=== PATIENT | male | born 1935 | race Caucasian/White ===

== ENCOUNTER 2019-09-27 13:51 | Inpatient (IN) | payer OTHER ==
--- NOTE | 2019-09-27 14:05 | PDOC ---
History of Present Illness - General Chief Complaint: Pain, Acute Stated Complaint: SOB,CHEST PAIN Time Seen by Provider: 09/27/19 14:05 History Source: Patient, Care Provider - History of Present Illness Initial Comments: 09/27/19 14:41 HPI: This is an 84 y/o male with a PMH of HTN, NIDDM, and Parkinsons BIBA to the ED because of 5 days of a non-productive cough, and 2 days of worsening SOB with body aches. The patient lives at home with his , and is not on home oxygen. Denies abdominal pain, diarrhea, nausea/vomiting, chest pain. Patient also admits to decreased appetite, and increasing urinary frequency but denies dysuria or hematuria. Patient reports no sick contacts, but has been visiting his daughters house for the past two weeks. Tested negative for COVID on September 06. BIBA saturating at 89% on 4L of nasal cannula. ROS: GENERAL/CONSTITUTIONAL: Yes chills. No weakness. Yes decreased appetite. HEAD, EYES, EARS, NOSE AND THROAT: No sore throat. CARDIOVASCULAR: No chest pain or shortness of breath. RESPIRATORY: Yes cough, no wheezing, or hemoptysis. GASTROINTESTINAL: No nausea, diarrhea GENITOURINARY: No dysuria, Yes increased frequency, or change in urination. MUSCULOSKELETAL: Yes myalgias SKIN: No rash NEUROLOGIC: No headache, loss of consciousness, or change in strength/sensation. HEMATOLOGIC/LYMPHATIC: No anemia, easy bleeding, or history of blood clots. ALLERGIC/IMMUNOLOGIC: No hives or skin allergy. PMH: NIDDM, Parkinsons, HTN PSx: Knee sx Social Hx: Denied etoh and tobacco Meds: See nurse note Allergies: KNDA PE: GENERAL: Awake, alert, and fully oriented. Patient is non-toxic appearing but is tachypneic on non-rebreather. HEAD: No signs of trauma EYES: PERRLA, EOMI ENT: Moist mucosa NECK: Normal ROM, supple, no lymphadenopathy, JVD, or masses LUNGS: Tachypneic. Right sided crackles throughout, left sided crackles at base. HEART: Regular rate and rhythm, normal S1 and S2, no murmurs, rubs or gallops ABDOMEN: Soft, nontender, normoactive bowel sounds. No guarding, no rebound. No masses EXTREMITIES: No edema. No clubbing or cyanosis. No cords, erythema, or tenderness. Chronic r. knee fluid NEUROLOGICAL: Cranial nerves II through XII grossly intact. Normal speech. SKIN: Warm, Dry MDM: 09/27/19 14:44 This is an 84 y/o male with a PMH of HTN, NIDDM, and Parkinsons BIBA to the ED because of 5 days of a non-productive cough, and 2 days of worsening SOB with body aches. The patient lives at home with his , and is not on home oxygen. Denies abdominal pain, diarrhea, nausea/vomiting, chest pain. Patient also admits to decreased appetite, and increasing urinary frequency but denies dysuria or hematuria. Patient reports no sick contacts, but has been visiting his daughters house for the past two weeks. Tested negative for COVID on September 06. ACS vs pneumonia vs covid vs HF vs sepsis - Tachypneic and saturating at 89% on 4L NC on arrival - Switched to non-rebreather, still tachypneic but saturating 97% - Right sided crackles on exam, no peripheral edema - Rectal temp 99.4 - CBC, CMP, Lactic, ferritin, LDH, CRP, VBG, BNP, UA and culture - CXR - Patient is full code per patient and daughter - WBC 21.2 - CXR with diffuse right sided infiltrates - Started vanco and zosyn - 1L LR 09/27/19 15:42 - Labs notable for: - BNP 4100.4 - LDH 446 - Lactic 4.2 - Troponin neg 09/27/19 16:51 - Will give 10mg decadron for presumed COVID - Patient with increased work of breathing on non-rebreather. Still saturating in the high 90's. Will start on BiPaP - BP 200/100 - Will give .4 NG - Pt did not take home medications today. Will give home doses of Amlodipine and Losartan. Chest CT non-con: Impression: A diffuse right lung infiltrate is noted with alveolar and interstitial components. Very small right pleural effusion. Several subpleural groundglass infiltrates are seen within the left upper and lower lobes - ? possible COVID-19 pneumonitis. Several nonspecific mildly enlarged mediastinal lymph nodes are noted probably on a reactive basis. Correlate with 3 month follow-up CT. - BP improved with medications. Patient comfortable and saturating in the 90's on BiPaP. - Pt admitted to ICU Past History - Medical History Allergies/Adverse Reactions: Allergies Allergy/AdvReac Type Severity Reaction Status Date / Time No Known Allergies Allergy Verified 09/27/19 14:09 Home Medications: Ambulatory Orders Amlodipine Besylate 5 mg PO DAILY 09/27/19 Carbidopa/Levodopa [Carbidopa-Levodopa 25-250 Tab] 1 each PO BID 09/27/19 Glipizide 10 mg PO BID 09/27/19 Losartan Potassium [Cozaar -] 50 mg PO DAILY 09/27/19 Pramipexole Di-HCl [Pramipexole Dihydrochloride] 0.125 mg PO TID 09/27/19 COPD: No Diabetes: Yes HTN: Yes - Immunization History Immunization Up to Date: No - Psycho-Social/Smoking History Smoking History: Never smoked - Substance Abuse Hx (Audit-C & DAST Scrn) How often the patient has a drink containing alcohol: Never Score: In Men: 4 or > Positive; In Women: 3 or > Positive: 0 Screen Result (Pos requires Nsg. Audit-10AR): Negative In the last yr the pt used illegal drug/Rx for NonMed reason: No Score: Yes response is considered Positive: 0 Screen Result (Positive result requires Nsg. DAST-10): Negative *Physical Exam - Vital Signs Last Vital Signs Temp Pulse Resp BP Pulse Ox 98.8 F 101 H 26 H 182/94 H 89 L 09/27/19 13:55 09/27/19 13:55 09/27/19 13:55 09/27/19 13:55 09/27/19 13:55 ED Treatment Course - LABORATORY CBC & Chemistry Diagram: 09/28/19 06:38 09/27/19 20:15 Discharge - Discharge Information Problems reviewed: Yes Clinical Impression/Diagnosis: Pneumonia Qualifiers: Pneumonia type: due to unspecified organism Laterality: right Lung location: unspecified part of lung Qualified Code(s): J18.9 - Pneumonia, unspecified organism Condition: Fair - Admission Yes - Follow up/Referral - Patient Discharge Instructions - Post Discharge Activity
[2019-09-27 15:00] LABS: BASO % 0.5 % (0-2.0); EOS % 0.4 % (0-4.5); HEMATOCRIT 36.7 % (35.4-49); HEMOGLOBIN 11.6 GM/dL (11.7-16.9); LYMPH % 3.3 % (8-40); MCH 27.1 pg (25.7-33.7); MCHC 31.7 g/dl (32.0-35.9); MEAN CELL VOLUME 85.5 fl (80-96); MEAN PLT VOLUME 7.9 fl (7.5-11.1); MONO % 5.5 % (3.8-10.2); NEUT % 90.3 % (42.8-82.8); PLATELET COUNT 408 K/MM3 (134-434); RBC 4.29 M/mm3 (4.00-5.60); RDW 19.1 % (11.9-15.9); WHITE BLOOD COUNT 21.2 K/mm3 (4.0-10.0)
[2019-09-27] MEDS ORDERED: VANCOMYCIN 1 GM in D5W (PRE-DOCKED) 1,000 MG/250 ML IVPB ONE (15:09)
[2019-09-27] MEDS ORDERED: PIPERACILLIN/TAZOB 4.5 GM 4.5 GM in DEXTROSE 5%-WATER 100 ML IVPB ONE (15:09)
[2019-09-27 15:18] LABS: VENOUS BASE EXCESS 0.7 mmol/L (-2-2); VENOUS PCO2 38.5 mmHg (38-52)
[2019-09-27 15:28] LABS: EPI CELLS 26 /uL (0-25.1); HYALINE CASTS 1 /uL (0-3.1); URINE APPEARANCE CLEAR; URINE BACTERIA 227 /uL (0-1359); URINE BILIRUBIN NEGATIVE (NEGATIVE); URINE COLOR YELLOW; URINE GLUCOSE (UA) 3+ (NEGATIVE); URINE KETONE TRACE (NEGATIVE); URINE LEUK ESTERASE NEGATIVE (NEGATIVE); URINE NITRITE NEGATIVE (NEGATIVE); URINE PROTEIN 1+ (NEGATIVE); URINE RBC 25 /uL (0-23.9); URINE WBC 22 /uL (0-25.8)
[2019-09-27] MEDS ORDERED: PIPERACILLIN/TAZOB 4.5 GM 4.5 GM/100 ML BAG IVPB ONE (15:29)
[2019-09-27] MEDS ORDERED: VANCOMYCIN 1 GRAM (PRE-DOCKED) 1,000 MG/250 ML BAG IVPB ONE (15:30)
[2019-09-27 15:35] LABS: LDH 446 U/L (87-246)
[2019-09-27 15:37] LABS: ALBUMIN 2.5 g/dl (3.4-5.0); ALK PHOS 126 U/L (45-117); ANION GAP 11 MMOL/L (8-16); ANISOCYTOSIS 1+; BILIRUBIN,TOTAL 0.4 mg/dL (0.2-1); BLOOD UREA NITROGEN 19.4 mg/dL (7-18); CALCIUM 8.5 mg/dL (8.5-10.1); CHLORIDE 100 mmol/L (98-107); CO2 25 mmol/L (21-32); GLUCOSE,RANDOM 317 mg/dL (74-106); MACROCYTOSIS 1+; N-TERMINAL BNP 4100.4 pg/ml (5-450); PLATELET ESTIMATE NORMAL; POTASSIUM 4.1 mmol/L (3.5-5.1); SGOT/AST 36 U/L (15-37); SGPT/ALT 38 U/L (13-61); SODIUM 136 mmol/L (136-145); TOT PROT 6.8 g/dl (6.4-8.2)
[2019-09-27] MEDS ORDERED: LACTATED RINGERS SOLUTION 1000 ML INFUS.BAG IV ONE (15:49)
[2019-09-27] MEDS ORDERED: DEXAMETHASONE SOD PHOSPHATE 10 MG/1 ML VIAL IVPUSH ONE (16:18)
[2019-09-27] MEDS ORDERED: DEXAMETHASONE SOD PHOSPHATE 10 MG/1 ML VIAL ONE (16:22)
--- NOTE | 2019-09-27 16:24 | PDOC ---
Documentation entered by Daja Real SCRIBE, acting as scribe for Lili Ramsay MD. Lili Ramsay MD: This documentation has been prepared by the kendellibeFarhan Lincy, SCRIBE, under my direction and personally reviewed by me in its entirety. I confirm that the documentation accurately reflects all work, treatment, procedures, and medical decision making performed by me. Attending Attestation - Resident Resident Name: Olivia Santoro - ED Attending Attestation I have performed the following: I have examined & evaluated the patient, The case was reviewed & discussed with the resident, I agree w/resident's findings & plan, Exceptions are as noted - HPI HPI: 09/27/19 15:29 The patient is a 84 year old female with a past medical history significant for DM, HTN, and Parkinson's who presents to the emergency department with shortness of breath and cough. The patient presents with 5 days of shortness of breath and a cough, associated with decreased appetite and urinary frequency. The patient reports his shortness of breath has increased than usual. Denies dysuria, hematuria, or urgency to urinate. Denies fever or chills. Denies nausea, vomiting. Denies known sick contact. The patient reports he tested negative for COVID on September 06. Allergies: NKA Social history: The patient lives with his daughter. Denies history of tobacco use. - Physicial Exam PE: 09/27/19 16:21 Patient is awake and alert appears to be in no acute distress dry mucous membranes lung exam shows normal effort but crackles on the right lung base and midlung pulse ox is 89% on room air heart rate is regular 30 murmurs rubs or gallops abdomen is soft and nontender extremities are warm well perfused skin is warm and dry no rash patient is awake alert and oriented x3 - Medical Decision Making 09/27/19 16:21 84-year-old male history of hypertension diabetes and Parkinson's here today with cough for 5 days worsening shortness of breath of the last 2 days subjective fevers and chills decreased p.o. intake loss of appetite. Does describe myalgia did have a negative COVID test in September 06 is currently living with his daughter who is been with for 2 weeks Physical exam shows significant hypoxia crackles at the right lung base suspect pneumonia Differential diagnosis includes viral pneumonia such as COVID-19, bacterial pneumonia, aspiration, PE is considered however due to patient's history of fever bacterial infection is more common other infection such as UTI is also considered plan CBC CMP EKG troponin blood cultures UA urine cultures lactate cope with swab chest x-ray Chest x-ray shows right-sided focal infiltrate patient was covered for broad coverage sepsis with vancomycin and Zosyn lactate is 4 he will be resuscitated with IV hydration 2 L normal saline were given white count is elevated at 21 patient will be admitted for pneumonia discussion with his daughter and patient would like to be full code Discharge - Discharge Information Problems reviewed: Yes Clinical Impression/Diagnosis: Pneumonia Condition: Fair - Admission Yes - Follow up/Referral Referrals: ON STAFF,NOT [Primary Care Provider] - - Patient Discharge Instructions - Post Discharge Activity
--- NOTE | 2019-09-27 16:38 | HP ---
CHIEF COMPLAINT: PCP: Dr Driver HISTORY OF PRESENT ILLNESS: 84 y/o male with known history of HTN, NIDDM, and Parkinsons, left knee surgery (remote) who was brought to the ED via ambulance for worsening shortness of breath. Patient has been having non-productive cough x 5 days along with body aches. No fevers. With increased shortness of breath ambulance was called At the ED, patient was found to be hypoxic on presentation with saturation of 89% on 4 liters and with leukocytosis of 21.2 Recent Travel: none PAST MEDICAL HISTORY: as above PAST SURGICAL HISTORY: as above Social History: Smoking: denies Alcohol: denies Drugs: denies Family History: Unable to recall Allergies No Known Allergies Allergy (Verified 09/27/19 14:09) HOME MEDICATIONS: Home Medications Medication Instructions Recorded Amlodipine Besylate 5 mg PO DAILY 09/27/19 Carbidopa/Levodopa 1 each PO BID 09/27/19 [Carbidopa-Levodopa 25-250 Tab] Glipizide 10 mg PO BID 09/27/19 Losartan Potassium [Cozaar -] 50 mg PO DAILY 09/27/19 Pramipexole Di-HCl [Pramipexole 0.125 mg PO TID 09/27/19 Dihydrochloride] REVIEW OF SYSTEMS Unable to obtain PHYSICAL EXAMINATION Vital Signs - 24 hr 09/27/19 09/27/19 13:55 15:43 Temperature 98.8 F Pulse Rate 101 H Pulse Rate [ 83 Left Radial] Respiratory 26 H 28 H Rate Blood Pressure 182/94 H Blood Pressure 186/80 H [Left Arm] O2 Sat by Pulse 89 L 98 Oximetry (%) GENERAL: Appears ill, short of breath, in moderate respiratory distress . HEAD: Normal with no signs of trauma. EYES: Pupils equal, round and reactive to light, extraocular movements intact, sclera anicteric, conjunctiva clear. No lid lag. EARS, NOSE, THROAT: dry mucous membranes, tongue midline. NECK: limited range of motion without lymphadenopathy, JVD, or masses. LUNGS: Crackles at the bases bilaterally and up to mid lung field on the right. There is noted accessory muscles of respiration use HEART: Tachycardic, no murmurs ABDOMEN: Soft, nontender, not distended, normoactive bowel sounds, no guarding, no rebound, no masses. No hepatomegaly or splenomegaly. MUSCULOSKELETAL: Normal range of motion at all joints. No bony deformities or tenderness. No CVA tenderness. UPPER EXTREMITIES: 2+ pulses, warm, well-perfused. No cyanosis. No clubbing. No peripheral edema. LOWER EXTREMITIES: 2+ pulses, warm, well-perfused. No calf tenderness. No peripheral edema. NEUROLOGICAL: With generalized rigidity. Slow movements. Recall is poor. Cranial nerves III-XII intact. Normal strength bilateral upper and lower extremities PSYCHIATRIC: Cooperative. Good eye contact. Appropriate mood and affect. SKIN: Warm, dry, normal turgor, no rashes or lesions noted, normal capillary refill. Laboratory Results - last 24 hr 09/27/19 09/27/19 09/27/19 14:40 14:40 14:40 WBC 21.2 H RBC 4.29 Hgb 11.6 L Hct 36.7 MCV 85.5 MCH 27.1 MCHC 31.7 L RDW 19.1 H Plt Count 408 MPV 7.9 Absolute Neuts (auto) 19.2 H Neutrophils % 90.3 H Neutrophils % (Manual) 88.1 H Band Neutrophils % 0.0 Lymphocytes % 3.3 L Lymphocytes % (Manual) 6.9 L Monocytes % 5.5 Monocytes % (Manual) 4 Eosinophils % 0.4 Eosinophils % (Manual) 0.0 Basophils % 0.5 Basophils % (Manual) 1.0 Myelocytes % (Man) 0 Promyelocytes % (Man) 0 Blast Cells % (Manual) 0 Nucleated RBC % 0 Metamyelocytes 0 Hypochromia 0 Platelet Estimate Normal Polychromasia 2+ Poikilocytosis 0 Anisocytosis 1+ Microcytosis 1+ Macrocytosis 1+ VBG pH POC VBG pCO2 POC VBG pO2 VBG HCO3 VBG O2 Sat (Lissy) VBG Base Excess Sodium 136 Potassium 4.1 Chloride 100 Carbon Dioxide 25 Anion Gap 11 BUN 19.4 H Creatinine 1.0 Est GFR (CKD-EPI)AfAm 78.64 Est GFR (CKD-EPI)NonAf 67.85 Random Glucose 317 H Lactic Acid 4.2 H* Calcium 8.5 Ferritin 43.5 Total Bilirubin 0.4 AST 36 ALT 38 Alkaline Phosphatase 126 H LD Total 446 H Creatine Kinase 34 Troponin I < 0.02 B-Natriuretic Peptide 4100.4 H Total Protein 6.8 Albumin 2.5 L Urine Color Urine Appearance Urine pH Ur Specific [place] Urine Protein Urine Glucose (UA) Urine Ketones Urine Blood Urine Nitrite Urine Bilirubin Urine Urobilinogen Ur Leukocyte Esterase Urine WBC (Auto) Urine RBC (Auto) Urine Casts (Auto) U Epithel Cells (Auto) Urine Bacteria (Auto) 09/27/19 09/27/19 14:40 15:00 WBC RBC Hgb Hct MCV MCH MCHC RDW Plt Count MPV Absolute Neuts (auto) Neutrophils % Neutrophils % (Manual) Band Neutrophils % Lymphocytes % Lymphocytes % (Manual) Monocytes % Monocytes % (Manual) Eosinophils % Eosinophils % (Manual) Basophils % Basophils % (Manual) Myelocytes % (Man) Promyelocytes % (Man) Blast Cells % (Manual) Nucleated RBC % Metamyelocytes Hypochromia Platelet Estimate Polychromasia Poikilocytosis Anisocytosis Microcytosis Macrocytosis VBG pH 7.400 POC VBG pCO2 38.5 POC VBG pO2 43.8 VBG HCO3 24.9 VBG O2 Sat (Lissy) No Result Required. VBG Base Excess 0.7 Sodium Potassium Chloride Carbon Dioxide Anion Gap BUN Creatinine Est GFR (CKD-EPI)AfAm Est GFR (CKD-EPI)NonAf Random Glucose Lactic Acid Calcium Ferritin Total Bilirubin AST ALT Alkaline Phosphatase LD Total Creatine Kinase Troponin I B-Natriuretic Peptide Total Protein Albumin Urine Color Yellow Urine Appearance Clear Urine pH 6.0 Ur Specific [place] 1.036 H Urine Protein 1+ H Urine Glucose (UA) 3+ H Urine Ketones Trace H Urine Blood Negative Urine Nitrite Negative Urine Bilirubin Negative Urine Urobilinogen 1.0 Ur Leukocyte Esterase Negative Urine WBC (Auto) 22 Urine RBC (Auto) 25 Urine Casts (Auto) 1 U Epithel Cells (Auto) 26 Urine Bacteria (Auto) 227 ASSESSMENT/PLAN: 1. Resp failure secondary to Severe sepsis secondary to pneumonia - vanc and zosyn received at the ED - Dr Almendarez (ID) informed of consultation - repeat lactic acid - blood cultures - CT chest without contast - covid-19 testing sent - IVF ongoing. Monitor for fluid overload - oxygen support to keep sats >91% - telemetry monitoring - Dr Caldwell (pulm) consulted 2. serial troponins 3. Parkinson - cont carbidopa, pramipexole 4. DM 2 - accuchecks, SSI 5. HTN - cont amlodipine - prn labetalol for SBP>180 6. DVT prophylaxis - Lovenox SQ 7. Home meds reviewed. Will hold off on ARB, glipizide today. Reassess in am if appropriate to restart
[2019-09-27] MEDS ORDERED: LOSARTAN POTASSIUM 50 MG TABLET (FP) PO ONE (16:49)
[2019-09-27] MEDS ORDERED: amLODIPine BESYLATE 5 MG TABLET (FP) PO ONE (16:49)
[2019-09-27] MEDS ORDERED: amLODIPine BESYLATE 5 MG TABLET (FP) ONE (16:59)
[2019-09-27] MEDS ORDERED: LOSARTAN POTASSIUM 50 MG TABLET (FP) ONE (16:59)
[2019-09-27] MEDS ORDERED: ENOXAPARIN NA (PORCINE) 40 MG/0.4 ML DISP.SYRIN SQ SCH (17:00)
[2019-09-27] MEDS ORDERED: NITROGLYCERIN SUBLINGUAL 1/150 0.4 MG TAB SL ONE (17:29)
[2019-09-27] MEDS ORDERED: NITROGLYCERIN SUBLINGUAL 1/150 0.4 MG TAB ONE (17:35)
[2019-09-27] MEDS ORDERED: ACETAMINOPHEN 325 MG TABLET (FP) PO PRN (17:45)
[2019-09-27] MEDS ORDERED: LABETALOL HCL 5 MG/1 ML (100MG/20 ML VIAL) IVPUSH ONE (18:01)
--- NOTE | 2019-09-27 18:02 | CONSULT ---
Consultation: REQUESTING PROVIDER: Dr Ramsay CONSULT REQUEST: ICU monitoring. HISTORY OF PRESENT ILLNESS: 84 y.o male with PMH of HTN, DM, parkinsons disease presents to the ED with complaints of shortness of breath and non-productive cough over the last 4-5 days. patient lives at home with his , states he does not travel anywhere nor has anyone been sick around him; he denies any associated symptoms; no diarrhea/fevers; he has not tried taking anything for his cough at home. in the ED patient found to be afebrile; tachycardic to 108 BP with systolics in the 180's (states he did not take his BP meds today), initially came in on 4L NC with sats in the 80's with rates in the 20's then was upgraded to 100 %NRB- WBC 21 ; Hgb 11- Cr 1.0 lactic acid 4 LDH in the 400's BNP >4000 CXR showed right basilar infiltrate; patient received decadron 10; vanc/zosyn and his BP meds and 2L NS; patient became more tachypneic with accessory muscle use and was placed on BIPAP. ABG pending- patient is a FULL CODE REVIEW OF SYSTEMS: CONSTITUTIONAL: Absent: fever, chills, diaphoresis, generalized weakness, malaise, loss of appetite, weight change HEENT: Absent: rhinorrhea, nasal congestion, throat pain, throat swelling, difficulty swallowing, mouth swelling, ear pain, eye pain, visual changes CARDIOVASCULAR: Absent: chest pain, syncope, palpitations, irregular heart rate, lightheadedness, peripheral edema RESPIRATORY: Present: cough, shortness of breath Absent: dyspnea with exertion, orthopnea, wheezing, stridor, hemoptysis GASTROINTESTINAL: Absent: abdominal pain, abdominal distension, nausea, vomiting, diarrhea, constipation, melena, hematochezia GENITOURINARY: Absent: dysuria, frequency, urgency, hesitancy, hematuria, flank pain, genital pain MUSCULOSKELETAL: Absent: myalgia, arthralgia, joint swelling, back pain, neck pain SKIN: Absent: rash, itching, pallor HEMATOLOGIC/IMMUNOLOGIC: Absent: easy bleeding, easy bruising, lymphadenopathy, frequent infections ENDOCRINE: Absent: unexplained weight gain, unexplained weight loss, heat intolerance, cold intolerance NEUROLOGIC: Absent: headache, focal weakness or paresthesias, dizziness, unsteady gait, seizure, mental status changes, bladder or bowel incontinence PSYCHIATRIC: Absent: anxiety, depression, suicidal or homicidal ideation, hallucinations. PHYSICAL EXAMINATION Vital Signs - 24 hr 09/27/19 09/27/19 09/27/19 13:55 15:43 16:50 Temperature 98.8 F Pulse Rate 101 H Pulse Rate [ 83 103 H Left Radial] Respiratory 26 H 28 H 26 H Rate Blood Pressure 182/94 H Blood Pressure 186/80 H 204/101 H [Left Arm] O2 Sat by Pulse 89 L 98 Oximetry (%) 09/27/19 17:30 Temperature Pulse Rate Pulse Rate [ 108 H Left Radial] Respiratory 29 H Rate Blood Pressure Blood Pressure 187/106 H [Left Arm] O2 Sat by Pulse Oximetry (%) GENERAL: Awake, alert, on NRB; tachypneic in acute respiratory distress . EYES:PEERLA: EOMI; no scleral icterus . NECK: no JVD; no lymphadenopathy LUNGS: crackles at the bases b/l; accessory muscle use HEART: tachycardic, s1 s2; no M/R/G. ABDOMEN: soft; NT/ND +BS in all 4 quadrants. MUSCULOSKELETAL: Normal range of motion at all joints. No bony deformities or tenderness. No CVA tenderness. EXTREMITIES: warm; well-perfused no clubbing/cyanosis or edema PSYCHIATRIC: Cooperative. Good eye contact. Appropriate mood and affect. SKIN: Warm, dry, normal turgor, no rashes or lesions noted. Laboratory Results - last 24 hr 09/27/19 09/27/19 09/27/19 14:40 14:40 14:40 WBC 21.2 H RBC 4.29 Hgb 11.6 L Hct 36.7 MCV 85.5 MCH 27.1 MCHC 31.7 L RDW 19.1 H Plt Count 408 MPV 7.9 Absolute Neuts (auto) 19.2 H Neutrophils % 90.3 H Neutrophils % (Manual) 88.1 H Band Neutrophils % 0.0 Lymphocytes % 3.3 L Lymphocytes % (Manual) 6.9 L Monocytes % 5.5 Monocytes % (Manual) 4 Eosinophils % 0.4 Eosinophils % (Manual) 0.0 Basophils % 0.5 Basophils % (Manual) 1.0 Myelocytes % (Man) 0 Promyelocytes % (Man) 0 Blast Cells % (Manual) 0 Nucleated RBC % 0 Metamyelocytes 0 Hypochromia 0 Platelet Estimate Normal Polychromasia 2+ Poikilocytosis 0 Anisocytosis 1+ Microcytosis 1+ Macrocytosis 1+ VBG pH POC VBG pCO2 POC VBG pO2 VBG HCO3 VBG O2 Sat (Lissy) VBG Base Excess Sodium 136 Potassium 4.1 Chloride 100 Carbon Dioxide 25 Anion Gap 11 BUN 19.4 H Creatinine 1.0 Est GFR (CKD-EPI)AfAm 78.64 Est GFR (CKD-EPI)NonAf 67.85 POC Glucometer Random Glucose 317 H Lactic Acid 4.2 H* Calcium 8.5 Ferritin 43.5 Total Bilirubin 0.4 AST 36 ALT 38 Alkaline Phosphatase 126 H LD Total 446 H Creatine Kinase 34 Troponin I < 0.02 B-Natriuretic Peptide 4100.4 H Total Protein 6.8 Albumin 2.5 L Urine Color Urine Appearance Urine pH Ur Specific [place] Urine Protein Urine Glucose (UA) Urine Ketones Urine Blood Urine Nitrite Urine Bilirubin Urine Urobilinogen Ur Leukocyte Esterase Urine WBC (Auto) Urine RBC (Auto) Urine Casts (Auto) U Epithel Cells (Auto) Urine Bacteria (Auto) 09/27/19 09/27/19 09/27/19 14:40 15:00 17:37 WBC RBC Hgb Hct MCV MCH MCHC RDW Plt Count MPV Absolute Neuts (auto) Neutrophils % Neutrophils % (Manual) Band Neutrophils % Lymphocytes % Lymphocytes % (Manual) Monocytes % Monocytes % (Manual) Eosinophils % Eosinophils % (Manual) Basophils % Basophils % (Manual) Myelocytes % (Man) Promyelocytes % (Man) Blast Cells % (Manual) Nucleated RBC % Metamyelocytes Hypochromia Platelet Estimate Polychromasia Poikilocytosis Anisocytosis Microcytosis Macrocytosis VBG pH 7.400 POC VBG pCO2 38.5 POC VBG pO2 43.8 VBG HCO3 24.9 VBG O2 Sat (Lissy) No Result Required. VBG Base Excess 0.7 Sodium Potassium Chloride Carbon Dioxide Anion Gap BUN Creatinine Est GFR (CKD-EPI)AfAm Est GFR (CKD-EPI)NonAf POC Glucometer 299 Random Glucose Lactic Acid Calcium Ferritin Total Bilirubin AST ALT Alkaline Phosphatase LD Total Creatine Kinase Troponin I B-Natriuretic Peptide Total Protein Albumin Urine Color Yellow Urine Appearance Clear Urine pH 6.0 Ur Specific [place] 1.036 H Urine Protein 1+ H Urine Glucose (UA) 3+ H Urine Ketones Trace H Urine Blood Negative Urine Nitrite Negative Urine Bilirubin Negative Urine Urobilinogen 1.0 Ur Leukocyte Esterase Negative Urine WBC (Auto) 22 Urine RBC (Auto) 25 Urine Casts (Auto) 1 U Epithel Cells (Auto) 26 Urine Bacteria (Auto) 227 Active Medications Generic Name Dose Route Start Last Admin Trade Name Freq PRN Reason Stop Dose Admin Acetaminophen 650 mg 09/27/19 17:45 Tylenol - PO Q4H PRN PAIN LEVEL 1-5 Amlodipine Besylate 5 mg 09/28/19 10:00 Norvasc - PO DAILY [facility] Carbidopa/Levodopa 1 each 09/27/19 22:00 Sinemet 25/250 - PO BID [facility] Enoxaparin Sodium 40 mg 09/27/19 17:00 Lovenox - SQ DAILY [facility] Insulin Aspart 1 vial 09/27/19 22:00 Novolog Vial Sliding Scale - SQ ACHS [facility] Protocol Labetalol HCl 100 mg 09/27/19 22:00 Normodyne - PO BID [facility] Pramipexole Dihydrochloride 0.125 mg 09/27/19 22:00 Mirapex - PO TID [facility] ASSESSMENT/PLAN: 84 y.o male with PMH of HTN, DM, parkinsons disease presents to the ED with complaints of shortness of breath and non-productive cough over the last 4-5 days #Neruro parkinsons' history -c/w home parkinson's meds -AOx3; stable; no issues #Cardio HTN history BNP >4000; top neg x1 -patient did not take his BP meds this AM -resume Amlodipine and labetolol -echo ordered -monitor hemodynamics -maintain MAP >65 -minimal fluid #Endo history of DM -holding home glipizide -ISS ACHS -BGMS ACHS #ID blood and urine cx pending -sputum cx; legionella pending -received vanc/zosyn -will c.w zosyn -ID consult -repeat lactic acid #Pulm R infiltrate seen on CXR -covid pending; -patient initally on NRB now on BIPAP -f/u ABG -f/u inflammatory markers -chest CT ordered -maintain o2 sat >90 -if no improvement in respiratory status may need intubation -patient is full code #Renal Cr 1.0 -monitor electrolytes -monitor I's and O's -monitor volume status f/e/n not on standing fluids monitor electrolytes sodium/diabetic diet dvt ppx: lovenox code status: full code Dispo: We will continue to follow the patient. Thank you for this consultative opportunity. Problem List - Problems (1) HTN (hypertension) Code(s): I10 - ESSENTIAL (PRIMARY) HYPERTENSION (2) Diabetes Code(s): E11.9 - TYPE 2 DIABETES MELLITUS WITHOUT COMPLICATIONS (3) Parkinson disease Code(s): G20 - PARKINSON'S DISEASE (4) Pneumonia Code(s): J18.9 - PNEUMONIA, UNSPECIFIED ORGANISM Visit type - Medication Review Med list reviewed for High Risk Meds patients 65 and older: Yes - Emergency Visit Emergency Visit: Yes ED Registration Date: 09/27/19 Care time: The patient presented to the Emergency Department on the above date and was hospitalized for further evaluation of their emergent condition. - New Patient This patient is new to me today: Yes Date on this admission: 09/27/19 - Critical Care Critical Care patient: Yes Total Critical Care Time (in minutes): 35 Critical Care Statement: The care of this patient involved high complexity decision making to prevent further life threatening deterioration of the patient's condition and/or to evaluate & treat vital organ system(s) failure or risk of failure. ATTENDING PHYSICIAN STATEMENT I saw and evaluated the patient. I reviewed the resident's note and discussed the case with the resident. I agree with the resident's findings and plan as documented. SUBJECTIVE: OBJECTIVE: ASSESSMENT AND PLAN:
[2019-09-27] MEDS ORDERED: LABETALOL HCL 5 MG/1 ML (200MG/40ML VIAL) IVPB ONE (18:07)
[2019-09-27] MEDS ORDERED: ENOXAPARIN NA (PORCINE) 30 MG/0.3 ML DISP.SYRIN SQ ONE (18:07)
[2019-09-27] MEDS ORDERED: FUROSEMIDE 40 MG/4 ML INJECTABLE VIAL IVPUSH ONE (18:14)
[2019-09-27 18:18] LABS: ARTERIAL BLD GAS O2 SATURATION 97.2 mmHg (95-98); ARTERIAL BLOOD GAS BASE EXCESS 2.3 mmol/L (-2-2); ARTERIAL BLOOD GAS PO2 84.9 mmHg (80-100); ARTERIAL BLOOD GAS pH 7.495 (7.350-7.450)
[2019-09-27 18:21] LABS: ALLENS TEST POSITIVE
[2019-09-27] MEDS ORDERED: FUROSEMIDE 40 MG/4 ML INJECTABLE VIAL ONE (18:34)
[2019-09-27 21:25] LABS: ALBUMIN 2.8 g/dl (3.4-5.0); ALK PHOS 145 U/L (45-117); ANION GAP 10 MMOL/L (8-16); BILIRUBIN,TOTAL 0.6 mg/dL (0.2-1); BLOOD UREA NITROGEN 17.4 mg/dL (7-18); CALCIUM 8.9 mg/dL (8.5-10.1); CHLORIDE 97 mmol/L (98-107); CO2 28 mmol/L (21-32); CREATININE 0.9 mg/dL (0.55-1.3); GLUCOSE,RANDOM 306 mg/dL (74-106); SGOT/AST 59 U/L (15-37); SGPT/ALT 43 U/L (13-61); SODIUM 135 mmol/L (136-145); TOT PROT 7.7 g/dl (6.4-8.2)
[2019-09-27] MEDS ORDERED: LABETALOL HCL 100 MG TABLET (FP) PO SCH (22:00)
[2019-09-27] MEDS ORDERED: INSULIN SLIDING SCALE (NOVOLOG) 1 VIAL SQ SCH (22:00)
[2019-09-27] MEDS: CARBIDOPA/LEVODOPA 25/250 TABLET (FP) PO SCH (22:53)
[2019-09-27] MEDS: PRAMIPEXOLE DIHYDROCHLORIDE 0.125 MG TABLET PO SCH (22:53)
[2019-09-27] MEDS: INSULIN SLIDING SCALE (NOVOLOG) 1 VIAL SQ SCH (22:54)
[2019-09-27] MEDS ORDERED: PIPERACILLIN/TAZOB 3.375 GM 3.375 GM in DEXTROSE 5%-WATER - 50 ML IVPB SCH (23:00)
[2019-09-28] MEDS ORDERED: PIPERACILLIN/TAZOBACTAM 3.375 GM VIAL IVPB ONE ×3 (00:42→17:02)
[2019-09-28] MEDS ORDERED: DEXTROSE 5%-WATER - 50 ML IVPB ONE ×3 (00:43→17:02)
[2019-09-28] MEDS: PIPERACILLIN/TAZOB 3.375 GM 3.375 GM in DEXTROSE 5%-WATER - 50 ML IVPB SCH ×3 (00:52→17:35)
[2019-09-28] MEDS: PRAMIPEXOLE DIHYDROCHLORIDE 0.125 MG TABLET PO SCH ×3 (05:20→21:58)
[2019-09-28 07:02] LABS: ARTERIAL BLD GAS O2 SATURATION 93.2 mmHg (95-98); ARTERIAL BLOOD GAS BASE EXCESS 4.3 mmol/L (-2-2); ARTERIAL BLOOD GAS pH 7.472 (7.350-7.450)
[2019-09-28 07:05] LABS: ALLENS TEST POSITIVE
[2019-09-28 07:06] LABS: VENT MODE S/T
[2019-09-28 07:07] LABS: VENT RATE 16
[2019-09-28] MEDS: INSULIN SLIDING SCALE (NOVOLOG) 1 VIAL SQ SCH ×4 (07:23→23:44)
[2019-09-28 07:33] LABS: BASO % 0.1 % (0-2.0); HEMATOCRIT 37.5 % (35.4-49); HEMOGLOBIN 12.1 GM/dL (11.7-16.9); LYMPH % 3.1 % (8-40); MCH 27.2 pg (25.7-33.7); MCHC 32.2 g/dl (32.0-35.9); MEAN CELL VOLUME 84.6 fl (80-96); MEAN PLT VOLUME 7.8 fl (7.5-11.1); MONO % 3.8 % (3.8-10.2); PLATELET COUNT 432 K/MM3 (134-434); RBC 4.43 M/mm3 (4.00-5.60); RDW 19.1 % (11.9-15.9); WHITE BLOOD COUNT 29.9 K/mm3 (4.0-10.0)
--- NOTE | 2019-09-28 08:44 | PN ---
Physical Exam: SUBJECTIVE: Patient seen and examined at bedside; overnight patients respiratory status remained stable on BIPAP- he had one episode of bradycardia with Hr in the 40;s only lasted a few seconds; otherwise he states his respiratory status is improving as per him- he states he is hungry; OBJECTIVE: Vital Signs Period Temp Pulse Resp BP Sys/[place] Pulse Ox Last 24 Hr 97.1 F-98.8 F 61-108 19-31 124-204/70-106 89-100 GENERAL: The patient is awake, alert, and fully oriented, in no acute distress on BIPAP EYES: PEERLA: EOMI: no scleral icterus. NECK: Trachea midline, full range of motion, supple. LUNGS: Breath sounds equal, clear to auscultation bilaterally, no wheezes, no crackles, no accessory muscle use. HEART: Regular rate and rhythm, S1, S2 without murmur, rub or gallop. ABDOMEN: Soft, nontender, nondistended, normoactive bowel sounds, no guarding, no rebound, no hepatosplenomegaly, no masses. EXTREMITIES: 2+ pulses, warm, well-perfused, no edema. NEUROLOGICAL: Cranial nerves II through XII grossly intact. Normal speech, gait not observed. PSYCH: Normal mood, normal affect. SKIN: Warm, dry, normal turgor, no rashes or lesions noted Laboratory Results - last 24 hr 09/27/19 09/27/19 09/27/19 14:40 14:40 14:40 WBC 21.2 H RBC 4.29 Hgb 11.6 L Hct 36.7 MCV 85.5 MCH 27.1 MCHC 31.7 L RDW 19.1 H Plt Count 408 MPV 7.9 Absolute Neuts (auto) 19.2 H Neutrophils % 90.3 H Neutrophils % (Manual) 88.1 H Band Neutrophils % 0.0 Lymphocytes % 3.3 L Lymphocytes % (Manual) 6.9 L Monocytes % 5.5 Monocytes % (Manual) 4 Eosinophils % 0.4 Eosinophils % (Manual) 0.0 Basophils % 0.5 Basophils % (Manual) 1.0 Myelocytes % (Man) 0 Promyelocytes % (Man) 0 Blast Cells % (Manual) 0 Nucleated RBC % 0 Metamyelocytes 0 Hypochromia 0 Platelet Estimate Normal Polychromasia 2+ Poikilocytosis 0 Anisocytosis 1+ Microcytosis 1+ Macrocytosis 1+ D-Dimer Anticoagulation Therapy Puncture Site Patient Temperature ABG pH ABG pCO2 ABG pO2 ABG HCO3 ABG O2 Sat (Measured) ABG O2 Content ABG Base Excess [place] Test VBG pH POC VBG pCO2 POC VBG pO2 VBG HCO3 VBG O2 Sat (Lissy) VBG Base Excess Patient On Oxygen O2 Delivery Device Oxygen Flow Rate Vent Mode Vent Rate Mechanical Rate PEEP Pressure Support Vent Sodium 136 Potassium 4.1 Chloride 100 Carbon Dioxide 25 Anion Gap 11 BUN 19.4 H Creatinine 1.0 Est GFR (CKD-EPI)AfAm 78.64 Est GFR (CKD-EPI)NonAf 67.85 POC Glucometer Random Glucose 317 H Lactic Acid 4.2 H* Calcium 8.5 Ferritin 43.5 Total Bilirubin 0.4 AST 36 ALT 38 Alkaline Phosphatase 126 H LD Total 446 H Creatine Kinase 34 Troponin I < 0.02 C-Reactive Protein B-Natriuretic Peptide 4100.4 H Total Protein 6.8 Albumin 2.5 L Urine Color Urine Appearance Urine pH Ur Specific [place] Urine Protein Urine Glucose (UA) Urine Ketones Urine Blood Urine Nitrite Urine Bilirubin Urine Urobilinogen Ur Leukocyte Esterase Urine WBC (Auto) Urine RBC (Auto) Urine Casts (Auto) U Epithel Cells (Auto) Urine Bacteria (Auto) 09/27/19 09/27/19 09/27/19 14:40 15:00 17:37 WBC RBC Hgb Hct MCV MCH MCHC RDW Plt Count MPV Absolute Neuts (auto) Neutrophils % Neutrophils % (Manual) Band Neutrophils % Lymphocytes % Lymphocytes % (Manual) Monocytes % Monocytes % (Manual) Eosinophils % Eosinophils % (Manual) Basophils % Basophils % (Manual) Myelocytes % (Man) Promyelocytes % (Man) Blast Cells % (Manual) Nucleated RBC % Metamyelocytes Hypochromia Platelet Estimate Polychromasia Poikilocytosis Anisocytosis Microcytosis Macrocytosis D-Dimer Anticoagulation Therapy Puncture Site Patient Temperature ABG pH ABG pCO2 ABG pO2 ABG HCO3 ABG O2 Sat (Measured) ABG O2 Content ABG Base Excess [place] Test VBG pH 7.400 POC VBG pCO2 38.5 POC VBG pO2 43.8 VBG HCO3 24.9 VBG O2 Sat (Lissy) No Result Required. VBG Base Excess 0.7 Patient On Oxygen O2 Delivery Device Oxygen Flow Rate Vent Mode Vent Rate Mechanical Rate PEEP Pressure Support Vent Sodium Potassium Chloride Carbon Dioxide Anion Gap BUN Creatinine Est GFR (CKD-EPI)AfAm Est GFR (CKD-EPI)NonAf POC Glucometer 299 Random Glucose Lactic Acid Calcium Ferritin Total Bilirubin AST ALT Alkaline Phosphatase LD Total Creatine Kinase Troponin I C-Reactive Protein B-Natriuretic Peptide Total Protein Albumin Urine Color Yellow Urine Appearance Clear Urine pH 6.0 Ur Specific [place] 1.036 H Urine Protein 1+ H Urine Glucose (UA) 3+ H Urine Ketones Trace H Urine Blood Negative Urine Nitrite Negative Urine Bilirubin Negative Urine Urobilinogen 1.0 Ur Leukocyte Esterase Negative Urine WBC (Auto) 22 Urine RBC (Auto) 25 Urine Casts (Auto) 1 U Epithel Cells (Auto) 26 Urine Bacteria (Auto) 227 09/27/19 09/27/19 09/27/19 17:55 20:15 20:15 WBC RBC Hgb Hct MCV MCH MCHC RDW Plt Count MPV Absolute Neuts (auto) Neutrophils % Neutrophils % (Manual) Band Neutrophils % Lymphocytes % Lymphocytes % (Manual) Monocytes % Monocytes % (Manual) Eosinophils % Eosinophils % (Manual) Basophils % Basophils % (Manual) Myelocytes % (Man) Promyelocytes % (Man) Blast Cells % (Manual) Nucleated RBC % Metamyelocytes Hypochromia Platelet Estimate Polychromasia Poikilocytosis Anisocytosis Microcytosis Macrocytosis D-Dimer 37203 H Anticoagulation Therapy No Result Required. Puncture Site Left radial Patient Temperature No Result Required. ABG pH 7.495 H ABG pCO2 33.50 L ABG pO2 84.9 ABG HCO3 25.2 ABG O2 Sat (Measured) 97.2 ABG O2 Content No Result Required. ABG Base Excess 2.3 H [place] Test Positive VBG pH POC VBG pCO2 POC VBG pO2 VBG HCO3 VBG O2 Sat (Lissy) VBG Base Excess Patient On Oxygen Yes O2 Delivery Device No Result Required. Oxygen Flow Rate No Result Required. Vent Mode No Result Required. Vent Rate No Result Required. Mechanical Rate No Result Required. PEEP No Result Required. Pressure Support Vent No Result Required. Sodium 135 L Potassium 5.0 Chloride 97 L Carbon Dioxide 28 Anion Gap 10 BUN 17.4 Creatinine 0.9 Est GFR (CKD-EPI)AfAm 89.32 Est GFR (CKD-EPI)NonAf 77.06 POC Glucometer Random Glucose 306 H Lactic Acid Calcium 8.9 Ferritin 48.6 Total Bilirubin 0.6 AST 59 H ALT 43 Alkaline Phosphatase 145 H LD Total Creatine Kinase Troponin I < 0.02 C-Reactive Protein B-Natriuretic Peptide Total Protein 7.7 Albumin 2.8 L Urine Color Urine Appearance Urine pH Ur Specific [place] Urine Protein Urine Glucose (UA) Urine Ketones Urine Blood Urine Nitrite Urine Bilirubin Urine Urobilinogen Ur Leukocyte Esterase Urine WBC (Auto) Urine RBC (Auto) Urine Casts (Auto) U Epithel Cells (Auto) Urine Bacteria (Auto) 09/27/19 09/27/19 09/28/19 20:15 22:22 06:20 WBC RBC Hgb Hct MCV MCH MCHC RDW Plt Count MPV Absolute Neuts (auto) Neutrophils % Neutrophils % (Manual) Band Neutrophils % Lymphocytes % Lymphocytes % (Manual) Monocytes % Monocytes % (Manual) Eosinophils % Eosinophils % (Manual) Basophils % Basophils % (Manual) Myelocytes % (Man) Promyelocytes % (Man) Blast Cells % (Manual) Nucleated RBC % Metamyelocytes Hypochromia Platelet Estimate Polychromasia Poikilocytosis Anisocytosis Microcytosis Macrocytosis D-Dimer Anticoagulation Therapy No Result Required. Puncture Site Right radial Patient Temperature No Result Required. ABG pH 7.472 H ABG pCO2 39.40 ABG pO2 62.0 L ABG HCO3 28.2 H ABG O2 Sat (Measured) 93.2 L ABG O2 Content No Result Required. ABG Base Excess 4.3 H [place] Test Positive VBG pH POC VBG pCO2 POC VBG pO2 VBG HCO3 VBG O2 Sat (Lissy) VBG Base Excess Patient On Oxygen Yes O2 Delivery Device Bipap Oxygen Flow Rate 100% Vent Mode S/t Vent Rate 16 Mechanical Rate Bipap PEEP No Result Required. Pressure Support Vent 14/7 Sodium Potassium Chloride Carbon Dioxide Anion Gap BUN Creatinine Est GFR (CKD-EPI)AfAm Est GFR (CKD-EPI)NonAf POC Glucometer 327 Random Glucose Lactic Acid 2.7 H* Calcium Ferritin Total Bilirubin AST ALT Alkaline Phosphatase LD Total Creatine Kinase Troponin I C-Reactive Protein B-Natriuretic Peptide Total Protein Albumin Urine Color Urine Appearance Urine pH Ur Specific [place] Urine Protein Urine Glucose (UA) Urine Ketones Urine Blood Urine Nitrite Urine Bilirubin Urine Urobilinogen Ur Leukocyte Esterase Urine WBC (Auto) Urine RBC (Auto) Urine Casts (Auto) U Epithel Cells (Auto) Urine Bacteria (Auto) 09/28/19 09/28/1909/27/20 06:38 06:38 06:57 WBC 29.9 H RBC 4.43 Hgb 12.1 Hct 37.5 MCV 84.6 MCH 27.2 MCHC 32.2 RDW 19.1 H Plt Count 432 MPV 7.8 Absolute Neuts (auto) 27.8 H Neutrophils % 93.0 H Neutrophils % (Manual) Band Neutrophils % Lymphocytes % 3.1 L Lymphocytes % (Manual) Monocytes % 3.8 Monocytes % (Manual) Eosinophils % 0.0 D Eosinophils % (Manual) Basophils % 0.1 Basophils % (Manual) Myelocytes % (Man) Promyelocytes % (Man) Blast Cells % (Manual) Nucleated RBC % 0 Metamyelocytes Hypochromia Platelet Estimate Polychromasia Poikilocytosis Anisocytosis Microcytosis Macrocytosis D-Dimer Anticoagulation Therapy Puncture Site Patient Temperature ABG pH ABG pCO2 ABG pO2 ABG HCO3 ABG O2 Sat (Measured) ABG O2 Content ABG Base Excess [place] Test VBG pH POC VBG pCO2 POC VBG pO2 VBG HCO3 VBG O2 Sat (Lissy) VBG Base Excess Patient On Oxygen O2 Delivery Device Oxygen Flow Rate Vent Mode Vent Rate Mechanical Rate PEEP Pressure Support Vent Sodium Potassium Chloride Carbon Dioxide Anion Gap BUN Creatinine Est GFR (CKD-EPI)AfAm Est GFR (CKD-EPI)NonAf POC Glucometer 185 Random Glucose Lactic Acid Calcium Ferritin 54.2 Total Bilirubin AST ALT Alkaline Phosphatase LD Total 551 H Creatine Kinase Troponin I C-Reactive Protein 19.9 H B-Natriuretic Peptide Total Protein Albumin Urine Color Urine Appearance Urine pH Ur Specific [place] Urine Protein Urine Glucose (UA) Urine Ketones Urine Blood Urine Nitrite Urine Bilirubin Urine Urobilinogen Ur Leukocyte Esterase Urine WBC (Auto) Urine RBC (Auto) Urine Casts (Auto) U Epithel Cells (Auto) Urine Bacteria (Auto) Active Medications Generic Name Dose Route Start Last Admin Trade Name Freq PRN Reason Stop Dose Admin Acetaminophen 650 mg 09/27/19 17:45 Tylenol - PO Q4H PRN PAIN LEVEL 1-5 Amlodipine Besylate 5 mg 09/28/19 10:00 Norvasc - PO DAILY [facility] Carbidopa/Levodopa 1 each 09/27/19 22:00 09/27/19 22:53 Sinemet 25/250 - PO 1 each BID [facility] Administration Enoxaparin Sodium 60 mg 09/28/19 10:00 Lovenox - SQ BID [facility] Piperacillin Sod/Tazobactam 50 mls @ 100 mls/hr 09/27/19 23:00 Sod 3.375 gm/ Dextrose IVPB Q8H-IV [facility] Protocol Piperacillin Sod/Tazobactam 50 mls @ 100 mls/hr 09/27/19 23:00 09/28/19 00:52 Sod 3.375 gm/ Dextrose IVPB 09/28/19 18:29 100 mls/hr Q8H-IV [facility] Administration Protocol Insulin Aspart 1 vial 09/27/19 22:00 09/28/19 07:23 Novolog Vial Sliding Scale - SQ 2 units ACHS [facility] Administration Protocol Losartan Potassium 50 mg 09/28/19 10:00 Cozaar - PO DAILY [facility] Pramipexole Dihydrochloride 0.125 mg 09/27/19 22:00 09/28/19 05:20 Mirapex - PO 0.125 mg TID [facility] Administration ASSESSMENT/PLAN: 84 y.o male with PMH of HTN, DM, parkinsons disease presents to the ED with complaints of shortness of breath and non-productive cough over the last 4-5 days #Neruro parkinsons' history -c/w home parkinson's meds -AOx3; stable; no issues #Cardio HTN history BNP >4000; top neg x1 -patient did not take his BP meds this AM -resume Amlodipine and labetolol -echo ordered -monitor hemodynamics -maintain MAP >65 -minimal fluid #Endo history of DM -holding home glipizide -ISS ACHS -BGMS ACHS #ID blood and urine cx pending -sputum cx; legionella pending -received vanc/zosyn -will c.w zosyn -ID consult -repeat lactic acid #Pulm R infiltrate seen on CXR; chest CT done showing b/l groundglass opacities suspicious for covid pneumonitis -covid pending; -patient initally on NRB now on BIPAP -LDH 550; CRp 19.9 D-Dimer [id number]- will continue to trend -will start full dose lovenox; dexamethasone; vit c/d/zinc -maintain o2 sat >90 -patient is full code -covid isolation precautions -spoke to patients daughter regarding plasma and remdesevir ; she wants to hold off until patients covid test comes back positive before making a decision - will call back once results are back #Renal Cr 1.0 -monitor electrolytes -monitor I's and O's -monitor volume status f/e/n not on standing fluids monitor electrolytes sodium/diabetic diet dvt ppx: lovenox code status: full code Problem List - Problems (1) HTN (hypertension) Code(s): I10 - ESSENTIAL (PRIMARY) HYPERTENSION (2) Diabetes Code(s): E11.9 - TYPE 2 DIABETES MELLITUS WITHOUT COMPLICATIONS (3) Parkinson disease Code(s): G20 - PARKINSON'S DISEASE (4) Pneumonia Code(s): J18.9 - PNEUMONIA, UNSPECIFIED ORGANISM Qualifiers: Pneumonia type: due to unspecified organism Laterality: right Lung location: unspecified part of lung Qualified Code(s): J18.9 - Pneumonia, unspecified organism Visit type - Emergency Visit Emergency Visit: Yes ED Registration Date: 09/27/19 Care time: The patient presented to the Emergency Department on the above date and was hospitalized for further evaluation of their emergent condition. - New Patient This patient is new to me today: No - Critical Care Critical Care patient: Yes Total Critical Care Time (in minutes): 35 Critical Care Statement: The care of this patient involved high complexity decision making to prevent further life threatening deterioration of the patient's condition and/or to evaluate & treat vital organ system(s) failure or risk of failure. - Medication Review Med list reviewed for High Risk Meds patients 65 and older: Yes ATTENDING PHYSICIAN STATEMENT I saw and evaluated the patient. I reviewed the resident's note and discussed the case with the resident. I agree with the resident's findings and plan as documented. SUBJECTIVE: OBJECTIVE: ASSESSMENT AND PLAN:
[2019-09-28] MEDS ORDERED: OXYMETAZOLINE 0.05% NASAL SOLUTION 15 ML BOTTLE NS ONE (08:48)
[2019-09-28] MEDS: ENOXAPARIN NA (PORCINE) 60 MG/0.6 ML DISP.SYRIN SQ SCH ×2 (09:26→22:03)
[2019-09-28] MEDS: CARBIDOPA/LEVODOPA 25/250 TABLET (FP) PO SCH ×2 (09:27→21:58)
[2019-09-28] MEDS: amLODIPine BESYLATE 5 MG TABLET (FP) PO SCH (09:27)
[2019-09-28] MEDS: LOSARTAN POTASSIUM 50 MG TABLET (FP) PO SCH (09:27)
--- NOTE | 2019-09-28 10:49 | EKG ---
Test Reason : Blood Pressure : / mmHG Vent. Rate : 100 BPM Atrial Rate : 100 BPM P-R Int : 312 ms QRS Dur : 128 ms QT Int : 386 ms P-R-T Axes : 000 -65 056 degrees QTc Int : 497 ms POOR DATA QUALITY, INTERPRETATION MAY BE ADVERSELY AFFECTED SINUS RHYTHM WITH 1ST DEGREE A-V BLOCK LEFT AXIS DEVIATION NON-SPECIFIC INTRA-VENTRICULAR CONDUCTION BLOCK INFERIOR INFARCT , AGE UNDETERMINED POSSIBLE ANTEROLATERAL INFARCT , AGE UNDETERMINED ABNORMAL ECG NO PREVIOUS ECGS AVAILABLE Confirmed by SANDRA CHILDERS MD ([id number]) on 09/28/2019 10:49:06 AM Referred By: Confirmed By:SANDRA CHILDERS MD
[2019-09-28] MEDS ORDERED: DEXAMETHASONE SOD PHOSPHATE 4 MG/1 ML VIAL IVPUSH ONE (11:17)
[2019-09-28 12:05] LABS: ANISOCYTOSIS 1+; MACROCYTOSIS 0; PLATELET ESTIMATE NORMAL
[2019-09-28] MEDS: CHOLECALCIFEROL (VIT D3) 1,000 UNIT (25 MCG) TABLET PO SCH (12:55)
--- NOTE | 2019-09-28 13:44 | PN ---
Teaching Attending Note Name of Resident: Nanette Funes ATTENDING PHYSICIAN STATEMENT I saw and evaluated the patient. I reviewed the resident's note and discussed the case with the resident. I agree with the resident's findings and plan as documented. SUBJECTIVE: Patient seen and examined in the ICU. 84 M, HTN, DM, and parkinsons disease. Admitted via the ER due to shortness of breath and non-productive cough over the last 4-5 days. No apparent COVID19 exposure. Required NIPPV support due to acute respiratory distress/failure. CT Chest: Highly suspicious for COVID19 related capillary leak / ARDS Intake & Output 09/25/19 09/26/19 09/27/19 09/28/19 23:59 23:59 23:59 23:59 Intake Total 50 Balance 50 Weight 135 lb 0.001 oz 131 lb 14.4 oz Last Vital Signs Temp Pulse Resp BP Pulse Ox 97.9 F 75 18 95/70 93 L 09/28/19 12:00 09/28/19 12:00 09/28/19 12:00 09/28/19 12:00 09/28/19 12:00 Active Medications Acetaminophen (Tylenol -) 650 mg PO Q4H PRN PRN Reason: PAIN LEVEL 1-5 Amlodipine Besylate (Norvasc -) 5 mg PO DAILY [facility] Last Admin: 09/28/19 09:27 Dose: 5 mg Documented by: Ascorbic Acid (Vitamin C -) 500 mg PO BID [facility] Carbidopa/Levodopa (Sinemet 25/250 -) 1 each PO BID [facility] Last Admin: 09/28/19 09:27 Dose: 1 each Documented by: Cholecalciferol (Vitamin D3 -) 1,000 unit PO DAILY [facility] Last Admin: 09/28/19 12:55 Dose: 1,000 unit Documented by: Enoxaparin Sodium (Lovenox -) 60 mg SQ BID [facility] Last Admin: 09/28/19 09:26 Dose: 60 mg Documented by: Piperacillin Sod/Tazobactam (Sod 3.375 gm/ Dextrose) 50 mls @ 100 mls/hr IVPB Q8H-IV [facility]; Protocol Piperacillin Sod/Tazobactam (Sod 3.375 gm/ Dextrose) 50 mls @ 100 mls/hr IVPB Q8H-IV [facility]; Protocol Stop: 09/28/19 18:29 Last Admin: 09/28/19 09:28 Dose: 100 mls/hr Documented by: Insulin Aspart (Novolog Vial Sliding Scale -) 1 vial SQ ACHS [facility]; Protocol Last Admin: 09/28/19 10:48 Dose: 2 units Documented by: Losartan Potassium (Cozaar -) 50 mg PO DAILY [facility] Last Admin: 09/28/19 09:27 Dose: 50 mg Documented by: Pramipexole Dihydrochloride (Mirapex -) 0.125 mg PO TID [facility] Last Admin: 09/28/19 05:20 Dose: 0.125 mg Documented by: Zinc Sulfate (Orazinc -) 220 mg PO BID [facility] GENERAL: Awake, alert, Tachypneic on NIPPV EYES:PEERLA: EOMI; no scleral icterus . NECK: no JVD; no lymphadenopathy LUNGS: NIPPV, Bilateral coarse crackles HEART: Tachycardic, S1 S2; no M/R/G. ABDOMEN: soft; NT/ND +BS in all 4 quadrants. MUSCULOSKELETAL: Normal range of motion at all joints. No bony deformities or tenderness. No CVA tenderness. EXTREMITIES: warm; well-perfused no clubbing/cyanosis or edema PSYCHIATRIC: Non-focal SKIN: Warm, dry, normal turgor, no rashes or lesions noted. Laboratory Results - last 24 hr 09/27/19 09/27/19 09/27/19 14:40 14:40 14:40 WBC 21.2 H RBC 4.29 Hgb 11.6 L Hct 36.7 MCV 85.5 MCH 27.1 MCHC 31.7 L RDW 19.1 H Plt Count 408 MPV 7.9 Absolute Neuts (auto) 19.2 H Neutrophils % 90.3 H Neutrophils % (Manual) 88.1 H Band Neutrophils % 0.0 Lymphocytes % 3.3 L Lymphocytes % (Manual) 6.9 L Monocytes % 5.5 Monocytes % (Manual) 4 Eosinophils % 0.4 Eosinophils % (Manual) 0.0 Basophils % 0.5 Basophils % (Manual) 1.0 Myelocytes % (Man) 0 Promyelocytes % (Man) 0 Blast Cells % (Manual) 0 Nucleated RBC % 0 Metamyelocytes 0 Hypochromia 0 Platelet Estimate Normal Polychromasia 2+ Poikilocytosis 0 Anisocytosis 1+ Microcytosis 1+ Macrocytosis 1+ VBG pH POC VBG pCO2 POC VBG pO2 VBG HCO3 VBG O2 Sat (Lissy) VBG Base Excess Sodium 136 Potassium 4.1 Chloride 100 Carbon Dioxide 25 Anion Gap 11 BUN 19.4 H Creatinine 1.0 Est GFR (CKD-EPI)AfAm 78.64 Est GFR (CKD-EPI)NonAf 67.85 POC Glucometer Random Glucose 317 H Lactic Acid 4.2 H* Calcium 8.5 Ferritin 43.5 Total Bilirubin 0.4 AST 36 ALT 38 Alkaline Phosphatase 126 H LD Total 446 H Creatine Kinase 34 Troponin I < 0.02 B-Natriuretic Peptide 4100.4 H Total Protein 6.8 Albumin 2.5 L Urine Color Urine Appearance Urine pH Ur Specific [place] Urine Protein Urine Glucose (UA) Urine Ketones Urine Blood Urine Nitrite Urine Bilirubin Urine Urobilinogen Ur Leukocyte Esterase Urine WBC (Auto) Urine RBC (Auto) Urine Casts (Auto) U Epithel Cells (Auto) Urine Bacteria (Auto) 09/27/19 09/27/19 09/27/19 14:40 15:00 17:37 WBC RBC Hgb Hct MCV MCH MCHC RDW Plt Count MPV Absolute Neuts (auto) Neutrophils % Neutrophils % (Manual) Band Neutrophils % Lymphocytes % Lymphocytes % (Manual) Monocytes % Monocytes % (Manual) Eosinophils % Eosinophils % (Manual) Basophils % Basophils % (Manual) Myelocytes % (Man) Promyelocytes % (Man) Blast Cells % (Manual) Nucleated RBC % Metamyelocytes Hypochromia Platelet Estimate Polychromasia Poikilocytosis Anisocytosis Microcytosis Macrocytosis VBG pH 7.400 POC VBG pCO2 38.5 POC VBG pO2 43.8 VBG HCO3 24.9 VBG O2 Sat (Lissy) No Result Required. VBG Base Excess 0.7 Sodium Potassium Chloride Carbon Dioxide Anion Gap BUN Creatinine Est GFR (CKD-EPI)AfAm Est GFR (CKD-EPI)NonAf POC Glucometer 299 Random Glucose Lactic Acid Calcium Ferritin Total Bilirubin AST ALT Alkaline Phosphatase LD Total Creatine Kinase Troponin I B-Natriuretic Peptide Total Protein Albumin Urine Color Yellow Urine Appearance Clear Urine pH 6.0 Ur Specific [place] 1.036 H Urine Protein 1+ H Urine Glucose (UA) 3+ H Urine Ketones Trace H Urine Blood Negative Urine Nitrite Negative Urine Bilirubin Negative Urine Urobilinogen 1.0 Ur Leukocyte Esterase Negative Urine WBC (Auto) 22 Urine RBC (Auto) 25 Urine Casts (Auto) 1 U Epithel Cells (Auto) 26 Urine Bacteria (Auto) 227 Active Medications Generic Name Dose Route Start Last Admin Trade Name Freq PRN Reason Stop Dose Admin Acetaminophen 650 mg 09/27/19 17:45 Tylenol - PO Q4H PRN PAIN LEVEL 1-5 Amlodipine Besylate 5 mg 09/28/19 10:00 Norvasc - PO DAILY [facility] Carbidopa/Levodopa 1 each 09/27/19 22:00 Sinemet 25/250 - PO BID [facility] Enoxaparin Sodium 40 mg 09/27/19 17:00 Lovenox - SQ DAILY [facility] Insulin Aspart 1 vial 09/27/19 22:00 Novolog Vial Sliding Scale - SQ ACHS [facility] Protocol Labetalol HCl 100 mg 09/27/19 22:00 Normodyne - PO BID [facility] Pramipexole Dihydrochloride 0.125 mg 09/27/19 22:00 Mirapex - PO TID [facility] Problem List - Problems (1) HTN (hypertension) Code(s): I10 - ESSENTIAL (PRIMARY) HYPERTENSION (2) Diabetes Code(s): E11.9 - TYPE 2 DIABETES MELLITUS WITHOUT COMPLICATIONS (3) Parkinson disease Code(s): G20 - PARKINSON'S DISEASE (4) Pneumonia Code(s): J18.9 - PNEUMONIA, UNSPECIFIED ORGANISM ASSESSMENT/PLAN: Acute Respiratory Failure due to ARDS likely related to COVID19 infection DDX : Aspiration pneumonitis (low suspicion) HTN DM Parkinsons NIPPV support ID evaluation for ABX Serology testing Viral panel Conservative IVF as hemodynamic are stable Strict I & O Decadron Full AC for now Zinc Vitamin C Glycemic control Requires ICU monitoring I have a high clinical suspicion of COVID19 infection. Patient is at a very high risk for decompensation and . Will offer patient/family Remdesivir and Convalescent Plasma as I feel the benefit outweighs the risk at this point. Dr Caldwell Critical care time spent in reviewing chart, evaluating patient and formulating plan - 36 minutes.
--- NOTE | 2019-09-28 13:58 | CON.ID ---
Consult Consult Specialty:: infectious diseases Referred by:: hospitalist Reason for Consultation:: sepsis/resp failure - History of Present Illness Chief Complaint: sob,hypoxia History of Present Illness: patient in the icu,history obtained from the charts as patient is on bipap and restless 84 y/o male with known history of HTN, NIDDM, and Parkinsons, left knee surgery (remote) who was brought to the ED via ambulance for worsening shortness of breath. Patient has been having non-productive cough x 5 days along with body ac hes. No fevers. With increased shortness of breath ambulance was called patient unable to stay on oxygen and was switched to bipap ,restless.sating well on bipap - History Source History Provided By: Medical Record Limitations to Obtaining History: Clinical Condition - Smoking History Smoking history: Never smoked Have you smoked in the past 12 months: No Home Medications - Allergies Allergies/Adverse Reactions: Allergies Allergy/AdvReac Type Severity Reaction Status Date / Time No Known Allergies Allergy Verified 09/27/19 14:09 - Home Medications Home Medications: Ambulatory Orders Amlodipine Besylate 5 mg PO DAILY 09/27/19 Carbidopa/Levodopa [Carbidopa-Levodopa 25-250 Tab] 1 each PO BID 09/27/19 Glipizide 10 mg PO BID 09/27/19 Losartan Potassium [Cozaar -] 50 mg PO DAILY 09/27/19 Pramipexole Di-HCl [Pramipexole Dihydrochloride] 0.125 mg PO TID 09/27/19 Review of Systems Unable to obtain ROS, reason: unable to obtain Physical Exam Vital Signs: Vital Signs Temperature 97.9 F 09/28/19 12:00 Pulse Rate 75 09/28/19 12:00 Respiratory Rate 18 09/28/19 12:00 Blood Pressure 95/70 09/28/19 12:00 O2 Sat by Pulse Oximetry (%) 93 L 09/28/19 12:00 Constitutional: Yes: Anxious, Mild Distress, Other (restless) Eyes: Yes: Conjunctiva Clear HENT: Yes: Atraumatic, Normocephalic Neck: Yes: Supple, Trachea Midline Cardiovascular: Yes: Regular Rate and Rhythm Respiratory: Yes: On BiPap, Poor Air Entry Gastrointestinal: Yes: Normal Bowel Sounds, Soft Musculoskeletal: Yes: WNL Extremities: Yes: WNL Neurological: Yes: Alert, Oriented Psychiatric: Yes: Alert, Oriented Labs: CBC, BMP 09/28/19 06:38 09/27/19 20:15 Imaging - Results Chest X-ray: Report Reviewed, Image Reviewed Cat Scan: Report Reviewed, Image Reviewed Assessment/Plan Problem List - Problems (1) HTN (hypertension) Code(s): I10 - ESSENTIAL (PRIMARY) HYPERTENSION (2) Diabetes Code(s): E11.9 - TYPE 2 DIABETES MELLITUS WITHOUT COMPLICATIONS (3) Parkinson disease Code(s): G20 - PARKINSON'S DISEASE (4) Pneumonia Code(s): J18.9 - PNEUMONIA, UNSPECIFIED ORGANISM ASSESSMENT/PLAN: Acute Respiratory Failure HTN DM Parkinsons r/o covid plan continue zosyn resp support close watch await for results monitor markers rest as per the icu
[2019-09-28] MEDS ORDERED: PT OWN MED DRAWER 7, Y5N ONE ×2 (14:57→21:42)
[2019-09-28 18:20] LABS: ALBUMIN 2.6 g/dl (3.4-5.0); BILIRUBIN,TOTAL 0.5 mg/dL (0.2-1); BLOOD UREA NITROGEN 21.4 mg/dL (7-18); CALCIUM 8.8 mg/dL (8.5-10.1); CREATININE 0.9 mg/dL (0.55-1.3); MAGNESIUM 2.2 mg/dL (1.8-2.4); PHOSPHOROUS 3.4 mg/dL (2.5-4.9); POTASSIUM 3.8 mmol/L (3.5-5.1); TOT PROT 7.3 g/dl (6.4-8.2)
[2019-09-28] MEDS ORDERED: LORazepam 2 MG/ML SDV VIAL IVPUSH ONE (21:20)
[2019-09-28] MEDS: ZINC SULFATE 220 MG CAPSULE (FP) PO SCH (21:58)
[2019-09-28] MEDS: ASCORBIC ACID 500 MG TABLET (FP) PO SCH (21:58)
[2019-09-29] MEDS: PIPERACILLIN/TAZOB 3.375 GM 3.375 GM in DEXTROSE 5%-WATER - 50 ML IVPB SCH ×3 (02:10→17:13)
[2019-09-29] MEDS ORDERED: PIPERACILLIN/TAZOBACTAM 3.375 GM VIAL IVPB ONE ×3 (02:14→17:05)
[2019-09-29] MEDS ORDERED: DEXTROSE 5%-WATER - 50 ML IVPB ONE ×3 (02:14→17:05)
[2019-09-29 04:15] LABS: ARTERIAL BLD GAS O2 SATURATION 85.1 mmHg (95-98); ARTERIAL BLOOD GAS BASE EXCESS 4.7 mmol/L (-2-2); ARTERIAL BLOOD GAS PO2 44.8 mmHg (80-100); ARTERIAL BLOOD GAS pH 7.503 (7.350-7.450)
[2019-09-29 04:17] LABS: ALLENS TEST POSITIVE
[2019-09-29] MEDS: PRAMIPEXOLE DIHYDROCHLORIDE 0.125 MG TABLET PO SCH ×3 (06:29→22:02)
[2019-09-29] MEDS: INSULIN SLIDING SCALE (NOVOLOG) 1 VIAL SQ SCH ×4 (06:35→21:53)
[2019-09-29 06:56] LABS: BASO % 1.1 % (0-2.0); HEMATOCRIT 37.5 % (35.4-49); HEMOGLOBIN 11.9 GM/dL (11.7-16.9); LYMPH % 2.1 % (8-40); MCHC 31.7 g/dl (32.0-35.9); MONO % 4.9 % (3.8-10.2); NEUT % 91.9 % (42.8-82.8); PLATELET COUNT 466 K/MM3 (134-434); RBC 4.41 M/mm3 (4.00-5.60); RDW 19.4 % (11.9-15.9)
[2019-09-29 07:24] LABS: ALBUMIN 2.4 g/dl (3.4-5.0); BILIRUBIN,TOTAL 0.7 mg/dL (0.2-1); CALCIUM 8.6 mg/dL (8.5-10.1); CREATININE 0.8 mg/dL (0.55-1.3); MAGNESIUM 2.3 mg/dL (1.8-2.4); PHOSPHOROUS 3.7 mg/dL (2.5-4.9); POTASSIUM 3.4 mmol/L (3.5-5.1); TOT PROT 6.8 g/dl (6.4-8.2)
[2019-09-29] MEDS: ENOXAPARIN NA (PORCINE) 60 MG/0.6 ML DISP.SYRIN SQ SCH ×2 (09:23→21:50)
[2019-09-29] MEDS: LOSARTAN POTASSIUM 50 MG TABLET (FP) PO SCH (09:23)
[2019-09-29] MEDS: DEXAMETHASONE SOD PHOSPHATE 4 MG/1 ML VIAL IVPUSH SCH (09:23)
[2019-09-29] MEDS: ASCORBIC ACID 500 MG TABLET (FP) PO SCH ×2 (09:24→22:02)
[2019-09-29] MEDS: amLODIPine BESYLATE 5 MG TABLET (FP) PO SCH (09:24)
[2019-09-29] MEDS: CARBIDOPA/LEVODOPA 25/250 TABLET (FP) PO SCH ×2 (09:24→22:02)
[2019-09-29] MEDS: ZINC SULFATE 220 MG CAPSULE (FP) PO SCH ×2 (09:24→22:02)
[2019-09-29] MEDS: CHOLECALCIFEROL (VIT D3) 1,000 UNIT (25 MCG) TABLET PO SCH (09:25)
[2019-09-29] MEDS ORDERED: SUCCINYLCHOLINE CHLORIDE 200 MG/10 ML VIAL IVPUSH ONE (09:39)
[2019-09-29] MEDS ORDERED: ETOMIDATE 40 MG/20 ML VIAL IVPUSH ONE (09:40)
[2019-09-29] MEDS ORDERED: ROCURONIUM BROMIDE 50 MG/5 ML VIAL IV ONE (09:42)
[2019-09-29] MEDS ORDERED: RAPID SEQUENCE INTUBATION KIT NR ONE ×2 (09:47→10:06)
[2019-09-29] MEDS ORDERED: PHENYLEPHRINE HCL 10 MG/1 ML SINGLE DOSE VIAL ONE (09:54)
[2019-09-29] MEDS: PROPOFOL 1,000,000 MCG/100 ML VIAL IVPB SCH (10:29)
[2019-09-29] MEDS: PHENYLEPHRINE HCL 10,000 MCG in DEXTROSE 5%-WATER - 499 ML IV SCH (10:30)
[2019-09-29] MEDS: FENTANYL IVPB 500 MCG/100 ML BAG IVPB SCH (10:30)
--- NOTE | 2019-09-29 10:47 | PROC ---
Intubation - Intubation Reason for Intubation: Respiratory Failure Time of Intubation: 10:45 Intubation Method: orotracheal Blade used: Glidescope Tube Size (cm): 7.5 Tube position @ lip (cm): 23 Tube position confirmed by: CO2 detector, Chest x-ray, Breath sounds Breath Sounds after Intubation: equal Post Intubation Xray: Yes Remarks: Sedated and paralyzed with Propofol 60, Succ 80. Large epiglottis, anterior, Grade 1 view with Glidescope III. Passed atraumatically, + ETCO2\ 23 cm at lip
--- NOTE | 2019-09-29 10:50 | PROC ---
Central Line Insertion Indication: Poor Venous Access Risks and Benefits Explained: No (emergent) Consent on Chart: No (emergent) Central Line: Triple Lumen Catheter Anesthesia: 1% Lidocaine Sterile Technique: Yes Ultrasound Guided Assistance: No Position: Right Subclavian Post Insertion: Yes: Bilateral Breath Sounds Sterile Dressing Applied: Yes
--- NOTE | 2019-09-29 11:01 | PN ---
Progress Note (short form) - Note Progress Note: SUBJECTIVE: Patient seen and examined in the ICU. 84 M, HTN, DM, and parkinsons disease. Admitted via the ER due to shortness of breath and non-productive cough over the last 4-5 days. No apparent COVID19 exposure. Required NIPPV support due to acute respiratory distress/failure. CT Chest: Highly suspicious for COVID19 related capillary leak / ARDS 24HR: failed HFOT and NIV intubated, pPlat 30 post intubation, vent adjusted, abg pending TLC placed due to poor access Vital Signs Temp 98.2 F 09/29/19 10:00 Pulse 95 H 09/29/19 10:00 Resp 24 H 09/29/19 10:09 BP 102/55 L 09/29/19 10:00 Pulse Ox 95 09/29/19 10:09 Intake & Output 09/28/19 09/28/19 09/29/19 11:59 23:59 11:59 Intake Total 50 100 50 Balance 50 100 50 Weight 59.829 kg 59.421 kg 57.833 kg Intake: IV 50 SL1 09/28/19 50 IVPB 100 50 Oral 0 0 Other: Voiding Method Diaper Diaper Diaper # Unmeasured Voids Void 1 1 2 Bowel Movement No No No Height 5 ft 5 in Body Mass Index (BMI) 21.8 Weight Measurement Method Built in [facility] Built in [facility] GENERAL: intubated sedated EYES:PEERLA: EOMI; no scleral icterus . NECK: no JVD; no lymphadenopathy LUNGS: coarse crackles bilaterally HEART: Tachycardic, S1 S2; no M/R/G. ABDOMEN: soft; NT/ND +BS in all 4 quadrants. MUSCULOSKELETAL: wnl EXTREMITIES: warm; well-perfused no clubbing/cyanosis or edema PSYCHIATRIC: Non-focal SKIN: Warm, dry, normal turgor, no rashes or lesions noted. Laboratory Last Values WBC 44.0 K/mm3 (4.0-10.0) H* 09/29/19 05:46 RBC 4.41 M/mm3 (4.00-5.60) 09/29/19 05:46 Hgb 11.9 GM/dL (11.7-16.9) 09/29/19 05:46 Hct 37.5 % (35.4-49) 09/29/19 05:46 MCV 85.0 fl (80-96) 09/29/19 05:46 MCH 27.0 pg (25.7-33.7) 09/29/19 05:46 MCHC 31.7 g/dl (32.0-35.9) L 09/29/19 05:46 RDW 19.4 % (11.9-15.9) H 09/29/19 05:46 Plt Count 466 K/MM3 (134-434) H 09/29/19 05:46 MPV 8.0 fl (7.5-11.1) 09/29/19 05:46 Absolute Neuts (auto) 40.4 K/mm3 (1.5-8.0) H 09/29/19 05:46 Neutrophils % 91.9 % (42.8-82.8) H 09/29/19 05:46 Neutrophils % (Manual) 93.0 % (42.8-82.8) H 09/28/19 06:38 Band Neutrophils % 2.0 % 09/28/19 06:38 Lymphocytes % 2.1 % (8-40) L D 09/29/19 05:46 Lymphocytes % (Manual) 3.0 % (8-40) L D 09/28/19 06:38 Monocytes % 4.9 % (3.8-10.2) 09/29/19 05:46 Monocytes % (Manual) 1 % (3.8-10.2) L 09/28/19 06:38 Eosinophils % 0.0 % (0-4.5) 09/29/19 05:46 Eosinophils % (Manual) 0.0 % (0-4.5) 09/28/19 06:38 Basophils % 1.1 % (0-2.0) D 09/29/19 05:46 Basophils % (Manual) 0.0 % (0-2.0) 09/28/19 06:38 Myelocytes % (Man) 1 % (0-2) D 09/28/19 06:38 Promyelocytes % (Man) 0 % (0-2) 09/28/19 06:38 Blast Cells % (Manual) 0 % (0-0) 09/28/19 06:38 Nucleated RBC % 0 % (0-0) 09/29/19 05:46 Metamyelocytes 0 % (0-2) 09/28/19 06:38 Hypochromia 0 09/28/19 06:38 Platelet Estimate Normal 09/28/19 06:38 Polychromasia 1+ 09/28/19 06:38 Poikilocytosis 0 09/28/19 06:38 Anisocytosis 1+ 09/28/19 06:38 Microcytosis 1+ 09/28/19 06:38 Macrocytosis 0 09/28/19 06:38 ESR 53 mm/hr (0-20) H 09/29/19 05:46 D-Dimer 5490 ng/ml (0-500) H 09/29/19 05:46 Anticoagulation Therapy No Result Required. 09/29/19 03:55 Puncture Site Left radial 09/29/19 03:55 Patient Temperature No Result Required. 09/29/19 03:55 ABG pH 7.503 (7.350-7.450) H 09/29/19 03:55 ABG pCO2 36.30 mmHg (35-45) 09/29/19 03:55 ABG pO2 44.8 mmHg (80-100) L 09/29/19 03:55 ABG HCO3 27.9 mmol/L (22-27) H 09/29/19 03:55 ABG O2 Sat (Measured) 85.1 mmHg (95-98) L 09/29/19 03:55 ABG O2 Content No Result Required. 09/29/19 03:55 ABG Base Excess 4.7 mmol/L (-2-2) H 09/29/19 03:55 [place]ador Test Positive 09/29/19 03:55 VBG pH 7.400 (7.310-7.410) 09/27/19 14:40 POC VBG pCO2 38.5 mmHg (38-52) 09/27/19 14:40 POC VBG pO2 43.8 mmHg (28-48) 09/27/19 14:40 VBG HCO3 24.9 mmol/L (23-29) 09/27/19 14:40 VBG O2 Sat (Lissy) No Result Required. 09/27/19 14:40 VBG Base Excess 0.7 mmol/L (-2-2) 09/27/19 14:40 Patient On Oxygen Yes 09/29/19 03:55 O2 Delivery Device Hfnc 09/29/19 03:55 Oxygen Flow Rate 100% 09/29/19 03:55 Vent Mode No Result Required. 09/29/19 03:55 Vent Rate No Result Required. 09/29/19 03:55 Mechanical Rate No Result Required. 09/29/19 03:55 PEEP No Result Required. 09/29/19 03:55 Pressure Support Vent No Result Required. 09/29/19 03:55 Sodium 138 mmol/L (136-145) 09/29/19 05:46 Potassium 3.4 mmol/L (3.5-5.1) L 09/29/19 05:46 Chloride 98 mmol/L (98-107) 09/29/19 05:46 Carbon Dioxide 29 mmol/L (21-32) 09/29/19 05:46 Anion Gap 11 MMOL/L (8-16) 09/29/19 05:46 BUN 30.0 mg/dL (7-18) H 09/29/19 05:46 Creatinine 0.8 mg/dL (0.55-1.3) 09/29/19 05:46 Est GFR (CKD-EPI)AfAm 93.75 09/29/19 05:46 Est GFR (CKD-EPI)NonAf 80.89 09/29/19 05:46 POC Glucometer 156 UNITS (80-120) 09/29/19 06:33 Random Glucose 129 mg/dL (74-106) H 09/29/19 05:46 Lactic Acid 2.7 mmol/L (0.4-2.0) H* 09/27/19 20:15 Calcium 8.6 mg/dL (8.5-10.1) 09/29/19 05:46 Phosphorus 3.7 mg/dL (2.5-4.9) 09/29/19 05:46 Magnesium 2.3 mg/dL (1.8-2.4) 09/29/19 05:46 Ferritin 54.2 ng/ml (8-388) 09/28/19 06:38 Total Bilirubin 0.7 mg/dL (0.2-1) 09/29/19 05:46 AST 43 U/L (15-37) H 09/29/19 05:46 ALT 23 U/L (13-61) 09/29/19 05:46 Alkaline Phosphatase 124 U/L (45-117) H 09/29/19 05:46 LD Total 609 U/L (87-246) H 09/29/19 05:46 Creatine Kinase 34 U/L (26-308) 09/27/19 14:40 Troponin I < 0.02 ng/ml (0.00-0.05) 09/28/19 17:20 C-Reactive Protein 20.7 MG/DL (0.00-0.3) H 09/29/19 05:46 B-Natriuretic Peptide 4100.4 pg/ml (5-450) H 09/27/19 14:40 Total Protein 6.8 g/dl (6.4-8.2) 09/29/19 05:46 Albumin 2.4 g/dl (3.4-5.0) L 09/29/19 05:46 Urine Color Yellow 09/27/19 15:00 Urine Appearance Clear 09/27/19 15:00 Urine pH 6.0 (5.0-8.0) 09/27/19 15:00 Ur Specific [place] 1.036 (1.010-1.035) H 09/27/19 15:00 Urine Protein 1+ (NEGATIVE) H 09/27/19 15:00 Urine Glucose (UA) 3+ (NEGATIVE) H 09/27/19 15:00 Urine Ketones Trace (NEGATIVE) H 09/27/19 15:00 Urine Blood Negative (NEGATIVE) 09/27/19 15:00 Urine Nitrite Negative (NEGATIVE) 09/27/19 15:00 Urine Bilirubin Negative (NEGATIVE) 09/27/19 15:00 Urine Urobilinogen 1.0 mg/dL (0.2-1.0) 09/27/19 15:00 Ur Leukocyte Esterase Negative (NEGATIVE) 09/27/19 15:00 Urine WBC (Auto) 22 /uL (0-25.8) 09/27/19 15:00 Urine RBC (Auto) 25 /uL (0-23.9) 09/27/19 15:00 Urine Casts (Auto) 1 /uL (0-3.1) 09/27/19 15:00 U Epithel Cells (Auto) 26 /uL (0-25.1) 09/27/19 15:00 Urine Bacteria (Auto) 227 /uL (0-1359) 09/27/19 15:00 COVID-19 (SHEREEN) Not detected (Not Detected) 09/27/19 15:50 SARS-CoV-2 Ab Interp Reactive (NONREACTIVE) 09/29/19 05:46 Blood Type A NEGATIVE 09/28/19 12:13 Antibody Screen Negative 09/28/19 12:13 Current Medications Generic Name Dose Route Start Last Admin Trade Name Freq PRN Reason Stop Dose Admin Acetaminophen 650 mg 09/27/19 17:45 Tylenol - PO Q4H PRN PAIN LEVEL 1-5 Amlodipine Besylate 5 mg 09/28/19 10:00 09/29/19 09:24 Norvasc - PO Not Given DAILY [facility] Ascorbic Acid 500 mg 09/28/19 22:00 09/29/19 09:24 Vitamin C - PO Not Given BID [facility] Carbidopa/Levodopa 1 each 09/27/19 22:00 09/29/19 09:24 Sinemet 25/250 - PO Not Given BID [facility] Cholecalciferol 1,000 unit 09/28/19 11:30 09/29/19 09:25 Vitamin D3 - PO Not Given DAILY [facility] Dexamethasone Sodium Phosphate 6 mg 09/29/19 10:00 09/29/19 09:23 Decadron Injection - IVPUSH 6 mg DAILY [facility] Administration Enoxaparin Sodium 60 mg 09/28/19 10:00 09/29/19 09:23 Lovenox - SQ 60 mg BID [facility] Administration Piperacillin Sod/Tazobactam 50 mls @ 100 mls/hr 09/28/19 18:00 09/29/19 09:25 Sod 3.375 gm/ Dextrose IVPB 100 mls/hr Q8H-IV [facility] Administration Protocol Propofol 1,000,000 mcg in 100 mls @ 3.47 mls/hr 09/29/19 09:45 09/29/19 10:29 Diprivan - IVPB 10 mcg/kg/min TITR [facility] 3.47 mls/hr Administration Protocol 10 MCG/KG/MIN Phenylephrine HCl 10,000 mcg/ 500 mls @ 120 mls/hr 09/29/19 09:45 Dextrose IV TITR [facility] Protocol 40 MCG/MIN Fentanyl 500 mcg in 100 mls @ 10 mls/hr 09/29/19 09:45 09/29/19 10:30 Sublimaze Ivpb IVPB 50 mcg/hr TITR [facility] 10 mls/hr Administration 50 MCG/HR Insulin Aspart 1 vial 09/27/19 22:00 09/29/19 06:35 Novolog Vial Sliding Scale - SQ 2 units ACHS [facility] Administration Protocol Losartan Potassium 50 mg 09/28/19 10:00 09/29/19 09:23 Cozaar - PO Not Given DAILY [facility] Pramipexole Dihydrochloride 0.125 mg 09/27/19 22:00 09/29/19 06:29 Mirapex - PO Not Given TID [facility] Zinc Sulfate 220 mg 09/28/19 22:00 09/29/19 09:24 Orazinc - PO Not Given BID [facility] Discontinued Medications Generic Name Dose Route Start Last Admin Trade Name Freq PRN Reason Stop Dose Admin Amlodipine Besylate 5 mg 09/27/19 16:49 09/27/19 17:01 Norvasc - PO 09/27/19 16:50 5 mg ONCE ONE Administration Dexamethasone Sodium Phosphate 10 mg 09/27/19 16:18 09/27/19 16:24 Decadron Injection - IVPUSH 09/27/19 16:19 10 mg ONCE ONE Administration Dexamethasone Sodium Phosphate 6 mg 09/28/19 11:17 09/28/19 12:55 Decadron Injection - IVPUSH 09/28/19 11:18 6 mg DAILY ONE Administration Enoxaparin Sodium 40 mg 09/27/19 17:00 09/27/19 18:11 Lovenox - SQ 40 mg DAILY [facility] Administration Etomidate 12 mg 09/29/19 09:40 09/29/19 10:16 Amidate - IVPUSH 09/29/19 09:41 Not Given NOW ONE Furosemide 40 mg 09/27/19 18:14 09/27/19 18:38 Lasix Injection - IVPUSH 09/27/19 18:15 40 mg ONCE ONE Administration Piperacillin Sod/Tazobactam 100 mls @ 200 mls/hr 09/27/19 15:09 09/27/19 15:33 Sod 4.5 gm/ Dextrose IVPB 09/27/19 15:38 200 mls/hr ONCE ONE Administration Protocol Piperacillin Sod/Tazobactam 50 mls @ 100 mls/hr 09/27/19 23:00 09/28/19 14:47 Sod 3.375 gm/ Dextrose IVPB Not Given Q8H-IV [facility] Protocol Piperacillin Sod/Tazobactam 50 mls @ 100 mls/hr 09/27/19 23:00 09/28/19 09:28 Sod 3.375 gm/ Dextrose IVPB 09/28/19 18:29 100 mls/hr Q8H-IV [facility] Administration Protocol Insulin Aspart 1 vial 09/27/19 22:00 Novolog Vial Sliding Scale - SQ ACHS [facility] Protocol Labetalol HCl 100 mg 09/27/19 22:00 Normodyne - PO BID [facility] Labetalol HCl 10 mg 09/27/19 18:01 09/27/19 18:11 Normodyne Injection - IVPUSH 09/27/19 18:02 10 mg ONCE ONE Administration Lactated Ringer's 1,000 ml 09/27/19 15:49 09/27/19 15:54 Lactated Ringers Solution IV 09/27/19 15:50 1,000 ml ONCE ONE Administration Lorazepam 0.25 mg 09/28/19 21:20 09/28/19 21:57 Ativan Injection - IVPUSH 09/28/19 21:21 0.25 mg ONCE ONE Administration Losartan Potassium 50 mg 09/27/19 16:49 09/27/19 17:01 Cozaar - PO 09/27/19 16:50 50 mg ONCE ONE Administration Nitroglycerin 0.4 mg 09/27/19 17:29 09/27/19 17:38 Nitrostat - SL 09/27/19 17:30 0.4 mg ONCE ONE Administration Oxymetazoline HCl 1 spray 09/28/19 08:48 09/28/19 10:28 Afrin - NS 09/28/19 08:49 1 spray ONCE ONE Administration Rocuronium [place] 50 mg 09/29/19 09:42 09/29/19 10:27 Zemuron - IV 09/29/19 09:43 50 mg ONCE ONE Administration Succinylcholine Chloride 80 mg 09/29/19 09:39 09/29/19 10:27 Quelicin - IVPUSH 09/29/19 09:40 80 mg ONCE ONE Administration Vancomycin HCl 1,000 mg 09/27/19 15:09 09/27/19 15:46 Vancomycin (Pre-Docked) IVPB 09/27/19 15:10 1,000 mg ONCE ONE Administration Protocol Problem List - Problems (1) HTN (hypertension) Code(s): I10 - ESSENTIAL (PRIMARY) HYPERTENSION (2) Diabetes Code(s): E11.9 - TYPE 2 DIABETES MELLITUS WITHOUT COMPLICATIONS (3) Parkinson disease Code(s): G20 - PARKINSON'S DISEASE (4) Pneumonia Code(s): J18.9 - PNEUMONIA, UNSPECIFIED ORGANISM ASSESSMENT/PLAN: Acute Respiratory Failure due to ARDS likely related to COVID19 infection DDX : Aspiration pneumonitis (low suspicion) HTN DM Parkinsons LPV, 6cc per kg, pplat goal < 30 ID evaluation for ABX , send sputum cxl now repeat Serology testing pending broad Viral panel pending Conservative IVF as hemodynamic are stable Strict I & O Decadron Full AC for now with lovenox, closely watch UOP, Cr Zinc Vitamin C Glycemic control Requires ICU monitoring Consider Convalesant Plasma and remdesivir if serology + or clinical deterioration without alternate organism, refused by family earlier in course. [place] ACNP [id number]
[2019-09-29 11:53] LABS: ARTERIAL BLD GAS O2 SATURATION 97.3 mmHg (95-98); ARTERIAL BLOOD GAS BASE EXCESS 2.8 mmol/L (-2-2); ARTERIAL BLOOD GAS PO2 101.8 mmHg (80-100); ARTERIAL BLOOD GAS pH 7.348 (7.350-7.450)
[2019-09-29 11:54] LABS: ALLENS TEST POSITIVE
[2019-09-29 11:55] LABS: VENT MODE A/C; VENT RATE 24
[2019-09-29 12:07] LABS: ANISOCYTOSIS 1+; MACROCYTOSIS 0; OVALOCYTE 1+; PLATELET ESTIMATE NORMAL; TARGET CELLS 1+; TEAR DROP CELLS 1+
--- NOTE | 2019-09-29 14:11 | PN ---
Progress Note, Physician History of Present Illness: went into resp distress got intubated now intubated and sedated - Current Medication List Current Medications: Active Medications Acetaminophen (Tylenol -) 650 mg PO Q4H PRN PRN Reason: PAIN LEVEL 1-5 Amlodipine Besylate (Norvasc -) 5 mg PO DAILY [facility] Last Admin: 09/29/19 09:24 Dose: Not Given Documented by: Ascorbic Acid (Vitamin C -) 500 mg PO BID [facility] Last Admin: 09/29/19 09:24 Dose: Not Given Documented by: Carbidopa/Levodopa (Sinemet 25/250 -) 1 each PO BID [facility] Last Admin: 09/29/19 09:24 Dose: Not Given Documented by: Cholecalciferol (Vitamin D3 -) 1,000 unit PO DAILY [facility] Last Admin: 09/29/19 09:25 Dose: Not Given Documented by: Dexamethasone Sodium Phosphate (Decadron Injection -) 6 mg IVPUSH DAILY [facility] Last Admin: 09/29/19 09:23 Dose: 6 mg Documented by: Enoxaparin Sodium (Lovenox -) 60 mg SQ BID [facility] Last Admin: 09/29/19 09:23 Dose: 60 mg Documented by: Piperacillin Sod/Tazobactam (Sod 3.375 gm/ Dextrose) 50 mls @ 100 mls/hr IVPB Q8H-IV [facility]; Protocol Last Admin: 09/29/19 09:25 Dose: 100 mls/hr Documented by: Propofol (Diprivan -) 1,000,000 mcg in 100 mls @ 3.47 mls/hr IVPB TITR [facility]; Protocol Last Admin: 09/29/19 10:29 Dose: 10 mcg/kg/min, 3.47 mls/hr Documented by: Phenylephrine HCl 10,000 mcg/ (Dextrose) 500 mls @ 120 mls/hr IV TITR [facility]; Protocol Fentanyl (Sublimaze Ivpb) 500 mcg in 100 mls @ 10 mls/hr IVPB TITR [facility] Last Admin: 09/29/19 10:30 Dose: 50 mcg/hr, 10 mls/hr Documented by: Insulin Aspart (Novolog Vial Sliding Scale -) 1 vial SQ ACHS [facility]; Protocol Last Admin: 09/29/19 11:16 Dose: 4 units Documented by: Losartan Potassium (Cozaar -) 50 mg PO DAILY [facility] Last Admin: 09/29/19 09:23 Dose: Not Given Documented by: Pramipexole Dihydrochloride (Mirapex -) 0.125 mg PO TID [facility] Last Admin: 09/29/19 06:29 Dose: Not Given Documented by: Zinc Sulfate (Orazinc -) 220 mg PO BID [facility] Last Admin: 09/29/19 09:24 Dose: Not Given Documented by: - Objective Vital Signs: Vital Signs Temperature 98.0 F 09/29/19 12:00 Pulse Rate 97 H 09/29/19 12:00 Respiratory Rate 24 H 09/29/19 12:16 Blood Pressure 152/71 09/29/19 12:00 O2 Sat by Pulse Oximetry (%) 98 09/29/19 12:16 Constitutional: Yes: Other Cardiovascular: Yes: S1, S2 Respiratory: Yes: Intubated, Mechanically Ventilated Gastrointestinal: Yes: Normal Bowel Sounds, Soft Musculoskeletal: Yes: WNL Extremities: Yes: WNL Labs: CBC, BMP 09/29/19 05:46 09/29/19 05:46 - ....Imaging Chest X-ray: Report Reviewed, Image Reviewed Assessment/Plan Problem List - Problems (1) HTN (hypertension) Code(s): I10 - ESSENTIAL (PRIMARY) HYPERTENSION (2) Diabetes Code(s): E11.9 - TYPE 2 DIABETES MELLITUS WITHOUT COMPLICATIONS (3) Parkinson disease Code(s): G20 - PARKINSON'S DISEASE (4) Pneumonia Code(s): J18.9 - PNEUMONIA, UNSPECIFIED ORGANISM leukocytosis ASSESSMENT/PLAN: Acute Respiratory Failure HTN DM Parkinsons r/o covid plan continue zosyn will add flagyl and oral vanco if wbc does not decreasing will need ct of the abd/pelvis await for sputum cx rest as per icu cc 40 min
[2019-09-29] MEDS ORDERED: PT OWN MED DRAWER 7, Y5N ONE ×2 (14:40→21:17)
[2019-09-29] MEDS: VANCOMYCIN 250 MG/5 ML ORAL SOLUTION PO SCH (17:13)
[2019-09-30] MEDS ORDERED: PIPERACILLIN/TAZOBACTAM 3.375 GM VIAL IVPB ONE ×3 (00:52→17:37)
[2019-09-30] MEDS ORDERED: DEXTROSE 5%-WATER - 50 ML IVPB ONE ×3 (00:52→17:37)
[2019-09-30] MEDS: VANCOMYCIN 250 MG/5 ML ORAL SOLUTION PO SCH ×4 (01:08→17:40)
[2019-09-30] MEDS: PIPERACILLIN/TAZOB 3.375 GM 3.375 GM in DEXTROSE 5%-WATER - 50 ML IVPB SCH ×3 (01:09→17:39)
[2019-09-30] MEDS ORDERED: PT OWN MED DRAWER 7, Y5N ONE ×3 (05:46→21:12)
[2019-09-30] MEDS: PRAMIPEXOLE DIHYDROCHLORIDE 0.125 MG TABLET PO SCH ×3 (06:40→23:07)
[2019-09-30] MEDS: INSULIN SLIDING SCALE (NOVOLOG) 1 VIAL SQ SCH ×4 (06:48→23:36)
[2019-09-30 08:31] LABS: HEMATOCRIT 33.6 % (35.4-49); HEMOGLOBIN 10.6 GM/dL (11.7-16.9); MCH 27.2 pg (25.7-33.7); MCHC 31.7 g/dl (32.0-35.9); MEAN CELL VOLUME 85.9 fl (80-96); MEAN PLT VOLUME 8.2 fl (7.5-11.1); PLATELET COUNT 436 K/MM3 (134-434); RBC 3.91 M/mm3 (4.00-5.60); RDW 19.1 % (11.9-15.9)
[2019-09-30 08:36] LABS: WHITE BLOOD COUNT 31.8 K/mm3 (4.0-10.0)
--- NOTE | 2019-09-30 08:38 | PN ---
Progress Note (short form) - Note Progress Note: PULM/CCM Patient seen and examined in the ICU. Remains intubated, titrating off sedation. ABG Results ABG pH 7.348 (7.350-7.450) L 09/29/19 11:30 ABG HCO3 29.5 mmol/L (22-27) H 09/29/19 11:30 ABG O2 Sat (Measured) 97.3 mmHg (95-98) 09/29/19 11:30 ABG O2 Content No Result Required. 09/29/19 11:30 ABG Base Excess 2.8 mmol/L (-2-2) H 09/29/19 11:30 Vital Signs Period Temp Pulse Resp BP Sys/Cedillo Pulse Ox Last 24 Hr 97.8 F-98.2 F 60-84 12-25 102-171/56-78 98-100 Active Medications Acetaminophen (Tylenol -) 650 mg PO Q4H PRN PRN Reason: PAIN LEVEL 1-5 Amlodipine Besylate (Norvasc -) 5 mg PO DAILY [facility] Last Admin: 09/30/19 11:31 Dose: 5 mg Documented by: Ascorbic Acid (Vitamin C -) 500 mg PO BID [facility] 234 [facility]S AT [facility] Last Admin: 09/30/19 11:30 Dose: 500 mg Documented by: Carbidopa/Levodopa (Sinemet 25/250 -) 1 each PO BID [facility] 234 BEDS AT [facility] Last Admin: 09/30/19 11:29 Dose: 1 each Documented by: Chlorhexidine Gluconate (Hibiclens For Decolonization -) 1 applic TP [facility] Cholecalciferol (Vitamin D3 -) 1,000 unit PO DAILY [facility] 234 BEDS AT [facility] Last Admin: 09/30/19 11:31 Dose: 1,000 unit Documented by: Dexamethasone Sodium Phosphate (Decadron Injection -) 6 mg IVPUSH DAILY [facility] 234 BEDS AT [facility] Last Admin: 09/30/19 09:30 Dose: 6 mg Documented by: Enoxaparin Sodium (Lovenox -) 60 mg SQ BID [facility] 234 BEDS AT [facility] Last Admin: 09/30/19 09:27 Dose: 60 mg Documented by: Piperacillin Sod/Tazobactam (Sod 3.375 gm/ Dextrose) 50 mls @ 100 mls/hr IVPB Q8H-IV [facility] 234 BEDS AT [facility]; Protocol Last Admin: 09/30/19 17:39 Dose: 100 mls/hr Documented by: Propofol (Diprivan -) 1,000,000 mcg in 100 mls @ 3.47 mls/hr IVPB TITR [facility] 234 BEDS AT [facility]; Protocol Last Admin: 09/30/19 13:33 Dose: 20 mcg/kg/min, 6.94 mls/hr Documented by: Phenylephrine HCl 10,000 mcg/ (Dextrose) 500 mls @ 120 mls/hr IV TITR [facility] 234 BEDS AT [facility]; Protocol Last Admin: 09/30/19 11:31 Dose: Not Given Documented by: Fentanyl (Sublimaze Ivpb) 500 mcg in 100 mls @ 10 mls/hr IVPB TITR [facility] Last Titration: 09/30/19 18:00 Dose: 50 mcg/hr, 10 mls/hr Documented by: Metronidazole (Flagyl 500mg Premixed Ivpb -) 500 mg in 100 mls @ 100 mls/hr IVPB Q8H-IV [facility] Last Admin: 09/30/19 17:40 Dose: 100 mls/hr Documented by: Insulin Aspart (Novolog Vial Sliding Scale -) 1 vial SQ ACHS [facility] 234 BEDS AT [facility]; Protocol Last Admin: 09/30/19 18:03 Dose: 4 units Documented by: Losartan Potassium (Cozaar -) 50 mg PO DAILY [facility] 234 BEDS AT [facility] Last Admin: 09/30/19 11:30 Dose: 50 mg Documented by: Pramipexole Dihydrochloride (Mirapex -) 0.125 mg PO TID [facility] 234 BEDS AT [facility] Last Admin: 09/30/19 17:39 Dose: 0.125 mg Documented by: Vancomycin HCl (Vancomycin Oral Solution) 125 mg PO Q6HPO [facility]S [facility]CLUDE 234 BEDS AT [facility] Last Admin: 09/30/19 17:40 Dose: 125 mg Documented by: Zinc Sulfate (Orazinc -) 220 mg PO BID [facility] 234 BEDS AT [facility] Last Admin: 09/30/19 11:29 Dose: 220 mg Documented by: Intake & Output 09/27/19 09/28/19 09/29/19 09/30/19 23:59 23:59 23:59 23:59 Intake Total 337 040 1327.4 Output Total 450 Balance 150 377 800.4 Weight 61.235 kg 59.421 kg 57.833 kg 59.3 kg GENERAL: intubated sedated EYES:PEERLA: EOMI; no scleral icterus . NECK: no JVD; no lymphadenopathy LUNGS: coarse crackles bilaterally HEART: Bradycardia, 2nd degree HRB, S1 S2; no M/R/G. ABDOMEN: soft; NT/ND +BS in all 4 quadrants. MUSCULOSKELETAL: wnl EXTREMITIES: warm; well-perfused no clubbing/cyanosis or edema PSYCHIATRIC: Non-focal SKIN: Warm, dry, normal turgor, no rashes or lesions noted. CBC, BMP 09/30/19 06:42 09/30/19 06:42 ASSESSMENT/PLAN: Acute Respiratory Failure due to ARDS likely related to COVID19 infection DDX : Aspiration pneumonitis (low suspicion) HTN DM Parkinsons -LPV, 6cc per kg, pplat goal < 30 -Continue Abx as per ID -COVID-19 antibody positive -ID recs appreciated -Conservative IVF as hemodynamic are stable -Strict I & O -Insert garrison -Decadron -Full AC for now with lovenox, closely watch UOP, Cr -Zinc -Vitamin C -Glycemic control -Transfuse for Hgb<7, Plt<10 Requires ICU monitoring Continue discussion re GOC with a family Cassie Flaquita ACNP [id number]
[2019-09-30 08:58] LABS: ALBUMIN 2.1 g/dl (3.4-5.0); BILIRUBIN,TOTAL 0.6 mg/dL (0.2-1); CREATININE 1.1 mg/dL (0.55-1.3); POTASSIUM 3.4 mmol/L (3.5-5.1)
[2019-09-30 09:01] LABS: BLOOD UREA NITROGEN 55.6 mg/dL (7-18); TOT PROT 6.1 g/dl (6.4-8.2)
[2019-09-30] MEDS: ENOXAPARIN NA (PORCINE) 60 MG/0.6 ML DISP.SYRIN SQ SCH ×2 (09:27→23:07)
[2019-09-30] MEDS: DEXAMETHASONE SOD PHOSPHATE 4 MG/1 ML VIAL IVPUSH SCH (09:30)
[2019-09-30] MEDS ORDERED: KCL 10 MEQ IVPB 10 MEQ/100 ML INFUS.BAG IVPB SCH (09:30)
[2019-09-30] MEDS: ZINC SULFATE 220 MG CAPSULE (FP) PO SCH ×2 (11:29→23:07)
[2019-09-30] MEDS: CARBIDOPA/LEVODOPA 25/250 TABLET (FP) PO SCH ×2 (11:29→23:07)
[2019-09-30] MEDS: LOSARTAN POTASSIUM 50 MG TABLET (FP) PO SCH (11:30)
[2019-09-30] MEDS: ASCORBIC ACID 500 MG TABLET (FP) PO SCH ×2 (11:30→23:07)
[2019-09-30] MEDS: PHENYLEPHRINE HCL 10,000 MCG in DEXTROSE 5%-WATER - 499 ML IV SCH (11:31)
[2019-09-30] MEDS: CHOLECALCIFEROL (VIT D3) 1,000 UNIT (25 MCG) TABLET PO SCH (11:31)
[2019-09-30] MEDS: amLODIPine BESYLATE 5 MG TABLET (FP) PO SCH (11:31)
[2019-09-30] MEDS: PROPOFOL 1,000,000 MCG/100 ML VIAL IVPB SCH ×2 (11:31→13:33)
[2019-09-30] MEDS: FENTANYL IVPB 500 MCG/100 ML BAG IVPB SCH ×2 (11:33→13:33)
--- NOTE | 2019-09-30 13:06 | PN ---
Progress Note, Physician - Current Medication List Current Medications: Active Medications Acetaminophen (Tylenol -) 650 mg PO Q4H PRN PRN Reason: PAIN LEVEL 1-5 Amlodipine Besylate (Norvasc -) 5 mg PO DAILY [facility] Last Admin: 09/30/19 11:31 Dose: 5 mg Documented by: Ascorbic Acid (Vitamin C -) 500 mg PO BID [facility] Last Admin: 09/30/19 11:30 Dose: 500 mg Documented by: Carbidopa/Levodopa (Sinemet 25/250 -) 1 each PO BID [facility] Last Admin: 09/30/19 11:29 Dose: 1 each Documented by: Chlorhexidine Gluconate (Hibiclens For Decolonization -) 1 applic TP [facility] Cholecalciferol (Vitamin D3 -) 1,000 unit PO DAILY [facility] Last Admin: 09/30/19 11:31 Dose: 1,000 unit Documented by: Dexamethasone Sodium Phosphate (Decadron Injection -) 6 mg IVPUSH DAILY [facility] Last Admin: 09/30/19 09:30 Dose: 6 mg Documented by: Enoxaparin Sodium (Lovenox -) 60 mg SQ BID [facility] Last Admin: 09/30/19 09:27 Dose: 60 mg Documented by: Piperacillin Sod/Tazobactam (Sod 3.375 gm/ Dextrose) 50 mls @ 100 mls/hr IVPB Q8H-IV [facility]; Protocol Last Admin: 09/30/19 09:27 Dose: 100 mls/hr Documented by: Propofol (Diprivan -) 1,000,000 mcg in 100 mls @ 3.47 mls/hr IVPB TITR [facility]; Protocol Last Admin: 09/30/19 11:31 Dose: 10 mcg/kg/min, 3.47 mls/hr Documented by: Phenylephrine HCl 10,000 mcg/ (Dextrose) 500 mls @ 120 mls/hr IV TITR [facility]; Protocol Last Admin: 09/30/19 11:31 Dose: Not Given Documented by: Fentanyl (Sublimaze Ivpb) 500 mcg in 100 mls @ 10 mls/hr IVPB TITR [facility] Last Admin: 09/30/19 11:33 Dose: Not Given Documented by: Metronidazole (Flagyl 500mg Premixed Ivpb -) 500 mg in 100 mls @ 100 mls/hr IVP B Q8H-IV [facility] Last Admin: 09/30/19 11:32 Dose: 100 mls/hr Documented by: Insulin Aspart (Novolog Vial Sliding Scale -) 1 vial SQ ACHS [facility]; Protocol Last Admin: 09/30/19 12:16 Dose: 2 units Documented by: Losartan Potassium (Cozaar -) 50 mg PO DAILY [facility] Last Admin: 09/30/19 11:30 Dose: 50 mg Documented by: Pramipexole Dihydrochloride (Mirapex -) 0.125 mg PO TID [facility] Last Admin: 09/30/19 06:40 Dose: 0.125 mg Documented by: Vancomycin HCl (Vancomycin Oral Solution) 125 mg PO Q6HPO [facility] Last Admin: 09/30/19 06:39 Dose: 125 mg Documented by: Zinc Sulfate (Orazinc -) 220 mg PO BID [facility] Last Admin: 09/30/19 11:29 Dose: 220 mg Documented by: - Objective Vital Signs: Vital Signs Temperature 98 F 09/30/19 08:00 Pulse Rate 74 09/30/19 09:00 Respiratory Rate 25 H 09/30/19 11:59 Blood Pressure 107/62 09/30/19 09:00 O2 Sat by Pulse Oximetry (%) 99 09/30/19 12:00 Labs: CBC, BMP 09/30/19 06:42 09/30/19 06:42
[2019-09-30] MEDS ORDERED: DOPAMINE 400 MG/D5W - 400,000 MCG/250 ML INFUS.BAG IVPB SCH (22:30)
[2019-09-30] MEDS: CHLORHEXIDINE GLUCONATE 4% CLEANSER FOR DECOLONIZATION TP SCH (23:05)
[2019-09-30 23:12] LABS: ARTERIAL BLD GAS O2 SATURATION 99.5 mmHg (95-98); ARTERIAL BLOOD GAS BASE EXCESS 3.5 mmol/L (-2-2); ARTERIAL BLOOD GAS PO2 221.2 mmHg (80-100); ARTERIAL BLOOD GAS pH 7.427 (7.350-7.450)
[2019-09-30 23:15] LABS: ALLENS TEST POSITIVE; O2 CONTENT 99.3 % vol
[2019-10-01] MEDS: VANCOMYCIN 250 MG/5 ML ORAL SOLUTION PO SCH ×4 (01:19→17:15)
[2019-10-01] MEDS ORDERED: DEXTROSE 5%-WATER - 50 ML IVPB ONE ×3 (02:14→17:02)
[2019-10-01] MEDS ORDERED: PIPERACILLIN/TAZOBACTAM 3.375 GM VIAL IVPB ONE ×3 (02:14→17:02)
[2019-10-01] MEDS: PIPERACILLIN/TAZOB 3.375 GM 3.375 GM in DEXTROSE 5%-WATER - 50 ML IVPB SCH ×3 (02:19→17:14)
[2019-10-01] MEDS ORDERED: PT OWN MED DRAWER 7, Y5N ONE ×3 (05:32→22:07)
[2019-10-01] MEDS: PRAMIPEXOLE DIHYDROCHLORIDE 0.125 MG TABLET PO SCH ×3 (05:37→22:07)
[2019-10-01 07:25] LABS: HEMATOCRIT 37.4 % (35.4-49); MCH 27.3 pg (25.7-33.7); MEAN CELL VOLUME 85.3 fl (80-96); MEAN PLT VOLUME 8.1 fl (7.5-11.1); PLATELET COUNT 528 K/MM3 (134-434); RBC 4.39 M/mm3 (4.00-5.60); RDW 19.5 % (11.9-15.9)
[2019-10-01 07:41] LABS: ALBUMIN 2.2 g/dl (3.4-5.0); ALK PHOS 116 U/L (45-117); ANION GAP 9 MMOL/L (8-16); BILIRUBIN,TOTAL 0.9 mg/dL (0.2-1); BLOOD UREA NITROGEN 62.5 mg/dL (7-18); CHLORIDE 97 mmol/L (98-107); CO2 30 mmol/L (21-32); CREATININE 1.1 mg/dL (0.55-1.3); GLUCOSE,RANDOM 208 mg/dL (74-106); MAGNESIUM 3.1 mg/dL (1.8-2.4); PHOSPHOROUS 2.9 mg/dL (2.5-4.9); POTASSIUM 3.4 mmol/L (3.5-5.1); SGOT/AST 24 U/L (15-37); SODIUM 136 mmol/L (136-145); TOT PROT 6.6 g/dl (6.4-8.2)
[2019-10-01 07:42] LABS: SGPT/ALT < 6 U/L (13-61)
[2019-10-01 08:10] LABS: WHITE BLOOD COUNT 38.2 K/mm3 (4.0-10.0)
[2019-10-01] MEDS ORDERED: PROPOFOL 1,000,000 MCG/100 ML VIAL ONE ×2 (08:10→09:46)
[2019-10-01] MEDS ORDERED: PROPOFOL 200 MG/20 ML VIAL IVPUSH ONE (08:10)
[2019-10-01] MEDS ORDERED: LIDOCAINE HCL 1%, 10 MG/ML (20ML VIAL) ONE (09:56)
[2019-10-01] MEDS: PROPOFOL 1,000,000 MCG/100 ML VIAL IVPB SCH (09:59)
[2019-10-01] MEDS: ENOXAPARIN NA (PORCINE) 60 MG/0.6 ML DISP.SYRIN SQ SCH ×3 (10:50→21:07)
[2019-10-01] MEDS: ZINC SULFATE 220 MG CAPSULE (FP) PO SCH ×2 (10:51→21:06)
[2019-10-01] MEDS: amLODIPine BESYLATE 5 MG TABLET (FP) PO SCH ×2 (10:51→11:49)
[2019-10-01] MEDS: CARBIDOPA/LEVODOPA 25/250 TABLET (FP) PO SCH ×2 (10:51→21:06)
[2019-10-01] MEDS: ASCORBIC ACID 500 MG TABLET (FP) PO SCH ×2 (10:51→21:06)
[2019-10-01] MEDS: DEXAMETHASONE SOD PHOSPHATE 4 MG/1 ML VIAL IVPUSH SCH (10:52)
[2019-10-01] MEDS: CHOLECALCIFEROL (VIT D3) 1,000 UNIT (25 MCG) TABLET PO SCH (10:55)
[2019-10-01] MEDS: LOSARTAN POTASSIUM 50 MG TABLET (FP) PO SCH ×2 (10:55→11:48)
[2019-10-01] MEDS: FENTANYL IVPB 500 MCG/100 ML BAG IVPB SCH (10:56)
[2019-10-01] MEDS: PHENYLEPHRINE HCL 10,000 MCG in DEXTROSE 5%-WATER - 499 ML IV SCH (10:56)
[2019-10-01] MEDS ORDERED: methylPREDNISolone NA SUCC 40 MG/1 ML VIAL IVPUSH ONE (13:30)
[2019-10-01] MEDS: INSULIN SLIDING SCALE (NOVOLOG) 1 VIAL SQ SCH ×5 (13:42→21:31)
--- NOTE | 2019-10-01 14:05 | PN ---
Progress Note, Physician History of Present Illness: events noted patient detoriated pneumo chest tube placed continues to be intubated on dopamine all cx results noted - Current Medication List Current Medications: Active Medications Acetaminophen (Tylenol -) 650 mg PO Q4H PRN PRN Reason: PAIN LEVEL 1-5 Amlodipine Besylate (Norvasc -) 5 mg PO DAILY [facility] Last Admin: 10/01/19 11:49 Dose: Not Given Documented by: Ascorbic Acid (Vitamin C -) 500 mg PO BID [facility] Last Admin: 10/01/19 10:51 Dose: 500 mg Documented by: Carbidopa/Levodopa (Sinemet 25/250 -) 1 each PO BID [facility] Last Admin: 10/01/19 10:51 Dose: 1 each Documented by: Chlorhexidine Gluconate (Hibiclens For Decolonization -) 1 applic TP HS [facility] Last Admin: 09/30/19 23:05 Dose: 1 applic Documented by: Cholecalciferol (Vitamin D3 -) 1,000 unit PO DAILY [facility] Last Admin: 10/01/19 10:55 Dose: 1,000 unit Documented by: Enoxaparin Sodium (Lovenox -) 60 mg SQ BID [facility] Last Admin: 10/01/19 10:51 Dose: 60 mg Documented by: Piperacillin Sod/Tazobactam (Sod 3.375 gm/ Dextrose) 50 mls @ 100 mls/hr IVPB Q8H-IV [facility]; Protocol Last Admin: 10/01/19 10:54 Dose: 100 mls/hr Documented by: Propofol (Diprivan -) 1,000,000 mcg in 100 mls @ 3.47 mls/hr IVPB TITR [facility]; Protocol Last Admin: 10/01/19 09:59 Dose: 10 mcg/kg/min, 3.47 mls/hr Documented by: Phenylephrine HCl 10,000 mcg/ (Dextrose) 500 mls @ 120 mls/hr IV TITR [facility]; Protocol Last Admin: 10/01/19 10:56 Dose: Not Given Documented by: Fentanyl (Sublimaze Ivpb) 500 mcg in 100 mls @ 10 mls/hr IVPB TITR [facility] Last Admin: 10/01/19 10:56 Dose: Not Given Documented by: Metronidazole (Flagyl 500mg Premixed Ivpb -) 500 mg in 100 mls @ 100 mls/hr IVPB Q8H-IV [facility] Last Admin: 10/01/19 10:01 Dose: 100 mls/hr Documented by: Dopamine HCl/Dextrose (Dopamine 400 Mg/D5w -) 400,000 mcg in 250 mls @ 11.119 mls/hr IVPB TITR [facility]; Protocol Last Titration: 10/01/19 12:59 Dose: 3 mcg/kg/min, 6.671 mls/hr Documented by: Sodium Chloride (Normal Saline -) 1,000 mls @ 50 mls/hr IV ASDIR [facility] Stop: 10/03/19 09:59 Insulin Aspart (Novolog Vial Sliding Scale -) 1 vial SQ ACHS [facility]; Protocol Last Admin: 10/01/19 13:42 Dose: 4 units Documented by: Losartan Potassium (Cozaar -) 50 mg PO DAILY [facility] Last Admin: 10/01/19 11:48 Dose: Not Given Documented by: Methylprednisolone Sodium Succinate (Solu-Medrol -) 30 mg IVPUSH BID [facility] Pantoprazole Sodium (Protonix Iv) 40 mg IVPUSH DAILY [facility] Pramipexole Dihydrochloride (Mirapex -) 0.125 mg PO TID [facility] Last Admin: 10/01/19 05:37 Dose: 0.125 mg Documented by: Vancomycin HCl (Vancomycin Oral Solution) 125 mg PO Q6HPO [facility] Last Admin: 10/01/19 05:37 Dose: 125 mg Documented by: Zinc Sulfate (Orazinc -) 220 mg PO BID [facility] Last Admin: 10/01/19 10:51 Dose: 220 mg Documented by: - Objective Vital Signs: Vital Signs Temperature 98.3 F 10/01/19 05:00 Pulse Rate 84 10/01/19 08:37 Respiratory Rate 38 H 10/01/19 12:20 Blood Pressure 77/46 L 10/01/19 12:59 O2 Sat by Pulse Oximetry (%) 95 10/01/19 12:20 Constitutional: Yes: Other Cardiovascular: Yes: Tachycardia, S1, S2 Respiratory: Yes: Mechanically Ventilated, Other (chest tube in place) Gastrointestinal: Yes: Soft Musculoskeletal: Yes: WNL Extremities: Yes: WNL Labs: CBC, BMP 10/01/19 05:45 10/01/19 05:45 - ....Imaging Chest X-ray: Report Reviewed, Image Reviewed Assessment/Plan Problem List - Problems (1) HTN (hypertension) Code(s): I10 - ESSENTIAL (PRIMARY) HYPERTENSION (2) Diabetes Code(s): E11.9 - TYPE 2 DIABETES MELLITUS WITHOUT COMPLICATIONS (3) Parkinson disease Code(s): G20 - PARKINSON'S DISEASE (4) Pneumonia Code(s): J18.9 - PNEUMONIA, UNSPECIFIED ORGANISM leukocytosis pneumothorax ASSESSMENT/PLAN: Acute Respiratory Failure HTN DM Parkinsons r/o covid plan continue abx monitor wbc chest tube care prognosis is poor continue as per icu cc 38 min
--- NOTE | 2019-10-01 15:32 | PN ---
Teaching Attending Note Name of Resident: Cynthia Barksdale ATTENDING PHYSICIAN STATEMENT I saw and evaluated the patient. I reviewed the resident's note and discussed the case with the resident. I agree with the resident's findings and plan as documented. SUBJECTIVE: Pt seen and examined in the ICU. Remains intubated, sedated on dopamine gtt. Left chest tube placed this AM for pneumothorax seen on CXR. OBJECTIVE: Vital Signs Period Temp Pulse Resp BP Sys/Cedillo Pulse Ox Last 24 Hr 97.8 F-98.3 F 11-111 14-110 68-200/33-152 90-100 Intake & Output 09/28/19 09/29/19 09/30/19 10/01/19 23:59 23:59 23:59 23:59 Intake Total 963 112 5736.4 415.7 Output Total 450 450 Balance 150 377 800.4 -34.3 Weight 59.421 kg 57.833 kg 59.3 kg 61.507 kg Gen: intubated, sedated Heart: RRR Lung: scattered rhonchi Abd: soft, nontender Ext: + edema CBC, BMP 10/01/19 05:45 10/01/19 05:45 Active Medications Acetaminophen (Tylenol -) 650 mg PO Q4H PRN PRN Reason: PAIN LEVEL 1-5 Amlodipine Besylate (Norvasc -) 5 mg PO DAILY [facility] [place] Last Admin: 10/01/19 11:49 Dose: Not Given Documented by: Ascorbic Acid (Vitamin C -) 500 mg PO BID [facility] [place] Last Admin: 10/01/19 10:51 Dose: 500 mg Documented by: Carbidopa/Levodopa (Sinemet 25/250 -) 1 each PO BID [facility] [place] Last Admin: 10/01/19 10:51 Dose: 1 each Documented by: Chlorhexidine Gluconate (Hibiclens For Decolonization -) 1 applic TP HS [facility] [place] Last Admin: 09/30/19 23:05 Dose: 1 applic Documented by: Cholecalciferol (Vitamin D3 -) 1,000 unit PO DAILY [facility] [place] Last Admin: 10/01/19 10:55 Dose: 1,000 unit Documented by: Enoxaparin Sodium (Lovenox -) 60 mg SQ BID [facility] [place] Last Admin: 10/01/19 10:51 Dose: 60 mg Documented by: Piperacillin Sod/Tazobactam (Sod 3.375 gm/ Dextrose) 50 mls @ 100 mls/hr IVPB Q8H-IV [facility]; Protocol Last Admin: 10/01/19 10:54 Dose: 100 mls/hr Documented by: Propofol (Diprivan -) 1,000,000 mcg in 100 mls @ 3.47 mls/hr IVPB TITR [facility]; Protocol Last Admin: 10/01/19 09:59 Dose: 10 mcg/kg/min, 3.47 mls/hr Documented by: Phenylephrine HCl 10,000 mcg/ (Dextrose) 500 mls @ 120 mls/hr IV TITR [facility]; Protocol Last Admin: 10/01/19 10:56 Dose: Not Given Documented by: Fentanyl (Sublimaze Ivpb) 500 mcg in 100 mls @ 10 mls/hr IVPB TITR [facility] Last Admin: 10/01/19 10:56 Dose: Not Given Documented by: Metronidazole (Flagyl 500mg Premixed Ivpb -) 500 mg in 100 mls @ 100 mls/hr IVPB Q8H-IV [facility] Last Admin: 10/01/19 10:01 Dose: 100 mls/hr Documented by: Sodium Chloride (Normal Saline -) 1,000 mls @ 50 mls/hr IV ASDIR [facility] Stop: 10/03/19 09:59 Norepinephrine Bitartrate (Levophed Bag) 8,000 mcg in 500 mls @ 18.75 mls/hr IVPB TITR [facility] [place]; Protocol Insulin Aspart (Novolog Vial Sliding Scale -) 1 vial SQ ACHS [facility] [place]; Protocol Last Admin: 10/01/19 13:42 Dose: 4 units Documented by: Losartan Potassium (Cozaar -) 50 mg PO DAILY [facility] [place] Last Admin: 10/01/19 11:48 Dose: Not Given Documented by: Methylprednisolone Sodium Succinate (Solu-Medrol -) 30 mg IVPUSH BID [facility] [place] Pantoprazole Sodium (Protonix Iv) 40 mg IVPUSH DAILY [facility] [place] Pramipexole Dihydrochloride (Mirapex -) 0.125 mg PO TID [facility] [place] Last Admin: 10/01/19 05:37 Dose: 0.125 mg Documented by: Vancomycin HCl (Vancomycin Oral Solution) 125 mg PO Q6HPO [facility] [place] Last Admin: 10/01/19 05:37 Dose: 125 mg Documented by: Zinc Sulfate (Orazinc -) 220 mg PO BID [facility] [place] Last Admin: 10/01/19 10:51 Dose: 220 mg Documented by: ASSESSMENT AND PLAN: Acute Hypoxic Respiratory Failure COVID19 Pneumonia ARDS Left Pneumothorax s/p pigtail catheter placement Subcutaneous Emphysema HTN DM Parkinsons - antibiotics per ID - continue anticoagulation - empiric steroids - trend inflammatory markers - titrate FiO2, PEEP to keep SpO2 >90% - low tidal volume ventilation - keep Pplat <30 - sedate for vent synchrony - IVF - monitor urine output, creatinine - chest tube to low wall suction - enteral feeds - DVT/GI prophylaxis - continue ICU monitoring critical care time spent in reviewing chart, evaluating patient and formulating plan 35 min
[2019-10-01] MEDS ORDERED: NOREPINEPHRINE BITARTRATE 4 MG/4 ML ML IV ONE (17:04)
--- NOTE | 2019-10-01 17:08 | CON.CARD ---
Consult Consult Specialty:: Cardiology Referred by:: ICU Reason for Consultation:: Cardiac evaluation - History of Present Illness Chief Complaint: Shortness of breath and respiratory failure History of Present Illness: Patient is an 84 year old male with underlying history of HTN, NIDDM, parkinson's who presented with worsening shortness of breath. He complained of productive cough and body aches. Currently, he was seen in ICU intubated and had chest tube placed today to his left thorax. He is on Pressor support and is bein g treated for COVID pneumonitis and ARDS. CT chest is suggestive of pneumonitis with gound glass pattern. - History Source History Provided By: Medical Record Limitations to Obtaining History: Clinical Condition - Smoking History Smoking history: Never smoked Have you smoked in the past 12 months: No Home Medications - Allergies Allergies/Adverse Reactions: Allergies Allergy/AdvReac Type Severity Reaction Status Date / Time No Known Allergies Allergy Verified 09/27/19 14:09 - Home Medications Home Medications: Ambulatory Orders Amlodipine Besylate 5 mg PO DAILY 09/27/19 Carbidopa/Levodopa [Carbidopa-Levodopa 25-250 Tab] 1 each PO BID 09/27/19 Glipizide 10 mg PO BID 09/27/19 Losartan Potassium [Cozaar -] 50 mg PO DAILY 09/27/19 Pramipexole Di-HCl [Pramipexole Dihydrochloride] 0.125 mg PO TID 09/27/19 Family Medical History Family History: Unable to Obtain Review of Systems Unable to obtain ROS, reason: No able to obtain Vital Signs: Vital Signs Temperature 98.3 F 10/01/19 05:00 Pulse Rate 84 10/01/19 08:37 Respiratory Rate 29 H 10/01/19 16:20 Blood Pressure 77/46 L 10/01/19 12:59 O2 Sat by Pulse Oximetry (%) 97 10/01/19 16:20 Respiratory: Yes: Intubated Gastrointestinal: Yes: Normal Bowel Sounds, Soft. No: Tenderness Cardiovascular: Yes: Regular Rate and Rhythm JVD: No PMI: Non-Displaced Heart Sounds: Yes: S1, S2 Edema: No - Other Data Labs, Other Data: CBC, BMP 10/01/19 05:45 10/01/19 05:45 Sinus rhythm, poor R progression Imaging - Results Chest X-ray: Report Reviewed (Left pneumothorax) Cat Scan: Report Reviewed (Chest CT) EKG: Report Reviewed Problem List - Problems (1) Septic shock Code(s): A41.9 - SEPSIS, UNSPECIFIED ORGANISM; R65.21 - SEVERE SEPSIS WITH SEPTIC SHOCK (2) ARDS (adult respiratory distress syndrome) Code(s): J80 - ACUTE RESPIRATORY DISTRESS SYNDROME (3) Pneumonitis Code(s): J18.9 - PNEUMONIA, UNSPECIFIED ORGANISM (4) Pneumothorax Code(s): J93.9 - PNEUMOTHORAX, UNSPECIFIED (5) COVID-19 virus IgG antibody detected Code(s): Z01.84 - ENCOUNTER FOR ANTIBODY RESPONSE EXAMINATION (6) Diabetes Code(s): E11.9 - TYPE 2 DIABETES MELLITUS WITHOUT COMPLICATIONS (7) HTN (hypertension) Code(s): I10 - ESSENTIAL (PRIMARY) HYPERTENSION (8) Parkinson disease Code(s): G20 - PARKINSON'S DISEASE (9) Pneumonia Code(s): J18.9 - PNEUMONIA, UNSPECIFIED ORGANISM Qualifiers: Pneumonia type: due to unspecified organism Laterality: right Lung location: unspecified part of lung Qualified Code(s): J18.9 - Pneumonia, unspecified organism (10) Acute respiratory failure with hypoxia Code(s): J96.01 - ACUTE RESPIRATORY FAILURE WITH HYPOXIA Assessment/Plan 1. Acute respiratory failure on mechanical ventilation 2. COVID pneumonitis and ARDS 3. Septic shock 4. Leukocytosis 5. Hypokalemia 6. DM 7. Parkinson's 8. Pneumothorax s/p chest tube PLAN: 1. Supportive care in ICU 2. Pressor support 3. Chest tube management 4. Antibiotic coverage 5. Steroids, vent management 6. Anticoagulation with Lovenox 7. K supplement Guarded Avel Lopez MD
[2019-10-01] MEDS: SODIUM CHLORIDE 1,000 ML IV SCH (17:11)
[2019-10-01] MEDS: NOREPINEPHRINE BITARTRATE 8,000 MCG/500 ML BAG IVPB SCH (17:11)
--- NOTE | 2019-10-01 17:28 | PN ---
Physical Exam: SUBJECTIVE: Patient seen and examined bedside. Intubated. Last night patient became bradycardic to 30s-40s & hypotensive. Dopamine infusion started. This morning, left chest tube placed this morning for pneumothorax seen per xray. OBJECTIVE: Vital Signs Temp Pulse Resp BP Pulse Ox 98.3 F 84 29 H 77/46 L 97 10/01/19 05:00 10/01/19 08:37 10/01/19 16:20 10/01/19 12:59 10/01/19 16:20 GENERAL: The patient is sedated, intubated. No HEAD: Normal with no signs of trauma. EYES: PERRL, LUNGS: Decreased breath sounds on left. HEART: RRR, s1 s2 ABDOMEN: Soft, nontender, nondistended EXTREMITIES: warm, well-perfused, BL edema PSYCH: unable to assess SKIN: Warm, dry Intake & Output 09/28/19 09/29/19 09/30/19 10/01/19 23:59 23:59 23:59 23:59 Intake Total 148 556 9049.4 415.7 Output Total 450 650 Balance 150 377 800.4 -234.3 Weight 131 lb 127 lb 8 oz 130 lb 11.746 oz 135 lb 9.6 oz Laboratory Results - last 24 hr 09/30/19 09/30/19 09/30/19 17:46 23:00 23:25 WBC RBC Hgb Hct MCV MCH MCHC RDW Plt Count MPV Anticoagulation Therapy No Result Required. Puncture Site Right radial Patient Temperature No Result Required. ABG pH 7.427 ABG pCO2 43.90 ABG pO2 221.2 H ABG HCO3 28.3 H ABG O2 Sat (Measured) 99.5 H ABG O2 Content 99.3 ABG Base Excess 3.5 H Amador Test Positive Patient On Oxygen Yes O2 Delivery Device Vent Oxygen Flow Rate 100% Vent Mode No Result Required. Vent Rate No Result Required. Mechanical Rate No Result Required. PEEP No Result Required. Pressure Support Vent No Result Required. Sodium Potassium Chloride Carbon Dioxide Anion Gap BUN Creatinine Est GFR (CKD-EPI)AfAm Est GFR (CKD-EPI)NonAf POC Glucometer 240 217 Random Glucose Calcium Phosphorus Magnesium Total Bilirubin AST ALT Alkaline Phosphatase Total Protein Albumin 10/01/19 10/01/19 10/01/19 05:44 05:45 05:45 WBC 38.2 H* RBC 4.39 Hgb 12.0 Hct 37.4 MCV 85.3 MCH 27.3 MCHC 32.0 RDW 19.5 H Plt Count 528 H D MPV 8.1 Anticoagulation Therapy Puncture Site Patient Temperature ABG pH ABG pCO2 ABG pO2 ABG HCO3 ABG O2 Sat (Measured) ABG O2 Content ABG Base Excess Amador Test Patient On Oxygen O2 Delivery Device Oxygen Flow Rate Vent Mode Vent Rate Mechanical Rate PEEP Pressure Support Vent Sodium 136 Potassium 3.4 L Chloride 97 L Carbon Dioxide 30 Anion Gap 9 BUN 62.5 H Creatinine 1.1 Est GFR (CKD-EPI)AfAm 70.08 Est GFR (CKD-EPI)NonAf 60.46 POC Glucometer 181 Random Glucose 208 H Calcium 8.0 L Phosphorus 2.9 Magnesium 3.1 H Total Bilirubin 0.9 AST 24 ALT < 6 L Alkaline Phosphatase 116 Total Protein 6.6 Albumin 2.2 L 10/01/19 13:34 WBC RBC Hgb Hct MCV MCH MCHC RDW Plt Count MPV Anticoagulation Therapy Puncture Site Patient Temperature ABG pH ABG pCO2 ABG pO2 ABG HCO3 ABG O2 Sat (Measured) ABG O2 Content ABG Base Excess Amador Test Patient On Oxygen O2 Delivery Device Oxygen Flow Rate Vent Mode Vent Rate Mechanical Rate PEEP Pressure Support Vent Sodium Potassium Chloride Carbon Dioxide Anion Gap BUN Creatinine Est GFR (CKD-EPI)AfAm Est GFR (CKD-EPI)NonAf POC Glucometer 208 Random Glucose Calcium Phosphorus Magnesium Total Bilirubin AST ALT Alkaline Phosphatase Total Protein Albumin Active Medications Generic Name Dose Route Start Last Admin Trade Name Freq PRN Reason Stop Dose Admin Acetaminophen 650 mg 09/27/19 17:45 Tylenol - PO Q4H PRN PAIN LEVEL 1-5 Amlodipine Besylate 5 mg 09/28/19 10:00 10/01/19 11:49 Norvasc - PO Not Given DAILY [facility] Ascorbic Acid 500 mg 09/28/19 22:00 10/01/19 10:51 Vitamin C - PO 500 mg BID [facility] Administration Carbidopa/Levodopa 1 each 09/27/19 22:00 10/01/19 10:51 Sinemet 25/250 - PO 1 each BID [facility] Administration Chlorhexidine Gluconate 1 applic 09/30/19 22:00 09/30/19 23:05 Hibiclens For Decolonization - TP 1 applic HS [facility] Administration Cholecalciferol 1,000 unit 09/28/19 11:30 10/01/19 10:55 Vitamin D3 - PO 1,000 unit DAILY [facility] Administration Enoxaparin Sodium 60 mg 09/28/19 10:00 10/01/19 10:51 Lovenox - SQ 60 mg BID [facility] Administration Piperacillin Sod/Tazobactam 50 mls @ 100 mls/hr 09/28/19 18:00 10/01/19 17:14 Sod 3.375 gm/ Dextrose IVPB 100 mls/hr Q8H-IV [facility] Administration Protocol Propofol 1,000,000 mcg in 100 mls @ 3.47 mls/hr 09/29/19 09:45 10/01/19 09:59 Diprivan - IVPB 10 mcg/kg/min TITR [facility] 3.47 mls/hr Administration Protocol 10 MCG/KG/MIN Phenylephrine HCl 10,000 mcg/ 500 mls @ 120 mls/hr 09/29/19 09:45 10/01/19 10:56 Dextrose IV Not Given TITR [facility] Protocol 40 MCG/MIN Fentanyl 500 mcg in 100 mls @ 10 mls/hr 09/29/19 09:45 10/01/19 10:56 Sublimaze Ivpb IVPB Not Given TITR [facility] 50 MCG/HR Metronidazole 500 mg in 100 mls @ 100 mls/hr 09/29/19 14:15 10/01/19 17:15 Flagyl 500mg Premixed Ivpb - IVPB 100 mls/hr Q8H-IV [facility] Administration Sodium Chloride 1,000 mls @ 50 mls/hr 10/01/19 14:00 10/01/19 17:11 Normal Saline - IV 10/03/19 09:59 50 mls/hr ASDIR [facility] Administration Norepinephrine Bitartrate 8,000 mcg in 500 mls @ 18.75 mls/hr 10/01/19 14:15 10/01/19 17:11 Levophed Bag IVPB 5 mcg/min TITR [facility] 18.75 mls/hr Administration Protocol 5 MCG/MIN Insulin Aspart 1 vial 09/27/19 22:00 10/01/19 13:42 Novolog Vial Sliding Scale - SQ 4 units ACHS [facility] Administration Protocol Losartan Potassium 50 mg 09/28/19 10:00 10/01/19 11:48 Cozaar - PO Not Given DAILY [facility] Methylprednisolone Sodium Succinate 30 mg 10/01/19 22:00 Solu-Medrol - IVPUSH BID [facility] Pantoprazole Sodium 40 mg 10/02/19 10:00 Protonix Iv IVPUSH DAILY [facility] Pramipexole Dihydrochloride 0.125 mg 09/27/19 22:00 10/01/19 17:12 Mirapex - PO 0.125 mg TID [facility] Administration Vancomycin HCl 125 mg 09/29/19 18:00 10/01/19 17:14 Vancomycin Oral Solution PO 125 mg Q6HPO [facility] Administration Zinc Sulfate 220 mg 09/28/19 22:00 10/01/19 10:51 Orazinc - PO 220 mg BID [facility] Administration ASSESSMENT/PLAN: 84 y.o male with PMH of HTN, DM, parkinsons disease presents to the ED with complaints of shortness of breath and non-productive cough over the last 4-5 days. Admitted to ICU for acute hypoxic respiratory failure. Neuro - sedated on propofol and fentanyl - parkinsons' history - c/w carbidopa/levodopa Pulm - intubated: vent settings: maintain o2 sat >90 RR 26 TV 380 Fio2 80 PEEP 10 - L pneumothorax on cxr, L chest tube placed this AM - d/c dexamethasone, start solumedrol - Covid negative but antibody positive Chest CT consistent with possible covid pneumonitis continue to monitor inflammatory markers Cardio - currently on pressors, started on dopamine last night, switch to Levophed this afternoon - HTN history: holding home medications due to hypotension - maintain MAP > 65 ID - ID consulted (Dr. Almendarez) continue with antbx zosyn day 4 vanc day 3 flagyl day 3 Endo - history of DM - holding home glipizide - ISS ACHS - BGMS ACHS Renal - Cr 1.1 - monitor electrolytes - monitor I's & O's - monitor volume status FEN - NS 50 cc/hr - monitor electrolytes - tube feeds, glucerna DVT ppx: lovenox 60 BID GI ppx: protonix 40 IV daily Lines - R subclavian triple lumen placed 09/28 code status: full code Visit type - Emergency Visit Emergency Visit: Yes ED Registration Date: 09/27/19 Care time: The patient presented to the Emergency Department on the above date and was hospitalized for further evaluation of their emergent condition. - New Patient This patient is new to me today: Yes Date on this admission: 10/01/19 - Critical Care Critical Care patient: Yes Total Critical Care Time (in minutes): 35 Critical Care Statement: The care of this patient involved high complexity dec ision making to prevent further life threatening deterioration of the patient's condition and/or to evaluate & treat vital organ system(s) failure or risk of failure. - Discharge Referral Referred to [facility] No - Medication Review Med list reviewed for High Risk Meds patients 65 and older: Yes ATTENDING PHYSICIAN STATEMENT I saw and evaluated the patient. I reviewed the resident's note and discussed the case with the resident. I agree with the resident's findings and plan as documented. SUBJECTIVE: OBJECTIVE: ASSESSMENT AND PLAN:
[2019-10-01] MEDS ORDERED: FENTANYL IVPB 500 MCG/100 ML BAG IVPB ONE (17:51)
[2019-10-01] MEDS: methylPREDNISolone NA SUCC 40 MG/1 ML VIAL IVPUSH SCH (21:07)
[2019-10-01] MEDS: CHLORHEXIDINE GLUCONATE 4% CLEANSER FOR DECOLONIZATION TP SCH (21:07)
--- NOTE | 2019-10-01 22:07 | EKG ---
Test Reason : Blood Pressure : / mmHG Vent. Rate : 045 BPM Atrial Rate : 045 BPM P-R Int : 320 ms QRS Dur : 130 ms QT Int : 498 ms P-R-T Axes : 069 -56 -52 degrees QTc Int : 430 ms SINUS BRADYCARDIA WITH MARKED SINUS ARRHYTHMIA WITH 1ST DEGREE A-V BLOCK LEFT AXIS DEVIATION LEFT VENTRICULAR HYPERTROPHY WITH QRS WIDENING POSSIBLE LATERAL INFARCT (CITED ON OR BEFORE 27-SEP-2019) POOR R WAVE PROGRESSION T WAVE ABNORMALITY, CONSIDER INFERIOR ISCHEMIA T WAVE ABNORMALITY, CONSIDER ANTEROLATERAL ISCHEMIA ABNORMAL ECG WHEN COMPARED WITH ECG OF 27-SEP-2019 14:01, VENT. RATE HAS DECREASED BY 55 BPM Confirmed by BARBARA SPENCE MD ([id number]) on 10/01/2019 10:06:41 PM Referred By: Confirmed By:BARBARA SPENCE MD
[2019-10-02] MEDS: VANCOMYCIN 250 MG/5 ML ORAL SOLUTION PO SCH ×3 (00:45→11:34)
[2019-10-02] MEDS ORDERED: PIPERACILLIN/TAZOBACTAM 3.375 GM VIAL IVPB ONE ×3 (01:01→17:09)
[2019-10-02] MEDS ORDERED: PT OWN MED DRAWER 7, Y5N ONE ×3 (01:01→14:26)
[2019-10-02] MEDS ORDERED: DEXTROSE 5%-WATER - 50 ML IVPB ONE ×3 (01:01→17:09)
[2019-10-02] MEDS: PIPERACILLIN/TAZOB 3.375 GM 3.375 GM in DEXTROSE 5%-WATER - 50 ML IVPB SCH ×3 (01:27→17:17)
[2019-10-02] MEDS: PROPOFOL 1,000,000 MCG/100 ML VIAL IVPB SCH ×2 (03:03→17:56)
[2019-10-02] MEDS: FENTANYL IVPB 500 MCG/100 ML BAG IVPB SCH ×2 (04:13→12:32)
[2019-10-02] MEDS: PRAMIPEXOLE DIHYDROCHLORIDE 0.125 MG TABLET PO SCH ×3 (05:41→21:02)
[2019-10-02] MEDS: INSULIN SLIDING SCALE (NOVOLOG) 1 VIAL SQ SCH ×4 (06:15→21:12)
[2019-10-02 06:38] LABS: ARTERIAL BLD GAS O2 SATURATION 97.3 mmHg (95-98); ARTERIAL BLOOD GAS BASE EXCESS 1.3 mmol/L (-2-2); ARTERIAL BLOOD GAS PO2 97.4 mmHg (80-100)
[2019-10-02 06:50] LABS: ALLENS TEST POSITIVE; VENT MODE A/C; VENT RATE 26
[2019-10-02 07:03] LABS: HEMATOCRIT 35.3 % (35.4-49); HEMOGLOBIN 11.1 GM/dL (11.7-16.9); MCH 26.8 pg (25.7-33.7); MCHC 31.5 g/dl (32.0-35.9); MEAN CELL VOLUME 85.1 fl (80-96); PLATELET COUNT 521 K/MM3 (134-434); RBC 4.15 M/mm3 (4.00-5.60); RDW 18.8 % (11.9-15.9); WHITE BLOOD COUNT 28.3 K/mm3 (4.0-10.0)
[2019-10-02 07:31] LABS: ALBUMIN 1.9 g/dl (3.4-5.0); BILIRUBIN,TOTAL 0.6 mg/dL (0.2-1); BLOOD UREA NITROGEN 66.9 mg/dL (7-18); CALCIUM 7.4 mg/dL (8.5-10.1); CREATININE 1.1 mg/dL (0.55-1.3); PHOSPHOROUS 3.4 mg/dL (2.5-4.9); POTASSIUM 3.9 mmol/L (3.5-5.1)
[2019-10-02] MEDS: ENOXAPARIN NA (PORCINE) 60 MG/0.6 ML DISP.SYRIN SQ SCH ×2 (09:15→21:00)
[2019-10-02] MEDS: methylPREDNISolone NA SUCC 40 MG/1 ML VIAL IVPUSH SCH ×2 (09:15→21:00)
[2019-10-02] MEDS: CHOLECALCIFEROL (VIT D3) 1,000 UNIT (25 MCG) TABLET PO SCH (09:15)
[2019-10-02] MEDS: PANTOPRAZOLE SODIUM 40 MG VIAL IVPUSH SCH (09:15)
[2019-10-02] MEDS: ZINC SULFATE 220 MG CAPSULE (FP) PO SCH ×2 (09:15→21:00)
[2019-10-02] MEDS: ASCORBIC ACID 500 MG TABLET (FP) PO SCH ×2 (09:15→21:00)
[2019-10-02] MEDS: CARBIDOPA/LEVODOPA 25/250 TABLET (FP) PO SCH ×2 (09:15→21:00)
--- NOTE | 2019-10-02 09:49 | PN ---
Progress Note, Physician Chief Complaint: Events noted Remains on mechanical ventilation History of Present Illness: Patient was seen and examined. Remains in ICU and vent support. Chart was reviewed Chest tube in place - Current Medication List Current Medications: Active Medications Acetaminophen (Tylenol -) 650 mg PO Q4H PRN PRN Reason: PAIN LEVEL 1-5 Amlodipine Besylate (Norvasc -) 5 mg PO DAILY [facility] Last Admin: 10/01/19 11:49 Dose: Not Given Documented by: Ascorbic Acid (Vitamin C -) 500 mg PO BID [facility] Last Admin: 10/02/19 09:15 Dose: 500 mg Documented by: Carbidopa/Levodopa (Sinemet 25/250 -) 1 each PO BID [facility] Last Admin: 10/02/19 09:15 Dose: 1 each Documented by: Chlorhexidine Gluconate (Hibiclens For Decolonization -) 1 applic TP HS [facility] Last Admin: 10/01/19 21:07 Dose: 1 applic Documented by: Cholecalciferol (Vitamin D3 -) 1,000 unit PO DAILY [facility] Last Admin: 10/02/19 09:15 Dose: 1,000 unit Documented by: Enoxaparin Sodium (Lovenox -) 60 mg SQ BID [facility] Last Admin: 10/02/19 09:15 Dose: 60 mg Documented by: Piperacillin Sod/Tazobactam (Sod 3.375 gm/ Dextrose) 50 mls @ 100 mls/hr IVPB Q8H-IV [facility]; Protocol Last Admin: 10/02/19 09:15 Dose: 100 mls/hr Documented by: Propofol (Diprivan -) 1,000,000 mcg in 100 mls @ 3.47 mls/hr IVPB TITR [facility]; Protocol Last Admin: 10/02/19 03:03 Dose: 15 mcg/kg/min, 5.205 mls/hr Documented by: Fentanyl (Sublimaze Ivpb) 500 mcg in 100 mls @ 10 mls/hr IVPB TITR [facility] Last Admin: 10/02/19 04:13 Dose: 50 mcg/hr, 10 mls/hr Documented by: Metronidazole (Flagyl 500mg Premixed Ivpb -) 500 mg in 100 mls @ 100 mls/hr IVPB Q8H-IV [facility] Last Admin: 10/02/19 09:14 Dose: 100 mls/hr Documented by: Sodium Chloride (Normal Saline -) 1,000 mls @ 50 mls/hr IV ASDIR [facility] Stop: 10/03/19 09:59 Last Admin: 10/01/19 17:11 Dose: 50 mls/hr Documented by: Norepinephrine Bitartrate (Levophed Bag) 8,000 mcg in 500 mls @ 18.75 mls/hr IVPB TITR [facility]; Protocol Last Titration: 10/01/19 18:48 Dose: 1 mcg/min, 3.75 mls/hr Documented by: Insulin Aspart (Novolog Vial Sliding Scale -) 1 vial SQ ACHS [facility]; Protocol Last Admin: 10/02/19 06:15 Dose: 6 units Documented by: Losartan Potassium (Cozaar -) 50 mg PO DAILY [facility] Last Admin: 10/01/19 11:48 Dose: Not Given Documented by: Methylprednisolone Sodium Succinate (Solu-Medrol -) 30 mg IVPUSH BID [facility] Last Admin: 10/02/19 09:15 Dose: 30 mg Documented by: Pantoprazole Sodium (Protonix Iv) 40 mg IVPUSH DAILY [facility] Last Admin: 10/02/19 09:15 Dose: 40 mg Documented by: Pramipexole Dihydrochloride (Mirapex -) 0.125 mg PO TID [facility] Last Admin: 10/02/19 05:41 Dose: 0.125 mg Documented by: Vancomycin HCl (Vancomycin Oral Solution) 125 mg PO Q6HPO [facility] Last Admin: 10/02/19 05:41 Dose: 125 mg Documented by: Zinc Sulfate (Orazinc -) 220 mg PO BID [facility] Last Admin: 10/02/19 09:15 Dose: 220 mg Documented by: - Objective Vital Signs: Vital Signs Temperature 97.6 F 10/02/19 02:00 Pulse Rate 83 10/02/19 08:00 Respiratory Rate 29 H 10/02/19 08:11 Blood Pressure 137/78 10/02/19 08:00 O2 Sat by Pulse Oximetry (%) 97 10/02/19 08:11 Cardiovascular: Yes: Regular Rate and Rhythm, S1, S2 Respiratory: Yes: Mechanically Ventilated Gastrointestinal: Yes: Normal Bowel Sounds, Soft. No: Tenderness Edema: No Labs: CBC, BMP 10/02/19 05:36 10/02/19 05:36 Problem List - Problems (1) Septic shock Code(s): A41.9 - SEPSIS, UNSPECIFIED ORGANISM; R65.21 - SEVERE SEPSIS WITH SEPTIC SHOCK (2) ARDS (adult respiratory distress syndrome) Code(s): J80 - ACUTE RESPIRATORY DISTRESS SYNDROME (3) Pneumonitis Code(s): J18.9 - PNEUMONIA, UNSPECIFIED ORGANISM (4) Pneumothorax Code(s): J93.9 - PNEUMOTHORAX, UNSPECIFIED (5) COVID-19 virus IgG antibody detected Code(s): Z01.84 - ENCOUNTER FOR ANTIBODY RESPONSE EXAMINATION (6) Diabetes Code(s): E11.9 - TYPE 2 DIABETES MELLITUS WITHOUT COMPLICATIONS (7) HTN (hypertension) Code(s): I10 - ESSENTIAL (PRIMARY) HYPERTENSION (8) Parkinson disease Code(s): G20 - PARKINSON'S DISEASE (9) Pneumonia Code(s): J18.9 - PNEUMONIA, UNSPECIFIED ORGANISM Qualifiers: Pneumonia type: due to unspecified organism Laterality: right Lung location: unspecified part of lung Qualified Code(s): J18.9 - Pneumonia, unspecified organism (10) Acute respiratory failure with hypoxia Code(s): J96.01 - ACUTE RESPIRATORY FAILURE WITH HYPOXIA Assessment/Plan 1. Acute respiratory failure on mechanical ventilation 2. COVID pneumonitis and ARDS 3. Septic shock 4. Leukocytosis 5. Hypokalemia 6. DM 7. Parkinson's 8. Pneumothorax s/p chest tube PLAN: 1. Supportive care in ICU 2. Pressor support 3. Chest tube management 4. Antibiotic coverage 5. Steroids, vent management 6. Anticoagulation with Lovenox. GI prophylaxis 7. Monitor electrolytes Guarded Avel Lopez MD
--- NOTE | 2019-10-02 12:57 | PN ---
Teaching Attending Note Name of Resident: Cynthia Barksdale ATTENDING PHYSICIAN STATEMENT I saw and evaluated the patient. I reviewed the resident's note and discussed the case with the resident. I agree with the resident's findings and plan as documented. SUBJECTIVE: Pt seen and examined in the ICU. Remains intubated, sedated on low dose levophed gtt. No air leak on chest tube. OBJECTIVE: Vital Signs Period Temp Pulse Resp BP Sys/Cedillo Pulse Ox Last 24 Hr 97.6 F-98.0 F 50-124 21-31 77-190/46-107 96-100 Intake & Output 09/29/19 09/30/19 10/01/19 10/02/19 23:59 23:59 23:59 23:59 Intake Total 377 1250.4 880.7 891.0 Output Total 450 650 800 Balance 377 800.4 230.7 91.0 Weight 57.833 kg 59.3 kg 61.507 kg 59.4 kg Gen: intubated, sedated Heart: RRR Lung: scattered rhonchi Abd: soft, nontender Ext: + edema CBC, BMP 10/02/19 05:36 10/02/19 05:36 Active Medications Acetaminophen (Tylenol -) 650 mg PO Q4H PRN PRN Reason: PAIN LEVEL 1-5 Amlodipine Besylate (Norvasc -) 5 mg PO DAILY [facility] Last Admin: 10/01/19 11:49 Dose: Not Given Documented by: Ascorbic Acid (Vitamin C -) 500 mg PO BID [facility] Last Admin: 10/02/19 09:15 Dose: 500 mg Documented by: Carbidopa/Levodopa (Sinemet 25/250 -) 1 each PO BID [facility] Last Admin: 10/02/19 09:15 Dose: 1 each Documented by: Chlorhexidine Gluconate (Hibiclens For Decolonization -) 1 applic TP HS [facility] Last Admin: 10/01/19 21:07 Dose: 1 applic Documented by: Cholecalciferol (Vitamin D3 -) 1,000 unit PO DAILY [facility] Last Admin: 10/02/19 09:15 Dose: 1,000 unit Documented by: Enoxaparin Sodium (Lovenox -) 60 mg SQ BID [facility] Last Admin: 10/02/19 09:15 Dose: 60 mg Documented by: Piperacillin Sod/Tazobactam (Sod 3.375 gm/ Dextrose) 50 mls @ 100 mls/hr IVPB Q8H-IV [facility]; Protocol Last Admin: 10/02/19 09:15 Dose: 100 mls/hr Documented by: Propofol (Diprivan -) 1,000,000 mcg in 100 mls @ 3.47 mls/hr IVPB TITR [facility]; Protocol Last Admin: 10/02/19 03:03 Dose: 15 mcg/kg/min, 5.205 mls/hr Documented by: Fentanyl (Sublimaze Ivpb) 500 mcg in 100 mls @ 10 mls/hr IVPB TITR [facility] Last Admin: 10/02/19 12:32 Dose: 50 mcg/hr, 10 mls/hr Documented by: Metronidazole (Flagyl 500mg Premixed Ivpb -) 500 mg in 100 mls @ 100 mls/hr IVPB Q8H-IV [facility] Last Admin: 10/02/19 09:14 Dose: 100 mls/hr Documented by: Sodium Chloride (Normal Saline -) 1,000 mls @ 50 mls/hr IV ASDIR [facility] Stop: 10/03/19 09:59 Last Admin: 10/01/19 17:11 Dose: 50 mls/hr Documented by: Norepinephrine Bitartrate (Levophed Bag) 8,000 mcg in 500 mls @ 18.75 mls/hr IVPB TITR [facility]; Protocol Last Titration: 10/02/19 12:30 Dose: 0.5 mcg/min, 1.875 mls/hr Documented by: Insulin Aspart (Novolog Vial Sliding Scale -) 1 vial SQ ACHS [facility]; Protocol Last Admin: 10/02/19 11:59 Dose: 4 units Documented by: Losartan Potassium (Cozaar -) 50 mg PO DAILY [facility] Last Admin: 10/01/19 11:48 Dose: Not Given Documented by: Methylprednisolone Sodium Succinate (Solu-Medrol -) 30 mg IVPUSH BID [facility] Last Admin: 10/02/19 09:15 Dose: 30 mg Documented by: Pantoprazole Sodium (Protonix Iv) 40 mg IVPUSH DAILY [facility] Last Admin: 10/02/19 09:15 Dose: 40 mg Documented by: Pramipexole Dihydrochloride (Mirapex -) 0.125 mg PO TID [facility] Last Admin: 10/02/19 05:41 Dose: 0.125 mg Documented by: Vancomycin HCl (Vancomycin Oral Solution) 125 mg PO Q6HPO [facility] Last Admin: 10/02/19 11:34 Dose: 125 mg Documented by: Zinc Sulfate (Orazinc -) 220 mg PO BID [facility] Last Admin: 10/02/19 09:15 Dose: 220 mg Documented by: ASSESSMENT AND PLAN: Acute Hypoxic Respiratory Failure COVID19 Pneumonia ARDS Left Pneumothorax s/p pigtail catheter placement Subcutaneous Emphysema HTN DM Parkinsons - antibiotics per ID - continue anticoagulation - empiric steroids - trend inflammatory markers - titrate FiO2, PEEP to keep SpO2 >90% - low tidal volume ventilation - keep Pplat <30 - sedate for vent synchrony - IVF - monitor urine output, creatinine - chest tube to low wall suction - enteral feeds - DVT/GI prophylaxis - continue ICU monitoring critical care time spent in reviewing chart, evaluating patient and formulating plan 35 min
--- NOTE | 2019-10-02 13:17 | PN ---
Progress Note, Physician History of Present Illness: remains intubated - Current Medication List Current Medications: Active Medications Acetaminophen (Tylenol -) 650 mg PO Q4H PRN PRN Reason: PAIN LEVEL 1-5 Amlodipine Besylate (Norvasc -) 5 mg PO DAILY [facility] Last Admin: 10/01/19 11:49 Dose: Not Given Documented by: Ascorbic Acid (Vitamin C -) 500 mg PO BID [facility] Last Admin: 10/02/19 09:15 Dose: 500 mg Documented by: Carbidopa/Levodopa (Sinemet 25/250 -) 1 each PO BID [facility] Last Admin: 10/02/19 09:15 Dose: 1 each Documented by: Chlorhexidine Gluconate (Hibiclens For Decolonization -) 1 applic TP HS [facility] Last Admin: 10/01/19 21:07 Dose: 1 applic Documented by: Cholecalciferol (Vitamin D3 -) 1,000 unit PO DAILY [facility] Last Admin: 10/02/19 09:15 Dose: 1,000 unit Documented by: Enoxaparin Sodium (Lovenox -) 60 mg SQ BID [facility] Last Admin: 10/02/19 09:15 Dose: 60 mg Documented by: Piperacillin Sod/Tazobactam (Sod 3.375 gm/ Dextrose) 50 mls @ 100 mls/hr IVPB Q8H-IV [facility]; Protocol Last Admin: 10/02/19 09:15 Dose: 100 mls/hr Documented by: Propofol (Diprivan -) 1,000,000 mcg in 100 mls @ 3.47 mls/hr IVPB TITR [facility]; Protocol Last Admin: 10/02/19 03:03 Dose: 15 mcg/kg/min, 5.205 mls/hr Documented by: Fentanyl (Sublimaze Ivpb) 500 mcg in 100 mls @ 10 mls/hr IVPB TITR [facility] Last Admin: 10/02/19 12:32 Dose: 50 mcg/hr, 10 mls/hr Documented by: Metronidazole (Flagyl 500mg Premixed Ivpb -) 500 mg in 100 mls @ 100 mls/hr IVPB Q8H-IV [facility] Last Admin: 10/02/19 09:14 Dose: 100 mls/hr Documented by: Sodium Chloride (Normal Saline -) 1,000 mls @ 50 mls/hr IV ASDIR [facility] Stop: 10/03/19 09:59 Last Admin: 10/01/19 17:11 Dose: 50 mls/hr Documented by: Norepinephrine Bitartrate (Levophed Bag) 8,000 mcg in 500 mls @ 18.75 mls/hr IVPB TITR [facility]; Protocol Last Titration: 10/02/19 12:30 Dose: 0.5 mcg/min, 1.875 mls/hr Documented by: Insulin Aspart (Novolog Vial Sliding Scale -) 1 vial SQ ACHS [facility]; Protocol Last Admin: 10/02/19 11:59 Dose: 4 units Documented by: Losartan Potassium (Cozaar -) 50 mg PO DAILY [facility] Last Admin: 10/01/19 11:48 Dose: Not Given Documented by: Methylprednisolone Sodium Succinate (Solu-Medrol -) 30 mg IVPUSH BID [facility] Last Admin: 10/02/19 09:15 Dose: 30 mg Documented by: Pantoprazole Sodium (Protonix Iv) 40 mg IVPUSH DAILY [facility] Last Admin: 10/02/19 09:15 Dose: 40 mg Documented by: Pramipexole Dihydrochloride (Mirapex -) 0.125 mg PO TID [facility] Last Admin: 10/02/19 05:41 Dose: 0.125 mg Documented by: Vancomycin HCl (Vancomycin Oral Solution) 125 mg PO Q6HPO [facility] Last Admin: 10/02/19 11:34 Dose: 125 mg Documented by: Zinc Sulfate (Orazinc -) 220 mg PO BID [facility] Last Admin: 10/02/19 09:15 Dose: 220 mg Documented by: - Objective Vital Signs: Vital Signs Temperature 98 F 10/02/19 10:00 Pulse Rate 50 L 10/02/19 12:00 Respiratory Rate 25 H 10/02/19 12:00 Blood Pressure 138/59 L 10/02/19 12:00 O2 Sat by Pulse Oximetry (%) 97 10/02/19 12:00 Constitutional: Yes: Other Cardiovascular: Yes: S1, S2 Respiratory: Yes: Intubated, Mechanically Ventilated, Other (chest tube in place) Gastrointestinal: Yes: Soft, Hypoactive Bowel Sounds Musculoskeletal: Yes: WNL Extremities: Yes: Other Labs: CBC, BMP 10/02/19 05:36 10/02/19 05:36 - ....Imaging Chest X-ray: Report Reviewed, Image Reviewed Assessment/Plan Problem List - Problems (1) HTN (hypertension) Code(s): I10 - ESSENTIAL (PRIMARY) HYPERTENSION (2) Diabetes Code(s): E11.9 - TYPE 2 DIABETES MELLITUS WITHOUT COMPLICATIONS (3) Parkinson disease Code(s): G20 - PARKINSON'S DISEASE (4) Pneumonia Code(s): J18.9 - PNEUMONIA, UNSPECIFIED ORGANISM leukocytosis pneumothorax ASSESSMENT/PLAN: Acute Respiratory Failure HTN DM Parkinsons r/o covid plan continue abx monitor wbc chest tube care prognosis is poor continue as per icu will hold vanco and see what the wbc does cc 38 min
[2019-10-02] MEDS: NOREPINEPHRINE BITARTRATE 8,000 MCG/500 ML BAG IVPB SCH (14:23)
[2019-10-02] MEDS: SODIUM CHLORIDE 1,000 ML IV SCH (14:30)
--- NOTE | 2019-10-02 15:02 | PN ---
Physical Exam: SUBJECTIVE: Patient seen and examined bedside. Intubated, sedated, no events overnight. OBJECTIVE: Vital Signs 10/02/19 10/02/19 08:00 08:11 Temperature Pulse Rate 83 Respiratory 21 H 29 H Rate Blood Pressure 137/78 O2 Sat by Pulse 96 97 Oximetry (%) GENERAL: The patient is sedated, intubated. No HEAD: Normal with no signs of trauma. EYES: PERRL, LUNGS: Front upper lungs sounds CTA BL. Crepitus on palpation of left chest. Left chest tube in place HEART: RRR, s1 s2 ABDOMEN: Soft, nontender, nondistended EXTREMITIES: warm, well-perfused, BL edema SKIN: Warm, dry Intake & Output 09/29/19 09/30/19 10/01/19 10/02/19 23:59 23:59 23:59 23:59 Intake Total 377 1250.4 880.7 891.0 Output Total 450 650 800 Balance 377 800.4 230.7 91.0 Weight 127 lb 8 oz 130 lb 11.746 oz 135 lb 9.6 oz 130 lb 15.273 oz Laboratory Results - last 24 hr 10/01/19 10/01/19 10/02/19 17:22 21:23 05:36 WBC RBC Hgb Hct MCV MCH MCHC RDW Plt Count MPV D-Dimer Anticoagulation Therapy Puncture Site Patient Temperature ABG pH ABG pCO2 ABG pO2 ABG HCO3 ABG O2 Sat (Measured) ABG O2 Content ABG Base Excess Amador Test Patient On Oxygen O2 Delivery Device Oxygen Flow Rate Vent Mode Vent Rate Mechanical Rate PEEP Pressure Support Vent Sodium 140 Potassium 3.9 Chloride 101 Carbon Dioxide 27 Anion Gap 12 BUN 66.9 H Creatinine 1.1 Est GFR (CKD-EPI)AfAm 70.08 Est GFR (CKD-EPI)NonAf 60.46 POC Glucometer 224 181 Random Glucose 266 H Calcium 7.4 L Phosphorus 3.4 Magnesium 3.0 H Ferritin 216.3 Total Bilirubin 0.6 AST 24 ALT 6 L Alkaline Phosphatase 102 LD Total 472 H C-Reactive Protein 16.5 H Total Protein 6.0 L Albumin 1.9 L 10/02/19 10/02/19 10/02/19 05:36 05:36 06:00 WBC 28.3 H RBC 4.15 Hgb 11.1 L Hct 35.3 L MCV 85.1 MCH 26.8 MCHC 31.5 L RDW 18.8 H Plt Count 521 H MPV 8.0 D-Dimer 1280 H Anticoagulation Therapy No Result Required. Puncture Site Left radial Patient Temperature No Result Required. ABG pH 7.380 ABG pCO2 46.40 H ABG pO2 97.4 ABG HCO3 26.8 ABG O2 Sat (Measured) 97.3 ABG O2 Content No Result Required. ABG Base Excess 1.3 Amador Test Positive Patient On Oxygen Yes O2 Delivery Device Vent Oxygen Flow Rate 80% Vent Mode A/c Vent Rate 26 Mechanical Rate Yes PEEP 10.0 Pressure Support Vent 360 Sodium Potassium Chloride Carbon Dioxide Anion Gap BUN Creatinine Est GFR (CKD-EPI)AfAm Est GFR (CKD-EPI)NonAf POC Glucometer Random Glucose Calcium Phosphorus Magnesium Ferritin Total Bilirubin AST ALT Alkaline Phosphatase LD Total C-Reactive Protein Total Protein Albumin Active Medications Generic Name Dose Route Start Last Admin Trade Name Freq PRN Reason Stop Dose Admin Acetaminophen 650 mg 09/27/19 17:45 Tylenol - PO Q4H PRN PAIN LEVEL 1-5 Amlodipine Besylate 5 mg 09/28/19 10:00 10/01/19 11:49 Norvasc - PO Not Given DAILY [facility] Ascorbic Acid 500 mg 09/28/19 22:00 10/02/19 09:15 Vitamin C - PO 500 mg BID [facility] Administration Carbidopa/Levodopa 1 each 09/27/19 22:00 10/02/19 09:15 Sinemet 25/250 - PO 1 each BID [facility] Administration Chlorhexidine Gluconate 1 applic 09/30/19 22:00 10/01/19 21:07 Hibiclens For Decolonization - TP 1 applic HS [facility] Administration Cholecalciferol 1,000 unit 09/28/19 11:30 10/02/19 09:15 Vitamin D3 - PO 1,000 unit DAILY [facility] Administration Enoxaparin Sodium 60 mg 09/28/19 10:00 10/02/19 09:15 Lovenox - SQ 60 mg BID [facility] Administration Piperacillin Sod/Tazobactam 50 mls @ 100 mls/hr 09/28/19 18:00 10/02/19 09:15 Sod 3.375 gm/ Dextrose IVPB 100 mls/hr Q8H-IV [facility] Administration Protocol Propofol 1,000,000 mcg in 100 mls @ 3.47 mls/hr 09/29/19 09:45 10/02/19 03:03 Diprivan - IVPB 15 mcg/kg/min TITR [facility] 5.205 mls/hr Administration Protocol 10 MCG/KG/MIN Fentanyl 500 mcg in 100 mls @ 10 mls/hr 09/29/19 09:45 10/02/19 12:32 Sublimaze Ivpb IVPB 50 mcg/hr TITR [facility] 10 mls/hr Administration 50 MCG/HR Metronidazole 500 mg in 100 mls @ 100 mls/hr 09/29/19 14:15 10/02/19 09:14 Flagyl 500mg Premixed Ivpb - IVPB 100 mls/hr Q8H-IV [facility] Administration Sodium Chloride 1,000 mls @ 50 mls/hr 10/01/19 14:00 10/02/19 14:30 Normal Saline - IV 10/03/19 09:59 50 mls/hr ASDIR [facility] Administration Norepinephrine Bitartrate 8,000 mcg in 500 mls @ 18.75 mls/hr 10/01/19 14:15 10/02/19 14:23 Levophed Bag IVPB Not Given TITR [facility] Protocol 5 MCG/MIN Insulin Aspart 1 vial 09/27/19 22:00 10/02/19 11:59 Novolog Vial Sliding Scale - SQ 4 units ACHS [facility] Administration Protocol Losartan Potassium 50 mg 09/28/19 10:00 10/01/19 11:48 Cozaar - PO Not Given DAILY [facility] Methylprednisolone Sodium Succinate 30 mg 10/01/19 22:00 10/02/19 09:15 Solu-Medrol - IVPUSH 30 mg BID [facility] Administration Pantoprazole Sodium 40 mg 10/02/19 10:00 10/02/19 09:15 Protonix Iv IVPUSH 40 mg DAILY [facility] Administration Pramipexole Dihydrochloride 0.125 mg 09/27/19 22:00 10/02/19 14:30 Mirapex - PO 0.125 mg TID [facility] Administration Zinc Sulfate 220 mg 09/28/19 22:00 10/02/19 09:15 Orazinc - PO 220 mg BID [facility] Administration ASSESSMENT/PLAN: 84 y.o male with PMH of HTN, DM, parkinsons disease presents to the ED with complaints of shortness of breath and non-productive cough over the last 4-5 days. Admitted to ICU for acute hypoxic respiratory failure. Neuro - sedated on propofol 15 mcg/kg/hr & fentanyl 50 mcg/h - parkinsons' history - c/w carbidopa/levodopa Pulm - intubated: vent settings: maintain o2 sat >90 RR 29 TV 360 Fio2 80 PEEP decreased to 8 today - L pneumothorax on cxr, L chest tube placed this AM - d/c dexamethasone, start solumedrol - Covid negative but antibody positive Chest CT consistent with possible covid pneumonitis Continue to monitor inflammatory markers D-dimer: 1280 CRP: 16.6 Ferritin: 216 LDH: 472 Cardio - levophed stopped today - HTN history: holding home medications due to hypotension - maintain MAP > 65 ID - ID consulted (Dr. Almendarez) continue with antbx zosyn day 5 High white count in 40s a few days ago. Suspected Cdiff, PO vanc and flagyl given, WBC downtrending oral vanc d/c today (completed 3 days) flagyl day 4 Endo - hx DM - holding home glipizide - ISS ACHS - BGMS ACHS Renal - Cr 1.1 - monitor electrolytes - monitor I's & O's - monitor volume status FEN - monitor electrolytes - restart tube feeds and then stop fluids DVT ppx: lovenox 60 BID GI ppx: protonix 40 IV daily Lines - R subclavian triple lumen placed 09/28 code status: full code Visit type - Emergency Visit Emergency Visit: Yes ED Registration Date: 09/27/19 Care time: The patient presented to the Emergency Department on the above date and was hospitalized for further evaluation of their emergent condition. - New Patient This patient is new to me today: No - Critical Care Critical Care patient: Yes Total Critical Care Time (in minutes): 36 Critical Care Statement: The care of this patient involved high complexity decision making to prevent further life threatening deterioration of the patient's condition and/or to evaluate & treat vital organ system(s) failure or risk of failure. - Discharge Referral Referred to [facility] No - Medication Review Med list reviewed for High Risk Meds patients 65 and older: Yes ATTENDING PHYSICIAN STATEMENT I saw and evaluated the patient. I reviewed the resident's note and discussed the case with the resident. I agree with the resident's findings and plan as documented. SUBJECTIVE: OBJECTIVE: ASSESSMENT AND PLAN:
[2019-10-02] MEDS: CHLORHEXIDINE GLUCONATE 4% CLEANSER FOR DECOLONIZATION TP SCH (21:00)
[2019-10-03] MEDS ORDERED: PIPERACILLIN/TAZOBACTAM 3.375 GM VIAL IVPB ONE ×3 (01:49→18:11)
[2019-10-03] MEDS ORDERED: DEXTROSE 5%-WATER - 50 ML IVPB ONE ×3 (01:49→18:11)
[2019-10-03] MEDS: PIPERACILLIN/TAZOB 3.375 GM 3.375 GM in DEXTROSE 5%-WATER - 50 ML IVPB SCH ×3 (01:51→18:19)
[2019-10-03] MEDS: PRAMIPEXOLE DIHYDROCHLORIDE 0.125 MG TABLET PO SCH ×3 (05:57→21:09)
[2019-10-03] MEDS: INSULIN SLIDING SCALE (NOVOLOG) 1 VIAL SQ SCH ×4 (06:11→21:28)
[2019-10-03 06:21] LABS: ARTERIAL BLOOD GAS BASE EXCESS 5.1 mmol/L (-2-2); ARTERIAL BLOOD GAS pH 7.419 (7.350-7.450)
[2019-10-03 06:30] LABS: ALLENS TEST POSITIVE; VENT MODE A/C
[2019-10-03 06:31] LABS: VENT RATE 26
[2019-10-03 07:19] LABS: HEMATOCRIT 34.4 % (35.4-49); MEAN CELL VOLUME 84.6 fl (80-96); MEAN PLT VOLUME 8.3 fl (7.5-11.1); PLATELET COUNT 499 K/MM3 (134-434); RBC 4.07 M/mm3 (4.00-5.60); RDW 18.9 % (11.9-15.9)
[2019-10-03 07:35] LABS: WHITE BLOOD COUNT 32.3 K/mm3 (4.0-10.0)
[2019-10-03 07:40] LABS: ALBUMIN 1.8 g/dl (3.4-5.0); BLOOD UREA NITROGEN 55.8 mg/dL (7-18); CALCIUM 7.1 mg/dL (8.5-10.1); MAGNESIUM 3.3 mg/dL (1.8-2.4); POTASSIUM 4.1 mmol/L (3.5-5.1)
[2019-10-03 07:47] LABS: BILIRUBIN,TOTAL 0.7 mg/dL (0.2-1); PHOSPHOROUS 1.8 mg/dL (2.5-4.9); TOT PROT 5.6 g/dl (6.4-8.2)
--- NOTE | 2019-10-03 09:27 | PN ---
Progress Note, Physician Chief Complaint: Events noted Remains on mechanical ventilation History of Present Illness: Patient was seen and examined. Remains in ICU and vent support. Chart was reviewed - Current Medication List Current Medications: Active Medications Acetaminophen (Tylenol -) 650 mg PO Q4H PRN PRN Reason: PAIN LEVEL 1-5 Amlodipine Besylate (Norvasc -) 5 mg PO DAILY [facility] Last Admin: 10/01/19 11:49 Dose: Not Given Documented by: Ascorbic Acid (Vitamin C -) 500 mg PO BID [facility] Last Admin: 10/02/19 21:00 Dose: 500 mg Documented by: Carbidopa/Levodopa (Sinemet 25/250 -) 1 each PO BID [facility] Last Admin: 10/02/19 21:00 Dose: 1 each Documented by: Chlorhexidine Gluconate (Hibiclens For Decolonization -) 1 applic TP HS [facility] Last Admin: 10/02/19 21:00 Dose: 1 applic Documented by: Cholecalciferol (Vitamin D3 -) 1,000 unit PO DAILY [facility] Last Admin: 10/02/19 09:15 Dose: 1,000 unit Documented by: Enoxaparin Sodium (Lovenox -) 60 mg SQ BID [facility] Last Admin: 10/02/19 21:00 Dose: 60 mg Documented by: Piperacillin Sod/Tazobactam (Sod 3.375 gm/ Dextrose) 50 mls @ 100 mls/hr IVPB Q8H-IV [facility]; Protocol Last Admin: 10/03/19 01:51 Dose: 100 mls/hr Documented by: Propofol (Diprivan -) 1,000,000 mcg in 100 mls @ 3.47 mls/hr IVPB TITR [facility]; Protocol Last Admin: 10/02/19 17:56 Dose: 15 mcg/kg/min, 5.205 mls/hr Documented by: Fentanyl (Sublimaze Ivpb) 500 mcg in 100 mls @ 10 mls/hr IVPB TITR [facility] Last Admin: 10/02/19 12:32 Dose: 50 mcg/hr, 10 mls/hr Documented by: Metronidazole (Flagyl 500mg Premixed Ivpb -) 500 mg in 100 mls @ 100 mls/hr IVPB Q8H-IV [facility] Last Admin: 10/03/19 03:00 Dose: 100 mls/hr Documented by: Norepinephrine Bitartrate (Levophed Bag) 8,000 mcg in 500 mls @ 18.75 mls/hr IVPB TITR [facility]; Protocol Last Admin: 10/02/19 14:23 Dose: Not Given Documented by: Insulin Aspart (Novolog Vial Sliding Scale -) 1 vial SQ ACHS [facility]; Protocol Last Admin: 10/03/19 06:11 Dose: 6 units Documented by: Losartan Potassium (Cozaar -) 50 mg PO DAILY [facility] Last Admin: 10/01/19 11:48 Dose: Not Given Documented by: Methylprednisolone Sodium Succinate (Solu-Medrol -) 30 mg IVPUSH BID [facility] Last Admin: 10/02/19 21:00 Dose: 30 mg Documented by: Pantoprazole Sodium (Protonix Iv) 40 mg IVPUSH DAILY [facility] Last Admin: 10/02/19 09:15 Dose: 40 mg Documented by: Pramipexole Dihydrochloride (Mirapex -) 0.125 mg PO TID [facility] Last Admin: 10/03/19 05:57 Dose: 0.125 mg Documented by: Zinc Sulfate (Orazinc -) 220 mg PO BID [facility] Last Admin: 10/02/19 21:00 Dose: 220 mg Documented by: - Objective Vital Signs: Vital Signs Temperature 98.0 F 10/03/19 00:00 Pulse Rate 95 H 10/03/19 06:00 Respiratory Rate 29 H 10/03/19 06:00 Blood Pressure 125/74 10/03/19 06:00 O2 Sat by Pulse Oximetry (%) 98 10/03/19 06:00 Cardiovascular: Yes: Regular Rate and Rhythm, S1, S2 Respiratory: Yes: Mechanically Ventilated Gastrointestinal: Yes: Normal Bowel Sounds, Soft. No: Tenderness Edema: No Labs: CBC, BMP 10/03/19 05:30 10/03/19 05:30 Problem List - Problems (1) Septic shock Code(s): A41.9 - SEPSIS, UNSPECIFIED ORGANISM; R65.21 - SEVERE SEPSIS WITH SEPTIC SHOCK (2) ARDS (adult respiratory distress syndrome) Code(s): J80 - ACUTE RESPIRATORY DISTRESS SYNDROME (3) Pneumonitis Code(s): J18.9 - PNEUMONIA, UNSPECIFIED ORGANISM (4) Pneumothorax Code(s): J93.9 - PNEUMOTHORAX, UNSPECIFIED (5) COVID-19 virus IgG antibody detected Code(s): Z01.84 - ENCOUNTER FOR ANTIBODY RESPONSE EXAMINATION (6) Diabetes Code(s): E11.9 - TYPE 2 DIABETES MELLITUS WITHOUT COMPLICATIONS (7) HTN (hypertension) Code(s): I10 - ESSENTIAL (PRIMARY) HYPERTENSION (8) Parkinson disease Code(s): G20 - PARKINSON'S DISEASE (9) Pneumonia Code(s): J18.9 - PNEUMONIA, UNSPECIFIED ORGANISM Qualifiers: Pneumonia type: due to unspecified organism Laterality: right Lung location: unspecified part of lung Qualified Code(s): J18.9 - Pneumonia, unspecified organism (10) Acute respiratory failure with hypoxia Code(s): J96.01 - ACUTE RESPIRATORY FAILURE WITH HYPOXIA Assessment/Plan 1. Acute respiratory failure on mechanical ventilation 2. COVID pneumonitis and ARDS 3. Septic shock 4. Leukocytosis 5. Hypokalemia 6. DM 7. Parkinson's 8. Pneumothorax s/p chest tube PLAN: 1. Supportive care in ICU and pressor support 2. Chest tube management 3. Antibiotic coverage 4. Steroids, vent management 5. Anticoagulation with Lovenox. GI prophylaxis 6. Monitor electrolytes Guarded Avel Lopez MD
[2019-10-03] MEDS: FENTANYL IVPB 500 MCG/100 ML BAG IVPB SCH ×2 (09:42→18:26)
[2019-10-03] MEDS: PROPOFOL 1,000,000 MCG/100 ML VIAL IVPB SCH ×2 (09:42→18:26)
[2019-10-03] MEDS: ENOXAPARIN NA (PORCINE) 60 MG/0.6 ML DISP.SYRIN SQ SCH ×2 (09:43→21:09)
[2019-10-03] MEDS: ZINC SULFATE 220 MG CAPSULE (FP) PO SCH ×2 (09:44→21:09)
[2019-10-03] MEDS: ASCORBIC ACID 500 MG TABLET (FP) PO SCH ×2 (09:44→21:09)
[2019-10-03] MEDS: CARBIDOPA/LEVODOPA 25/250 TABLET (FP) PO SCH ×2 (09:44→21:09)
[2019-10-03] MEDS: PANTOPRAZOLE SODIUM 40 MG VIAL IVPUSH SCH (09:44)
[2019-10-03] MEDS: methylPREDNISolone NA SUCC 40 MG/1 ML VIAL IVPUSH SCH ×2 (09:44→21:09)
[2019-10-03] MEDS: CHOLECALCIFEROL (VIT D3) 1,000 UNIT (25 MCG) TABLET PO SCH (09:45)
--- NOTE | 2019-10-03 11:29 | PN ---
Progress Note, Physician History of Present Illness: continues to be intubated wbc has increased - Current Medication List Current Medications: Active Medications Acetaminophen (Tylenol -) 650 mg PO Q4H PRN PRN Reason: PAIN LEVEL 1-5 Amlodipine Besylate (Norvasc -) 5 mg PO DAILY [facility] Last Admin: 10/01/19 11:49 Dose: Not Given Documented by: Ascorbic Acid (Vitamin C -) 500 mg PO BID [facility] Last Admin: 10/03/19 09:44 Dose: 500 mg Documented by: Carbidopa/Levodopa (Sinemet 25/250 -) 1 each PO BID [facility] Last Admin: 10/03/19 09:44 Dose: 1 each Documented by: Chlorhexidine Gluconate (Hibiclens For Decolonization -) 1 applic TP HS [facility] Last Admin: 10/02/19 21:00 Dose: 1 applic Documented by: Cholecalciferol (Vitamin D3 -) 1,000 unit PO DAILY [facility] Last Admin: 10/03/19 09:45 Dose: 1,000 unit Documented by: Enoxaparin Sodium (Lovenox -) 60 mg SQ BID [facility] Last Admin: 10/03/19 09:43 Dose: 60 mg Documented by: Piperacillin Sod/Tazobactam (Sod 3.375 gm/ Dextrose) 50 mls @ 100 mls/hr IVPB Q8H-IV [facility]; Protocol Last Admin: 10/03/19 09:45 Dose: 100 mls/hr Documented by: Propofol (Diprivan -) 1,000,000 mcg in 100 mls @ 3.47 mls/hr IVPB TITR [facility]; Protocol Last Admin: 10/03/19 09:42 Dose: 15 mcg/kg/min, 5.205 mls/hr Documented by: Fentanyl (Sublimaze Ivpb) 500 mcg in 100 mls @ 10 mls/hr IVPB TITR [facility] Last Admin: 10/03/19 09:42 Dose: 50 mcg/hr, 10 mls/hr Documented by: Metronidazole (Flagyl 500mg Premixed Ivpb -) 500 mg in 100 mls @ 100 mls/hr IVPB Q8H-IV [facility] Last Admin: 10/03/19 09:43 Dose: 100 mls/hr Documented by: Norepinephrine Bitartrate (Levophed Bag) 8,000 mcg in 500 mls @ 18.75 mls/hr IVPB TITR [facility]; Protocol Last Admin: 10/02/19 14:23 Dose: Not Given Documented by: Insulin Aspart (Novolog Vial Sliding Scale -) 1 vial SQ ACHS [facility]; Protocol Last Admin: 10/03/19 06:11 Dose: 6 units Documented by: Losartan Potassium (Cozaar -) 50 mg PO DAILY [facility] Last Admin: 10/01/19 11:48 Dose: Not Given Documented by: Methylprednisolone Sodium Succinate (Solu-Medrol -) 30 mg IVPUSH BID [facility] Last Admin: 10/03/19 09:44 Dose: 30 mg Documented by: Pantoprazole Sodium (Protonix Iv) 40 mg IVPUSH DAILY [facility] Last Admin: 10/03/19 09:44 Dose: 40 mg Documented by: Pramipexole Dihydrochloride (Mirapex -) 0.125 mg PO TID [facility] Last Admin: 10/03/19 05:57 Dose: 0.125 mg Documented by: Zinc Sulfate (Orazinc -) 220 mg PO BID [facility] Last Admin: 10/03/19 09:44 Dose: 220 mg Documented by: - Objective Vital Signs: Vital Signs Temperature 98.0 F 10/03/19 00:00 Pulse Rate 95 H 10/03/19 06:00 Respiratory Rate 26 H 10/03/19 08:30 Blood Pressure 125/74 10/03/19 06:00 O2 Sat by Pulse Oximetry (%) 98 10/03/19 08:30 Constitutional: Yes: Other Cardiovascular: Yes: S1, S2 Respiratory: Yes: Intubated, Mechanically Ventilated, Rhonchi, Other (chest tube in place) Gastrointestinal: Yes: Normal Bowel Sounds, Soft Musculoskeletal: Yes: WNL Extremities: Yes: Other Edema: LLE: 1+, RLE: 1+ Neurological: Yes: Other Labs: CBC, BMP 10/03/19 05:30 10/03/19 05:30 - ....Imaging Chest X-ray: Report Reviewed, Image Reviewed Assessment/Plan Problem List - Problems (1) HTN (hypertension) Code(s): I10 - ESSENTIAL (PRIMARY) HYPERTENSION (2) Diabetes Code(s): E11.9 - TYPE 2 DIABETES MELLITUS WITHOUT COMPLICATIONS (3) Parkinson disease Code(s): G20 - PARKINSON'S DISEASE (4) Pneumonia Code(s): J18.9 - PNEUMONIA, UNSPECIFIED ORGANISM leukocytosis pneumothorax ASSESSMENT/PLAN: Acute Respiratory Failure HTN DM Parkinsons r/o covid plan continue abx monitor wbc chest tube care repeat a wbc in the afternoon if the wbc increases restart oral vanco continue as per icu cc 38 min
[2019-10-03 12:55] LABS: BASO % 0.1 % (0-2.0); HEMATOCRIT 36.5 % (35.4-49); HEMOGLOBIN 11.6 GM/dL (11.7-16.9); LYMPH % 1.5 % (8-40); MCH 27.2 pg (25.7-33.7); MCHC 31.8 g/dl (32.0-35.9); MEAN CELL VOLUME 85.6 fl (80-96); MEAN PLT VOLUME 8.3 fl (7.5-11.1); MONO % 3.5 % (3.8-10.2); NEUT % 94.9 % (42.8-82.8); PLATELET COUNT 479 K/MM3 (134-434); RBC 4.27 M/mm3 (4.00-5.60); RDW 19.2 % (11.9-15.9)
[2019-10-03 13:15] LABS: WHITE BLOOD COUNT 33.4 K/mm3 (4.0-10.0)
[2019-10-03 13:25] LABS: ANISOCYTOSIS 0; MACROCYTOSIS 0; PLATELET ESTIMATE NORMAL
--- NOTE | 2019-10-03 13:34 | PN ---
Teaching Attending Note Name of Resident: Cynthia Barksdale ATTENDING PHYSICIAN STATEMENT I saw and evaluated the patient. I reviewed the resident's note and discussed the case with the resident. I agree with the resident's findings and plan as documented. SUBJECTIVE: Pt seen and examined in the ICU. Remains intubated, sedated on low dose levophed gtt. OBJECTIVE: Vital Signs Period Temp Pulse Resp BP Sys/Cedillo Pulse Ox Last 24 Hr 98.0 F-98.2 F 58-95 23-30 121-168/55-82 93-100 Intake & Output 09/30/19 10/01/19 10/02/19 10/03/19 23:59 23:59 23:59 23:59 Intake Total 1250.4 880.7 2189.0 659 Output Total 288 515 3144 710 Balance 800.4 230.7 864.0 -51 Weight 59.3 kg 61.507 kg 59.4 kg 60.9 kg Gen: intubated, sedated Heart: RRR Lung: scattered rhonchi Abd: soft, nontender Ext: + edema CBC, BMP 10/03/19 12:30 10/03/19 05:30 Active Medications Acetaminophen (Tylenol -) 650 mg PO Q4H PRN PRN Reason: PAIN LEVEL 1-5 Amlodipine Besylate (Norvasc -) 5 mg PO DAILY [facility] Last Admin: 10/01/19 11:49 Dose: Not Given Documented by: Ascorbic Acid (Vitamin C -) 500 mg PO BID [facility] Last Admin: 10/03/19 09:44 Dose: 500 mg Documented by: Carbidopa/Levodopa (Sinemet 25/250 -) 1 each PO BID [facility] Last Admin: 10/03/19 09:44 Dose: 1 each Documented by: Chlorhexidine Gluconate (Hibiclens For Decolonization -) 1 applic TP HS [facility] Last Admin: 10/02/19 21:00 Dose: 1 applic Documented by: Cholecalciferol (Vitamin D3 -) 1,000 unit PO DAILY [facility] Last Admin: 10/03/19 09:45 Dose: 1,000 unit Documented by: Enoxaparin Sodium (Lovenox -) 60 mg SQ BID [facility] Last Admin: 10/03/19 09:43 Dose: 60 mg Documented by: Piperacillin Sod/Tazobactam (Sod 3.375 gm/ Dextrose) 50 mls @ 100 mls/hr IVPB Q8H-IV [facility]; Protocol Last Admin: 10/03/19 09:45 Dose: 100 mls/hr Documented by: Propofol (Diprivan -) 1,000,000 mcg in 100 mls @ 3.47 mls/hr IVPB TITR [facility]; Protocol Last Titration: 10/03/19 12:27 Dose: 29.97 mcg/kg/min, 10.4 mls/hr Documented by: Fentanyl (Sublimaze Ivpb) 500 mcg in 100 mls @ 10 mls/hr IVPB TITR [facility] Last Admin: 10/03/19 09:42 Dose: 50 mcg/hr, 10 mls/hr Documented by: Metronidazole (Flagyl 500mg Premixed Ivpb -) 500 mg in 100 mls @ 100 mls/hr IVPB Q8H-IV [facility] Last Admin: 10/03/19 09:43 Dose: 100 mls/hr Documented by: Norepinephrine Bitartrate (Levophed Bag) 8,000 mcg in 500 mls @ 18.75 mls/hr IVPB TITR [facility]; Protocol Last Admin: 10/02/19 14:23 Dose: Not Given Documented by: Insulin Aspart (Novolog Vial Sliding Scale -) 1 vial SQ ACHS [facility]; Protocol Last Admin: 10/03/19 12:26 Dose: 8 units Documented by: Losartan Potassium (Cozaar -) 50 mg PO DAILY [facility] Last Admin: 10/01/19 11:48 Dose: Not Given Documented by: Methylprednisolone Sodium Succinate (Solu-Medrol -) 30 mg IVPUSH BID [facility] Last Admin: 10/03/19 09:44 Dose: 30 mg Documented by: Pantoprazole Sodium (Protonix Iv) 40 mg IVPUSH DAILY [facility] Last Admin: 10/03/19 09:44 Dose: 40 mg Documented by: Pramipexole Dihydrochloride (Mirapex -) 0.125 mg PO TID [facility] Last Admin: 10/03/19 05:57 Dose: 0.125 mg Documented by: Vancomycin HCl (Vancomycin Oral Solution) 125 mg PO Q6HPO [facility] Zinc Sulfate (Orazinc -) 220 mg PO BID [facility] Last Admin: 10/03/19 09:44 Dose: 220 mg Documented by: ASSESSMENT AND PLAN: Acute Hypoxic Respiratory Failure COVID19 Pneumonia ARDS Left Pneumothorax s/p pigtail catheter placement Subcutaneous Emphysema HTN DM Parkinsons - antibiotics per ID - continue anticoagulation - empiric steroids - trend inflammatory markers - titrate FiO2, PEEP to keep SpO2 >90% - low tidal volume ventilation - keep Pplat <30 - sedate for vent synchrony - IVF - monitor urine output, creatinine - chest tube to low wall suction - enteral feeds - DVT/GI prophylaxis - continue ICU monitoring critical care time spent in reviewing chart, evaluating patient and formulating plan 35 min
[2019-10-03] MEDS ORDERED: PT OWN MED DRAWER 7, Y5N ONE ×2 (14:15→21:04)
--- NOTE | 2019-10-03 15:20 | PN ---
Physical Exam: SUBJECTIVE: Patient seen and examined beside. No acute events overnight. Patient sedated and ventilated. This morning his chest tube was disconnected and CXR showed increased pneumo. Patient tube reconnected. CXR repeated. OBJECTIVE: Vital Signs Temperature 98.0 F 10/03/19 00:00 Pulse Rate 93 H 10/03/19 12:00 Respiratory Rate 29 H 10/03/19 13:25 Blood Pressure 134/74 10/03/19 12:00 O2 Sat by Pulse Oximetry (%) 97 10/03/19 13:25 GENERAL: The patient is sedated, intubated. No HEAD: Normal with no signs of trauma. EYES: PERRL, LUNGS: Front upper lungs sounds CTA BL. Crepitus on palpation of left chest extending to the neck. Left chest tube in place HEART: RRR, s1 s2 ABDOMEN: Soft, nontender, nondistended EXTREMITIES: warm, well-perfused, BL edema SKIN: Warm, dry Intake & Output 09/30/19 10/01/19 10/02/19 10/03/19 23:59 23:59 23:59 23:59 Intake Total 1250.4 880.7 2189.0 659 Output Total 680 130 4999 710 Balance 800.4 230.7 864.0 -51 Weight 130 lb 11.746 oz 135 lb 9.6 oz 130 lb 15.273 oz 134 lb 4.184 oz Laboratory Results - last 24 hr 10/02/19 10/02/19 10/03/19 16:25 21:09 05:25 WBC RBC Hgb Hct MCV MCH MCHC RDW Plt Count MPV Absolute Neuts (auto) Neutrophils % Neutrophils % (Manual) Band Neutrophils % Lymphocytes % Lymphocytes % (Manual) Monocytes % Monocytes % (Manual) Eosinophils % Eosinophils % (Manual) Basophils % Basophils % (Manual) Myelocytes % (Man) Promyelocytes % (Man) Blast Cells % (Manual) Nucleated RBC % Metamyelocytes Hypochromia Platelet Estimate Polychromasia Poikilocytosis Anisocytosis Microcytosis Macrocytosis D-Dimer Anticoagulation Therapy No Result Required. Puncture Site Right radial Patient Temperature No Result Required. ABG pH 7.419 ABG pCO2 48.20 H ABG pO2 81.0 ABG HCO3 30.5 H ABG O2 Sat (Measured) 96.0 ABG O2 Content No Result Required. ABG Base Excess 5.1 H Amador Test Positive Patient On Oxygen Yes O2 Delivery Device Vent Oxygen Flow Rate 70% Vent Mode A/c Vent Rate 26 Mechanical Rate Yes PEEP 8.0 Pressure Support Vent 360 Sodium Potassium Chloride Carbon Dioxide Anion Gap BUN Creatinine Est GFR (CKD-EPI)AfAm Est GFR (CKD-EPI)NonAf POC Glucometer 173 201 Random Glucose Calcium Phosphorus Magnesium Ferritin Total Bilirubin AST ALT Alkaline Phosphatase LD Total C-Reactive Protein Total Protein Albumin 10/03/19 10/03/19 10/03/19 05:30 05:30 05:30 WBC 32.3 H* RBC 4.07 Hgb 11.0 L Hct 34.4 L MCV 84.6 MCH 27.0 MCHC 32.0 RDW 18.9 H Plt Count 499 H MPV 8.3 Absolute Neuts (auto) Neutrophils % Neutrophils % (Manual) Band Neutrophils % Lymphocytes % Lymphocytes % (Manual) Monocytes % Monocytes % (Manual) Eosinophils % Eosinophils % (Manual) Basophils % Basophils % (Manual) Myelocytes % (Man) Promyelocytes % (Man) Blast Cells % (Manual) Nucleated RBC % Metamyelocytes Hypochromia Platelet Estimate Polychromasia Poikilocytosis Anisocytosis Microcytosis Macrocytosis D-Dimer 1246 H Anticoagulation Therapy Puncture Site Patient Temperature ABG pH ABG pCO2 ABG pO2 ABG HCO3 ABG O2 Sat (Measured) ABG O2 Content ABG Base Excess Amador Test Patient On Oxygen O2 Delivery Device Oxygen Flow Rate Vent Mode Vent Rate Mechanical Rate PEEP Pressure Support Vent Sodium 141 Potassium 4.1 Chloride 103 Carbon Dioxide 31 Anion Gap 6 L BUN 55.8 H Creatinine 1.0 Est GFR (CKD-EPI)AfAm 78.64 Est GFR (CKD-EPI)NonAf 67.85 POC Glucometer Random Glucose 362 H Calcium 7.1 L Phosphorus 1.8 L Magnesium 3.3 H Ferritin 158.9 Total Bilirubin 0.7 AST 24 ALT 12 L Alkaline Phosphatase 130 H LD Total 497 H C-Reactive Protein 9.6 H Total Protein 5.6 L Albumin 1.8 L 10/03/19 10/03/19 10/03/19 06:08 11:21 12:30 WBC 33.4 H* RBC 4.27 Hgb 11.6 L Hct 36.5 MCV 85.6 MCH 27.2 MCHC 31.8 L RDW 19.2 H Plt Count 479 H MPV 8.3 Absolute Neuts (auto) 31.7 H Neutrophils % 94.9 H Neutrophils % (Manual) 96.0 H Band Neutrophils % 1.0 Lymphocytes % 1.5 L D Lymphocytes % (Manual) 0.0 L Monocytes % 3.5 L Monocytes % (Manual) 2 L Eosinophils % 0.0 Eosinophils % (Manual) 0.0 Basophils % 0.1 Basophils % (Manual) 0.0 Myelocytes % (Man) 0 Promyelocytes % (Man) 0 Blast Cells % (Manual) 0 Nucleated RBC % 0 Metamyelocytes 1 D Hypochromia 0 Platelet Estimate Normal Polychromasia 0 Poikilocytosis 0 Anisocytosis 0 Microcytosis 0 Macrocytosis 0 D-Dimer Anticoagulation Therapy Puncture Site Patient Temperature ABG pH ABG pCO2 ABG pO2 ABG HCO3 ABG O2 Sat (Measured) ABG O2 Content ABG Base Excess Amador Test Patient On Oxygen O2 Delivery Device Oxygen Flow Rate Vent Mode Vent Rate Mechanical Rate PEEP Pressure Support Vent Sodium Potassium Chloride Carbon Dioxide Anion Gap BUN Creatinine Est GFR (CKD-EPI)AfAm Est GFR (CKD-EPI)NonAf POC Glucometer 288 316 Random Glucose Calcium Phosphorus Magnesium Ferritin Total Bilirubin AST ALT Alkaline Phosphatase LD Total C-Reactive Protein Total Protein Albumin Active Medications Generic Name Dose Route Start Last Admin Trade Name Freq PRN Reason Stop Dose Admin Acetaminophen 650 mg 09/27/19 17:45 Tylenol - PO Q4H PRN PAIN LEVEL 1-5 Amlodipine Besylate 5 mg 09/28/19 10:00 10/01/19 11:49 Norvasc - PO Not Given DAILY BARBI Ascorbic Acid 500 mg 09/28/19 22:00 10/03/19 09:44 Vitamin C - PO 500 mg BID BARBI Administration Carbidopa/Levodopa 1 each 09/27/19 22:00 10/03/19 09:44 Sinemet 25/250 - PO 1 each BID BARBI Administration Chlorhexidine Gluconate 1 applic 09/30/19 22:00 10/02/19 21:00 Hibiclens For Decolonization - TP 1 applic HS BARBI Administration Cholecalciferol 1,000 unit 09/28/19 11:30 10/03/19 09:45 Vitamin D3 - PO 1,000 unit DAILY [facility] Administration Enoxaparin Sodium 60 mg 09/28/19 10:00 10/03/19 09:43 Lovenox - SQ 60 mg BID BARBI Administration Piperacillin Sod/Tazobactam 50 mls @ 100 mls/hr 09/28/19 18:00 10/03/19 09:45 Sod 3.375 gm/ Dextrose IVPB 100 mls/hr Q8H-IV BARBI Administration Protocol Propofol 1,000,000 mcg in 100 mls @ 3.47 mls/hr 09/29/19 09:45 10/03/19 12:27 Diprivan - IVPB 29.97 mcg/kg/min TITR [facility] 10.4 mls/hr Titration Protocol 10 MCG/KG/MIN Fentanyl 500 mcg in 100 mls @ 10 mls/hr 09/29/19 09:45 10/03/19 09:42 Sublimaze Ivpb IVPB 50 mcg/hr TITR [facility] 10 mls/hr Administration 50 MCG/HR Metronidazole 500 mg in 100 mls @ 100 mls/hr 09/29/19 14:15 10/03/19 09:43 Flagyl 500mg Premixed Ivpb - IVPB 100 mls/hr Q8H-IV [facility]BI Administration Norepinephrine Bitartrate 8,000 mcg in 500 mls @ 18.75 mls/hr 10/01/19 14:15 10/02/19 14:23 Levophed Bag IVPB Not Given TITR [facility]BI Protocol 5 MCG/MIN Insulin Aspart 1 vial 09/27/19 22:00 10/03/19 12:26 Novolog Vial Sliding Scale - SQ 8 units ACHS BARBI Administration Protocol Losartan Potassium 50 mg 09/28/19 10:00 10/01/19 11:48 Cozaar - PO Not Given DAILY [facility] Methylprednisolone Sodium Succinate 30 mg 10/01/19 22:00 10/03/19 09:44 Solu-Medrol - IVPUSH 30 mg BID [facility] Administration Pantoprazole Sodium 40 mg 10/02/19 10:00 10/03/19 09:44 Protonix Iv IVPUSH 40 mg DAILY [facility] Administration Pramipexole Dihydrochloride 0.125 mg 09/27/19 22:00 10/03/19 14:18 Mirapex - PO 0.125 mg TID [facility] Administration Vancomycin HCl 125 mg 10/03/19 13:09 Vancomycin Oral Solution PO Q6HPO [facility] Zinc Sulfate 220 mg 09/28/19 22:00 10/03/19 09:44 Orazinc - PO 220 mg BID [facility] Administration ASSESSMENT/PLAN: 84 y.o male with PMH of HTN, DM, parkinsons disease presents to the ED with complaints of shortness of breath and non-productive cough over the last 4-5 days. Admitted to ICU for acute hypoxic respiratory failure. Neuro - sedated, increased propofol because patient fighting tube this AM - parkinsons' history - c/w carbidopa/levodopa Pulm - intubated: vent settings: maintain o2 sat >90 - L pneumothorax on cxr, L chest tube placed 09/30 - solumedrol 30 mg BID - Covid negative but antibody positive Chest CT consistent with possible covid pneumonitis Continue to monitor inflammatory markers - continue to downtrend Cardio - levophed 0.5 restarted last night, continue to try to wean off - HTN history: holding home medications due to hypotension - maintain MAP > 65 ID - ID consulted (Dr. Almendarez) continue with antbx zosyn day 6 oral vanc d/c 10/01 (completed 3 days) >> restarted due to increase in WBC today flagyl day 5 Endo - hx DM - holding home glipizide - ISS ACHS - BGMS ACHS Renal - monitor electrolytes - monitor I's & O's - monitor volume status FEN - monitor electrolytes - enteral feeds DVT ppx: lovenox 60 BID GI ppx: protonix 40 IV daily Lines - R subclavian triple lumen placed 09/28 code status: full code Visit type - Emergency Visit Emergency Visit: Yes ED Registration Date: 09/27/19 Care time: The patient presented to the Emergency Department on the above date and was hospitalized for further evaluation of their emergent condition. - New Patient This patient is new to me today: No - Critical Care Critical Care patient: Yes Total Critical Care Time (in minutes): 38 Critical Care Statement: The care of this patient involved high complexity decision making to prevent further life threatening deterioration of the patient's condition and/or to evaluate & treat vital organ system(s) failure or risk of failure. - Medication Review Med list reviewed for High Risk Meds patients 65 and older: Yes ATTENDING PHYSICIAN STATEMENT I saw and evaluated the patient. I reviewed the resident's note and discussed the case with the resident. I agree with the resident's findings and plan as documented. SUBJECTIVE: OBJECTIVE: ASSESSMENT AND PLAN:
[2019-10-03] MEDS ORDERED: VANCOMYCIN 250 MG/5 ML ORAL SOLUTION PO SCH (18:00)
[2019-10-03] MEDS: VANCOMYCIN 250 MG/5 ML ORAL SOLUTION PO SCH (20:41)
[2019-10-03] MEDS: CHLORHEXIDINE GLUCONATE 4% CLEANSER FOR DECOLONIZATION TP SCH (21:09)
[2019-10-04] MEDS: VANCOMYCIN 250 MG/5 ML ORAL SOLUTION PO SCH ×5 (01:04→23:05)
[2019-10-04] MEDS ORDERED: DEXTROSE 5%-WATER - 50 ML IVPB ONE ×3 (02:14→16:46)
[2019-10-04] MEDS ORDERED: PIPERACILLIN/TAZOBACTAM 3.375 GM VIAL IVPB ONE ×3 (02:14→16:46)
[2019-10-04] MEDS: PIPERACILLIN/TAZOB 3.375 GM 3.375 GM in DEXTROSE 5%-WATER - 50 ML IVPB SCH ×3 (02:24→17:02)
[2019-10-04] MEDS ORDERED: PT OWN MED DRAWER 7, Y5N ONE ×4 (04:55→16:54)
[2019-10-04] MEDS: FENTANYL IVPB 500 MCG/100 ML BAG IVPB SCH ×3 (04:57→12:52)
[2019-10-04] MEDS: PROPOFOL 1,000,000 MCG/100 ML VIAL IVPB SCH ×3 (04:57→12:51)
[2019-10-04] MEDS: PRAMIPEXOLE DIHYDROCHLORIDE 0.125 MG TABLET PO SCH ×3 (05:28→23:05)
[2019-10-04 06:39] LABS: ARTERIAL BLD GAS O2 SATURATION 98.6 mmHg (95-98); ARTERIAL BLOOD GAS BASE EXCESS 4.6 mmol/L (-2-2); ARTERIAL BLOOD GAS PO2 140.6 mmHg (80-100); ARTERIAL BLOOD GAS pH 7.349 (7.350-7.450)
[2019-10-04] MEDS: INSULIN SLIDING SCALE (NOVOLOG) 1 VIAL SQ SCH ×3 (06:50→17:02)
[2019-10-04 07:07] LABS: ALLENS TEST POSITIVE
[2019-10-04 07:08] LABS: VENT MODE A/C; VENT RATE 26
[2019-10-04 07:24] LABS: HEMATOCRIT 34.7 % (35.4-49); HEMOGLOBIN 10.9 GM/dL (11.7-16.9); MCH 26.7 pg (25.7-33.7); MCHC 31.3 g/dl (32.0-35.9); MEAN CELL VOLUME 85.3 fl (80-96); MEAN PLT VOLUME 8.1 fl (7.5-11.1); PLATELET COUNT 526 K/MM3 (134-434); RBC 4.07 M/mm3 (4.00-5.60); RDW 19.5 % (11.9-15.9)
[2019-10-04 08:20] LABS: ALBUMIN 1.9 g/dl (3.4-5.0); ALK PHOS 128 U/L (45-117); ANION GAP 4 MMOL/L (8-16); BILIRUBIN,TOTAL 0.3 mg/dL (0.2-1); CALCIUM 7.4 mg/dL (8.5-10.1); CHLORIDE 109 mmol/L (98-107); CO2 34 mmol/L (21-32); CREATININE 0.8 mg/dL (0.55-1.3); GLUCOSE,RANDOM 263 mg/dL (74-106); LDH 485 U/L (87-246); MAGNESIUM 3.6 mg/dL (1.8-2.4); PHOSPHOROUS 2.2 mg/dL (2.5-4.9); POTASSIUM 4.4 mmol/L (3.5-5.1); SGOT/AST 17 U/L (15-37); SODIUM 146 mmol/L (136-145); TOT PROT 5.6 g/dl (6.4-8.2)
[2019-10-04 08:34] LABS: SGPT/ALT < 6 U/L (13-61)
[2019-10-04 08:45] LABS: WHITE BLOOD COUNT 30.4 K/mm3 (4.0-10.0)
[2019-10-04] MEDS: ZINC SULFATE 220 MG CAPSULE (FP) PO SCH ×2 (09:12→23:05)
[2019-10-04] MEDS: ENOXAPARIN NA (PORCINE) 60 MG/0.6 ML DISP.SYRIN SQ SCH ×2 (09:12→23:10)
[2019-10-04] MEDS: PANTOPRAZOLE SODIUM 40 MG VIAL IVPUSH SCH (09:12)
[2019-10-04] MEDS: CARBIDOPA/LEVODOPA 25/250 TABLET (FP) PO SCH ×2 (09:12→23:05)
[2019-10-04] MEDS: ASCORBIC ACID 500 MG TABLET (FP) PO SCH ×2 (09:13→23:06)
[2019-10-04] MEDS: CHOLECALCIFEROL (VIT D3) 1,000 UNIT (25 MCG) TABLET PO SCH (09:13)
[2019-10-04] MEDS: methylPREDNISolone NA SUCC 40 MG/1 ML VIAL IVPUSH SCH ×2 (09:13→23:05)
[2019-10-04] MEDS: amLODIPine BESYLATE 5 MG TABLET (FP) PO SCH (11:33)
[2019-10-04] MEDS: LOSARTAN POTASSIUM 50 MG TABLET (FP) PO SCH (11:33)
--- NOTE | 2019-10-04 11:42 | PN ---
Teaching Attending Note Name of Resident: Eleuterio Castaneda ATTENDING PHYSICIAN STATEMENT I saw and evaluated the patient. I reviewed the resident's note and discussed the case with the resident. I agree with the resident's findings and plan as documented. SUBJECTIVE: Pt seen and examined in the ICU. Remains intubated, sedated on low dose levophed gtt. Pplat 26. OBJECTIVE: Vital Signs Period Temp Pulse Resp BP Sys/Cedillo Pulse Ox Last 24 Hr 97.6 F-97.8 F 61-93 5-30 115-171/54-87 96-100 Intake & Output 10/01/19 10/02/19 10/03/19 10/04/19 23:59 23:59 23:59 23:59 Intake Total 880.7 2189.0 2127.4 923 Output Total 650 1325 1310 500 Balance 230.7 864.0 817.4 423 Weight 61.507 kg 59.4 kg 60.9 kg 61.2 kg Gen: intubated, sedated Heart: RRR Lung: scattered rhonchi Abd: soft, nontender Ext: + edema CBC, BMP 10/04/19 05:30 10/04/19 05:30 Active Medications Acetaminophen (Tylenol -) 650 mg PO Q4H PRN PRN Reason: PAIN LEVEL 1-5 Amlodipine Besylate (Norvasc -) 5 mg PO DAILY [facility] Last Admin: 10/04/19 11:33 Dose: Not Given Documented by: Ascorbic Acid (Vitamin C -) 500 mg PO BID [facility] Last Admin: 10/04/19 09:13 Dose: 500 mg Documented by: Carbidopa/Levodopa (Sinemet 25/250 -) 1 each PO BID [facility] Last Admin: 10/04/19 09:12 Dose: 1 each Documented by: Chlorhexidine Gluconate (Hibiclens For Decolonization -) 1 applic TP HS [facility] Last Admin: 10/03/19 21:09 Dose: 1 applic Documented by: Cholecalciferol (Vitamin D3 -) 1,000 unit PO DAILY [facility] Last Admin: 10/04/19 09:13 Dose: 1,000 unit Documented by: Enoxaparin Sodium (Lovenox -) 60 mg SQ BID [facility] Last Admin: 10/04/19 09:12 Dose: 60 mg Documented by: Piperacillin Sod/Tazobactam (Sod 3.375 gm/ Dextrose) 50 mls @ 100 mls/hr IVPB Q8H-IV BARBI; Protocol Last Admin: 10/04/19 09:14 Dose: 100 mls/hr Documented by: Propofol (Diprivan -) 1,000,000 mcg in 100 mls @ 3.47 mls/hr IVPB TITR BARBI; Protocol Last Admin: 10/04/19 09:45 Dose: Not Given Documented by: Fentanyl (Sublimaze Ivpb) 500 mcg in 100 mls @ 10 mls/hr IVPB TITR [facility] Last Admin: 10/04/19 09:45 Dose: Not Given Documented by: Metronidazole (Flagyl 500mg Premixed Ivpb -) 500 mg in 100 mls @ 100 mls/hr IVPB Q8H-IV [facility] Last Admin: 10/04/19 09:12 Dose: 100 mls/hr Documented by: Norepinephrine Bitartrate (Levophed Bag) 8,000 mcg in 500 mls @ 18.75 mls/hr IVPB TITR BARBI; Protocol Last Admin: 10/02/19 14:23 Dose: Not Given Documented by: Insulin Aspart (Novolog Vial Sliding Scale -) 1 vial SQ ACHS [facility]; Protocol Last Admin: 10/04/19 11:22 Dose: 4 units Documented by: Losartan Potassium (Cozaar -) 50 mg PO DAILY [facility] Last Admin: 10/04/19 11:33 Dose: Not Given Documented by: Methylprednisolone Sodium Succinate (Solu-Medrol -) 30 mg IVPUSH BID [facility] Last Admin: 10/04/19 09:13 Dose: 30 mg Documented by: Pantoprazole Sodium (Protonix Iv) 40 mg IVPUSH DAILY [facility] Last Admin: 10/04/19 09:12 Dose: 40 mg Documented by: Pramipexole Dihydrochloride (Mirapex -) 0.125 mg PO TID [facility] Last Admin: 10/04/19 05:28 Dose: 0.125 mg Documented by: Vancomycin HCl (Vancomycin Oral Solution) 125 mg PO Q6HPO [facility] Last Admin: 10/04/19 11:31 Dose: 125 mg Documented by: Zinc Sulfate (Orazinc -) 220 mg PO BID [facility] Last Admin: 10/04/19 09:12 Dose: 220 mg Documented by: ASSESSMENT AND PLAN: Acute Hypoxic Respiratory Failure COVID19 Pneumonia ARDS Left Pneumothorax s/p pigtail catheter placement Subcutaneous Emphysema HTN DM Parkinsons - antibiotics per ID - continue anticoagulation - empiric steroids - trend inflammatory markers - titrate FiO2, PEEP to keep SpO2 >90% - low tidal volume ventilation - keep Pplat <30 - sedate for vent synchrony - monitor urine output, creatinine - chest tube to low wall suction - enteral feeds - DVT/GI prophylaxis - continue ICU monitoring critical care time spent in reviewing chart, evaluating patient and formulating plan 35 min
--- NOTE | 2019-10-04 13:30 | PN ---
Progress Note, Physician Chief Complaint: Events noted Remains on mechanical ventilation and sedation History of Present Illness: Patient was seen and examined. Remains in ICU and vent support. Chart was reviewed - Current Medication List Current Medications: Active Medications Acetaminophen (Tylenol -) 650 mg PO Q4H PRN PRN Reason: PAIN LEVEL 1-5 Amlodipine Besylate (Norvasc -) 5 mg PO DAILY [facility] Last Admin: 10/04/19 11:33 Dose: Not Given Documented by: Ascorbic Acid (Vitamin C -) 500 mg PO BID [facility] Last Admin: 10/04/19 09:13 Dose: 500 mg Documented by: Carbidopa/Levodopa (Sinemet 25/250 -) 1 each PO BID [facility] Last Admin: 10/04/19 09:12 Dose: 1 each Documented by: Chlorhexidine Gluconate (Hibiclens For Decolonization -) 1 applic TP HS [facility] Last Admin: 10/03/19 21:09 Dose: 1 applic Documented by: Cholecalciferol (Vitamin D3 -) 1,000 unit PO DAILY [facility] Last Admin: 10/04/19 09:13 Dose: 1,000 unit Documented by: Enoxaparin Sodium (Lovenox -) 60 mg SQ BID [facility] Last Admin: 10/04/19 09:12 Dose: 60 mg Documented by: Piperacillin Sod/Tazobactam (Sod 3.375 gm/ Dextrose) 50 mls @ 100 mls/hr IVPB Q8H-IV [facility]; Protocol Last Admin: 10/04/19 09:14 Dose: 100 mls/hr Documented by: Propofol (Diprivan -) 1,000,000 mcg in 100 mls @ 3.47 mls/hr IVPB TITR [facility]; Protocol Last Admin: 10/04/19 12:51 Dose: 29.97 mcg/kg/min, 10.4 mls/hr Documented by: Fentanyl (Sublimaze Ivpb) 500 mcg in 100 mls @ 10 mls/hr IVPB TITR [facility] Last Admin: 10/04/19 12:52 Dose: 50 mcg/hr, 10 mls/hr Documented by: Metronidazole (Flagyl 500mg Premixed Ivpb -) 500 mg in 100 mls @ 100 mls/hr IVPB Q8H-IV [facility] Last Admin: 10/04/19 09:12 Dose: 100 mls/hr Documented by: Norepinephrine Bitartrate (Levophed Bag) 8,000 mcg in 500 mls @ 18.75 mls/hr IVPB TITR [facility]; Protocol Last Titration: 10/04/19 10:00 Dose: 0 mcg/min, 0 mls/hr Documented by: Insulin Aspart (Novolog Vial Sliding Scale -) 1 vial SQ ACHS [facility]; Protocol Last Admin: 10/04/19 11:22 Dose: 4 units Documented by: Losartan Potassium (Cozaar -) 50 mg PO DAILY [facility] Last Admin: 10/04/19 11:33 Dose: Not Given Documented by: Methylprednisolone Sodium Succinate (Solu-Medrol -) 30 mg IVPUSH BID [facility] Last Admin: 10/04/19 09:13 Dose: 30 mg Documented by: Pantoprazole Sodium (Protonix Iv) 40 mg IVPUSH DAILY [facility] Last Admin: 10/04/19 09:12 Dose: 40 mg Documented by: Pramipexole Dihydrochloride (Mirapex -) 0.125 mg PO TID [facility] Last Admin: 10/04/19 13:00 Dose: 0.125 mg Documented by: Vancomycin HCl (Vancomycin Oral Solution) 125 mg PO Q6HPO [facility] Last Admin: 10/04/19 11:31 Dose: 125 mg Documented by: Zinc Sulfate (Orazinc -) 220 mg PO BID [facility] Last Admin: 10/04/19 09:12 Dose: 220 mg Documented by: - Objective Vital Signs: Vital Signs Temperature 97.6 F 10/04/19 10:00 Pulse Rate 68 10/04/19 12:00 Respiratory Rate 26 H 10/04/19 12:00 Blood Pressure 117/42 L 10/04/19 12:00 O2 Sat by Pulse Oximetry (%) 100 10/04/19 10:00 Cardiovascular: Yes: Regular Rate and Rhythm, S1, S2 Respiratory: Yes: Diminished, Mechanically Ventilated, Rhonchi Gastrointestinal: Yes: Normal Bowel Sounds, Soft. No: Tenderness Edema: Yes Labs: CBC, BMP 10/04/19 05:30 10/04/19 05:30 Problem List - Problems (1) Septic shock Code(s): A41.9 - SEPSIS, UNSPECIFIED ORGANISM; R65.21 - SEVERE SEPSIS WITH SEPTIC SHOCK (2) ARDS (adult respiratory distress syndrome) Code(s): J80 - ACUTE RESPIRATORY DISTRESS SYNDROME (3) Pneumonitis Code(s): J18.9 - PNEUMONIA, UNSPECIFIED ORGANISM (4) Pneumothorax Code(s): J93.9 - PNEUMOTHORAX, UNSPECIFIED (5) COVID-19 virus IgG antibody detected Code(s): Z01.84 - ENCOUNTER FOR ANTIBODY RESPONSE EXAMINATION (6) Diabetes Code(s): E11.9 - TYPE 2 DIABETES MELLITUS WITHOUT COMPLICATIONS (7) HTN (hypertension) Code(s): I10 - ESSENTIAL (PRIMARY) HYPERTENSION (8) Parkinson disease Code(s): G20 - PARKINSON'S DISEASE (9) Acute respiratory failure with hypoxia Code(s): J96.01 - ACUTE RESPIRATORY FAILURE WITH HYPOXIA Assessment/Plan 1. Acute respiratory failure on mechanical ventilation 2. COVID pneumonitis and ARDS 3. Septic shock 4. Leukocytosis 5. Hypokalemia 6. DM 7. Parkinson's 8. Pneumothorax s/p chest tube PLAN: 1. Supportive care in ICU and pressor support (Levophed) keep MAP > 65 mmHg 2. Chest tube management 3. Antibiotic coverage 4. Steroids, vent management 5. Anticoagulation with Lovenox. GI prophylaxis 6. Monitor electrolytes Guarded Avel Lopez MD
--- NOTE | 2019-10-04 15:59 | PN ---
Physical Exam: SUBJECTIVE: Patient seen and examined beside, intubated and sedated, no acute events overnight. OBJECTIVE: Vital Signs Period Temp Pulse Resp BP Sys/Cedillo Pulse Ox Last 24 Hr 97.6 F-97.8 F 36-72 5-30 115-171/42-87 95-100 GENERAL: The patient is sedated, intubated. HEAD: Normal with no signs of trauma. EYES: PERRL LUNGS: Clear sounds B/L, crepitations L>R HEART: RRR, no murmurs ABDOMEN: Soft, nontender, nondistended EXTREMITIES: warm, well-perfused, BL edema Laboratory Results - last 24 hr 10/03/19 10/03/19 10/04/19 15:33 21:26 05:30 WBC RBC Hgb Hct MCV MCH MCHC RDW Plt Count MPV D-Dimer Anticoagulation Therapy Puncture Site Patient Temperature ABG pH ABG pCO2 ABG pO2 ABG HCO3 ABG O2 Sat (Measured) ABG O2 Content ABG Base Excess Amador Test Patient On Oxygen O2 Delivery Device Oxygen Flow Rate Vent Mode Vent Rate Mechanical Rate PEEP Pressure Support Vent Sodium 146 H Potassium 4.4 Chloride 109 H Carbon Dioxide 34 H Anion Gap 4 L BUN 49.0 H Creatinine 0.8 Est GFR (CKD-EPI)AfAm 93.75 Est GFR (CKD-EPI)NonAf 80.89 POC Glucometer 307 223 Random Glucose 263 H Calcium 7.4 L Phosphorus 2.2 L Magnesium 3.6 H Ferritin 129.1 Total Bilirubin 0.3 AST 17 ALT < 6 L Alkaline Phosphatase 128 H LD Total 485 H C-Reactive Protein 5.8 H Total Protein 5.6 L Albumin 1.9 L 10/04/19 10/04/19 10/04/19 05:30 05:30 05:55 WBC 30.4 H* RBC 4.07 Hgb 10.9 L Hct 34.7 L MCV 85.3 MCH 26.7 MCHC 31.3 L RDW 19.5 H Plt Count 526 H MPV 8.1 D-Dimer 1176 H Anticoagulation Therapy No Result Required. Puncture Site Right radial Patient Temperature No Result Required. ABG pH 7.349 L ABG pCO2 59.20 H ABG pO2 140.6 H ABG HCO3 31.9 H ABG O2 Sat (Measured) 98.6 H ABG O2 Content No Result Required. ABG Base Excess 4.6 H Amador Test Positive Patient On Oxygen Yes O2 Delivery Device Vent Oxygen Flow Rate 70% Vent Mode A/c Vent Rate 26 Mechanical Rate Yes PEEP 8.0 Pressure Support Vent 360 Sodium Potassium Chloride Carbon Dioxide Anion Gap BUN Creatinine Est GFR (CKD-EPI)AfAm Est GFR (CKD-EPI)NonAf POC Glucometer Random Glucose Calcium Phosphorus Magnesium Ferritin Total Bilirubin AST ALT Alkaline Phosphatase LD Total C-Reactive Protein Total Protein Albumin 10/04/19 10/04/19 06:47 10:20 WBC RBC Hgb Hct MCV MCH MCHC RDW Plt Count MPV D-Dimer Anticoagulation Therapy Puncture Site Patient Temperature ABG pH ABG pCO2 ABG pO2 ABG HCO3 ABG O2 Sat (Measured) ABG O2 Content ABG Base Excess Amador Test Patient On Oxygen O2 Delivery Device Oxygen Flow Rate Vent Mode Vent Rate Mechanical Rate PEEP Pressure Support Vent Sodium Potassium Chloride Carbon Dioxide Anion Gap BUN Creatinine Est GFR (CKD-EPI)AfAm Est GFR (CKD-EPI)NonAf POC Glucometer 224 227 Random Glucose Calcium Phosphorus Magnesium Ferritin Total Bilirubin AST ALT Alkaline Phosphatase LD Total C-Reactive Protein Total Protein Albumin Active Medications Generic Name Dose Route Start Last Admin Trade Name Freq PRN Reason Stop Dose Admin Acetaminophen 650 mg 09/27/19 17:45 Tylenol - PO Q4H PRN PAIN LEVEL 1-5 Amlodipine Besylate 5 mg 09/28/19 10:00 10/04/19 11:33 Norvasc - PO Not Given DAILY [facility] Ascorbic Acid 500 mg 09/28/19 22:00 10/04/19 09:13 Vitamin C - PO 500 mg BID [facility] Administration Carbidopa/Levodopa 1 each 09/27/19 22:00 10/04/19 09:12 Sinemet 25/250 - PO 1 each BID [facility] Administration Chlorhexidine Gluconate 1 applic 09/30/19 22:00 10/03/19 21:09 Hibiclens For Decolonization - TP 1 applic HS [facility] Administration Cholecalciferol 1,000 unit 09/28/19 11:30 10/04/19 09:13 Vitamin D3 - PO 1,000 unit DAILY [facility] Administration Enoxaparin Sodium 60 mg 09/28/19 10:00 10/04/19 09:12 Lovenox - SQ 60 mg BID [facility] Administration Piperacillin Sod/Tazobactam 50 mls @ 100 mls/hr 09/28/19 18:00 10/04/19 09:14 Sod 3.375 gm/ Dextrose IVPB 100 mls/hr Q8H-IV [facility] Administration Protocol Propofol 1,000,000 mcg in 100 mls @ 3.47 mls/hr 09/29/19 09:45 10/04/19 12:51 Diprivan - IVPB 29.97 mcg/kg/min TITR [facility] 10.4 mls/hr Administration Protocol 10 MCG/KG/MIN Fentanyl 500 mcg in 100 mls @ 10 mls/hr 09/29/19 09:45 10/04/19 12:52 Sublimaze Ivpb IVPB 50 mcg/hr TITR [facility] 10 mls/hr Administration 50 MCG/HR Metronidazole 500 mg in 100 mls @ 100 mls/hr 09/29/19 14:15 10/04/19 09:12 Flagyl 500mg Premixed Ivpb - IVPB 100 mls/hr Q8H-IV [facility] Administration Norepinephrine Bitartrate 8,000 mcg in 500 mls @ 18.75 mls/hr 10/01/19 14:15 10/04/19 10:00 Levophed Bag IVPB 0 mcg/min TITR [facility] 0 mls/hr Titration Protocol 5 MCG/MIN Insulin Aspart 1 vial 09/27/19 22:00 10/04/19 11:22 Novolog Vial Sliding Scale - SQ 4 units ACHS [facility] Administration Protocol Losartan Potassium 50 mg 09/28/19 10:00 10/04/19 11:33 Cozaar - PO Not Given DAILY [facility] Methylprednisolone Sodium Succinate 30 mg 10/01/19 22:00 10/04/19 09:13 Solu-Medrol - IVPUSH 30 mg BID [facility] Administration Pantoprazole Sodium 40 mg 10/02/19 10:00 10/04/19 09:12 Protonix Iv IVPUSH 40 mg DAILY [facility] Administration Pramipexole Dihydrochloride 0.125 mg 09/27/19 22:00 10/04/19 13:00 Mirapex - PO 0.125 mg TID [facility] Administration Vancomycin HCl 125 mg 10/03/19 13:09 10/04/19 11:31 Vancomycin Oral Solution PO 125 mg Q6HPO [facility] Administration Zinc Sulfate 220 mg 09/28/19 22:00 10/04/19 09:12 Orazinc - PO 220 mg BID [facility] Administration ASSESSMENT/PLAN: 84M with PMH of HTN, DM, parkinsons presented to the ER with SOB and non- productive cough over the last 4-5 days, admitted for suspected COVID. #Neuro - Sedated on Fentanyl@50, Propofol@30 - Continue Pramipex and Sinamet for hx of Parkinsons #Cardio - R subclavian (09/28) - Weaned off NE@0.5 today, not currently on pressors #Pulm - Chest tube in place - PEEP 8, FiO2 70%, Peak Press 40, Plat Press 22 - Inflammatory markers for COVID improved - Solu-Medrol 30 BID (09/30) #GI - No diarrhea #Renal - BUN/Cr 49/0.8 #ID - WBC: 33 -> 30k - Flagyl Q8H (09/28), Zosyn 3.375Q8H (09/27), Vanco PO Q6H #Endo - BGMs, ISS #FEN - Glucerna #Prophylaxis - Protnix - Lovenox 60 BID #Dispo - Monitor in ICU - Full Code ATTENDING PHYSICIAN STATEMENT I saw and evaluated the patient. I reviewed the resident's note and discussed the case with the resident. I agree with the resident's findings and plan as documented. SUBJECTIVE: OBJECTIVE: ASSESSMENT AND PLAN:
[2019-10-04] MEDS ORDERED: INSULIN (NOVOLOG) ASPART 100 UNITS/ML 10ML VIAL ONE (22:43)
[2019-10-04] MEDS: CHLORHEXIDINE GLUCONATE 4% CLEANSER FOR DECOLONIZATION TP SCH (23:05)
[2019-10-05] MEDS: INSULIN SLIDING SCALE (NOVOLOG) 1 VIAL SQ SCH ×4 (00:59→17:19)
[2019-10-05] MEDS ORDERED: DEXTROSE 5%-WATER - 50 ML IVPB ONE ×3 (02:39→17:00)
[2019-10-05] MEDS ORDERED: PIPERACILLIN/TAZOBACTAM 3.375 GM VIAL IVPB ONE ×3 (02:39→17:00)
[2019-10-05] MEDS: PIPERACILLIN/TAZOB 3.375 GM 3.375 GM in DEXTROSE 5%-WATER - 50 ML IVPB SCH ×3 (02:45→17:08)
[2019-10-05] MEDS ORDERED: INSULIN (NOVOLOG) ASPART 100 UNITS/ML 10ML VIAL ONE (06:34)
[2019-10-05] MEDS: VANCOMYCIN 250 MG/5 ML ORAL SOLUTION PO SCH ×3 (07:00→17:08)
[2019-10-05] MEDS: PRAMIPEXOLE DIHYDROCHLORIDE 0.125 MG TABLET PO SCH ×3 (07:00→22:35)
[2019-10-05 07:06] LABS: EOS % 0.2 % (0-4.5); HEMATOCRIT 33.2 % (35.4-49); HEMOGLOBIN 10.5 GM/dL (11.7-16.9); LYMPH % 1.4 % (8-40); MCH 27.2 pg (25.7-33.7); MCHC 31.5 g/dl (32.0-35.9); MEAN CELL VOLUME 86.2 fl (80-96); MEAN PLT VOLUME 8.4 fl (7.5-11.1); MONO % 1.8 % (3.8-10.2); NEUT % 96.6 % (42.8-82.8); PLATELET COUNT 452 K/MM3 (134-434); RBC 3.85 M/mm3 (4.00-5.60); RDW 19.3 % (11.9-15.9); WHITE BLOOD COUNT 27.8 K/mm3 (4.0-10.0)
[2019-10-05 07:31] LABS: ALBUMIN 1.7 g/dl (3.4-5.0); BILIRUBIN,TOTAL 0.4 mg/dL (0.2-1); BLOOD UREA NITROGEN 50.8 mg/dL (7-18); CALCIUM 7.2 mg/dL (8.5-10.1); CREATININE 0.9 mg/dL (0.55-1.3); MAGNESIUM 3.4 mg/dL (1.8-2.4); PHOSPHOROUS 1.6 mg/dL (2.5-4.9); POTASSIUM 4.8 mmol/L (3.5-5.1); TOT PROT 5.1 g/dl (6.4-8.2)
[2019-10-05 09:00] LABS: ANISOCYTOSIS 1+; MACROCYTOSIS 0; PLATELET ESTIMATE NORMAL
[2019-10-05] MEDS ORDERED: NAPH,MB-DB/K PH,MBDB POWDER PACKET PO ONE (09:30)
--- NOTE | 2019-10-05 09:34 | PN ---
Progress Note, Physician Chief Complaint: Events noted Remains on mechanical ventilation and sedation History of Present Illness: Patient was seen and examined. Remains in ICU and vent support. Chart was reviewed - Current Medication List Current Medications: Active Medications Acetaminophen (Tylenol -) 650 mg PO Q4H PRN PRN Reason: PAIN LEVEL 1-5 Amlodipine Besylate (Norvasc -) 5 mg PO DAILY [facility] Last Admin: 10/04/19 11:33 Dose: Not Given Documented by: Ascorbic Acid (Vitamin C -) 500 mg PO BID [facility] Last Admin: 10/04/19 23:06 Dose: 500 mg Documented by: Carbidopa/Levodopa (Sinemet 25/250 -) 1 each PO BID [facility] Last Admin: 10/04/19 23:05 Dose: 1 each Documented by: Chlorhexidine Gluconate (Hibiclens For Decolonization -) 1 applic TP HS [facility] Last Admin: 10/04/19 23:05 Dose: 1 applic Documented by: Cholecalciferol (Vitamin D3 -) 1,000 unit PO DAILY [facility] Last Admin: 10/04/19 09:13 Dose: 1,000 unit Documented by: Enoxaparin Sodium (Lovenox -) 60 mg SQ BID [facility] Last Admin: 10/04/19 23:10 Dose: 60 mg Documented by: Piperacillin Sod/Tazobactam (Sod 3.375 gm/ Dextrose) 50 mls @ 100 mls/hr IVPB Q8H-IV [facility]; Protocol Last Admin: 10/05/19 02:45 Dose: 100 mls/hr Documented by: Propofol (Diprivan -) 1,000,000 mcg in 100 mls @ 3.47 mls/hr IVPB TITR [facility]; Protocol Last Titration: 10/04/19 19:00 Dose: 30 mcg/kg/min, 10.41 mls/hr Documented by: Fentanyl (Sublimaze Ivpb) 500 mcg in 100 mls @ 10 mls/hr IVPB TITR [facility] Last Titration: 10/04/19 19:00 Dose: 50 mcg/hr, 10 mls/hr Documented by: Metronidazole (Flagyl 500mg Premixed Ivpb -) 500 mg in 100 mls @ 100 mls/hr IVPB Q8H-IV [facility] Last Admin: 10/05/19 03:22 Dose: 100 mls/hr Documented by: Norepinephrine Bitartrate (Levophed Bag) 8,000 mcg in 500 mls @ 18.75 mls/hr IVPB TITR [facility]; Protocol Last Titration: 10/04/19 19:00 Dose: 0 mcg/min, 0 mls/hr Documented by: Insulin Aspart (Novolog Vial Sliding Scale -) 1 vial SQ ACHS [facility]; Protocol Last Admin: 10/05/19 06:58 Dose: 10 units Documented by: Losartan Potassium (Cozaar -) 50 mg PO DAILY [facility] Last Admin: 10/04/19 11:33 Dose: Not Given Documented by: Methylprednisolone Sodium Succinate (Solu-Medrol -) 30 mg IVPUSH BID [facility] Last Admin: 10/04/19 23:05 Dose: 30 mg Documented by: Pantoprazole Sodium (Protonix Iv) 40 mg IVPUSH DAILY [facility] Last Admin: 10/04/19 09:12 Dose: 40 mg Documented by: Potassium Phos/Sodium Phos (Phos-Nak Packet -) 1 packet PO TID [facility] Pramipexole Dihydrochloride (Mirapex -) 0.125 mg PO TID [facility] Last Admin: 10/05/19 07:00 Dose: 0.125 mg Documented by: Vancomycin HCl (Vancomycin Oral Solution) 125 mg PO Q6HPO [facility] Last Admin: 10/05/19 07:00 Dose: 125 mg Documented by: Zinc Sulfate (Orazinc -) 220 mg PO BID [facility] Last Admin: 10/04/19 23:05 Dose: 220 mg Documented by: - Objective Vital Signs: Vital Signs Temperature 98.5 F 10/05/19 06:00 Pulse Rate 56 L 10/05/19 08:38 Respiratory Rate 29 H 10/05/19 08:39 Blood Pressure 115/46 L 10/05/19 08:00 O2 Sat by Pulse Oximetry (%) 94 L 10/05/19 08:39 Cardiovascular: Yes: Regular Rate and Rhythm, S1, S2 Respiratory: Yes: Diminished, Mechanically Ventilated Gastrointestinal: Yes: Normal Bowel Sounds, Soft. No: Tenderness Edema: No Labs: CBC, BMP 10/05/19 06:00 10/05/19 06:00 Problem List - Problems (1) Septic shock Code(s): A41.9 - SEPSIS, UNSPECIFIED ORGANISM; R65.21 - SEVERE SEPSIS WITH S EPTIC SHOCK (2) ARDS (adult respiratory distress syndrome) Code(s): J80 - ACUTE RESPIRATORY DISTRESS SYNDROME (3) Pneumonitis Code(s): J18.9 - PNEUMONIA, UNSPECIFIED ORGANISM (4) Pneumothorax Code(s): J93.9 - PNEUMOTHORAX, UNSPECIFIED (5) COVID-19 virus IgG antibody detected Code(s): Z01.84 - ENCOUNTER FOR ANTIBODY RESPONSE EXAMINATION (6) Diabetes Code(s): E11.9 - TYPE 2 DIABETES MELLITUS WITHOUT COMPLICATIONS (7) HTN (hypertension) Code(s): I10 - ESSENTIAL (PRIMARY) HYPERTENSION (8) Parkinson disease Code(s): G20 - PARKINSON'S DISEASE (9) Acute respiratory failure with hypoxia Code(s): J96.01 - ACUTE RESPIRATORY FAILURE WITH HYPOXIA Assessment/Plan 1. Acute respiratory failure on mechanical ventilation 2. COVID pneumonitis and ARDS 3. Septic shock 4. Leukocytosis 5. Hypokalemia 6. DM 7. Parkinson's 8. Pneumothorax s/p chest tube PLAN: 1. Supportive care in ICU. Vent management as per critical care team 2. Chest tube management 3. Antibiotic coverage 4. Steroids, vent management 5. Anticoagulation with Lovenox. GI prophylaxis 6. Monitor electrolytes Guarded Avel Lopez MD
[2019-10-05] MEDS: ENOXAPARIN NA (PORCINE) 60 MG/0.6 ML DISP.SYRIN SQ SCH ×2 (09:37→23:33)
[2019-10-05] MEDS: LOSARTAN POTASSIUM 50 MG TABLET (FP) PO SCH (09:37)
[2019-10-05] MEDS: CHOLECALCIFEROL (VIT D3) 1,000 UNIT (25 MCG) TABLET PO SCH (09:38)
[2019-10-05] MEDS: methylPREDNISolone NA SUCC 40 MG/1 ML VIAL IVPUSH SCH ×2 (09:38→23:34)
[2019-10-05] MEDS: CARBIDOPA/LEVODOPA 25/250 TABLET (FP) PO SCH ×2 (09:38→23:34)
[2019-10-05] MEDS: ASCORBIC ACID 500 MG TABLET (FP) PO SCH ×2 (09:38→23:33)
[2019-10-05] MEDS: PANTOPRAZOLE SODIUM 40 MG VIAL IVPUSH SCH (09:38)
[2019-10-05] MEDS: ZINC SULFATE 220 MG CAPSULE (FP) PO SCH ×2 (09:38→23:34)
[2019-10-05] MEDS: amLODIPine BESYLATE 5 MG TABLET (FP) PO SCH (09:38)
[2019-10-05] MEDS ORDERED: PT OWN MED DRAWER 7, Y5N ONE ×3 (11:16→22:21)
--- NOTE | 2019-10-05 11:22 | PN ---
Teaching Attending Note Name of Resident: Cynthia Barksdale ATTENDING PHYSICIAN STATEMENT I saw and evaluated the patient. I reviewed the resident's note and discussed the case with the resident. I agree with the resident's findings and plan as documented. SUBJECTIVE: Pt seen and examined in the ICU. Remains intubated, sedated. Vented on volume assist control with 40% FiO2. Pplat 26. OBJECTIVE: Vital Signs Period Temp Pulse Resp BP Sys/Cedillo Pulse Ox Last 24 Hr 97.6 F-98.9 F 36-75 9-30 115-139/42-62 94-100 Intake & Output 10/02/19 10/03/19 10/04/19 10/05/19 23:59 23:59 23:59 23:59 Intake Total 2189.0 2127.4 3254.5 Output Total 1325 1310 800 800 Balance 864.0 817.4 2454.5 -800 Weight 59.4 kg 60.9 kg 61.2 kg 61.008 kg Gen: intubated, sedated Heart: RRR Lung: scattered rhonchi Abd: soft, nontender Ext: + edema CBC, BMP 10/05/19 06:00 10/05/19 06:00 Active Medications Acetaminophen (Tylenol -) 650 mg PO Q4H PRN PRN Reason: PAIN LEVEL 1-5 Amlodipine Besylate (Norvasc -) 5 mg PO DAILY [facility] Last Admin: 10/05/19 09:38 Dose: 5 mg Documented by: Ascorbic Acid (Vitamin C -) 500 mg PO BID [facility] Last Admin: 10/05/19 09:38 Dose: 500 mg Documented by: Carbidopa/Levodopa (Sinemet 25/250 -) 1 each PO BID [facility] Last Admin: 10/05/19 09:38 Dose: 1 each Documented by: Chlorhexidine Gluconate (Hibiclens For Decolonization -) 1 applic TP HS [facility] Last Admin: 10/04/19 23:05 Dose: 1 applic Documented by: Cholecalciferol (Vitamin D3 -) 1,000 unit PO DAILY [facility] Last Admin: 10/05/19 09:38 Dose: 1,000 unit Documented by: Enoxaparin Sodium (Lovenox -) 60 mg SQ BID [facility] Last Admin: 10/05/19 09:37 Dose: 60 mg Documented by: Piperacillin Sod/Tazobactam (Sod 3.375 gm/ Dextrose) 50 mls @ 100 mls/hr IVPB Q8H-IV [facility]; Protocol Last Admin: 10/05/19 09:38 Dose: 100 mls/hr Documented by: Propofol (Diprivan -) 1,000,000 mcg in 100 mls @ 3.47 mls/hr IVPB TITR [facility]; Protocol Last Titration: 10/04/19 19:00 Dose: 30 mcg/kg/min, 10.41 mls/hr Documented by: Fentanyl (Sublimaze Ivpb) 500 mcg in 100 mls @ 10 mls/hr IVPB TITR [facility] Last Titration: 10/04/19 19:00 Dose: 50 mcg/hr, 10 mls/hr Documented by: Metronidazole (Flagyl 500mg Premixed Ivpb -) 500 mg in 100 mls @ 100 mls/hr IVPB Q8H-IV [facility] Last Admin: 10/05/19 09:37 Dose: 100 mls/hr Documented by: Norepinephrine Bitartrate (Levophed Bag) 8,000 mcg in 500 mls @ 18.75 mls/hr IVPB TITR [facility]; Protocol Last Titration: 10/04/19 19:00 Dose: 0 mcg/min, 0 mls/hr Documented by: Insulin Aspart (Novolog Vial Sliding Scale -) 1 vial SQ ACHS [facility]; Protocol Last Admin: 10/05/19 06:58 Dose: 10 units Documented by: Losartan Potassium (Cozaar -) 50 mg PO DAILY [facility] Last Admin: 10/05/19 09:37 Dose: 50 mg Documented by: Methylprednisolone Sodium Succinate (Solu-Medrol -) 30 mg IVPUSH BID [facility] Last Admin: 10/05/19 09:38 Dose: 30 mg Documented by: Pantoprazole Sodium (Protonix Iv) 40 mg IVPUSH DAILY [facility] Last Admin: 10/05/19 09:38 Dose: 40 mg Documented by: Potassium Phos/Sodium Phos (Phos-Nak Packet -) 1 packet PO TID [facility] Pramipexole Dihydrochloride (Mirapex -) 0.125 mg PO TID [facility] Last Admin: 10/05/19 07:00 Dose: 0.125 mg Documented by: Vancomycin HCl (Vancomycin Oral Solution) 125 mg PO Q6HPO [facility] Last Admin: 10/05/19 07:00 Dose: 125 mg Documented by: Zinc Sulfate (Orazinc -) 220 mg PO BID [facility] Last Admin: 10/05/19 09:38 Dose: 220 mg Documented by: ASSESSMENT AND PLAN: Acute Hypoxic Respiratory Failure COVID19 Pneumonia ARDS Left Pneumothorax s/p pigtail catheter placement Subcutaneous Emphysema HTN DM Parkinsons - antibiotics per ID - continue anticoagulation - empiric steroids - trend inflammatory markers - titrate FiO2, PEEP to keep SpO2 >90% - low tidal volume ventilation - keep Pplat <30 - sedate for vent synchrony - monitor urine output, creatinine - chest tube to low wall suction - enteral feeds - DVT/GI prophylaxis - continue ICU monitoring critical care time spent in reviewing chart, evaluating patient and formulating plan 35 min
--- NOTE | 2019-10-05 11:31 | PN ---
Physical Exam: SUBJECTIVE: Patient seen and examined beside. Intubated, sedated on propofol and fentanyl. OBJECTIVE: Vital Signs 10/05/19 06:00 Temperature 98.5 F Pulse Rate 55 L Respiratory 17 Rate Blood Pressure 139/58 L O2 Sat by Pulse 96 Oximetry (%) 10/05/19 10:00 Temperature 98 F Pulse Rate 69 Respiratory 18 Rate Blood Pressure 122/58 L O2 Sat by Pulse 98 Oximetry (%) GENERAL: The patient is sedated, intubated. HEAD: Normal with no signs of trauma. EYES: PERRL LUNGS: Clear sounds B/L, crepitations L>R HEART: RRR, no murmurs ABDOMEN: Soft, nontender, nondistended EXTREMITIES: warm, well-perfused, BL edema Intake & Output 10/02/19 10/03/19 10/04/19 10/05/19 23:59 23:59 23:59 23:59 Intake Total 2189.0 2127.4 3254.5 Output Total 1325 1310 800 800 Balance 864.0 817.4 2454.5 -800 Weight 130 lb 15.273 oz 134 lb 4.184 oz 134 lb 14.766 oz 134 lb 8 oz Laboratory Results - last 24 hr 10/04/19 10/05/19 10/05/19 17:00 00:34 06:00 WBC RBC Hgb Hct MCV MCH MCHC RDW Plt Count MPV Absolute Neuts (auto) Neutrophils % Neutrophils % (Manual) Band Neutrophils % Lymphocytes % Lymphocytes % (Manual) Monocytes % Monocytes % (Manual) Eosinophils % Eosinophils % (Manual) Basophils % Basophils % (Manual) Myelocytes % (Man) Promyelocytes % (Man) Blast Cells % (Manual) Nucleated RBC % Metamyelocytes Hypochromia Platelet Estimate Polychromasia Poikilocytosis Anisocytosis Microcytosis Macrocytosis D-Dimer Sodium 143 Potassium 4.8 Chloride 106 Carbon Dioxide 35 H Anion Gap 1 L BUN 50.8 H Creatinine 0.9 Est GFR (CKD-EPI)AfAm 89.32 Est GFR (CKD-EPI)NonAf 77.06 POC Glucometer 242 287 Random Glucose 380 H Calcium 7.2 L Phosphorus 1.6 L Magnesium 3.4 H Ferritin 130.4 Total Bilirubin 0.4 AST 27 ALT 11 L Alkaline Phosphatase 144 H LD Total 467 H C-Reactive Protein 3.1 H Total Protein 5.1 L Albumin 1.7 L 10/05/19 10/05/19 10/05/19 06:00 06:00 06:39 WBC 27.8 H RBC 3.85 L Hgb 10.5 L Hct 33.2 L MCV 86.2 MCH 27.2 MCHC 31.5 L RDW 19.3 H Plt Count 452 H MPV 8.4 Absolute Neuts (auto) 26.9 H Neutrophils % 96.6 H Neutrophils % (Manual) 96.8 H Band Neutrophils % 0.0 Lymphocytes % 1.4 L Lymphocytes % (Manual) 1.1 L D Monocytes % 1.8 L Monocytes % (Manual) 2 L Eosinophils % 0.2 D Eosinophils % (Manual) 0.0 Basophils % 0.0 Basophils % (Manual) 0.0 Myelocytes % (Man) 0 Promyelocytes % (Man) 0 Blast Cells % (Manual) 0 Nucleated RBC % 0 Metamyelocytes 0 D Hypochromia 0 Platelet Estimate Normal Polychromasia 1+ Poikilocytosis 0 Anisocytosis 1+ Microcytosis 1+ Macrocytosis 0 D-Dimer 1572 H Sodium Potassium Chloride Carbon Dioxide Anion Gap BUN Creatinine Est GFR (CKD-EPI)AfAm Est GFR (CKD-EPI)NonAf POC Glucometer 366 Random Glucose Calcium Phosphorus Magnesium Ferritin Total Bilirubin AST ALT Alkaline Phosphatase LD Total C-Reactive Protein Total Protein Albumin Active Medications Generic Name Dose Route Start Last Admin Trade Name Freq PRN Reason Stop Dose Admin Acetaminophen 650 mg 09/27/19 17:45 Tylenol - PO Q4H PRN PAIN LEVEL 1-5 Amlodipine Besylate 5 mg 09/28/19 10:00 10/05/19 09:38 Norvasc - PO 5 mg DAILY [facility] Administration Ascorbic Acid 500 mg 09/28/19 22:00 10/05/19 09:38 Vitamin C - PO 500 mg BID [facility] Administration Carbidopa/Levodopa 1 each 09/27/19 22:00 10/05/19 09:38 Sinemet 25/250 - PO 1 each BID [facility] Administration Chlorhexidine Gluconate 1 applic 09/30/19 22:00 10/04/19 23:05 Hibiclens For Decolonization - TP 1 applic HS [facility] Administration Cholecalciferol 1,000 unit 09/28/19 11:30 10/05/19 09:38 Vitamin D3 - PO 1,000 unit DAILY [facility] Administration Enoxaparin Sodium 60 mg 09/28/19 10:00 10/05/19 09:37 Lovenox - SQ 60 mg BID [facility] Administration Piperacillin Sod/Tazobactam 50 mls @ 100 mls/hr 09/28/19 18:00 10/05/19 09:38 Sod 3.375 gm/ Dextrose IVPB 100 mls/hr Q8H-IV [facility] Administration Protocol Propofol 1,000,000 mcg in 100 mls @ 3.47 mls/hr 09/29/19 09:45 10/04/19 19:00 Diprivan - IVPB 30 mcg/kg/min TITR [facility] 10.41 mls/hr Titration Protocol 10 MCG/KG/MIN Fentanyl 500 mcg in 100 mls @ 10 mls/hr 09/29/19 09:45 10/04/19 19:00 Sublimaze Ivpb IVPB 50 mcg/hr TITR [facility] 10 mls/hr Titration 50 MCG/HR Metronidazole 500 mg in 100 mls @ 100 mls/hr 09/29/19 14:15 10/05/19 09:37 Flagyl 500mg Premixed Ivpb - IVPB 100 mls/hr Q8H-IV [facility] Administration Norepinephrine Bitartrate 8,000 mcg in 500 mls @ 18.75 mls/hr 10/01/19 14:15 10/04/19 19:00 Levophed Bag IVPB 0 mcg/min TITR [facility] 0 mls/hr Titration Protocol 5 MCG/MIN Insulin Aspart 1 vial 09/27/19 22:00 10/05/19 06:58 Novolog Vial Sliding Scale - SQ 10 units ACHS [facility] Administration Protocol Losartan Potassium 50 mg 09/28/19 10:00 10/05/19 09:37 Cozaar - PO 50 mg DAILY [facility] Administration Methylprednisolone Sodium Succinate 30 mg 10/01/19 22:00 10/05/19 09:38 Solu-Medrol - IVPUSH 30 mg BID [facility] Administration Pantoprazole Sodium 40 mg 10/02/19 10:00 10/05/19 09:38 Protonix Iv IVPUSH 40 mg DAILY [facility] Administration Potassium Phos/Sodium Phos 1 packet 10/05/19 14:00 Phos-Nak Packet - PO TID [facility] Pramipexole Dihydrochloride 0.125 mg 09/27/19 22:00 10/05/19 07:00 Mirapex - PO 0.125 mg TID [facility] Administration Vancomycin HCl 125 mg 10/03/19 13:09 10/05/19 07:00 Vancomycin Oral Solution PO 125 mg Q6HPO [facility] Administration Zinc Sulfate 220 mg 09/28/19 22:00 10/05/19 09:38 Orazinc - PO 220 mg BID [facility] Administration ASSESSMENT/PLAN: 84 y.o male with PMH of HTN, DM, parkinsons disease presents to the ED with complaints of shortness of breath and non-productive cough over the last 4-5 days. Admitted to ICU for acute hypoxic respiratory failure. Neuro - sedated, on propofol and fentanyl - parkinsons' history: c/w carbidopa/levodopa Pulm - intubated: vent settings: maintain o2 sat >90 - L pneumothorax on cxr, L chest tube placed 09/30 checked tube for clog today because increased medial pneumo on CXR repeat CXR tomorrow - solumedrol 30 mg BID - Covid negative but antibody positive Chest CT consistent with possible covid pneumonitis Continue to monitor inflammatory markers - continue to downtrend Cardio - off pressors - HTN history: holding home medications due to hypotension - maintain MAP > 65 ID - ID consulted (Dr. Almendarez) continue with antbx zosyn day 8 oral vanc day 3 flagyl day 7 Endo - hx DM - holding home glipizide - ISS ACHS - BGMS ACHS Renal - monitor electrolytes - monitor I's & O's - monitor volume status FEN - monitor electrolytes - enteral feeds DVT ppx: lovenox 60 BID GI ppx: protonix 40 IV daily Lines - R subclavian triple lumen placed 09/28 code status: full code Visit type - Emergency Visit Emergency Visit: Yes ED Registration Date: 09/27/19 Care time: The patient presented to the Emergency Department on the above date and was hospitalized for further evaluation of their emergent condition. - New Patient This patient is new to me today: No - Critical Care Critical Care patient: Yes Total Critical Care Time (in minutes): 36 Critical Care Statement: The care of this patient involved high complexity decision making to prevent further life threatening deterioration of the patient's condition and/or to evaluate & treat vital organ system(s) failure or risk of failure. - Medication Review Med list reviewed for High Risk Meds patients 65 and older: Yes ATTENDING PHYSICIAN STATEMENT I saw and evaluated the patient. I reviewed the resident's note and discussed the case with the resident. I agree with the resident's findings and plan as documented. SUBJECTIVE: OBJECTIVE: ASSESSMENT AND PLAN:
--- NOTE | 2019-10-05 12:52 | PN ---
Progress Note, Physician History of Present Illness: continues to be intubated chest tube was blocked changed chest tube - Current Medication List Current Medications: Active Medications Acetaminophen (Tylenol -) 650 mg PO Q4H PRN PRN Reason: PAIN LEVEL 1-5 Amlodipine Besylate (Norvasc -) 5 mg PO DAILY [facility] Last Admin: 10/05/19 09:38 Dose: 5 mg Documented by: Ascorbic Acid (Vitamin C -) 500 mg PO BID [facility] Last Admin: 10/05/19 09:38 Dose: 500 mg Documented by: Carbidopa/Levodopa (Sinemet 25/250 -) 1 each PO BID [facility] Last Admin: 10/05/19 09:38 Dose: 1 each Documented by: Chlorhexidine Gluconate (Hibiclens For Decolonization -) 1 applic TP HS [facility] Last Admin: 10/04/19 23:05 Dose: 1 applic Documented by: Cholecalciferol (Vitamin D3 -) 1,000 unit PO DAILY [facility] Last Admin: 10/05/19 09:38 Dose: 1,000 unit Documented by: Enoxaparin Sodium (Lovenox -) 60 mg SQ BID [facility] Last Admin: 10/05/19 09:37 Dose: 60 mg Documented by: Piperacillin Sod/Tazobactam (Sod 3.375 gm/ Dextrose) 50 mls @ 100 mls/hr IVPB Q8H-IV [facility]; Protocol Last Admin: 10/05/19 09:38 Dose: 100 mls/hr Documented by: Propofol (Diprivan -) 1,000,000 mcg in 100 mls @ 3.47 mls/hr IVPB TITR [facility]; Protocol Last Titration: 10/04/19 19:00 Dose: 30 mcg/kg/min, 10.41 mls/hr Documented by: Fentanyl (Sublimaze Ivpb) 500 mcg in 100 mls @ 10 mls/hr IVPB TITR [facility] Last Titration: 10/04/19 19:00 Dose: 50 mcg/hr, 10 mls/hr Documented by: Metronidazole (Flagyl 500mg Premixed Ivpb -) 500 mg in 100 mls @ 100 mls/hr IVPB Q8H-IV [facility] Last Admin: 10/05/19 09:37 Dose: 100 mls/hr Documented by: Norepinephrine Bitartrate (Levophed Bag) 8,000 mcg in 500 mls @ 18.75 mls/hr IVPB TITR [facility]; Protocol Last Titration: 10/04/19 19:00 Dose: 0 mcg/min, 0 mls/hr Documented by: Insulin Aspart (Novolog Vial Sliding Scale -) 1 vial SQ ACHS [facility]; Protocol Last Admin: 10/05/19 11:36 Dose: 6 units Documented by: Losartan Potassium (Cozaar -) 50 mg PO DAILY [facility] Last Admin: 10/05/19 09:37 Dose: 50 mg Documented by: Methylprednisolone Sodium Succinate (Solu-Medrol -) 30 mg IVPUSH BID [facility] Last Admin: 10/05/19 09:38 Dose: 30 mg Documented by: Pantoprazole Sodium (Protonix Iv) 40 mg IVPUSH DAILY [facility] Last Admin: 10/05/19 09:38 Dose: 40 mg Documented by: Potassium Phos/Sodium Phos (Phos-Nak Packet -) 1 packet PO TID [facility] Pramipexole Dihydrochloride (Mirapex -) 0.125 mg PO TID [facility] Last Admin: 10/05/19 07:00 Dose: 0.125 mg Documented by: Vancomycin HCl (Vancomycin Oral Solution) 125 mg PO Q6HPO [facility] Last Admin: 10/05/19 11:37 Dose: 125 mg Documented by: Zinc Sulfate (Orazinc -) 220 mg PO BID [facility] Last Admin: 10/05/19 09:38 Dose: 220 mg Documented by: - Objective Vital Signs: Vital Signs Temperature 98 F 10/05/19 10:00 Pulse Rate 69 10/05/19 10:00 Respiratory Rate 29 H 10/05/19 12:05 Blood Pressure 122/58 L 10/05/19 10:00 O2 Sat by Pulse Oximetry (%) 96 10/05/19 12:05 Constitutional: Yes: Other Cardiovascular: Yes: S1, S2 Respiratory: Yes: Intubated, Mechanically Ventilated, Other (chest tube in place) Gastrointestinal: Yes: Normal Bowel Sounds, Soft Musculoskeletal: Yes: WNL Extremities: Yes: WNL Labs: CBC, BMP 10/05/19 06:00 10/05/19 06:00 - ....Imaging Chest X-ray: Report Reviewed, Image Reviewed Assessment/Plan Problem List - Problems (1) HTN (hypertension) Code(s): I10 - ESSENTIAL (PRIMARY) HYPERTENSION (2) Diabetes Code(s): E11.9 - TYPE 2 DIABETES MELLITUS WITHOUT COMPLICATIONS (3) Parkinson disease Code(s): G20 - PARKINSON'S DISEASE (4) Pneumonia Code(s): J18.9 - PNEUMONIA, UNSPECIFIED ORGANISM leukocytosis pneumothorax ASSESSMENT/PLAN: Acute Respiratory Failure HTN DM Parkinsons r/o covid plan continue abx monitor wbc chest tube care repeat a wbc in the afternoon might deescalte vanco tomorrow continue as per icu cc 38 min
[2019-10-05] MEDS: NAPH,MB-DB/K PH,MBDB POWDER PACKET PO SCH ×2 (13:34→23:33)
[2019-10-05] MEDS: PROPOFOL 1,000,000 MCG/100 ML VIAL IVPB SCH ×2 (16:51→22:05)
[2019-10-05] MEDS: FENTANYL IVPB 500 MCG/100 ML BAG IVPB SCH (18:32)
[2019-10-06] MEDS: CHLORHEXIDINE GLUCONATE 4% CLEANSER FOR DECOLONIZATION TP SCH (00:12)
[2019-10-06] MEDS ORDERED: PIPERACILLIN/TAZOBACTAM 3.375 GM VIAL IVPB ONE ×3 (00:35→17:32)
[2019-10-06] MEDS ORDERED: DEXTROSE 5%-WATER - 50 ML IVPB ONE ×3 (00:35→17:33)
[2019-10-06] MEDS: PROPOFOL 1,000,000 MCG/100 ML VIAL IVPB SCH ×2 (01:20→10:06)
[2019-10-06] MEDS: PIPERACILLIN/TAZOB 3.375 GM 3.375 GM in DEXTROSE 5%-WATER - 50 ML IVPB SCH ×3 (01:35→17:37)
[2019-10-06] MEDS: VANCOMYCIN 250 MG/5 ML ORAL SOLUTION PO SCH ×4 (01:35→17:37)
[2019-10-06] MEDS: INSULIN SLIDING SCALE (NOVOLOG) 1 VIAL SQ SCH ×4 (02:18→16:47)
[2019-10-06 06:07] LABS: ARTERIAL BLD GAS O2 SATURATION 93.8 mmHg (95-98); ARTERIAL BLOOD GAS BASE EXCESS 4.6 mmol/L (-2-2); ARTERIAL BLOOD GAS PO2 69.9 mmHg (80-100); ARTERIAL BLOOD GAS pH 7.399 (7.350-7.450)
[2019-10-06] MEDS ORDERED: PT OWN MED DRAWER 7, Y5N ONE ×3 (06:11→23:22)
[2019-10-06 06:53] LABS: ALLENS TEST POSITIVE
[2019-10-06 06:55] LABS: VENT MODE A/C; VENT RATE 26
[2019-10-06] MEDS: PRAMIPEXOLE DIHYDROCHLORIDE 0.125 MG TABLET PO SCH ×2 (07:02→13:29)
[2019-10-06] MEDS: NAPH,MB-DB/K PH,MBDB POWDER PACKET PO SCH ×2 (07:02→13:29)
--- NOTE | 2019-10-06 07:12 | PN ---
Progress Note (short form) - Note Progress Note: Chief Complaint: Events noted, notes reviewed, remains intubated and sedated History of Present Illness: Seen and examined in the ICU. Events noted, notes reviewed, remains intubated and sedated Medications: Current Medications Generic Name Dose Route Start Last Admin Trade Name Freq PRN Reason Stop Dose Admin Acetaminophen 650 mg 09/27/19 17:45 Tylenol - PO Q4H PRN PAIN LEVEL 1-5 Amlodipine Besylate 5 mg 09/28/19 10:00 10/05/19 09:38 Norvasc - PO 5 mg DAILY [facility] Administration Ascorbic Acid 500 mg 09/28/19 22:00 10/05/19 23:33 Vitamin C - PO 500 mg BID [facility] Administration Carbidopa/Levodopa 1 each 09/27/19 22:00 10/05/19 23:34 Sinemet 25/250 - PO 1 each BID [facility] Administration Chlorhexidine Gluconate 1 applic 09/30/19 22:00 10/06/19 00:12 Hibiclens For Decolonization - TP 1 applic HS [facility] Administration Cholecalciferol 1,000 unit 09/28/19 11:30 10/05/19 09:38 Vitamin D3 - PO 1,000 unit DAILY [facility] Administration Enoxaparin Sodium 60 mg 09/28/19 10:00 10/05/19 23:33 Lovenox - SQ 60 mg BID [facility] Administration Piperacillin Sod/Tazobactam 50 mls @ 100 mls/hr 09/28/19 18:00 10/06/19 01:35 Sod 3.375 gm/ Dextrose IVPB 100 mls/hr Q8H-IV [facility] Administration Protocol Propofol 1,000,000 mcg in 100 mls @ 3.47 mls/hr 09/29/19 09:45 10/06/19 01:20 Diprivan - IVPB 30 mcg/kg/min TITR [facility] 10.41 mls/hr Administration Protocol 10 MCG/KG/MIN Fentanyl 500 mcg in 100 mls @ 10 mls/hr 09/29/19 09:45 10/05/19 18:32 Sublimaze Ivpb IVPB 50 mcg/hr TITR [facility] 10 mls/hr Administration 50 MCG/HR Metronidazole 500 mg in 100 mls @ 100 mls/hr 09/29/19 14:15 10/06/19 01:38 Flagyl 500mg Premixed Ivpb - IVPB 100 mls/hr Q8H-IV [facility] Administration Norepinephrine Bitartrate 8,000 mcg in 500 mls @ 18.75 mls/hr 10/01/19 14:15 10/04/19 19:00 Levophed Bag IVPB 0 mcg/min TITR [facility] 0 mls/hr Titration Protocol 5 MCG/MIN Insulin Aspart 1 vial 09/27/19 22:00 10/06/19 02:18 Novolog Vial Sliding Scale - SQ 12 units ACHS [facility] Administration Protocol Insulin Detemir 5 units 10/06/19 22:00 Levemir Vial SQ HS [facility] Losartan Potassium 50 mg 09/28/19 10:00 10/05/19 09:37 Cozaar - PO 50 mg DAILY [facility] Administration Methylprednisolone Sodium Succinate 30 mg 10/01/19 22:00 10/05/19 23:34 Solu-Medrol - IVPUSH 30 mg BID [facility] Administration Pantoprazole Sodium 40 mg 10/02/19 10:00 10/05/19 09:38 Protonix Iv IVPUSH 40 mg DAILY [facility] Administration Potassium Phos/Sodium Phos 1 packet 10/05/19 14:00 10/06/19 07:02 Phos-Nak Packet - PO 1 packet TID [facility] Administration Pramipexole Dihydrochloride 0.125 mg 09/27/19 22:00 10/06/19 07:02 Mirapex - PO 0.125 mg TID [facility] Administration Vancomycin HCl 125 mg 10/03/19 13:09 10/06/19 07:03 Vancomycin Oral Solution PO 125 mg Q6HPO [facility] Administration Zinc Sulfate 220 mg 09/28/19 22:00 10/05/19 23:34 Orazinc - PO 220 mg BID [facility] Administration Review of Systems Unable to obtain/intubated and sedated Vital Signs: Last Vital Signs Temp Pulse Resp BP Pulse Ox 98.2 F 63 26 H 106/59 L 100 10/05/19 22:00 10/06/19 00:00 10/06/19 05:01 10/06/19 00:00 10/06/19 00:00 Intake & Output 10/03/19 10/04/19 10/05/19 10/06/19 23:59 23:59 23:59 23:59 Intake Total 2127.4 3254.5 1116 Output Total 4696 858 2182 Balance 817.4 2454.5 -184 Weight 134 lb 4.184 oz 134 lb 14.766 oz 134 lb 8 oz Neck: Supple Negative JVD Respiratory: Diminished Breath Sounds at the Bases Cardiovascular: S1 S2 Regular Rate and rhythm Gastrointestinal: Soft Benign Normal Bowel Sounds Ext: Edema Labs: CBC, BMP 10/06/19 07:00 10/06/19 07:00 CBC, BMP 10/05/19 06:00 10/05/19 06:00 Hepatic Panel Total Bilirubin 0.4 mg/dL (0.2-1) 10/05/19 06:00 AST 27 U/L (15-37) 10/05/19 06:00 ALT 11 U/L (13-61) L 10/05/19 06:00 Alkaline Phosphatase 144 U/L (45-117) H 10/05/19 06:00 Albumin 1.7 g/dl (3.4-5.0) L 10/05/19 06:00 Assessment/Plan ASSESSMENT: 1. Acute hypoxic respiratory failure on mechanical ventilation/sepsis syndrome/septic shock 2. Coronavirus/COVID 19 pneumonitis with adult respiratory distress and 3. Coronary artery disease angina pectoris 4. Diastolic left ventricular dysfunction with clinical class 0 [place] [employer] classification of ventricular failure 5. Hypertensive cardiovascular disease 6. Diabetes mellitus 7. Pneumothorax 8. Parkinson's disease 9. Prerenal azotemia 10. Anemia PLAN: 1. Ventilator management as per the critical care team 2. Antibiotics as per the primary/critical care team 3. Continue Norvasc therapy 4. Continue Cozaar therapy 5. Continue anticoagulation therapy with Lovenox with caution and close monitoring of hemoglobin level 6. Correction of prerenal azotemia Tegan Beach MD
[2019-10-06 08:08] LABS: HEMOGLOBIN 10.7 GM/dL (11.7-16.9); MCH 27.1 pg (25.7-33.7); MCHC 31.3 g/dl (32.0-35.9); MEAN CELL VOLUME 86.5 fl (80-96); MEAN PLT VOLUME 8.7 fl (7.5-11.1); PLATELET COUNT 416 K/MM3 (134-434); RBC 3.93 M/mm3 (4.00-5.60); RDW 19.8 % (11.9-15.9); WHITE BLOOD COUNT 26.3 K/mm3 (4.0-10.0)
[2019-10-06 08:11] LABS: ALBUMIN 1.6 g/dl (3.4-5.0); BILIRUBIN,TOTAL 0.3 mg/dL (0.2-1); BLOOD UREA NITROGEN 48.5 mg/dL (7-18); CALCIUM 7.2 mg/dL (8.5-10.1); CREATININE 0.8 mg/dL (0.55-1.3); MAGNESIUM 3.3 mg/dL (1.8-2.4); PHOSPHOROUS 2.3 mg/dL (2.5-4.9); POTASSIUM 5.3 mmol/L (3.5-5.1); TOT PROT 5.1 g/dl (6.4-8.2)
[2019-10-06] MEDS ORDERED: INSULIN REGULAR HUMAN 100 UNITS/ML *VIAL IVPUSH ONE (09:15)
[2019-10-06] MEDS: FENTANYL IVPB 500 MCG/100 ML BAG IVPB SCH (09:45)
[2019-10-06] MEDS: CARBIDOPA/LEVODOPA 25/250 TABLET (FP) PO SCH (10:06)
[2019-10-06] MEDS: ZINC SULFATE 220 MG CAPSULE (FP) PO SCH (10:07)
[2019-10-06] MEDS: methylPREDNISolone NA SUCC 40 MG/1 ML VIAL IVPUSH SCH (10:07)
[2019-10-06] MEDS: ASCORBIC ACID 500 MG TABLET (FP) PO SCH (10:07)
[2019-10-06] MEDS: PANTOPRAZOLE SODIUM 40 MG VIAL IVPUSH SCH (10:07)
[2019-10-06] MEDS: amLODIPine BESYLATE 5 MG TABLET (FP) PO SCH (10:07)
[2019-10-06] MEDS: CHOLECALCIFEROL (VIT D3) 1,000 UNIT (25 MCG) TABLET PO SCH (10:08)
[2019-10-06] MEDS: LOSARTAN POTASSIUM 50 MG TABLET (FP) PO SCH (10:08)
[2019-10-06] MEDS: ENOXAPARIN NA (PORCINE) 60 MG/0.6 ML DISP.SYRIN SQ SCH (10:08)
--- NOTE | 2019-10-06 11:08 | PN ---
Teaching Attending Note Name of Resident: Mickey Reynoso ATTENDING PHYSICIAN STATEMENT I saw and evaluated the patient. I reviewed the resident's note and discussed the case with the resident. I agree with the resident's findings and plan as documented. SUBJECTIVE: Pt seen and examined in the ICU. Remains intubated, sedated. Vented on volume assist control with 40% FiO2. Pplat 30. OBJECTIVE: Vital Signs Period Temp Pulse Resp BP Sys/Cedillo Pulse Ox Last 24 Hr 97.8 F-98.6 F 48-66 18-30 106-170/45-69 95-100 Intake & Output 10/03/19 10/04/19 10/05/19 10/06/19 23:59 23:59 23:59 23:59 Intake Total 2127.4 3254.5 1116 390 Output Total 2736 328 6219 600 Balance 817.4 2454.5 -184 -210 Weight 60.9 kg 61.2 kg 61.008 kg 62 kg Gen: intubated, sedated Heart: RRR Lung: scattered rhonchi Abd: soft, nontender Ext: + edema CBC, BMP 10/06/19 07:00 10/06/19 07:00 Active Medications Acetaminophen (Tylenol -) 650 mg PO Q4H PRN PRN Reason: PAIN LEVEL 1-5 Amlodipine Besylate (Norvasc -) 5 mg PO DAILY [facility] Last Admin: 10/06/19 10:07 Dose: 5 mg Documented by: Ascorbic Acid (Vitamin C -) 500 mg PO BID [facility] Last Admin: 10/06/19 10:07 Dose: 500 mg Documented by: Carbidopa/Levodopa (Sinemet 25/250 -) 1 each PO BID [facility] Last Admin: 10/06/19 10:06 Dose: 1 each Documented by: Chlorhexidine Gluconate (Hibiclens For Decolonization -) 1 applic TP HS [facility] Last Admin: 10/06/19 00:12 Dose: 1 applic Documented by: Cholecalciferol (Vitamin D3 -) 1,000 unit PO DAILY [facility] Last Admin: 10/06/19 10:08 Dose: 1,000 unit Documented by: Enoxaparin Sodium (Lovenox -) 60 mg SQ BID [facility] Last Admin: 10/06/19 10:08 Dose: 60 mg Documented by: Piperacillin Sod/Tazobactam (Sod 3.375 gm/ Dextrose) 50 mls @ 100 mls/hr IVPB Q8H-IV [facility]; Protocol Last Admin: 10/06/19 10:07 Dose: 100 mls/hr Documented by: Propofol (Diprivan -) 1,000,000 mcg in 100 mls @ 3.47 mls/hr IVPB TITR [facility]; Protocol Last Admin: 10/06/19 10:06 Dose: 30 mcg/kg/min, 10.41 mls/hr Documented by: Fentanyl (Sublimaze Ivpb) 500 mcg in 100 mls @ 10 mls/hr IVPB TITR [facility] Last Titration: 10/06/19 09:30 Dose: 100 mcg/hr, 20 mls/hr Documented by: Metronidazole (Flagyl 500mg Premixed Ivpb -) 500 mg in 100 mls @ 100 mls/hr IVPB Q8H-IV [facility] Last Admin: 10/06/19 10:24 Dose: 100 mls/hr Documented by: Norepinephrine Bitartrate (Levophed Bag) 8,000 mcg in 500 mls @ 18.75 mls/hr IVPB TITR [facility]; Protocol Last Titration: 10/04/19 19:00 Dose: 0 mcg/min, 0 mls/hr Documented by: Insulin Aspart (Novolog Vial Sliding Scale -) 1 vial SQ ACHS [facility]; Protocol Last Admin: 10/06/19 02:18 Dose: 12 units Documented by: Insulin Detemir (Levemir Vial) 5 units SQ HS [facility] Losartan Potassium (Cozaar -) 50 mg PO DAILY [facility] Last Admin: 10/06/19 10:08 Dose: 50 mg Documented by: Methylprednisolone Sodium Succinate (Solu-Medrol -) 30 mg IVPUSH BID [facility] Last Admin: 10/06/19 10:07 Dose: 30 mg Documented by: Pantoprazole Sodium (Protonix Iv) 40 mg IVPUSH DAILY [facility] Last Admin: 10/06/19 10:07 Dose: 40 mg Documented by: Potassium Phos/Sodium Phos (Phos-Nak Packet -) 1 packet PO TID [facility] Last Admin: 10/06/19 07:02 Dose: 1 packet Documented by: Pramipexole Dihydrochloride (Mirapex -) 0.125 mg PO TID [facility] Last Admin: 10/06/19 07:02 Dose: 0.125 mg Documented by: Vancomycin HCl (Vancomycin Oral Solution) 125 mg PO Q6HPO [facility] Last Admin: 10/06/19 07:03 Dose: 125 mg Documented by: Zinc Sulfate (Orazinc -) 220 mg PO BID [facility] Last Admin: 10/06/19 10:07 Dose: 220 mg Documented by: ASSESSMENT AND PLAN: Acute Hypoxic Respiratory Failure COVID19 Pneumonia ARDS Left Pneumothorax s/p pigtail catheter placement Subcutaneous Emphysema HTN DM Parkinsons - antibiotics per ID - continue anticoagulation - empiric steroids - trend inflammatory markers - titrate FiO2, PEEP to keep SpO2 >90% - low tidal volume ventilation - keep Pplat <30 - sedate for vent synchrony - monitor urine output, creatinine - chest tube to low wall suction - enteral feeds - DVT/GI prophylaxis - continue ICU monitoring critical care time spent in reviewing chart, evaluating patient and formulating plan 35 min
[2019-10-06] MEDS ORDERED: INSULIN (NOVOLOG) ASPART 100 UNITS/ML 10ML VIAL ONE (11:39)
[2019-10-06] MEDS ORDERED: FUROSEMIDE 40 MG/4 ML INJECTABLE VIAL ONE (11:40)
--- NOTE | 2019-10-06 13:00 | PN ---
Progress Note, Physician History of Present Illness: Pt remains intubated/sedated. Lt chest tube replaced. - Current Medication List Current Medications: Active Medications Acetaminophen (Tylenol -) 650 mg PO Q4H PRN PRN Reason: PAIN LEVEL 1-5 Amlodipine Besylate (Norvasc -) 5 mg PO DAILY [facility] Last Admin: 10/06/19 10:07 Dose: 5 mg Documented by: Ascorbic Acid (Vitamin C -) 500 mg PO BID [facility] Last Admin: 10/06/19 10:07 Dose: 500 mg Documented by: Carbidopa/Levodopa (Sinemet 25/250 -) 1 each PO BID [facility] Last Admin: 10/06/19 10:06 Dose: 1 each Documented by: Chlorhexidine Gluconate (Hibiclens For Decolonization -) 1 applic TP HS [facility] Last Admin: 10/06/19 00:12 Dose: 1 applic Documented by: Cholecalciferol (Vitamin D3 -) 1,000 unit PO DAILY [facility] Last Admin: 10/06/19 10:08 Dose: 1,000 unit Documented by: Enoxaparin Sodium (Lovenox -) 60 mg SQ BID [facility] Last Admin: 10/06/19 10:08 Dose: 60 mg Documented by: Piperacillin Sod/Tazobactam (Sod 3.375 gm/ Dextrose) 50 mls @ 100 mls/hr IVPB Q8H-IV [facility]; Protocol Last Admin: 10/06/19 10:07 Dose: 100 mls/hr Documented by: Propofol (Diprivan -) 1,000,000 mcg in 100 mls @ 3.47 mls/hr IVPB TITR [facility]; Protocol Last Admin: 10/06/19 10:06 Dose: 30 mcg/kg/min, 10.41 mls/hr Documented by: Fentanyl (Sublimaze Ivpb) 500 mcg in 100 mls @ 10 mls/hr IVPB TITR [facility] Last Titration: 10/06/19 12:00 Dose: 75 mcg/hr, 15 mls/hr Documented by: Metronidazole (Flagyl 500mg Premixed Ivpb -) 500 mg in 100 mls @ 100 mls/hr IVPB Q8H-IV [facility] Last Admin: 10/06/19 10:24 Dose: 100 mls/hr Documented by: Norepinephrine Bitartrate (Levophed Bag) 8,000 mcg in 500 mls @ 18.75 mls/hr IVPB TITR [facility]; Protocol Last Titration: 10/04/19 19:00 Dose: 0 mcg/min, 0 mls/hr Documented by: Insulin Aspart (Novolog Vial Sliding Scale -) 1 vial SQ ACHS [facility]; Protocol Last Admin: 10/06/19 11:44 Dose: 8 units Documented by: Insulin Detemir (Levemir Vial) 5 units SQ [facility] Losartan Potassium (Cozaar -) 50 mg PO DAILY [facility] Last Admin: 10/06/19 10:08 Dose: 50 mg Documented by: Methylprednisolone Sodium Succinate (Solu-Medrol -) 30 mg IVPUSH BID [facility] Last Admin: 10/06/19 10:07 Dose: 30 mg Documented by: Pantoprazole Sodium (Protonix Iv) 40 mg IVPUSH DAILY [facility] Last Admin: 10/06/19 10:07 Dose: 40 mg Documented by: Potassium Phos/Sodium Phos (Phos-Nak Packet -) 1 packet PO TID [facility] Last Admin: 10/06/19 07:02 Dose: 1 packet Documented by: Pramipexole Dihydrochloride (Mirapex -) 0.125 mg PO TID [facility] Last Admin: 10/06/19 07:02 Dose: 0.125 mg Documented by: Vancomycin HCl (Vancomycin Oral Solution) 125 mg PO Q6HPO [facility] Last Admin: 10/06/19 11:45 Dose: 125 mg Documented by: Zinc Sulfate (Orazinc -) 220 mg PO BID [facility] Last Admin: 10/06/19 10:07 Dose: 220 mg Documented by: - Objective Vital Signs: Vital Signs Temperature 98.6 F 10/06/19 10:00 Pulse Rate 54 L 10/06/19 12:00 Respiratory Rate 18 10/06/19 12:00 Blood Pressure 109/44 L 10/06/19 12:00 O2 Sat by Pulse Oximetry (%) 100 10/06/19 12:00 Constitutional: Yes: No Distress, Other (sedated) HENT: Yes: Atraumatic Cardiovascular: Yes: Pulse Irregular Respiratory: Yes: Rales Gastrointestinal: Yes: Normal Bowel Sounds, Soft, Other (rectal tube, +loose BM) Genitourinary: Yes: Simmons Present Extremities: Yes: WNL Integumentary: Yes: WNL Neurological: Yes: Other (on sedation) Labs: CBC, BMP 10/06/19 07:00 10/06/19 07:00 Laboratory Last Values WBC 26.3 K/mm3 (4.0-10.0) H 10/06/19 07:00 RBC 3.93 M/mm3 (4.00-5.60) L 10/06/19 07:00 Hgb 10.7 GM/dL (11.7-16.9) L 10/06/19 07:00 Hct 34.0 % (35.4-49) L 10/06/19 07:00 MCV 86.5 fl (80-96) 10/06/19 07:00 MCH 27.1 pg (25.7-33.7) 10/06/19 07:00 MCHC 31.3 g/dl (32.0-35.9) L 10/06/19 07:00 RDW 19.8 % (11.9-15.9) H 10/06/19 07:00 Plt Count 416 K/MM3 (134-434) 10/06/19 07:00 MPV 8.7 fl (7.5-11.1) 10/06/19 07:00 Absolute Neuts (auto) 26.9 K/mm3 (1.5-8.0) H 10/05/19 06:00 Neutrophils % 96.6 % (42.8-82.8) H 10/05/19 06:00 Neutrophils % (Manual) 96.8 % (42.8-82.8) H 10/05/19 06:00 Band Neutrophils % 0.0 % 10/05/19 06:00 Lymphocytes % 1.4 % (8-40) L 10/05/19 06:00 Lymphocytes % (Manual) 1.1 % (8-40) L D 10/05/19 06:00 Monocytes % 1.8 % (3.8-10.2) L 10/05/19 06:00 Monocytes % (Manual) 2 % (3.8-10.2) L 10/05/19 06:00 Eosinophils % 0.2 % (0-4.5) D 10/05/19 06:00 Eosinophils % (Manual) 0.0 % (0-4.5) 10/05/19 06:00 Basophils % 0.0 % (0-2.0) 10/05/19 06:00 Basophils % (Manual) 0.0 % (0-2.0) 10/05/19 06:00 Myelocytes % (Man) 0 % (0-2) 10/05/19 06:00 Promyelocytes % (Man) 0 % (0-2) 10/05/19 06:00 Blast Cells % (Manual) 0 % (0-0) 10/05/19 06:00 Nucleated RBC % 0 % (0-0) 10/05/19 06:00 Metamyelocytes 0 % (0-2) D 10/05/19 06:00 Hypochromia 0 10/05/19 06:00 Platelet Estimate Normal 10/05/19 06:00 Platelet Comment Present 09/29/19 05:46 Polychromasia 1+ 10/05/19 06:00 Poikilocytosis 0 10/05/19 06:00 Anisocytosis 1+ 10/05/19 06:00 Microcytosis 1+ 10/05/19 06:00 Macrocytosis 0 10/05/19 06:00 Spherocytes 1+ 09/29/19 05:46 Target Cells 1+ 09/29/19 05:46 Tear Drop Cells 1+ 09/29/19 05:46 Ovalocytes 1+ 09/29/19 05:46 Charlotte Cells 1+ 09/29/19 05:46 ESR 53 mm/hr (0-20) H 09/29/19 05:46 D-Dimer 1440 ng/ml (0-500) H 10/06/19 07:00 Anticoagulation Therapy No Result Required. 10/06/19 05:45 Puncture Site Left radial 10/06/19 05:45 Patient Temperature No Result Required. 10/06/19 05:45 ABG pH 7.399 (7.350-7.450) 10/06/19 05:45 ABG pCO2 50.50 mmHg (35-45) H 10/06/19 05:45 ABG pO2 69.9 mmHg (80-100) L 10/06/19 05:45 ABG HCO3 30.5 mmol/L (22-27) H 10/06/19 05:45 ABG O2 Sat (Measured) 93.8 mmHg (95-98) L 10/06/19 05:45 ABG O2 Content No Result Required. 10/06/19 05:45 ABG Base Excess 4.6 mmol/L (-2-2) H 10/06/19 05:45 Amador Test Positive 10/06/19 05:45 VBG pH 7.400 (7.310-7.410) 09/27/19 14:40 POC VBG pCO2 38.5 mmHg (38-52) 09/27/19 14:40 POC VBG pO2 43.8 mmHg (28-48) 09/27/19 14:40 VBG HCO3 24.9 mmol/L (23-29) 09/27/19 14:40 VBG O2 Sat (Lissy) No Result Required. 09/27/19 14:40 VBG Base Excess 0.7 mmol/L (-2-2) 09/27/19 14:40 Patient On Oxygen Yes 10/06/19 05:45 O2 Delivery Device Vent 10/06/19 05:45 Oxygen Flow Rate 50% 10/06/19 05:45 Vent Mode A/c 10/06/19 05:45 Vent Rate 26 10/06/19 05:45 Mechanical Rate Yes 10/06/19 05:45 PEEP 8.0 cmH2O 10/06/19 05:45 Pressure Support Vent 360 10/06/19 05:45 Sodium 142 mmol/L (136-145) 10/06/19 07:00 Potassium 5.3 mmol/L (3.5-5.1) H 10/06/19 07:00 Chloride 105 mmol/L (98-107) 10/06/19 07:00 Carbon Dioxide 34 mmol/L (21-32) H 10/06/19 07:00 Anion Gap 4 MMOL/L (8-16) L 10/06/19 07:00 BUN 48.5 mg/dL (7-18) H 10/06/19 07:00 Creatinine 0.8 mg/dL (0.55-1.3) 10/06/19 07:00 Est GFR (CKD-EPI)AfAm 93.75 10/06/19 07:00 Est GFR (CKD-EPI)NonAf 80.89 10/06/19 07:00 POC Glucometer 330 UNITS (80-120) 10/06/19 11:42 Random Glucose 433 mg/dL (74-106) H* 10/06/19 07:00 Hemoglobin A1c % 8.4 % (4.2-6.3) H 10/06/19 07:00 Lactic Acid 2.7 mmol/L (0.4-2.0) H* 09/27/19 20:15 Calcium 7.2 mg/dL (8.5-10.1) L 10/06/19 07:00 Phosphorus 2.3 mg/dL (2.5-4.9) L 10/06/19 07:00 Magnesium 3.3 mg/dL (1.8-2.4) H 10/06/19 07:00 Ferritin 143.8 ng/ml (8-388) 10/06/19 07:00 Total Bilirubin 0.3 mg/dL (0.2-1) 10/06/19 07:00 AST 26 U/L (15-37) 10/06/19 07:00 ALT 15 U/L (13-61) 10/06/19 07:00 Alkaline Phosphatase 162 U/L (45-117) H 10/06/19 07:00 LD Total 460 U/L (87-246) H 10/06/19 07:00 Creatine Kinase 34 U/L (26-308) 09/27/19 14:40 Troponin I < 0.02 ng/ml (0.00-0.05) 09/28/19 17:20 C-Reactive Protein 2.2 MG/DL (0.00-0.3) H 10/06/19 07:00 B-Natriuretic Peptide 4100.4 pg/ml (5-450) H 09/27/19 14:40 Total Protein 5.1 g/dl (6.4-8.2) L 10/06/19 07:00 Albumin 1.6 g/dl (3.4-5.0) L 10/06/19 07:00 Urine Color Yellow 09/27/19 15:00 Urine Appearance Clear 09/27/19 15:00 Urine pH 6.0 (5.0-8.0) 09/27/19 15:00 Ur Specific [place] 1.036 (1.010-1.035) H 09/27/19 15:00 Urine Protein 1+ (NEGATIVE) H 09/27/19 15:00 Urine Glucose (UA) 3+ (NEGATIVE) H 09/27/19 15:00 Urine Ketones Trace (NEGATIVE) H 09/27/19 15:00 Urine Blood Negative (NEGATIVE) 09/27/19 15:00 Urine Nitrite Negative (NEGATIVE) 09/27/19 15:00 Urine Bilirubin Negative (NEGATIVE) 09/27/19 15:00 Urine Urobilinogen 1.0 mg/dL (0.2-1.0) 09/27/19 15:00 Ur Leukocyte Esterase Negative (NEGATIVE) 09/27/19 15:00 Urine WBC (Auto) 22 /uL (0-25.8) 09/27/19 15:00 Urine RBC (Auto) 25 /uL (0-23.9) 09/27/19 15:00 Urine Casts (Auto) 1 /uL (0-3.1) 09/27/19 15:00 U Epithel Cells (Auto) 26 /uL (0-25.1) 09/27/19 15:00 Urine Bacteria (Auto) 227 /uL (0-1359) 09/27/19 15:00 COVID-19 (SHEREEN) Not detected (Not Detected) 09/27/19 15:50 SARS-CoV-2 Ab Interp Reactive (NONREACTIVE) 09/29/19 05:46 Blood Type A NEGATIVE 09/28/19 12:13 Antibody Screen Negative 09/28/19 12:13 Microbiology 09/27/19 14:30 Blood - Peripheral Venous Blood Culture - Final NO GROWTH AFTER 5 DAYS INCUBATION 09/27/19 14:30 Blood - Peripheral Venous Blood Culture - Final NO GROWTH AFTER 5 DAYS INCUBATION 09/29/19 13:45 Sputum - Endotrachea Suction/Ventilator Gram Stain - Final 09/29/19 13:45 Sputum - Endotrachea Suction/Ventilator Sputum Culture - Final NORMAL RESPIRATORY CHIP 09/30/19 13:00 Urine - Urine - Catheterized Legionella Antigen - Final 09/30/19 13:00 Urine - Urine - Catheterized Streptococcus pneumoniae Antigen (M - Final 09/27/19 15:00 Urine - Urine Clean Catch Urine Culture - Final Normal Urogenital Chip - ....Imaging Chest X-ray: Report Reviewed Cat Scan: Report Reviewed Problem List - Problems (1) ARDS (adult respiratory distress syndrome) Code(s): J80 - ACUTE RESPIRATORY DISTRESS SYNDROME (2) Acute respiratory failure with hypoxia Code(s): J96.01 - ACUTE RESPIRATORY FAILURE WITH HYPOXIA (3) COVID-19 virus IgG antibody detected Code(s): Z01.84 - ENCOUNTER FOR ANTIBODY RESPONSE EXAMINATION (4) Diabetes Code(s): E11.9 - TYPE 2 DIABETES MELLITUS WITHOUT COMPLICATIONS (5) HTN (hypertension) Code(s): I10 - ESSENTIAL (PRIMARY) HYPERTENSION (6) Parkinson disease Code(s): G20 - PARKINSON'S DISEASE (7) Pneumonia Code(s): J18.9 - PNEUMONIA, UNSPECIFIED ORGANISM Qualifiers: Pneumonia type: due to unspecified organism Laterality: right Lung l ocation: unspecified part of lung Qualified Code(s): J18.9 - Pneumonia, unspecified organism Assessment/Plan Acute respiratory failure - intubated/sedated COVID pneumonitis Rt infiltrate Leukocytosis HTN DM Parkinsons PTX with Lt chest tube Diarrhea -- chart, lab/imaging results reviewed -- wbc trending down, afebrile -- continue current antibiotics -- send stool for Cdiff -- continue monitor wbc/temps/vitals -- maintain isolation/current precautions cc: 38 min
--- NOTE | 2019-10-06 16:45 | PN ---
Physical Exam: SUBJECTIVE: Patient seen and examined Patient was seen and examined at bedside. The patient is currently sedated and intubated at FiO2 of 40%. Continues to wean off pressors OBJECTIVE: Vital Signs Period Temp Pulse Resp BP Sys/Cedillo Pulse Ox Last 24 Hr 97.8 F-98.8 F 48-63 18-30 106-170/40-67 95-100 GENERAL: The patient is sedated and intubated. No acute distress noted. HEAD: Normal with no signs of trauma. EYES: PERRL, unable to assess extra-ocular movements, sclera anicteric, conjunctiva clear. ENT: nares patent, oropharynx clear without exudates, moist mucous membranes. endotracheal tube in place. NECK: Trachea midline, supple. LUNGS: Breath sounds equal, coarse breath sounds bilaterally, no wheezes, no crackles, no accessory muscle use. Chest tube in place on left side. HEART: Regular rate and rhythm, S1, S2 without murmur, rub or gallop. ABDOMEN: Soft, nontender, nondistended, normoactive bowel sounds, no guarding, no rebound, EXTREMITIES: LE 2+ pulses, warm, well-perfused, no edema. Reference skin note NEUROLOGICAL: Unable to assess at this time. Cough reflex present on suction PSYCH: Unable to assess at this time SKIN: Warm, dry, normal turgor, no rashes or lesions noted. Of note, left hand is cool to the touch with decreased capillary refill with intact radial artery pulse Laboratory Results - last 24 hr 10/05/19 10/06/19 10/06/19 17:17 02:09 02:12 WBC RBC Hgb Hct MCV MCH MCHC RDW Plt Count MPV D-Dimer Anticoagulation Therapy Puncture Site Patient Temperature ABG pH ABG pCO2 ABG pO2 ABG HCO3 ABG O2 Sat (Measured) ABG O2 Content ABG Base Excess Amador Test Patient On Oxygen O2 Delivery Device Oxygen Flow Rate Vent Mode Vent Rate Mechanical Rate PEEP Pressure Support Vent Sodium Potassium Chloride Carbon Dioxide Anion Gap BUN Creatinine Est GFR (CKD-EPI)AfAm Est GFR (CKD-EPI)NonAf POC Glucometer 286 393 437 Random Glucose Hemoglobin A1c % Calcium Phosphorus Magnesium Ferritin Total Bilirubin AST ALT Alkaline Phosphatase LD Total C-Reactive Protein Total Protein Albumin 10/06/19 10/06/19 10/06/19 05:45 07:00 07:00 WBC RBC Hgb Hct MCV MCH MCHC RDW Plt Count MPV D-Dimer 1440 H Anticoagulation Therapy No Result Required. Puncture Site Left radial Patient Temperature No Result Required. ABG pH 7.399 ABG pCO2 50.50 H ABG pO2 69.9 L ABG HCO3 30.5 H ABG O2 Sat (Measured) 93.8 L ABG O2 Content No Result Required. ABG Base Excess 4.6 H Amador Test Positive Patient On Oxygen Yes O2 Delivery Device Vent Oxygen Flow Rate 50% Vent Mode A/c Vent Rate 26 Mechanical Rate Yes PEEP 8.0 Pressure Support Vent 360 Sodium 142 Potassium 5.3 H Chloride 105 Carbon Dioxide 34 H Anion Gap 4 L BUN 48.5 H Creatinine 0.8 Est GFR (CKD-EPI)AfAm 93.75 Est GFR (CKD-EPI)NonAf 80.89 POC Glucometer Random Glucose 433 H* Hemoglobin A1c % Calcium 7.2 L Phosphorus 2.3 L Magnesium 3.3 H Ferritin 143.8 Total Bilirubin 0.3 AST 26 ALT 15 Alkaline Phosphatase 162 H LD Total 460 H C-Reactive Protein 2.2 H Total Protein 5.1 L Albumin 1.6 L 10/06/19 10/06/19 10/06/19 07:00 07:00 11:42 WBC 26.3 H RBC 3.93 L Hgb 10.7 L Hct 34.0 L MCV 86.5 MCH 27.1 MCHC 31.3 L RDW 19.8 H Plt Count 416 MPV 8.7 D-Dimer Anticoagulation Therapy Puncture Site Patient Temperature ABG pH ABG pCO2 ABG pO2 ABG HCO3 ABG O2 Sat (Measured) ABG O2 Content ABG Base Excess Amador Test Patient On Oxygen O2 Delivery Device Oxygen Flow Rate Vent Mode Vent Rate Mechanical Rate PEEP Pressure Support Vent Sodium Potassium Chloride Carbon Dioxide Anion Gap BUN Creatinine Est GFR (CKD-EPI)AfAm Est GFR (CKD-EPI)NonAf POC Glucometer 330 Random Glucose Hemoglobin A1c % 8.4 H Calcium Phosphorus Magnesium Ferritin Total Bilirubin AST ALT Alkaline Phosphatase LD Total C-Reactive Protein Total Protein Albumin Active Medications Generic Name Dose Route Start Last Admin Trade Name Freq PRN Reason Stop Dose Admin Acetaminophen 650 mg 09/27/19 17:45 Tylenol - PO Q4H PRN PAIN LEVEL 1-5 Amlodipine Besylate 5 mg 09/28/19 10:00 10/06/19 10:07 Norvasc - PO 5 mg DAILY [facility] Administration Ascorbic Acid 500 mg 09/28/19 22:00 10/06/19 10:07 Vitamin C - PO 500 mg BID [facility] Administration Carbidopa/Levodopa 1 each 09/27/19 22:00 10/06/19 10:06 Sinemet 25/250 - PO 1 each BID [facility] Administration Chlorhexidine Gluconate 1 applic 09/30/19 22:00 10/06/19 00:12 Hibiclens For Decolonization - TP 1 applic HS [facility] Administration Cholecalciferol 1,000 unit 09/28/19 11:30 10/06/19 10:08 Vitamin D3 - PO 1,000 unit DAILY [facility] Administration Enoxaparin Sodium 60 mg 09/28/19 10:00 10/06/19 10:08 Lovenox - SQ 60 mg BID [facility] Administration Piperacillin Sod/Tazobactam 50 mls @ 100 mls/hr 09/28/19 18:00 10/06/19 10:07 Sod 3.375 gm/ Dextrose IVPB 100 mls/hr Q8H-IV [facility] Administration Protocol Propofol 1,000,000 mcg in 100 mls @ 3.47 mls/hr 09/29/19 09:45 10/06/19 10:06 Diprivan - IVPB 30 mcg/kg/min TITR [facility] 10.41 mls/hr Administration Protocol 10 MCG/KG/MIN Fentanyl 500 mcg in 100 mls @ 10 mls/hr 09/29/19 09:45 10/06/19 12:00 Sublimaze Ivpb IVPB 75 mcg/hr TITR [facility] 15 mls/hr Titration 50 MCG/HR Metronidazole 500 mg in 100 mls @ 100 mls/hr 09/29/19 14:15 10/06/19 10:24 Flagyl 500mg Premixed Ivpb - IVPB 100 mls/hr Q8H-IV [facility] Administration Norepinephrine Bitartrate 8,000 mcg in 500 mls @ 18.75 mls/hr 10/01/19 14:15 10/04/19 19:00 Levophed Bag IVPB 0 mcg/min TITR [facility] 0 mls/hr Titration Protocol 5 MCG/MIN Insulin Aspart 1 vial 09/27/19 22:00 10/06/19 11:44 Novolog Vial Sliding Scale - SQ 8 units ACHS [facility] Administration Protocol Insulin Detemir 5 units 10/06/19 22:00 Levemir Vial SQ HS [facility] Losartan Potassium 50 mg 09/28/19 10:00 10/06/19 10:08 Cozaar - PO 50 mg DAILY [facility] Administration Methylprednisolone Sodium Succinate 30 mg 10/01/19 22:00 10/06/19 10:07 Solu-Medrol - IVPUSH 30 mg BID [facility] Administration Pantoprazole Sodium 40 mg 10/02/19 10:00 10/06/19 10:07 Protonix Iv IVPUSH 40 mg DAILY [facility] Administration Potassium Phos/Sodium Phos 1 packet 10/05/19 14:00 10/06/19 13:29 Phos-Nak Packet - PO 1 packet TID [facility] Administration Pramipexole Dihydrochloride 0.125 mg 09/27/19 22:00 10/06/19 13:29 Mirapex - PO 0.125 mg TID [facility] Administration Vancomycin HCl 125 mg 10/03/19 13:09 10/06/19 11:45 Vancomycin Oral Solution PO 125 mg Q6HPO [facility] Administration Zinc Sulfate 220 mg 09/28/19 22:00 10/06/19 10:07 Orazinc - PO 220 mg BID [facility] Administration ASSESSMENT/PLAN: 84 yo M with PMH of HTN, DM, parkinsons disease presents to the ED with complaints of shortness of breath and non-productive cough over the last 4-5 days. Admitted to ICU for acute hypoxic respiratory failure. Neuro - sedated, on propofol and fentanyl - parkinsons' history: c/w carbidopa/levodopa Pulm - intubated: Current ventilator settings: 26 breaths per minute/ 8 PEEP/ 40% FiO2/ 360 mL - L pneumothorax on cxr 10/01/2019, Left chest tube placed 10/01/2019 Noted on xray today to have a kink in the tube. This was corrected during physical examination - solumedrol 30 mg BID - Covid negative but antibody positive Chest CT consistent with possible covid pneumonitis Continue to monitor inflammatory markers -Plateau pressure goal <30 Cardiac - Currently off pressors. Will restart when MAP <65 - Hypertension history: holding home medications due to hypotension - maintain MAP > 65 ID - ID consulted (Dr. Almendarez) continue with antibiotics zosyn (09/27-) oral vanc (10/02 - ) flagyl (09/28 - ) Endo - hx DM - holding home glipizide - ISS ACHS - BGMS ACHS Renal - monitor electrolytes - monitor I's & O's - monitor volume status FEN - monitor electrolytes - enteral feeds DVT ppx: lovenox 60 BID GI ppx: protonix 40 IV daily Lines - R subclavian triple lumen placed 09/28. Replacement of line can occur at the 7- 10 day zane. code status: DNR Visit type - Emergency Visit Emergency Visit: Yes ED Registration Date: 09/27/19 Care time: The patient presented to the Emergency Department on the above date and was hospitalized for further evaluation of their emergent condition. - New Patient This patient is new to me today: No - Critical Care Critical Care patient: Yes Total Critical Care Time (in minutes): 36 Critical Care Statement: The care of this patient involved high complexity decision making to prevent further life threatening deterioration of the patient's condition and/or to evaluate & treat vital organ system(s) failure or risk of failure. - Medication Review Med list reviewed for High Risk Meds patients 65 and older: Yes ATTENDING PHYSICIAN STATEMENT I saw and evaluated the patient. I reviewed the resident's note and discussed the case with the resident. I agree with the resident's findings and plan as documented. SUBJECTIVE: OBJECTIVE: ASSESSMENT AND PLAN:
[2019-10-06] MEDS ORDERED: NOREPINEPHRINE BITARTRATE 4 MG/4 ML ML IV ONE (20:29)
[2019-10-06] MEDS: NOREPINEPHRINE BITARTRATE 8,000 MCG/500 ML BAG IVPB SCH (21:02)
[2019-10-07] MEDS: ENOXAPARIN NA (PORCINE) 60 MG/0.6 ML DISP.SYRIN SQ SCH ×3 (00:01→22:07)
[2019-10-07] MEDS: methylPREDNISolone NA SUCC 40 MG/1 ML VIAL IVPUSH SCH ×3 (00:01→22:08)
[2019-10-07] MEDS: CARBIDOPA/LEVODOPA 25/250 TABLET (FP) PO SCH ×3 (00:02→22:08)
[2019-10-07] MEDS: ASCORBIC ACID 500 MG TABLET (FP) PO SCH ×3 (00:02→22:08)
[2019-10-07] MEDS: VANCOMYCIN 250 MG/5 ML ORAL SOLUTION PO SCH ×4 (00:03→17:30)
[2019-10-07] MEDS: NAPH,MB-DB/K PH,MBDB POWDER PACKET PO SCH ×3 (00:03→14:07)
[2019-10-07] MEDS: ZINC SULFATE 220 MG CAPSULE (FP) PO SCH ×3 (00:04→22:08)
[2019-10-07] MEDS: PRAMIPEXOLE DIHYDROCHLORIDE 0.125 MG TABLET PO SCH ×4 (00:05→22:10)
[2019-10-07] MEDS: CHLORHEXIDINE GLUCONATE 4% CLEANSER FOR DECOLONIZATION TP SCH ×2 (00:08→22:09)
[2019-10-07] MEDS: INSULIN (LEVEMIR) 100 UNITS/ML UNITS SQ SCH ×2 (00:08→22:09)
[2019-10-07] MEDS ORDERED: DEXTROSE 5%-WATER - 50 ML IVPB ONE ×3 (01:55→17:28)
[2019-10-07] MEDS ORDERED: PIPERACILLIN/TAZOBACTAM 3.375 GM VIAL IVPB ONE ×3 (01:55→17:28)
[2019-10-07] MEDS: INSULIN SLIDING SCALE (NOVOLOG) 1 VIAL SQ SCH ×5 (02:00→22:37)
[2019-10-07] MEDS: PIPERACILLIN/TAZOB 3.375 GM 3.375 GM in DEXTROSE 5%-WATER - 50 ML IVPB SCH ×3 (02:01→17:29)
[2019-10-07 06:44] LABS: ARTERIAL BLD GAS O2 SATURATION 97.8 mmHg (95-98); ARTERIAL BLOOD GAS BASE EXCESS 3.6 mmol/L (-2-2); ARTERIAL BLOOD GAS PO2 108.2 mmHg (80-100); ARTERIAL BLOOD GAS pH 7.374 (7.350-7.450)
--- NOTE | 2019-10-07 06:46 | PN ---
Progress Note (short form) - Note Progress Note: Chief Complaint: Events noted, notes reviewed, remains intubated and sedated, overall no significant change in status History of Present Illness: Seen and examined in the ICU. Events noted, notes reviewed, remains intubated and sedated, overall no significant change in status Medications: Current Medications Generic Name Dose Route Start Last Admin Trade Name Freq PRN Reason Stop Dose Admin Acetaminophen 650 mg 09/27/19 17:45 Tylenol - PO Q4H PRN PAIN LEVEL 1-5 Amlodipine Besylate 5 mg 09/28/19 10:00 10/06/19 10:07 Norvasc - PO 5 mg DAILY BARBI Administration Ascorbic Acid 500 mg 09/28/19 22:00 10/07/19 00:02 Vitamin C - PO 500 mg BID BARBI Administration Carbidopa/Levodopa 1 each 09/27/19 22:00 10/07/19 00:02 Sinemet 25/250 - PO 1 each BID BARBI Administration Chlorhexidine Gluconate 1 applic 09/30/19 22:00 10/07/19 00:08 Hibiclens For Decolonization - TP 1 applic HS BARBI Administration Cholecalciferol 1,000 unit 09/28/19 11:30 10/06/19 10:08 Vitamin D3 - PO 1,000 unit DAILY BARBI Administration Enoxaparin Sodium 60 mg 09/28/19 10:00 10/07/19 00:01 Lovenox - SQ 60 mg BID BARBI Administration Piperacillin Sod/Tazobactam 50 mls @ 100 mls/hr 09/28/19 18:00 10/07/19 02:01 Sod 3.375 gm/ Dextrose IVPB 100 mls/hr Q8H-IV BARBI Administration Protocol Propofol 1,000,000 mcg in 100 mls @ 3.47 mls/hr 09/29/19 09:45 10/06/19 10:06 Diprivan - IVPB 30 mcg/kg/min TITR BARBI 10.41 mls/hr Administration Protocol 10 MCG/KG/MIN Fentanyl 500 mcg in 100 mls @ 10 mls/hr 09/29/19 09:45 10/06/19 12:00 Sublimaze Ivpb IVPB 75 mcg/hr TITR BARBI 15 mls/hr Titration 50 MCG/HR Metronidazole 500 mg in 100 mls @ 100 mls/hr 09/29/19 14:15 10/07/19 02:02 Flagyl 500mg Premixed Ivpb - IVPB 100 mls/hr Q8H-IV BARBI Administration Norepinephrine Bitartrate 8,000 mcg in 500 mls @ 18.75 mls/hr 10/06/19 20:30 10/07/19 02:02 Levophed Bag IVPB 2 mcg/min TITR BARBI 7.5 mls/hr Titration Protocol 5 MCG/MIN Insulin Aspart 1 vial 09/27/19 22:00 10/07/19 02:00 Novolog Vial Sliding Scale - SQ 10 units ACHS BARBI Administration Protocol Insulin Detemir 5 units 10/06/19 22:00 10/07/19 00:08 Levemir Vial SQ 5 unit HS BARBI Administration Losartan Potassium 50 mg 09/28/19 10:00 10/06/19 10:08 Cozaar - PO 50 mg DAILY BARBI Administration Methylprednisolone Sodium Succinate 30 mg 10/01/19 22:00 10/07/19 00:01 Solu-Medrol - IVPUSH 30 mg BID BARBI Administration Pantoprazole Sodium 40 mg 10/02/19 10:00 10/06/19 10:07 Protonix Iv IVPUSH 40 mg DAILY BARBI Administration Potassium Phos/Sodium Phos 1 packet 10/05/19 14:00 10/07/19 00:03 Phos-Nak Packet - PO 1 packet TID BARBI Administration Pramipexole Dihydrochloride 0.125 mg 09/27/19 22:00 10/07/19 00:05 Mirapex - PO 0.125 mg TID BARBI Administration Vancomycin HCl 125 mg 10/03/19 13:09 10/07/19 00:03 Vancomycin Oral Solution PO 125 mg Q6HPO BARBI Administration Zinc Sulfate 220 mg 09/28/19 22:00 10/07/19 00:04 Orazinc - PO 220 mg BID BARBI Administration Review of Systems Unable to obtain/intubated and sedated Vital Signs: Last Vital Signs Temp Pulse Resp BP Pulse Ox 98.8 F 84 28 H 136/64 100 10/07/19 04:00 10/07/19 04:00 10/07/19 04:18 10/07/19 04:00 10/07/19 04:00 Intake & Output 10/04/19 10/05/19 10/06/19 10/07/19 23:59 23:59 23:59 23:59 Intake Total 3254.5 1116 1910 Output Total 800 1300 2050 Balance 2454.5 -184 -140 Weight 134 lb 14.766 oz 134 lb 8 oz 136 lb 10.986 oz Neck: Supple Negative JVD Respiratory: Diminished Breath Sounds at the Bases Cardiovascular: S1 S2 Regular Rate and rhythm Gastrointestinal: Soft Benign Normal Bowel Sounds Ext: Edema Labs: CBC, BMP 10/07/19 06:00 10/07/19 06:00 CBC, BMP 10/06/19 07:00 10/06/19 07:00 Hepatic Panel Total Bilirubin 0.3 mg/dL (0.2-1) 10/06/19 07:00 AST 26 U/L (15-37) 10/06/19 07:00 ALT 15 U/L (13-61) 10/06/19 07:00 Alkaline Phosphatase 162 U/L (45-117) H 10/06/19 07:00 Albumin 1.6 g/dl (3.4-5.0) L 10/06/19 07:00 ABG Results ABG pH 7.399 (7.350-7.450) 10/06/19 05:45 ABG HCO3 30.5 mmol/L (22-27) H 10/06/19 05:45 ABG O2 Sat (Measured) 93.8 mmHg (95-98) L 10/06/19 05:45 ABG O2 Content No Result Required. 10/06/19 05:45 ABG Base Excess 4.6 mmol/L (-2-2) H 10/06/19 05:45 Assessment/Plan ASSESSMENT: 1. Acute hypoxic respiratory failure on mechanical ventilation/sepsis syndrome/septic shock 2. Coronavirus/COVID 19 pneumonitis with adult respiratory distress and 3. Coronary artery disease angina pectoris 4. Diastolic left ventricular dysfunction with clinical class 0 [place] [employer] classification of ventricular failure 5. Hypertensive cardiovascular disease 6. Diabetes mellitus 7. Pneumothorax 8. Parkinson's disease 9. Prerenal azotemia 10. Anemia PLAN: 1. Ventilator management as per the critical care team 2. Antibiotics as per the primary/critical care team 3. Continue Norvasc therapy 4. Continue Cozaar therapy 5. Continue anticoagulation therapy with Lovenox with caution and close monitoring of hemoglobin level 6. Correction of prerenal azotemia Tegan Beach MD
[2019-10-07 06:56] LABS: ALLENS TEST POSITIVE
[2019-10-07 06:57] LABS: VENT MODE A/C; VENT RATE 26
[2019-10-07 07:58] LABS: HEMATOCRIT 35.6 % (35.4-49); HEMOGLOBIN 11.2 GM/dL (11.7-16.9); MCHC 31.4 g/dl (32.0-35.9); MEAN PLT VOLUME 8.5 fl (7.5-11.1); PLATELET COUNT 482 K/MM3 (134-434); RBC 4.14 M/mm3 (4.00-5.60); RDW 20.3 % (11.9-15.9)
[2019-10-07 08:25] LABS: ALBUMIN 1.7 g/dl (3.4-5.0); BILIRUBIN,TOTAL 0.4 mg/dL (0.2-1); BLOOD UREA NITROGEN 51.4 mg/dL (7-18); CALCIUM 7.1 mg/dL (8.5-10.1); CREATININE 0.9 mg/dL (0.55-1.3); MAGNESIUM 3.2 mg/dL (1.8-2.4); TOT PROT 5.5 g/dl (6.4-8.2)
[2019-10-07] MEDS ORDERED: INSULIN REGULAR HUMAN 100 UNITS/ML *VIAL IVPUSH ONE (08:44)
[2019-10-07 08:53] LABS: WHITE BLOOD COUNT 34.1 K/mm3 (4.0-10.0)
[2019-10-07 09:13] LABS: INR 1.31 (0.83-1.09); PROTHROMBIN TIME (PATIENT) 15.5 SEC (9.7-13.0)
[2019-10-07] MEDS: LOSARTAN POTASSIUM 50 MG TABLET (FP) PO SCH (10:00)
[2019-10-07] MEDS ORDERED: SODIUM ZIRCONIUM CYCLOSILICATE (LOKELMA) 10 GM PACKET PO SCH (10:00)
[2019-10-07] MEDS: PANTOPRAZOLE SODIUM 40 MG VIAL IVPUSH SCH (10:04)
[2019-10-07] MEDS: amLODIPine BESYLATE 5 MG TABLET (FP) PO SCH (10:06)
[2019-10-07] MEDS: CHOLECALCIFEROL (VIT D3) 1,000 UNIT (25 MCG) TABLET PO SCH (10:07)
[2019-10-07] MEDS: FENTANYL IVPB 500 MCG/100 ML BAG IVPB SCH (10:22)
[2019-10-07] MEDS: PROPOFOL 1,000,000 MCG/100 ML VIAL IVPB SCH ×2 (10:22→20:00)
--- NOTE | 2019-10-07 10:44 | PN ---
Teaching Attending Note Name of Resident: Josephine Enamorado ATTENDING PHYSICIAN STATEMENT I saw and evaluated the patient. I reviewed the resident's note and discussed the case with the resident. I agree with the resident's findings and plan as documented. SUBJECTIVE: Pt seen and examined in the ICU. Remains intubated, sedated. Vented on volume assist control with 40% FiO2. Pplat 24. OBJECTIVE: Vital Signs Period Temp Pulse Resp BP Sys/Cedillo Pulse Ox Last 24 Hr 98.6 F-98.9 F 54-85 18-30 107-198/40-83 97-100 Intake & Output 10/04/19 10/05/19 10/06/19 10/07/19 23:59 23:59 23:59 23:59 Intake Total 3254.5 1116 1910 Output Total 800 1300 2050 900 Balance 2454.5 -184 -140 -900 Weight 61.2 kg 61.008 kg 62 kg 61.8 kg Gen: intubated, sedated Heart: RRR Lung: scattered rhonchi Abd: soft, nontender Ext: + edema CBC, BMP 10/07/19 06:00 10/07/19 06:00 Active Medications Acetaminophen (Tylenol -) 650 mg PO Q4H PRN PRN Reason: PAIN LEVEL 1-5 Amlodipine Besylate (Norvasc -) 5 mg PO DAILY [facility] Last Admin: 10/07/19 10:06 Dose: Not Given Documented by: Ascorbic Acid (Vitamin C -) 500 mg PO BID [facility] Last Admin: 10/07/19 10:07 Dose: 500 mg Documented by: Carbidopa/Levodopa (Sinemet 25/250 -) 1 each PO BID [facility] Last Admin: 10/07/19 10:06 Dose: 1 each Documented by: Chlorhexidine Gluconate (Hibiclens For Decolonization -) 1 applic TP HS [facility] Last Admin: 10/07/19 00:08 Dose: 1 applic Documented by: Cholecalciferol (Vitamin D3 -) 1,000 unit PO DAILY [facility] Last Admin: 10/07/19 10:07 Dose: 1,000 unit Documented by: Enoxaparin Sodium (Lovenox -) 60 mg SQ BID [facility] Last Admin: 10/07/19 10:04 Dose: 60 mg Documented by: Piperacillin Sod/Tazobactam (Sod 3.375 gm/ Dextrose) 50 mls @ 100 mls/hr IVPB Q8H-IV BARBI; Protocol Last Admin: 10/07/19 10:03 Dose: 100 mls/hr Documented by: Propofol (Diprivan -) 1,000,000 mcg in 100 mls @ 3.47 mls/hr IVPB TITR [facility]; Protocol Last Admin: 10/07/19 10:22 Dose: 30 mcg/kg/min, 10.41 mls/hr Documented by: Fentanyl (Sublimaze Ivpb) 500 mcg in 100 mls @ 10 mls/hr IVPB TITR BARBI Last Admin: 10/07/19 10:22 Dose: 75 mcg/hr, 15 mls/hr Documented by: Metronidazole (Flagyl 500mg Premixed Ivpb -) 500 mg in 100 mls @ 100 mls/hr IVPB Q8H-IV BARBI Last Admin: 10/07/19 10:03 Dose: 100 mls/hr Documented by: Norepinephrine Bitartrate (Levophed Bag) 8,000 mcg in 500 mls @ 18.75 mls/hr IVPB TITR [facility]; Protocol Last Titration: 10/07/19 09:20 Dose: 1 mcg/min, 3.75 mls/hr Documented by: Insulin Aspart (Novolog Vial Sliding Scale -) 1 vial SQ ACHS [facility]; Protocol Last Admin: 10/07/19 07:26 Dose: 10 units Documented by: Insulin Detemir (Levemir Vial) 5 units SQ HS [facility] Last Admin: 10/07/19 00:08 Dose: 5 unit Documented by: Losartan Potassium (Cozaar -) 50 mg PO DAILY [facility] Last Admin: 10/06/19 10:08 Dose: 50 mg Documented by: Methylprednisolone Sodium Succinate (Solu-Medrol -) 30 mg IVPUSH BID [facility] Last Admin: 10/07/19 10:04 Dose: 30 mg Documented by: Pantoprazole Sodium (Protonix Iv) 40 mg IVPUSH DAILY [facility] Last Admin: 10/07/19 10:04 Dose: 40 mg Documented by: Potassium Phos/Sodium Phos (Phos-Nak Packet -) 1 packet PO TID [facility] Last Admin: 10/07/19 07:07 Dose: 1 packet Documented by: Pramipexole Dihydrochloride (Mirapex -) 0.125 mg PO TID [facility] Last Admin: 10/07/19 07:07 Dose: 0.125 mg Documented by: Sodium Zirconium Cyclosilicate (Lokelma) 10 gm PO DAILY [facility] Last Admin: 10/07/19 10:22 Dose: 10 gm Documented by: Vancomycin HCl (Vancomycin Oral Solution) 125 mg PO Q6HPO [facility] Last Admin: 10/07/19 07:07 Dose: 125 mg Documented by: Zinc Sulfate (Orazinc -) 220 mg PO BID [facility] Last Admin: 10/07/19 10:06 Dose: 220 mg Documented by: ASSESSMENT AND PLAN: Acute Hypoxic Respiratory Failure COVID19 Pneumonia ARDS Left Pneumothorax s/p pigtail catheter placement Subcutaneous Emphysema HTN DM Parkinsons - antibiotics per ID - continue anticoagulation - empiric steroids - trend inflammatory markers - titrate FiO2, PEEP to keep SpO2 >90% - low tidal volume ventilation - keep Pplat <30 - monitor urine output, creatinine - chest tube to low wall suction - lighten sedation in AM to assess mental status - spontaneous breathing trials as tolerated when mental status improved - enteral feeds - DVT/GI prophylaxis - continue ICU monitoring critical care time spent in reviewing chart, evaluating patient and formulating plan 35 min
[2019-10-07] MEDS ORDERED: SODIUM ZIRCONIUM CYCLOSILICATE (LOKELMA) 5 GM PACKET PO ONE (11:17)
[2019-10-07] MEDS ORDERED: INSULIN (NOVOLOG) ASPART 100 UNITS/ML 10ML VIAL ONE (12:03)
[2019-10-07] MEDS: BACITRACIN 15 GM TUBE TOPICAL OINTMENT TP SCH (12:04)
--- NOTE | 2019-10-07 16:11 | PN ---
Physical Exam: SUBJECTIVE: Patient seen and examined at bedside. No acute events overnight. OBJECTIVE: Vital Signs Period Temp Pulse Resp BP Sys/Cedillo Pulse Ox Last 24 Hr 98.6 F-98.9 F 58-85 25-30 107-198/45-88 97-100 GENERAL: The patient is sedated, intubated. HEAD: Normal with no signs of trauma. EYES: PERRL LUNGS: Clear sounds B/L, crepitations L>R HEART: RRR, no murmurs ABDOMEN: Soft, nontender, nondistended EXTREMITIES: warm, well-perfused, BL edema Laboratory Results - last 24 hr 10/06/19 10/07/19 10/07/19 16:45 00:15 06:00 WBC RBC Hgb Hct MCV MCH MCHC RDW Plt Count MPV PT with INR INR D-Dimer Anticoagulation Therapy Puncture Site Patient Temperature ABG pH ABG pCO2 ABG pO2 ABG HCO3 ABG O2 Sat (Measured) ABG O2 Content ABG Base Excess Amador Test Patient On Oxygen O2 Delivery Device Oxygen Flow Rate Vent Mode Vent Rate Mechanical Rate PEEP Pressure Support Vent Sodium 140 Potassium 6.0 H Chloride 103 Carbon Dioxide 35 H Anion Gap 3 L BUN 51.4 H Creatinine 0.9 Est GFR (CKD-EPI)AfAm 89.32 Est GFR (CKD-EPI)NonAf 77.06 POC Glucometer 283 342 Random Glucose 442 H* Calcium 7.1 L Phosphorus 3.0 Magnesium 3.2 H Total Bilirubin 0.4 AST 26 ALT 14 Alkaline Phosphatase 170 H LD Total 468 H C-Reactive Protein 1.5 H Total Protein 5.5 L Albumin 1.7 L 10/07/19 10/07/19 10/07/19 06:00 06:25 07:23 WBC 34.1 H* RBC 4.14 Hgb 11.2 L Hct 35.6 MCV 86.0 MCH 27.0 MCHC 31.4 L RDW 20.3 H Plt Count 482 H MPV 8.5 PT with INR INR D-Dimer Anticoagulation Therapy No Result Required. Puncture Site Left radial Patient Temperature No Result Required. ABG pH 7.374 ABG pCO2 52.30 H ABG pO2 108.2 H ABG HCO3 29.8 H ABG O2 Sat (Measured) 97.8 ABG O2 Content No Result Required. ABG Base Excess 3.6 H Amador Test Positive Patient On Oxygen Yes O2 Delivery Device Vent Oxygen Flow Rate 50% Vent Mode A/c Vent Rate 26 Mechanical Rate Yes PEEP 8.0 Pressure Support Vent 360 Sodium Potassium Chloride Carbon Dioxide Anion Gap BUN Creatinine Est GFR (CKD-EPI)AfAm Est GFR (CKD-EPI)NonAf POC Glucometer 322 Random Glucose Calcium Phosphorus Magnesium Total Bilirubin AST ALT Alkaline Phosphatase LD Total C-Reactive Protein Total Protein Albumin 10/07/19 10/07/19 10/07/19 07:24 08:30 08:30 WBC RBC Hgb Hct MCV MCH MCHC RDW Plt Count MPV PT with INR 15.50 H INR 1.31 H D-Dimer 1126 H Anticoagulation Therapy Puncture Site Patient Temperature ABG pH ABG pCO2 ABG pO2 ABG HCO3 ABG O2 Sat (Measured) ABG O2 Content ABG Base Excess Amador Test Patient On Oxygen O2 Delivery Device Oxygen Flow Rate Vent Mode Vent Rate Mechanical Rate PEEP Pressure Support Vent Sodium Potassium Chloride Carbon Dioxide Anion Gap BUN Creatinine Est GFR (CKD-EPI)AfAm Est GFR (CKD-EPI)NonAf POC Glucometer 353 Random Glucose Calcium Phosphorus Magnesium Total Bilirubin AST ALT Alkaline Phosphatase LD Total C-Reactive Protein Total Protein Albumin 10/07/19 12:06 WBC RBC Hgb Hct MCV MCH MCHC RDW Plt Count MPV PT with INR INR D-Dimer Anticoagulation Therapy Puncture Site Patient Temperature ABG pH ABG pCO2 ABG pO2 ABG HCO3 ABG O2 Sat (Measured) ABG O2 Content ABG Base Excess Amador Test Patient On Oxygen O2 Delivery Device Oxygen Flow Rate Vent Mode Vent Rate Mechanical Rate PEEP Pressure Support Vent Sodium Potassium Chloride Carbon Dioxide Anion Gap BUN Creatinine Est GFR (CKD-EPI)AfAm Est GFR (CKD-EPI)NonAf POC Glucometer 315 Random Glucose Calcium Phosphorus Magnesium Total Bilirubin AST ALT Alkaline Phosphatase LD Total C-Reactive Protein Total Protein Albumin Active Medications Generic Name Dose Route Start Last Admin Trade Name Freq PRN Reason Stop Dose Admin Acetaminophen 650 mg 09/27/19 17:45 Tylenol - PO Q4H PRN PAIN LEVEL 1-5 Amlodipine Besylate 5 mg 09/28/19 10:00 10/07/19 10:06 Norvasc - PO Not Given DAILY BARBI Ascorbic Acid 500 mg 09/28/19 22:00 10/07/19 10:07 Vitamin C - PO 500 mg BID BARBI Administration Bacitracin 1 applic 10/07/19 11:15 10/07/19 12:04 Bacitracin - TP 1 applic DAILY BARBI Administration Carbidopa/Levodopa 1 each 09/27/19 22:00 10/07/19 10:06 Sinemet 25/250 - PO 1 each BID BARBI Administration Chlorhexidine Gluconate 1 applic 09/30/19 22:00 10/07/19 00:08 Hibiclens For Decolonization - TP 1 applic HS BARBI Administration Cholecalciferol 1,000 unit 09/28/19 11:30 10/07/19 10:07 Vitamin D3 - PO 1,000 unit DAILY BARBI Administration Enoxaparin Sodium 60 mg 09/28/19 10:00 10/07/19 10:04 Lovenox - SQ 60 mg BID BARBI Administration Piperacillin Sod/Tazobactam 50 mls @ 100 mls/hr 09/28/19 18:00 10/07/19 10:03 Sod 3.375 gm/ Dextrose IVPB 100 mls/hr Q8H-IV BARBI Administration Protocol Propofol 1,000,000 mcg in 100 mls @ 3.47 mls/hr 09/29/19 09:45 10/07/19 10:22 Diprivan - IVPB 30 mcg/kg/min TITR BARBI 10.41 mls/hr Administration Protocol 10 MCG/KG/MIN Fentanyl 500 mcg in 100 mls @ 10 mls/hr 09/29/19 09:45 10/07/19 10:22 Sublimaze Ivpb IVPB 75 mcg/hr TITR BARBI 15 mls/hr Administration 50 MCG/HR Metronidazole 500 mg in 100 mls @ 100 mls/hr 09/29/19 14:15 10/07/19 10:03 Flagyl 500mg Premixed Ivpb - IVPB 100 mls/hr Q8H-IV BARBI Administration Norepinephrine Bitartrate 8,000 mcg in 500 mls @ 18.75 mls/hr 10/06/19 20:30 10/07/19 11:00 Levophed Bag IVPB 1.2 mcg/min TITR BARBI 4.5 mls/hr Titration Protocol 5 MCG/MIN Insulin Aspart 1 vial 09/27/19 22:00 10/07/19 12:00 Novolog Vial Sliding Scale - SQ 6 units ACHS BARBI Administration Protocol Insulin Detemir 5 units 10/06/19 22:00 10/07/19 00:08 Levemir Vial SQ 5 unit HS BARBI Administration Losartan Potassium 50 mg 09/28/19 10:00 10/07/19 10:00 Cozaar - PO Not Given DAILY BARBI Methylprednisolone Sodium Succinate 30 mg 10/01/19 22:00 10/07/19 10:04 Solu-Medrol - IVPUSH 30 mg BID BARBI Administration Pantoprazole Sodium 40 mg 10/02/19 10:00 10/07/19 10:04 Protonix Iv IVPUSH 40 mg DAILY BARBI Administration Potassium Phos/Sodium Phos 1 packet 10/05/19 14:00 10/07/19 14:07 Phos-Nak Packet - PO Not Given TID BARBI Pramipexole Dihydrochloride 0.125 mg 09/27/19 22:00 10/07/19 14:04 Mirapex - PO 0.125 mg TID BARBI Administration Vancomycin HCl 125 mg 10/03/19 13:09 10/07/19 12:04 Vancomycin Oral Solution PO 125 mg Q6HPO BARBI Administration Zinc Sulfate 220 mg 09/28/19 22:00 10/07/19 10:06 Orazinc - PO 220 mg BID BARBI Administration ASSESSMENT/PLAN: 84 y.o male with PMH of HTN, DM, parkinsons disease presents to the ED with complaints of shortness of breath and non-productive cough over the last 4-5 days. Admitted to ICU for acute hypoxic respiratory failure. Neuro #Acute Metabolic Encephalopathy #Parkinson's disease -sedated, on propofol and fentanyl -Cont home med: carbidopa/levodopa, Mirapex Pulm #Acute Hypoxic Respiratory Failure #COVID19 Pneumonia #ARDS #Left Pneumothorax, s/p pigtail catheter placement #Subcutaneous Emphysema -Intubated: vent settings: 26/360/50%/8 -maintain o2 sat >90% -L pneumothorax on cxr, L chest tube placed 09/30 -Solumedrol 30 mg BID -Covid negative, but Ab positive -Chest CT consistent with possible covid pneumonitis -Continue to monitor inflammatory markers - continue to downtrend Cardio #Septic Shock 2/2 COVID-19 Pneumonia #CAD #Chronic Diastolic CHF #HTN -Pt's BP has been tenuous, but is also very sensitive to pressors. Now on Levo 2; titrate accordingly -Hold home Amlodipine 5, Losartan 50 -maintain MAP > 65 -Cardio consulted ID #[id number] Pneumonitis #Suspected C. diff Infection -ID consulted (Dr. Almendarez) -Zosyn 3.375 gm (started 09/27) -PO Vanc 125 mg Q6H (started 10/02) -IV Flagyl 500 Q8H (started 09/28) Endo #DM -Hold home Glimepiride -BGM/ISS ACHS -Levemir 5U HS Renal #Hyperkalemia, K+ 6.0 today -Given IV Calcium gluconate, IV insulin, Lokelma -monitor I/Os, volume status -monitor volume status FEN -no IVf -recheck lytes in AM (K+) -TF Glucerna Prophylaxis DVT: Lovenox 60 BID GI: Protonix 40 IV daily LTD -R subclavian triple lumen placed 09/28 -L chest tube (09/30) -ETT (09/28) Dispo -Cont to monitor in ICU -DNR Visit type - Emergency Visit Emergency Visit: Yes ED Registration Date: 09/27/19 Care time: The patient presented to the Emergency Department on the above date and was hospitalized for further evaluation of their emergent condition. - New Patient This patient is new to me today: Yes Date on this admission: 10/07/19 - Critical Care Critical Care patient: Yes Total Critical Care Time (in minutes): 40 Critical Care Statement: The care of this patient involved high complexity d ecision making to prevent further life threatening deterioration of the patient's condition and/or to evaluate & treat vital organ system(s) failure or risk of failure. - Medication Review Med list reviewed for High Risk Meds patients 65 and older: Yes ATTENDING PHYSICIAN STATEMENT I saw and evaluated the patient. I reviewed the resident's note and discussed the case with the resident. I agree with the resident's findings and plan as documented. SUBJECTIVE: OBJECTIVE: ASSESSMENT AND PLAN:
[2019-10-07] MEDS ORDERED: PT OWN MED DRAWER 7, Y5N ONE (21:19)
--- NOTE | 2019-10-07 22:08 | PN ---
Progress Note, Physician History of Present Illness: Pt remains intubated, sedated. Afebrile but wbc elevated. - Current Medication List Current Medications: Active Medications Acetaminophen (Tylenol -) 650 mg PO Q4H PRN PRN Reason: PAIN LEVEL 1-5 Amlodipine Besylate (Norvasc -) 5 mg PO DAILY [facility] Last Admin: 10/07/19 10:06 Dose: Not Given Documented by: Ascorbic Acid (Vitamin C -) 500 mg PO BID [facility] Last Admin: 10/07/19 10:07 Dose: 500 mg Documented by: Bacitracin (Bacitracin -) 1 applic TP DAILY [facility] Last Admin: 10/07/19 12:04 Dose: 1 applic Documented by: Carbidopa/Levodopa (Sinemet 25/250 -) 1 each PO BID [facility] Last Admin: 10/07/19 10:06 Dose: 1 each Documented by: Chlorhexidine Gluconate (Hibiclens For Decolonization -) 1 applic TP HS [facility] Last Admin: 10/07/19 00:08 Dose: 1 applic Documented by: Cholecalciferol (Vitamin D3 -) 1,000 unit PO DAILY [facility] Last Admin: 10/07/19 10:07 Dose: 1,000 unit Documented by: Enoxaparin Sodium (Lovenox -) 60 mg SQ BID [facility] Last Admin: 10/07/19 10:04 Dose: 60 mg Documented by: Piperacillin Sod/Tazobactam (Sod 3.375 gm/ Dextrose) 50 mls @ 100 mls/hr IVPB Q8H-IV [facility]; Protocol Last Admin: 10/07/19 17:29 Dose: 100 mls/hr Documented by: Propofol (Diprivan -) 1,000,000 mcg in 100 mls @ 3.47 mls/hr IVPB TITR [facility]; Protocol Last Admin: 10/07/19 10:22 Dose: 30 mcg/kg/min, 10.41 mls/hr Documented by: Fentanyl (Sublimaze Ivpb) 500 mcg in 100 mls @ 10 mls/hr IVPB TITR [facility] Last Admin: 10/07/19 10:22 Dose: 75 mcg/hr, 15 mls/hr Documented by: Metronidazole (Flagyl 500mg Premixed Ivpb -) 500 mg in 100 mls @ 100 mls/hr IVPB Q8H-IV [facility] Last Admin: 10/07/19 17:29 Dose: 100 mls/hr Documented by: Norepinephrine Bitartrate (Levophed Bag) 8,000 mcg in 500 mls @ 18.75 mls/hr IVPB TITR [facility]; Protocol Last Titration: 10/07/19 14:00 Dose: 1 mcg/min, 3.75 mls/hr Documented by: Insulin Aspart (Novolog Vial Sliding Scale -) 1 vial SQ ACHS [facility]; Protocol Last Admin: 10/07/19 16:49 Dose: 6 units Documented by: Insulin Detemir (Levemir Vial) 5 units SQ HS [facility] Last Admin: 10/07/19 00:08 Dose: 5 unit Documented by: Losartan Potassium (Cozaar -) 50 mg PO DAILY [facility] Last Admin: 10/07/19 10:00 Dose: Not Given Documented by: Methylprednisolone Sodium Succinate (Solu-Medrol -) 30 mg IVPUSH BID [facility] Last Admin: 10/07/19 10:04 Dose: 30 mg Documented by: Pantoprazole Sodium (Protonix Iv) 40 mg IVPUSH DAILY [facility] Last Admin: 10/07/19 10:04 Dose: 40 mg Documented by: Potassium Phos/Sodium Phos (Phos-Nak Packet -) 1 packet PO TID [facility] Last Admin: 10/07/19 14:07 Dose: Not Given Documented by: Pramipexole Dihydrochloride (Mirapex -) 0.125 mg PO TID [facility] Last Admin: 10/07/19 14:04 Dose: 0.125 mg Documented by: Vancomycin HCl (Vancomycin Oral Solution) 125 mg PO Q6HPO [facility] Last Admin: 10/07/19 17:30 Dose: 125 mg Documented by: Zinc Sulfate (Orazinc -) 220 mg PO BID [facility] Last Admin: 10/07/19 10:06 Dose: 220 mg Documented by: - Objective Vital Signs: Vital Signs Temperature 98.4 F 10/07/19 18:00 Pulse Rate 72 10/07/19 20:00 Respiratory Rate 26 H 10/07/19 20:50 Blood Pressure 143/58 L 10/07/19 20:00 O2 Sat by Pulse Oximetry (%) 100 10/07/19 20:50 Constitutional: Yes: No Distress, Other (Subcutaneous emphysema) Cardiovascular: Yes: Pulse Irregular Respiratory: Yes: Mechanically Ventilated, Other (Chest tube) Gastrointestinal: Yes: Normal Bowel Sounds, Soft Genitourinary: Yes: Simmons Present Neurological: Yes: Other (sedated) Labs: CBC, BMP 10/07/19 06:00 INR, PTT INR 1.31 (0.83-1.09) H 10/07/19 08:30 Laboratory Last Values WBC 34.1 K/mm3 (4.0-10.0) H* 10/07/19 06:00 RBC 4.14 M/mm3 (4.00-5.60) 10/07/19 06:00 Hgb 11.2 GM/dL (11.7-16.9) L 10/07/19 06:00 Hct 35.6 % (35.4-49) 10/07/19 06:00 MCV 86.0 fl (80-96) 10/07/19 06:00 MCH 27.0 pg (25.7-33.7) 10/07/19 06:00 MCHC 31.4 g/dl (32.0-35.9) L 10/07/19 06:00 RDW 20.3 % (11.9-15.9) H 10/07/19 06:00 Plt Count 482 K/MM3 (134-434) H 10/07/19 06:00 MPV 8.5 fl (7.5-11.1) 10/07/19 06:00 Absolute Neuts (auto) 26.9 K/mm3 (1.5-8.0) H 10/05/19 06:00 Neutrophils % 96.6 % (42.8-82.8) H 10/05/19 06:00 Neutrophils % (Manual) 96.8 % (42.8-82.8) H 10/05/19 06:00 Band Neutrophils % 0.0 % 10/05/19 06:00 Lymphocytes % 1.4 % (8-40) L 10/05/19 06:00 Lymphocytes % (Manual) 1.1 % (8-40) L D 10/05/19 06:00 Monocytes % 1.8 % (3.8-10.2) L 10/05/19 06:00 Monocytes % (Manual) 2 % (3.8-10.2) L 10/05/19 06:00 Eosinophils % 0.2 % (0-4.5) D 10/05/19 06:00 Eosinophils % (Manual) 0.0 % (0-4.5) 10/05/19 06:00 Basophils % 0.0 % (0-2.0) 10/05/19 06:00 Basophils % (Manual) 0.0 % (0-2.0) 10/05/19 06:00 Myelocytes % (Man) 0 % (0-2) 10/05/19 06:00 Promyelocytes % (Man) 0 % (0-2) 10/05/19 06:00 Blast Cells % (Manual) 0 % (0-0) 10/05/19 06:00 Nucleated RBC % 0 % (0-0) 10/05/19 06:00 Metamyelocytes 0 % (0-2) D 10/05/19 06:00 Hypochromia 0 10/05/19 06:00 Platelet Estimate Normal 10/05/19 06:00 Platelet Comment Present 09/29/19 05:46 Polychromasia 1+ 10/05/19 06:00 Poikilocytosis 0 10/05/19 06:00 Anisocytosis 1+ 10/05/19 06:00 Microcytosis 1+ 10/05/19 06:00 Macrocytosis 0 10/05/19 06:00 Spherocytes 1+ 09/29/19 05:46 Target Cells 1+ 09/29/19 05:46 Tear Drop Cells 1+ 09/29/19 05:46 Ovalocytes 1+ 09/29/19 05:46 Christiano Cells 1+ 09/29/19 05:46 ESR 53 mm/hr (0-20) H 09/29/19 05:46 PT with INR 15.50 SEC (9.7-13.0) H 10/07/19 08:30 INR 1.31 (0.83-1.09) H 10/07/19 08:30 D-Dimer 1126 ng/ml (0-500) H 10/07/19 08:30 Anticoagulation Therapy No Result Required. 10/07/19 06:25 Puncture Site Left radial 10/07/19 06:25 Patient Temperature No Result Required. 10/07/19 06:25 ABG pH 7.374 (7.350-7.450) 10/07/19 06:25 ABG pCO2 52.30 mmHg (35-45) H 10/07/19 06:25 ABG pO2 108.2 mmHg (80-100) H 10/07/19 06:25 ABG HCO3 29.8 mmol/L (22-27) H 10/07/19 06:25 ABG O2 Sat (Measured) 97.8 mmHg (95-98) 10/07/19 06:25 ABG O2 Content No Result Required. 10/07/19 06:25 ABG Base Excess 3.6 mmol/L (-2-2) H 10/07/19 06:25 Amador Test Positive 10/07/19 06:25 VBG pH 7.400 (7.310-7.410) 09/27/19 14:40 POC VBG pCO2 38.5 mmHg (38-52) 09/27/19 14:40 POC VBG pO2 43.8 mmHg (28-48) 09/27/19 14:40 VBG HCO3 24.9 mmol/L (23-29) 09/27/19 14:40 VBG O2 Sat (Lissy) No Result Required. 09/27/19 14:40 VBG Base Excess 0.7 mmol/L (-2-2) 09/27/19 14:40 Patient On Oxygen Yes 10/07/19 06:25 O2 Delivery Device Vent 10/07/19 06:25 Oxygen Flow Rate 50% 10/07/19 06:25 Vent Mode A/c 10/07/19 06:25 Vent Rate 26 10/07/19 06:25 Mechanical Rate Yes 10/07/19 06:25 PEEP 8.0 cmH2O 10/07/19 06:25 Pressure Support Vent 360 10/07/19 06:25 Sodium 140 mmol/L (136-145) 10/07/19 06:00 Potassium 6.0 mmol/L (3.5-5.1) H 10/07/19 06:00 Chloride 103 mmol/L (98-107) 10/07/19 06:00 Carbon Dioxide 35 mmol/L (21-32) H 10/07/19 06:00 Anion Gap 3 MMOL/L (8-16) L 10/07/19 06:00 BUN 51.4 mg/dL (7-18) H 10/07/19 06:00 Creatinine 0.9 mg/dL (0.55-1.3) 10/07/19 06:00 Est GFR (CKD-EPI)AfAm 89.32 10/07/19 06:00 Est GFR (CKD-EPI)NonAf 77.06 10/07/19 06:00 POC Glucometer 280 UNITS (80-120) 10/07/19 16:48 Random Glucose 442 mg/dL (74-106) H* 10/07/19 06:00 Hemoglobin A1c % 8.4 % (4.2-6.3) H 10/06/19 07:00 Lactic Acid 2.7 mmol/L (0.4-2.0) H* 09/27/19 20:15 Calcium 7.1 mg/dL (8.5-10.1) L 10/07/19 06:00 Phosphorus 3.0 mg/dL (2.5-4.9) 10/07/19 06:00 Magnesium 3.2 mg/dL (1.8-2.4) H 10/07/19 06:00 Ferritin 143.8 ng/ml (8-388) 10/06/19 07:00 Total Bilirubin 0.4 mg/dL (0.2-1) 10/07/19 06:00 AST 26 U/L (15-37) 10/07/19 06:00 ALT 14 U/L (13-61) 10/07/19 06:00 Alkaline Phosphatase 170 U/L (45-117) H 10/07/19 06:00 LD Total 468 U/L (87-246) H 10/07/19 06:00 Creatine Kinase 34 U/L (26-308) 09/27/19 14:40 Troponin I < 0.02 ng/ml (0.00-0.05) 09/28/19 17:20 C-Reactive Protein 1.5 MG/DL (0.00-0.3) H 10/07/19 06:00 B-Natriuretic Peptide 4100.4 pg/ml (5-450) H 09/27/19 14:40 Total Protein 5.5 g/dl (6.4-8.2) L 10/07/19 06:00 Albumin 1.7 g/dl (3.4-5.0) L 10/07/19 06:00 Urine Color Yellow 09/27/19 15:00 Urine Appearance Clear 09/27/19 15:00 Urine pH 6.0 (5.0-8.0) 09/27/19 15:00 Ur Specific [place] 1.036 (1.010-1.035) H 09/27/19 15:00 Urine Protein 1+ (NEGATIVE) H 09/27/19 15:00 Urine Glucose (UA) 3+ (NEGATIVE) H 09/27/19 15:00 Urine Ketones Trace (NEGATIVE) H 09/27/19 15:00 Urine Blood Negative (NEGATIVE) 09/27/19 15:00 Urine Nitrite Negative (NEGATIVE) 09/27/19 15:00 Urine Bilirubin Negative (NEGATIVE) 09/27/19 15:00 Urine Urobilinogen 1.0 mg/dL (0.2-1.0) 09/27/19 15:00 Ur Leukocyte Esterase Negative (NEGATIVE) 09/27/19 15:00 Urine WBC (Auto) 22 /uL (0-25.8) 09/27/19 15:00 Urine RBC (Auto) 25 /uL (0-23.9) 09/27/19 15:00 Urine Casts (Auto) 1 /uL (0-3.1) 09/27/19 15:00 U Epithel Cells (Auto) 26 /uL (0-25.1) 09/27/19 15:00 Urine Bacteria (Auto) 227 /uL (0-1359) 09/27/19 15:00 COVID-19 (SHEREEN) Not detected (Not Detected) 09/27/19 15:50 SARS-CoV-2 Ab Interp Reactive (NONREACTIVE) 09/29/19 05:46 Blood Type A NEGATIVE 09/28/19 12:13 Antibody Screen Negative 09/28/19 12:13 Microbiology 10/06/19 13:00 Stool Clostridioides difficile Antigen - Preliminary 10/06/19 13:00 Stool Clostridioides difficile Toxin Assay - Preliminary 09/27/19 14:30 Blood - Peripheral Venous Blood Culture - Final NO GROWTH AFTER 5 DAYS INCUBATION 09/27/19 14:30 Blood - Peripheral Venous Blood Culture - Final NO GROWTH AFTER 5 DAYS INCUBATION 09/29/19 13:45 Sputum - Endotrachea Suction/Ventilator Gram Stain - Final 09/29/19 13:45 Sputum - Endotrachea Suction/Ventilator Sputum Culture - Final NORMAL RESPIRATORY CHIP 09/30/19 13:00 Urine - Urine - Catheterized Legionella Antigen - Final 09/30/19 13:00 Urine - Urine - Catheterized Streptococcus pneumoniae Antigen (M - Final 09/27/19 15:00 Urine - Urine Clean Catch Urine Culture - Final Normal Urogenital Chip - ....Imaging Chest X-ray: Pending Problem List - Problems (1) ARDS (adult respiratory distress syndrome) Code(s): J80 - ACUTE RESPIRATORY DISTRESS SYNDROME (2) Acute respiratory failure with hypoxia Code(s): J96.01 - ACUTE RESPIRATORY FAILURE WITH HYPOXIA (3) COVID-19 virus IgG antibody detected Code(s): Z01.84 - ENCOUNTER FOR ANTIBODY RESPONSE EXAMINATION (4) Diabetes Code(s): E11.9 - TYPE 2 DIABETES MELLITUS WITHOUT COMPLICATIONS (5) HTN (hypertension) Code(s): I10 - ESSENTIAL (PRIMARY) HYPERTENSION (6) Parkinson disease Code(s): G20 - PARKINSON'S DISEASE (7) Pneumonia Code(s): J18.9 - PNEUMONIA, UNSPECIFIED ORGANISM Qualifiers: Pneumonia type: due to unspecified organism Laterality: right Lung location: unspecified part of lung Qualified Code(s): J18.9 - Pneumonia, unspecified organism Assessment/Plan Acute respiratory failure - intubated/sedated COVID pneumonitis Rt infiltrate Leukocytosis HTN DM Parkinsons PTX with Lt chest tube Subcutaneous Emphysema Diarrhea -- wbc elevated from yesterday, remains afebrile/intubated -- all previous routine cultures negative -- stood CDT/Ag negative, d/c Vancomycin GT, continue Flagyl and Zosyn for now. Vancomycin 1 gram IV x 1 dose tonight -- repeat blood cultures/ Urine culture -- continue monitor wbc/temps/vitals -- maintain isolation/current precautions cc: 38 min
[2019-10-07] MEDS ORDERED: VANCOMYCIN 1 GRAM (PRE-DOCKED) 1,000 MG/250 ML BAG IVPB ONE (22:11)
[2019-10-07 22:47] LABS: CALCIUM 8.3 mg/dL (8.5-10.1); CREATININE 1.8 mg/dL (0.55-1.3)
[2019-10-07 22:59] LABS: POTASSIUM 2.9 mmol/L (3.5-5.1)
[2019-10-08] MEDS: FENTANYL IVPB 500 MCG/100 ML BAG IVPB SCH ×3 (00:07→23:05)
[2019-10-08] MEDS ORDERED: PIPERACILLIN/TAZOBACTAM 3.375 GM VIAL IVPB ONE ×3 (00:27→15:07)
[2019-10-08] MEDS ORDERED: DEXTROSE 5%-WATER - 50 ML IVPB ONE ×3 (00:27→15:07)
[2019-10-08] MEDS ORDERED: INSULIN (LEVEMIR) 100 UNITS/ML UNITS SQ ONE (01:40)
[2019-10-08] MEDS: PIPERACILLIN/TAZOB 3.375 GM 3.375 GM in DEXTROSE 5%-WATER - 50 ML IVPB SCH ×3 (01:48→17:04)
[2019-10-08] MEDS: PROPOFOL 1,000,000 MCG/100 ML VIAL IVPB SCH ×3 (04:24→20:00)
[2019-10-08] MEDS: PRAMIPEXOLE DIHYDROCHLORIDE 0.125 MG TABLET PO SCH ×3 (05:10→23:00)
[2019-10-08] MEDS: INSULIN SLIDING SCALE (NOVOLOG) 1 VIAL SQ SCH ×4 (06:01→23:21)
[2019-10-08 07:31] LABS: BASO % 0.3 % (0-2.0); HEMATOCRIT 33.4 % (35.4-49); HEMOGLOBIN 10.6 GM/dL (11.7-16.9); LYMPH % 1.8 % (8-40); MCHC 31.8 g/dl (32.0-35.9); MEAN CELL VOLUME 85.1 fl (80-96); MEAN PLT VOLUME 8.7 fl (7.5-11.1); MONO % 2.8 % (3.8-10.2); NEUT % 95.1 % (42.8-82.8); PLATELET COUNT 459 K/MM3 (134-434); RBC 3.93 M/mm3 (4.00-5.60)
[2019-10-08 07:32] LABS: ALBUMIN 1.6 g/dl (3.4-5.0); BILIRUBIN,TOTAL 0.4 mg/dL (0.2-1); CREATININE 0.8 mg/dL (0.55-1.3); PHOSPHOROUS 2.6 mg/dL (2.5-4.9)
[2019-10-08 07:48] LABS: WHITE BLOOD COUNT 31.8 K/mm3 (4.0-10.0)
[2019-10-08 08:09] LABS: BLOOD UREA NITROGEN 45.7 mg/dL (7-18)
[2019-10-08 08:12] LABS: POTASSIUM 6.1 mmol/L (3.5-5.1)
[2019-10-08 09:11] LABS: ANISOCYTOSIS 1+; MACROCYTOSIS 1+; PLATELET ESTIMATE NORMAL
--- NOTE | 2019-10-08 09:36 | PN ---
Progress Note, Physician History of Present Illness: Sedated and intubated 50% FIO2, PEEP 5 on levophed gtt, tolerating enteral feeds. Afebrile, elevated WBC. - Current Medication List Current Medications: Active Medications Acetaminophen (Tylenol -) 650 mg PO Q4H PRN PRN Reason: PAIN LEVEL 1-5 Amlodipine Besylate (Norvasc -) 5 mg PO DAILY [facility] Last Admin: 10/07/19 10:06 Dose: Not Given Documented by: Ascorbic Acid (Vitamin C -) 500 mg PO BID [facility] Last Admin: 10/07/19 22:08 Dose: 500 mg Documented by: Bacitracin (Bacitracin -) 1 applic TP DAILY [facility] Last Admin: 10/07/19 12:04 Dose: 1 applic Documented by: Carbidopa/Levodopa (Sinemet 25/250 -) 1 each PO BID [facility] Last Admin: 10/07/19 22:08 Dose: 1 each Documented by: Chlorhexidine Gluconate (Hibiclens For Decolonization -) 1 applic TP HS [facility] Last Admin: 10/07/19 22:09 Dose: 1 applic Documented by: Cholecalciferol (Vitamin D3 -) 1,000 unit PO DAILY [facility] Last Admin: 10/07/19 10:07 Dose: 1,000 unit Documented by: Enoxaparin Sodium (Lovenox -) 60 mg SQ BID [facility] Last Admin: 10/07/19 22:07 Dose: 60 mg Documented by: Piperacillin Sod/Tazobactam (Sod 3.375 gm/ Dextrose) 50 mls @ 100 mls/hr IVPB Q8H-IV [facility]; Protocol Last Admin: 10/08/19 01:48 Dose: 100 mls/hr Documented by: Propofol (Diprivan -) 1,000,000 mcg in 100 mls @ 3.47 mls/hr IVPB TITR [facility]; Protocol Last Titration: 10/08/19 07:48 Dose: 35 mcg/kg/min, 12.145 mls/hr Documented by: Fentanyl (Sublimaze Ivpb) 500 mcg in 100 mls @ 10 mls/hr IVPB TITR [facility] Last Admin: 10/08/19 00:07 Dose: 75 mcg/hr, 15 mls/hr Documented by: Metronidazole (Flagyl 500mg Premixed Ivpb -) 500 mg in 100 mls @ 100 mls/hr IVPB Q8H-IV [facility] Last Admin: 10/08/19 01:48 Dose: 100 mls/hr Documented by: Norepinephrine Bitartrate (Levophed Bag) 8,000 mcg in 500 mls @ 18.75 mls/hr IVPB TITR [facility]; Protocol Last Titration: 10/08/19 07:47 Dose: 0.5 mcg/min, 1.875 mls/hr Documented by: Insulin Aspart (Novolog Vial Sliding Scale -) 1 vial SQ ACHS [facility]; Protocol Last Admin: 10/08/19 06:01 Dose: 10 units Documented by: Insulin Detemir (Levemir Vial) 10 units SQ HS [facility] Losartan Potassium (Cozaar -) 50 mg PO DAILY [facility] Last Admin: 10/07/19 10:00 Dose: Not Given Documented by: Methylprednisolone Sodium Succinate (Solu-Medrol -) 30 mg IVPUSH BID [facility] Last Admin: 10/07/19 22:08 Dose: 30 mg Documented by: Pantoprazole Sodium (Protonix Iv) 40 mg IVPUSH DAILY [facility] Last Admin: 10/07/19 10:04 Dose: 40 mg Documented by: Potassium Phos/Sodium Phos (Phos-Nak Packet -) 1 packet PO TID [facility] Last Admin: 10/07/19 14:07 Dose: Not Given Documented by: Pramipexole Dihydrochloride (Mirapex -) 0.125 mg PO TID [facility] Last Admin: 10/08/19 05:10 Dose: 0.125 mg Documented by: Zinc Sulfate (Orazinc -) 220 mg PO BID [facility] Last Admin: 10/07/19 22:08 Dose: 220 mg Documented by: - Objective Vital Signs: Vital Signs Temperature 98.1 F 10/08/19 06:00 Pulse Rate 51 L 10/08/19 08:45 Respiratory Rate 32 H 10/08/19 08:45 Blood Pressure 172/65 H 10/08/19 06:00 O2 Sat by Pulse Oximetry (%) 99 10/08/19 08:45 Constitutional: Yes: Other (Sedated and intubated) Cardiovascular: Yes: Regular Rate and Rhythm Respiratory: Yes: Diminished, Intubated, Mechanically Ventilated, Rhonchi, Other (Left chest tube in place) Gastrointestinal: Yes: Normal Bowel Sounds, Soft, Abdomen, Obese Genitourinary: Yes: Simmons Present Edema: No Labs: CBC, BMP 10/08/19 05:15 INR, PTT INR 1.31 (0.83-1.09) H 10/07/19 08:30 - ....Imaging Chest X-ray: Report Reviewed (Left chest tube in place, diffuse infiltrates) Problem List - Problems (1) ARDS (adult respiratory distress syndrome) Code(s): J80 - ACUTE RESPIRATORY DISTRESS SYNDROME (2) Acute respiratory failure with hypoxia Code(s): J96.01 - ACUTE RESPIRATORY FAILURE WITH HYPOXIA (3) COVID-19 virus IgG antibody detected Code(s): Z01.84 - ENCOUNTER FOR ANTIBODY RESPONSE EXAMINATION (4) Diabetes Code(s): E11.9 - TYPE 2 DIABETES MELLITUS WITHOUT COMPLICATIONS Qualifiers: Diabetes mellitus type: type 2 Diabetes mellitus english lecturer insulin use: without care home use (5) HTN (hypertension) Code(s): I10 - ESSENTIAL (PRIMARY) HYPERTENSION Qualifiers: Hypertension type: essential hypertension Qualified Code(s): I10 - Ess ential (primary) hypertension (6) Parkinson disease Code(s): G20 - PARKINSON'S DISEASE (7) Pneumonitis Code(s): J18.9 - PNEUMONIA, UNSPECIFIED ORGANISM (8) Pneumothorax Code(s): J93.9 - PNEUMOTHORAX, UNSPECIFIED Qualifiers: Pneumothorax type: unspecified pneumothorax Qualified Code(s): J93.9 - Pneumothorax, unspecified (9) Septic shock Code(s): A41.9 - SEPSIS, UNSPECIFIED ORGANISM; R65.21 - SEVERE SEPSIS WITH SEPTIC SHOCK Assessment/Plan 1. Acute hypoxic respiratory failure on mechanical ventilation/sepsis syndrome/septic shock 2. Coronavirus/COVID 19 pneumonitis with adult respiratory distress and leukocytosis 3. Coronary artery disease angina pectoris 4. Diastolic left ventricular dysfunction with clinical class 0 [place] [employer] classification of ventricular failure 5. Hypertensive cardiovascular disease 6. Diabetes mellitus 7. Pneumothorax and Subcutaneous Emphysema with Lt chest tube 8. Parkinson's disease 9. Prerenal azotemia 10. Anemia PLAN: 1. Ventilator wean as tolerated per the critical care team 2. Antibiotics as per the primary/critical care team 3. Wean Levophed gtt to maintain MAP>65 mmHg, hold Norvasc 5 qd and Cozaar 50 qd pending hemodynamic stability 4. Continue anticoagulation therapy with Lovenox 60 bid with caution and close monitoring of hemoglobin level, IV steroids 5. Correction of prerenal azotemia
[2019-10-08 09:44] LABS: BLOOD UREA NITROGEN 44.6 mg/dL (7-18); CREATININE 0.8 mg/dL (0.55-1.3); POTASSIUM 5.7 mmol/L (3.5-5.1)
[2019-10-08] MEDS: CARBIDOPA/LEVODOPA 25/250 TABLET (FP) PO SCH ×2 (09:47→23:00)
[2019-10-08] MEDS: ASCORBIC ACID 500 MG TABLET (FP) PO SCH ×2 (09:47→23:00)
[2019-10-08] MEDS: ENOXAPARIN NA (PORCINE) 60 MG/0.6 ML DISP.SYRIN SQ SCH ×2 (09:47→23:03)
[2019-10-08] MEDS: PANTOPRAZOLE SODIUM 40 MG VIAL IVPUSH SCH (09:47)
[2019-10-08] MEDS: amLODIPine BESYLATE 5 MG TABLET (FP) PO SCH (09:47)
[2019-10-08] MEDS: ZINC SULFATE 220 MG CAPSULE (FP) PO SCH ×2 (09:47→23:00)
[2019-10-08] MEDS: BACITRACIN 15 GM TUBE TOPICAL OINTMENT TP SCH (09:49)
[2019-10-08] MEDS: methylPREDNISolone NA SUCC 40 MG/1 ML VIAL IVPUSH SCH ×2 (11:08→23:00)
[2019-10-08] MEDS: LOSARTAN POTASSIUM 50 MG TABLET (FP) PO SCH (11:09)
[2019-10-08] MEDS ORDERED: DEXTROSE 50%-WATER - 25 GM/50 ML VIAL IVPUSH ONE (12:04)
[2019-10-08] MEDS ORDERED: INSULIN REGULAR HUMAN 100 UNITS/ML *VIAL IVPUSH ONE (12:04)
[2019-10-08] MEDS ORDERED: CALCIUM GLUCONATE 10% - 1,000 MG/10 ML VIAL IVPUSH ONE (12:04)
--- NOTE | 2019-10-08 12:39 | PN ---
Progress Note, Physician - Current Medication List Current Medications: Active Medications Acetaminophen (Tylenol -) 650 mg PO Q4H PRN PRN Reason: PAIN LEVEL 1-5 Amlodipine Besylate (Norvasc -) 5 mg PO DAILY [facility] Last Admin: 10/08/19 09:47 Dose: 5 mg Documented by: Ascorbic Acid (Vitamin C -) 500 mg PO BID [facility] Last Admin: 10/08/19 09:47 Dose: 500 mg Documented by: Bacitracin (Bacitracin -) 1 applic TP DAILY [facility] Last Admin: 10/08/19 09:49 Dose: 1 applic Documented by: Carbidopa/Levodopa (Sinemet 25/250 -) 1 each PO BID [facility] Last Admin: 10/08/19 09:47 Dose: 1 each Documented by: Chlorhexidine Gluconate (Hibiclens For Decolonization -) 1 applic TP HS [facility] Last Admin: 10/07/19 22:09 Dose: 1 applic Documented by: Cholecalciferol (Vitamin D3 -) 1,000 unit PO DAILY [facility] Last Admin: 10/07/19 10:07 Dose: 1,000 unit Documented by: Enoxaparin Sodium (Lovenox -) 60 mg SQ BID [facility] Last Admin: 10/08/19 09:47 Dose: 60 mg Documented by: Piperacillin Sod/Tazobactam (Sod 3.375 gm/ Dextrose) 50 mls @ 100 mls/hr IVPB Q8H-IV [facility]; Protocol Last Admin: 10/08/19 09:47 Dose: 100 mls/hr Documented by: Propofol (Diprivan -) 1,000,000 mcg in 100 mls @ 3.47 mls/hr IVPB TITR [facility]; Protocol Last Admin: 10/08/19 09:50 Dose: 35 mcg/kg/min, 12.145 mls/hr Documented by: Fentanyl (Sublimaze Ivpb) 500 mcg in 100 mls @ 10 mls/hr IVPB TITR [facility] Last Admin: 10/08/19 00:07 Dose: 75 mcg/hr, 15 mls/hr Documented by: Metronidazole (Flagyl 500mg Premixed Ivpb -) 500 mg in 100 mls @ 100 mls/hr IVPB Q8H-IV [facility] Last Admin: 10/08/19 09:47 Dose: 100 mls/hr Documented by: Norepinephrine Bitartrate (Levophed Bag) 8,000 mcg in 500 mls @ 18.75 mls/hr IVPB TITR [facility]; Protocol Last Titration: 10/08/19 07:47 Dose: 0.5 mcg/min, 1.875 mls/hr Documented by: Insulin Aspart (Novolog Vial Sliding Scale -) 1 vial SQ ACHS [facility]; Protocol Last Admin: 10/08/19 11:50 Dose: 8 units Documented by: Insulin Detemir (Levemir Vial) 10 units SQ HS [facility] Losartan Potassium (Cozaar -) 50 mg PO DAILY [facility] Last Admin: 10/08/19 11:09 Dose: 50 mg Documented by: Methylprednisolone Sodium Succinate (Solu-Medrol -) 30 mg IVPUSH BID [facility] Last Admin: 10/08/19 11:08 Dose: 30 mg Documented by: Pantoprazole Sodium (Protonix Iv) 40 mg IVPUSH DAILY [facility] Last Admin: 10/08/19 09:47 Dose: 40 mg Documented by: Potassium Phos/Sodium Phos (Phos-Nak Packet -) 1 packet PO TID [facility] Last Admin: 10/07/19 14:07 Dose: Not Given Documented by: Pramipexole Dihydrochloride (Mirapex -) 0.125 mg PO TID [facility] Last Admin: 10/08/19 05:10 Dose: 0.125 mg Documented by: Zinc Sulfate (Orazinc -) 220 mg PO BID [facility] Last Admin: 10/08/19 09:47 Dose: 220 mg Documented by: - Objective Vital Signs: Vital Signs Temperature 96.8 F L 10/08/19 10:00 Pulse Rate 82 10/08/19 12:00 Respiratory Rate 22 H 10/08/19 12:00 Blood Pressure 105/60 10/08/19 12:00 O2 Sat by Pulse Oximetry (%) 94 L 10/08/19 12:00 Labs: CBC, BMP 10/08/19 05:15 10/08/19 08:25 INR, PTT INR 1.31 (0.83-1.09) H 10/07/19 08:30
[2019-10-08] MEDS: CHOLECALCIFEROL (VIT D3) 1,000 UNIT (25 MCG) TABLET PO SCH (12:48)
--- NOTE | 2019-10-08 13:36 | PN ---
Teaching Attending Note Name of Resident: Javi Lopez ATTENDING PHYSICIAN STATEMENT I saw and evaluated the patient. I reviewed the resident's note and discussed the case with the resident. I agree with the resident's findings and plan as documented. SUBJECTIVE: Pt seen and examined in the ICU. Remains intubated, sedated. Vented on volume as sist control with 40% FiO2. Pplat 26. OBJECTIVE: Vital Signs Period Temp Pulse Resp BP Sys/Cedillo Pulse Ox Last 24 Hr 96.8 F-98.7 F 51-83 22-34 104-178/55-79 94-100 Intake & Output 10/05/19 10/06/19 10/07/19 10/08/19 23:59 23:59 23:59 23:59 Intake Total 1116 1910 1653.2 517 Output Total 1300 2050 1755 1700 Balance -184 -140 -101.8 -1183 Weight 61.008 kg 62 kg 61.8 kg 61.8 kg Gen: intubated, sedated Heart: RRR Lung: scattered rhonchi Abd: soft, nontender Ext: + edema CBC, BMP 10/08/19 05:15 10/08/19 08:25 Active Medications Acetaminophen (Tylenol -) 650 mg PO Q4H PRN PRN Reason: PAIN LEVEL 1-5 Amlodipine Besylate (Norvasc -) 5 mg PO DAILY COUNTS INCLUDE 234 BEDS AT THE [facility] Last Admin: 10/08/19 09:47 Dose: 5 mg Documented by: Ascorbic Acid (Vitamin C -) 500 mg PO BID COUNTS INCLUDE 234 BEDS AT THE [facility] Last Admin: 10/08/19 09:47 Dose: 500 mg Documented by: Bacitracin (Bacitracin -) 1 applic TP DAILY COUNTS INCLUDE 234 BEDS AT THE [facility] Last Admin: 10/08/19 09:49 Dose: 1 applic Documented by: Carbidopa/Levodopa (Sinemet 25/250 -) 1 each PO BID COUNTS INCLUDE 234 BEDS AT THE [facility] Last Admin: 10/08/19 09:47 Dose: 1 each Documented by: Chlorhexidine Gluconate (Hibiclens For Decolonization -) 1 applic TP HS COUNTS INCLUDE 234 BEDS AT THE [facility] Last Admin: 10/07/19 22:09 Dose: 1 applic Documented by: Cholecalciferol (Vitamin D3 -) 1,000 unit PO DAILY COUNTS INCLUDE 234 BEDS AT THE [facility] Last Admin: 10/08/19 12:48 Dose: 1,000 unit Documented by: Enoxaparin Sodium (Lovenox -) 60 mg SQ BID COUNTS INCLUDE 234 BEDS AT THE [facility] Last Admin: 10/08/19 09:47 Dose: 60 mg Documented by: Piperacillin Sod/Tazobactam (Sod 3.375 gm/ Dextrose) 50 mls @ 100 mls/hr IVPB Q8H-IV COUNTS INCLUDE 234 BEDS AT THE [facility]; Protocol Last Admin: 10/08/19 09:47 Dose: 100 mls/hr Documented by: Propofol (Diprivan -) 1,000,000 mcg in 100 mls @ 3.47 mls/hr IVPB TITR COUNTS INCLUDE 234 BEDS AT THE [facility]; Protocol Last Admin: 10/08/19 09:50 Dose: 35 mcg/kg/min, 12.145 mls/hr Documented by: Fentanyl (Sublimaze Ivpb) 500 mcg in 100 mls @ 10 mls/hr IVPB TITR COUNTS INCLUDE 234 BEDS AT THE [facility] Last Admin: 10/08/19 00:07 Dose: 75 mcg/hr, 15 mls/hr Documented by: Metronidazole (Flagyl 500mg Premixed Ivpb -) 500 mg in 100 mls @ 100 mls/hr IVPB Q8H-IV [facility] Last Admin: 10/08/19 09:47 Dose: 100 mls/hr Documented by: Norepinephrine Bitartrate (Levophed Bag) 8,000 mcg in 500 mls @ 18.75 mls/hr IVPB TITR COUNTS INCLUDE 234 BEDS AT THE [facility]; Protocol Last Titration: 10/08/19 07:47 Dose: 0.5 mcg/min, 1.875 mls/hr Documented by: Insulin Aspart (Novolog Vial Sliding Scale -) 1 vial SQ ACHS COUNTS INCLUDE 234 BEDS AT THE [facility]; Protocol Last Admin: 10/08/19 11:50 Dose: 8 units Documented by: Insulin Detemir (Levemir Vial) 10 units SQ [facility] Losartan Potassium (Cozaar -) 50 mg PO DAILY COUNTS INCLUDE 234 BEDS AT THE [facility] Last Admin: 10/08/19 11:09 Dose: 50 mg Documented by: Methylprednisolone Sodium Succinate (Solu-Medrol -) 30 mg IVPUSH BID COUNTS INCLUDE 234 BEDS AT THE [facility] Last Admin: 10/08/19 11:08 Dose: 30 mg Documented by: Pantoprazole Sodium (Protonix Iv) 40 mg IVPUSH DAILY COUNTS INCLUDE 234 BEDS AT THE [facility] Last Admin: 10/08/19 09:47 Dose: 40 mg Documented by: Potassium Phos/Sodium Phos (Phos-Nak Packet -) 1 packet PO TID COUNTS INCLUDE 234 BEDS AT THE [facility] Last Admin: 10/07/19 14:07 Dose: Not Given Documented by: Pramipexole Dihydrochloride (Mirapex -) 0.125 mg PO TID COUNTS INCLUDE 234 BEDS AT THE [facility] Last Admin: 10/08/19 05:10 Dose: 0.125 mg Documented by: Zinc Sulfate (Orazinc -) 220 mg PO BID COUNTS INCLUDE 234 BEDS AT THE [facility] Last Admin: 10/08/19 09:47 Dose: 220 mg Documented by: ASSESSMENT AND PLAN: Acute Hypoxic Respiratory Failure COVID19 Pneumonia ARDS Left Pneumothorax s/p pigtail catheter placement Subcutaneous Emphysema HTN DM Parkinsons - antibiotics per ID - continue anticoagulation - empiric steroids - trend inflammatory markers - titrate FiO2, PEEP to keep SpO2 >90% - low tidal volume ventilation - keep Pplat <30 - monitor urine output, creatinine - chest tube to low wall suction - lighten sedation in AM to assess mental status - spontaneous breathing trials as tolerated when mental status improved - enteral feeds - DVT/GI prophylaxis - continue ICU monitoring critical care time spent in reviewing chart, evaluating patient and formulating plan 35 min
[2019-10-08] MEDS ORDERED: PT OWN MED DRAWER 7, Y5N ONE ×2 (15:07→22:55)
[2019-10-08] MEDS ORDERED: fentaNYL CITRATE 250 MCG/5 ML VIAL ONE (17:11)
[2019-10-08 21:54] LABS: BLOOD UREA NITROGEN 44.6 mg/dL (7-18); CREATININE 0.7 mg/dL (0.55-1.3); POTASSIUM 5.3 mmol/L (3.5-5.1)
[2019-10-08] MEDS ORDERED: SODIUM POLYSTYRENE SULFONATE 15 GM/60 ML BOTTLE PO ONE (22:04)
[2019-10-08] MEDS: NOREPINEPHRINE BITARTRATE 8,000 MCG/500 ML BAG IVPB SCH ×2 (22:53→22:54)
[2019-10-08] MEDS: CHLORHEXIDINE GLUCONATE 4% CLEANSER FOR DECOLONIZATION TP SCH (23:00)
--- NOTE | 2019-10-08 23:12 | PN ---
Physical Exam: SUBJECTIVE: Patient seen and examined. Overnight, glucose was 380, so 10 units novolog was given. Repeat glucose was 379. Levemir was increased to 10 by night team. Pt was given 0.7 mcg norepi 2/2 variable blood pressure. OBJECTIVE: Vital Signs Period Temp Pulse Resp BP Sys/Cedillo Pulse Ox Last 24 Hr 96.7 F-98.7 F 51-100 20-34 94-178/53-121 75-100 GENERAL: sedated and intubated HEENT: Normal with no signs of trauma. PERRL LUNGS: Breath sounds equal, crepitations b/l. no wheezes, no accessory muscle use. HEART: Regular rate and rhythm, S1, S2 without murmur, rub or gallop. ABDOMEN: Soft, nontender, nondistended, normoactive bowel sounds, no guarding, no rebound EXTREMITIES: 2+ pulses, warm, well-perfused, b/l 2+ LE edema Laboratory Results - last 24 hr 10/08/19 10/08/19 10/08/19 05:13 05:15 05:15 WBC 31.8 H* RBC 3.93 L Hgb 10.6 L Hct 33.4 L MCV 85.1 MCH 27.0 MCHC 31.8 L RDW 20.0 H Plt Count 459 H MPV 8.7 Absolute Neuts (auto) 30.2 H Neutrophils % 95.1 H Neutrophils % (Manual) 91.0 H Band Neutrophils % 0.0 Lymphocytes % 1.8 L D Lymphocytes % (Manual) 4.0 L D Monocytes % 2.8 L Monocytes % (Manual) 2 L Eosinophils % 0.0 D Eosinophils % (Manual) 0.0 Basophils % 0.3 D Basophils % (Manual) 0.0 Myelocytes % (Man) 3 H D Promyelocytes % (Man) 0 Blast Cells % (Manual) 0 Nucleated RBC % 0 Metamyelocytes 0 Hypochromia 0 Platelet Estimate Normal Polychromasia 0 Poikilocytosis 1+ Anisocytosis 1+ Microcytosis 1+ Macrocytosis 1+ [place] Cells 1+ D-Dimer Sodium 140 Potassium 6.1 H* Chloride 103 Carbon Dioxide 37 H Anion Gap 0 L BUN 45.7 H Creatinine 0.8 Est GFR (CKD-EPI)AfAm 93.75 Est GFR (CKD-EPI)NonAf 80.89 POC Glucometer 372 Random Glucose 395 H Calcium 7.0 L Phosphorus 2.6 Magnesium 3.0 H Total Bilirubin 0.4 AST 30 ALT 18 Alkaline Phosphatase 147 H LD Total 436 H C-Reactive Protein 1.0 H Total Protein 5.0 L Albumin 1.6 L 10/08/19 10/08/19 10/08/19 05:15 08:25 11:36 WBC RBC Hgb Hct MCV MCH MCHC RDW Plt Count MPV Absolute Neuts (auto) Neutrophils % Neutrophils % (Manual) Band Neutrophils % Lymphocytes % Lymphocytes % (Manual) Monocytes % Monocytes % (Manual) Eosinophils % Eosinophils % (Manual) Basophils % Basophils % (Manual) Myelocytes % (Man) Promyelocytes % (Man) Blast Cells % (Manual) Nucleated RBC % Metamyelocytes Hypochromia Platelet Estimate Polychromasia Poikilocytosis Anisocytosis Microcytosis Macrocytosis [place] Cells D-Dimer 971 H Sodium 140 Potassium 5.7 H Chloride 104 Carbon Dioxide 36 H Anion Gap 0 L BUN 44.6 H Creatinine 0.8 Est GFR (CKD-EPI)AfAm 93.75 Est GFR (CKD-EPI)NonAf 80.89 POC Glucometer 328 Random Glucose 382 H Calcium 7.0 L Phosphorus Magnesium Total Bilirubin AST ALT Alkaline Phosphatase LD Total C-Reactive Protein Total Protein Albumin 10/08/19 10/08/19 16:52 20:45 WBC RBC Hgb Hct MCV MCH MCHC RDW Plt Count MPV Absolute Neuts (auto) Neutrophils % Neutrophils % (Manual) Band Neutrophils % Lymphocytes % Lymphocytes % (Manual) Monocytes % Monocytes % (Manual) Eosinophils % Eosinophils % (Manual) Basophils % Basophils % (Manual) Myelocytes % (Man) Promyelocytes % (Man) Blast Cells % (Manual) Nucleated RBC % Metamyelocytes Hypochromia Platelet Estimate Polychromasia Poikilocytosis Anisocytosis Microcytosis Macrocytosis [place] Cells D-Dimer Sodium 142 Potassium 5.3 H Chloride 105 Carbon Dioxide 36 H Anion Gap 1 L BUN 44.6 H Creatinine 0.7 Est GFR (CKD-EPI)AfAm 99.04 Est GFR (CKD-EPI)NonAf 85.45 POC Glucometer 189 Random Glucose 188 H Calcium 7.0 L Phosphorus Magnesium Total Bilirubin AST ALT Alkaline Phosphatase LD Total C-Reactive Protein Total Protein Albumin Active Medications Generic Name Dose Route Start Last Admin Trade Name Freq PRN Reason Stop Dose Admin Acetaminophen 650 mg 08/20/20 17:45 Tylenol - PO Q4H PRN PAIN LEVEL 1-5 Amlodipine Besylate 5 mg 09/28/19 10:00 10/08/19 09:47 Norvasc - PO 5 mg DAILY [facility] Administration Ascorbic Acid 500 mg 09/28/19 22:00 10/08/19 09:47 Vitamin C - PO 500 mg BID [facility] Administration Bacitracin 1 applic 10/07/19 11:15 10/08/19 09:49 Bacitracin - TP 1 applic DAILY [facility] Administration Carbidopa/Levodopa 1 each 09/27/19 22:00 10/08/19 09:47 Sinemet 25/250 - PO 1 each BID [facility] Administration Chlorhexidine Gluconate 1 applic 09/30/19 22:00 10/07/19 22:09 Hibiclens For Decolonization - TP 1 applic HS [facility] Administration Cholecalciferol 1,000 unit 09/28/19 11:30 10/08/19 12:48 Vitamin D3 - PO 1,000 unit DAILY [facility] Administration Enoxaparin Sodium 60 mg 09/28/19 10:00 10/08/19 09:47 Lovenox - SQ 60 mg BID [facility] Administration Piperacillin Sod/Tazobactam 50 mls @ 100 mls/hr 09/28/19 18:00 10/08/19 17:04 Sod 3.375 gm/ Dextrose IVPB 100 mls/hr Q8H-IV [facility] Administration Protocol Propofol 1,000,000 mcg in 100 mls @ 3.47 mls/hr 09/29/19 09:45 10/08/19 19:12 Diprivan - IVPB 30 mcg/kg/min TITR [facility] 10.41 mls/hr Titration Protocol 10 MCG/KG/MIN Fentanyl 500 mcg in 100 mls @ 10 mls/hr 09/29/19 09:45 10/08/19 17:31 Sublimaze Ivpb IVPB 75 mcg/hr TITR [facility] 15 mls/hr Administration 50 MCG/HR Metronidazole 500 mg in 100 mls @ 100 mls/hr 09/29/19 14:15 10/08/19 17:05 Flagyl 500mg Premixed Ivpb - IVPB 100 mls/hr Q8H-IV [facility] Administration Norepinephrine Bitartrate 8,000 mcg in 500 mls @ 18.75 mls/hr 10/06/19 20:30 10/08/19 22:54 Levophed Bag IVPB Not Given TITR [facility] Protocol 5 MCG/MIN Insulin Aspart 1 vial 09/27/19 22:00 10/08/19 16:56 Novolog Vial Sliding Scale - SQ 2 units ACHS [facility] Administration Protocol Insulin Detemir 10 units 10/08/19 22:00 Levemir Vial SQ HS [facility] Losartan Potassium 50 mg 09/28/19 10:00 10/08/19 11:09 Cozaar - PO 50 mg DAILY [facility] Administration Methylprednisolone Sodium Succinate 30 mg 10/01/19 22:00 10/08/19 11:08 Solu-Medrol - IVPUSH 30 mg BID [facility] Administration Pantoprazole Sodium 40 mg 10/02/19 10:00 10/08/19 09:47 Protonix Iv IVPUSH 40 mg DAILY [facility] Administration Potassium Phos/Sodium Phos 1 packet 10/05/19 14:00 10/07/19 14:07 Phos-Nak Packet - PO Not Given TID [facility] Pramipexole Dihydrochloride 0.125 mg 09/27/19 22:00 10/08/19 15:24 Mirapex - PO 0.125 mg TID [facility] Administration Zinc Sulfate 220 mg 09/28/19 22:00 10/08/19 09:47 Orazinc - PO 220 mg BID [facility] Administration ASSESSMENT/PLAN: 84 YO M PMH HTN, DM, Parkinson's presents with SOB and non-productive cough for 4-5 days. Admitted to ICU for acute hypoxic respiratory failure. Neuro #Acute Metabolic Encephalopathy #Parkinson's disease -intubated and sedated. currently 30 mcg propofol -c/w home rx: mirapex & carbidopa/levodopa Pulm #Acute Hypoxic Respiratory Failure 2/2 COVID19 Pneumonia -COVID ([facility]) negative. Ab positive -Chest CT: ground glass infiltrates in Left upper and lower lobes. possible covid pneumonitis -Intubated and sedated. A/C : Rate 26/Tv 360/FIO2 40%/ PEEP 5/ Pplat 26 -Solumedrol 30 mg IV push BID -maintain o2 sat >90% - C/w monitoring inflammatory markers. D dimer downtrended to 971. CRP 1. LDH 436. #ARDS #Left Pneumothorax, s/p pigtail catheter placement -CXR (10/07): no R sided pneumothorax. small residual L pneumothorax. L sided chest tube #Subcutaneous Emphysema Cardio #Septic Shock 2/2 COVID-19 Pneumonia #CAD #Chronic Diastolic CHF #HTN -variable BP. 0.7 mcg norepi given overnight. -cardio consult appreciated. Hold home Amlodipine 5, Losartan 50 -maintain MAP > 65 -Cardio consulted ID #COVID-19 Pneumonitis #Suspected C. diff Infection -discussed with ID (Dr. Almendarez). will stop PO Vanc and observe pt -Zosyn 3.375 gm (started 09/27) -IV Flagyl 500 Q8H (started 09/28) Endo #DM -Hold home Glimepiride -BGM -ISS ACHS -Levemir 5U HS Renal #Hyperkalemia K+ 6.1. Given 1 gm calcium gluconate IV, 10 units insulin regular and D50 amp. Repeat BMP K+ showed 5.7. Following K+ was 5.3 1653.2 I/ 1755 O, -101.8 Balance c/w monitoring I/Os FEN -no IVf -monitor lytes -Tube feeds: Glucerna @42 ml/hr, free H2O flushses every hour @25 ml/hr Prophylaxis DVT: Lovenox 60 BID GI: Protonix 40 IV daily LTD -R subclavian triple lumen 09/28 was REMOVED. Central line in R IJ placed today (10/07) -L chest tube (09/30) -ETT (09/28) Dispo -Cont to monitor in ICU -DNR ATTENDING PHYSICIAN STATEMENT I saw and evaluated the patient. I reviewed the resident's note and discussed the case with the resident. I agree with the resident's findings and plan as documented. SUBJECTIVE: OBJECTIVE: ASSESSMENT AND PLAN:
[2019-10-08] MEDS: INSULIN (LEVEMIR) 100 UNITS/ML UNITS SQ SCH (23:22)
[2019-10-09] MEDS ORDERED: PIPERACILLIN/TAZOBACTAM 3.375 GM VIAL IVPB ONE ×4 (00:39→17:14)
[2019-10-09] MEDS ORDERED: DEXTROSE 5%-WATER - 50 ML IVPB ONE ×4 (00:40→17:14)
[2019-10-09] MEDS: PIPERACILLIN/TAZOB 3.375 GM 3.375 GM in DEXTROSE 5%-WATER - 50 ML IVPB SCH ×3 (01:07→17:06)
[2019-10-09] MEDS ORDERED: FENTANYL NS IVPB 500 MCG/100 ML BAG IVPB ONE (04:11)
[2019-10-09 06:08] LABS: ARTERIAL BLOOD GAS BASE EXCESS 3.2 mmol/L (-2-2); ARTERIAL BLOOD GAS pH 7.406 (7.350-7.450)
[2019-10-09 06:25] LABS: ALLENS TEST POSITIVE
[2019-10-09 06:26] LABS: VENT MODE A/C; VENT RATE 26
--- NOTE | 2019-10-09 06:32 | PN ---
Progress Note (short form) - Note Progress Note: Chief Complaint: Events noted, notes reviewed, remains intubated and sedated, overall no significant change in status- poor prognosis History of Present Illness: Seen and examined in the ICU. Events noted, notes reviewed, remains intubated and sedated, overall no significant change in status- poor prognosis Medications: Current Medications Generic Name Dose Route Start Last Admin Trade Name Freq PRN Reason Stop Dose Admin Acetaminophen 650 mg 09/27/19 17:45 Tylenol - PO Q4H PRN PAIN LEVEL 1-5 Amlodipine Besylate 5 mg 09/28/19 10:00 10/08/19 09:47 Norvasc - PO 5 mg DAILY [facility] Administration Ascorbic Acid 500 mg 09/28/19 22:00 10/08/19 23:00 Vitamin C - PO 500 mg BID [facility] Administration Bacitracin 1 applic 10/07/19 11:15 10/08/19 09:49 Bacitracin - TP 1 applic DAILY [facility] Administration Carbidopa/Levodopa 1 each 09/27/19 22:00 10/08/19 23:00 Sinemet 25/250 - PO 1 each BID [facility] Administration Chlorhexidine Gluconate 1 applic 09/30/19 22:00 10/08/19 23:00 Hibiclens For Decolonization - TP 1 applic HS [facility] Administration Cholecalciferol 1,000 unit 09/28/19 11:30 10/08/19 12:48 Vitamin D3 - PO 1,000 unit DAILY [facility] Administration Enoxaparin Sodium 60 mg 09/28/19 10:00 10/08/19 23:03 Lovenox - SQ 60 mg BID [facility] Administration Piperacillin Sod/Tazobactam 50 mls @ 100 mls/hr 09/28/19 18:00 10/09/19 01:07 Sod 3.375 gm/ Dextrose IVPB 100 mls/hr Q8H-IV [facility] Administration Protocol Propofol 1,000,000 mcg in 100 mls @ 3.47 mls/hr 09/29/19 09:45 10/08/19 20:00 Diprivan - IVPB 25 mcg/kg/min TITR [facility] 8.675 mls/hr Administration Protocol 10 MCG/KG/MIN Fentanyl 500 mcg in 100 mls @ 10 mls/hr 09/29/19 09:45 10/08/19 23:05 Sublimaze Ivpb IVPB 100 mcg/hr TITR [facility] 20 mls/hr Administration 50 MCG/HR Metronidazole 500 mg in 100 mls @ 100 mls/hr 09/29/19 14:15 10/09/19 01:53 Flagyl 500mg Premixed Ivpb - IVPB 100 mls/hr Q8H-IV [facility] Administration Norepinephrine Bitartrate 8,000 mcg in 500 mls @ 18.75 mls/hr 10/06/19 20:30 10/08/19 22:54 Levophed Bag IVPB Not Given TITR [facility] Protocol 5 MCG/MIN Insulin Aspart 1 vial 09/27/19 22:00 10/08/19 23:21 Novolog Vial Sliding Scale - SQ 2 units ACHS [facility] Administration Protocol Insulin Detemir 10 units 10/08/19 22:00 10/08/19 23:22 Levemir Vial SQ 10 units HS [facility] Administration Losartan Potassium 50 mg 09/28/19 10:00 10/08/19 11:09 Cozaar - PO 50 mg DAILY [facility] Administration Methylprednisolone Sodium Succinate 30 mg 10/01/19 22:00 10/08/19 23:00 Solu-Medrol - IVPUSH 30 mg BID [facility] Administration Pantoprazole Sodium 40 mg 10/02/19 10:00 10/08/19 09:47 Protonix Iv IVPUSH 40 mg DAILY [facility] Administration Potassium Phos/Sodium Phos 1 packet 10/05/19 14:00 10/07/19 14:07 Phos-Nak Packet - PO Not Given TID [facility] Pramipexole Dihydrochloride 0.125 mg 09/27/19 22:00 10/08/19 23:00 Mirapex - PO 0.125 mg TID [facility] Administration Zinc Sulfate 220 mg 09/28/19 22:00 10/08/19 23:00 Orazinc - PO 220 mg BID [facility] Administration Review of Systems Unable to obtain/intubated and sedated Vital Signs: Last Vital Signs Temp Pulse Resp BP Pulse Ox 98.2 F 61 29 H 127/69 94 L 10/08/19 22:00 10/09/19 04:00 10/09/19 05:07 10/09/19 04:00 10/09/19 00:00 Intake & Output 10/06/19 10/07/19 10/08/19 10/09/19 23:59 23:59 23:59 23:59 Intake Total 1909 1653.2 1933 200 Output Total 2049 8125 2335 Balance -140 -101.8 -402 200 Weight 136 lb 10.986 oz 136 lb 3.931 oz 136 lb 3.931 oz Neck: Supple Negative JVD Respiratory: Diminished Breath Sounds at the Bases Cardiovascular: S1 S2 Regular Rate and rhythm Gastrointestinal: Soft Benign Normal Bowel Sounds Ext: Edema Labs: CBC, BMP 10/09/19 06:00 10/09/19 06:00 CBC, BMP 10/08/19 05:15 10/08/19 20:45 Hepatic Panel Total Bilirubin 0.4 mg/dL (0.2-1) 10/08/19 05:15 AST 30 U/L (15-37) 10/08/19 05:15 ALT 18 U/L (13-61) 10/08/19 05:15 Alkaline Phosphatase 147 U/L (45-117) H 10/08/19 05:15 Albumin 1.6 g/dl (3.4-5.0) L 10/08/19 05:15 INR, PTT INR 1.31 (0.83-1.09) H 10/07/19 08:30 Assessment/Plan ASSESSMENT: 1. Acute hypoxic respiratory failure on mechanical ventilation/sepsis syndrome/septic shock 2. Coronavirus/COVID 19 pneumonitis with adult respiratory distress and 3. Coronary artery disease angina pectoris 4. Diastolic left ventricular dysfunction with clinical class 0 [place] [employer] classification of ventricular failure 5. Hypertensive cardiovascular disease 6. Diabetes mellitus 7. Pneumothorax 8. Parkinson's disease 9. Prerenal azotemia 10. Anemia PLAN: 1. Ventilator management as per the critical care team 2. Antibiotics as per the primary/critical care team 3. Withhold Norvasc therapy in view of hypotension 4. Withhold Cozaar therapy in view of hypotension 5. Continue anticoagulation therapy with Lovenox with caution and close monitoring of hemoglobin level 6. Correction of prerenal azotemia As outlined above overall poor prognosis Tegan Beach MD
[2019-10-09] MEDS: PRAMIPEXOLE DIHYDROCHLORIDE 0.125 MG TABLET PO SCH ×3 (07:03→21:12)
[2019-10-09] MEDS: INSULIN SLIDING SCALE (NOVOLOG) 1 VIAL SQ SCH ×4 (07:03→22:00)
[2019-10-09 07:38] LABS: HEMATOCRIT 33.6 % (35.4-49); HEMOGLOBIN 10.8 GM/dL (11.7-16.9); MCH 27.3 pg (25.7-33.7); MCHC 32.2 g/dl (32.0-35.9); MEAN CELL VOLUME 84.9 fl (80-96); MEAN PLT VOLUME 8.7 fl (7.5-11.1); PLATELET COUNT 471 K/MM3 (134-434); RBC 3.96 M/mm3 (4.00-5.60); RDW 19.8 % (11.9-15.9)
[2019-10-09 07:52] LABS: WHITE BLOOD COUNT 35.3 K/mm3 (4.0-10.0)
[2019-10-09 08:14] LABS: ALBUMIN 1.7 g/dl (3.4-5.0); BILIRUBIN,TOTAL 0.8 mg/dL (0.2-1); BLOOD UREA NITROGEN 41.2 mg/dL (7-18); CALCIUM 7.3 mg/dL (8.5-10.1); CREATININE 0.7 mg/dL (0.55-1.3); MAGNESIUM 2.8 mg/dL (1.8-2.4); PHOSPHOROUS 2.5 mg/dL (2.5-4.9); POTASSIUM 5.7 mmol/L (3.5-5.1); TOT PROT 5.1 g/dl (6.4-8.2)
[2019-10-09] MEDS ORDERED: INSULIN REGULAR HUMAN 100 UNITS/ML *VIAL IVPUSH ONE (09:30)
[2019-10-09] MEDS: PROPOFOL 1,000,000 MCG/100 ML VIAL IVPB SCH (10:02)
[2019-10-09] MEDS: FENTANYL IVPB 500 MCG/100 ML BAG IVPB SCH (10:03)
[2019-10-09] MEDS: BACITRACIN 15 GM TUBE TOPICAL OINTMENT TP SCH (10:03)
[2019-10-09] MEDS: PANTOPRAZOLE SODIUM 40 MG VIAL IVPUSH SCH (10:30)
[2019-10-09] MEDS: ENOXAPARIN NA (PORCINE) 60 MG/0.6 ML DISP.SYRIN SQ SCH ×2 (10:39→21:10)
[2019-10-09] MEDS: ZINC SULFATE 220 MG CAPSULE (FP) PO SCH ×2 (10:40→21:09)
[2019-10-09] MEDS: methylPREDNISolone NA SUCC 40 MG/1 ML VIAL IVPUSH SCH ×2 (10:40→21:11)
[2019-10-09] MEDS: CARBIDOPA/LEVODOPA 25/250 TABLET (FP) PO SCH ×2 (10:40→21:10)
[2019-10-09] MEDS: ASCORBIC ACID 500 MG TABLET (FP) PO SCH ×2 (10:40→21:09)
[2019-10-09] MEDS: CHOLECALCIFEROL (VIT D3) 1,000 UNIT (25 MCG) TABLET PO SCH (10:40)
--- NOTE | 2019-10-09 12:31 | PN ---
Teaching Attending Note Name of Resident: Javi Lopez ATTENDING PHYSICIAN STATEMENT I saw and evaluated the patient. I reviewed the resident's note and discussed the case with the resident. I agree with the resident's findings and plan as documented. SUBJECTIVE: Pt seen and examined in the ICU. Remains intubated, sedated. Back on levophed gt t 10mcgs. Vented on volume assist control with 60% FiO2. OBJECTIVE: Vital Signs Period Temp Pulse Resp BP Sys/Cedillo Pulse Ox Last 24 Hr 96.7 F-98.3 F 61-100 18-34 93-179/53-121 75-100 Intake & Output 10/06/19 10/07/19 10/08/19 10/09/19 23:59 23:59 23:59 23:59 Intake Total 1910 1653.2 1933 1349 Output Total 2049 1755 2335 630 Balance -140 -101.8 -402 719 Weight 62 kg 61.8 kg 61.8 kg 65.091 kg Gen: intubated, sedated Heart: RRR Lung: scattered rhonchi Abd: soft, nontender Ext: + edema Chest tube with air leak CBC, BMP 10/09/19 06:00 10/09/19 06:00 Active Medications Acetaminophen (Tylenol -) 650 mg PO Q4H PRN PRN Reason: PAIN LEVEL 1-5 Ascorbic Acid (Vitamin C -) 500 mg PO BID [facility] Last Admin: 10/09/19 10:40 Dose: 500 mg Documented by: Bacitracin (Bacitracin -) 1 applic TP DAILY [facility] Last Admin: 10/09/19 10:03 Dose: 1 applic Documented by: Carbidopa/Levodopa (Sinemet 25/250 -) 1 each PO BID [facility] Last Admin: 10/09/19 10:40 Dose: 1 each Documented by: Chlorhexidine Gluconate (Hibiclens For Decolonization -) 1 applic TP HS [facility] Last Admin: 10/08/19 23:00 Dose: 1 applic Documented by: Cholecalciferol (Vitamin D3 -) 1,000 unit PO DAILY [facility] Last Admin: 10/09/19 10:40 Dose: 1,000 unit Documented by: Enoxaparin Sodium (Lovenox -) 60 mg SQ BID [facility] Last Admin: 10/09/19 10:39 Dose: 60 mg Documented by: Piperacillin Sod/Tazobactam (Sod 3.375 gm/ Dextrose) 50 mls @ 100 mls/hr IVPB Q8H-IV [facility]; Protocol Last Admin: 10/09/19 10:41 Dose: 100 mls/hr Documented by: Propofol (Diprivan -) 1,000,000 mcg in 100 mls @ 3.47 mls/hr IVPB TITR [facility]; Protocol Last Admin: 10/09/19 10:02 Dose: 25 mcg/kg/min, 8.675 mls/hr Documented by: Fentanyl (Sublimaze Ivpb) 500 mcg in 100 mls @ 10 mls/hr IVPB TITR [facility] Last Admin: 10/09/19 10:03 Dose: 100 mcg/hr, 20 mls/hr Documented by: Metronidazole (Flagyl 500mg Premixed Ivpb -) 500 mg in 100 mls @ 100 mls/hr IVPB Q8H-IV [facility] Last Admin: 10/09/19 10:03 Dose: 100 mls/hr Documented by: Norepinephrine Bitartrate (Levophed Bag) 8,000 mcg in 500 mls @ 18.75 mls/hr IVPB TITR [facility]; Protocol Last Admin: 10/08/19 22:54 Dose: Not Given Documented by: Insulin Aspart (Novolog Vial Sliding Scale -) 1 vial SQ [facility]; Protocol Last Admin: 10/09/19 12:21 Dose: 6 units Documented by: Insulin Detemir (Levemir Vial) 10 units SQ [facility] Last Admin: 10/08/19 23:22 Dose: 10 units Documented by: Methylprednisolone Sodium Succinate (Solu-Medrol -) 30 mg IVPUSH BID [facility] Last Admin: 10/09/19 10:40 Dose: 30 mg Documented by: Pantoprazole Sodium (Protonix Iv) 40 mg IVPUSH DAILY [facility] Last Admin: 10/08/19 09:47 Dose: 40 mg Documented by: Potassium Phos/Sodium Phos (Phos-Nak Packet -) 1 packet PO TID [facility] Last Admin: 10/07/19 14:07 Dose: Not Given Documented by: Pramipexole Dihydrochloride (Mirapex -) 0.125 mg PO TID [facility] Last Admin: 10/09/19 07:03 Dose: 0.125 mg Documented by: Sodium Zirconium Cyclosilicate (Lokelma) 5 gm PO ONCE ONE Stop: 10/09/19 12:28 Zinc Sulfate (Orazinc -) 220 mg PO BID [facility] Last Admin: 10/09/19 10:40 Dose: 220 mg Documented by: ASSESSMENT AND PLAN: Acute Hypoxic Respiratory Failure COVID19 Pneumonia ARDS Septic Shock Left Pneumothorax s/p pigtail catheter placement Subcutaneous Emphysema HTN DM Parkinsons - antibiotics per ID - continue anticoagulation - empiric steroids - trend inflammatory markers - titrate pressors to maintain MAP >65 - titrate FiO2, PEEP to keep SpO2 >90% - low tidal volume ventilation - keep Pplat <30 - monitor urine output, creatinine - chest tube to low wall suction - sedate for vent synchrony - enteral feeds - DVT/GI prophylaxis - continue ICU monitoring critical care time spent in reviewing chart, evaluating patient and formulating plan 35 min
[2019-10-09] MEDS ORDERED: SODIUM ZIRCONIUM CYCLOSILICATE (LOKELMA) 5 GM PACKET PO ONE (13:00)
--- NOTE | 2019-10-09 14:03 | PN ---
Progress Note, Physician History of Present Illness: continues to be intubated now back on levaphed wbc has jumped up - Current Medication List Current Medications: Active Medications Acetaminophen (Tylenol -) 650 mg PO Q4H PRN PRN Reason: PAIN LEVEL 1-5 Ascorbic Acid (Vitamin C -) 500 mg PO BID [facility] Last Admin: 10/09/19 10:40 Dose: 500 mg Documented by: Bacitracin (Bacitracin -) 1 applic TP DAILY [facility] Last Admin: 10/09/19 10:03 Dose: 1 applic Documented by: Carbidopa/Levodopa (Sinemet 25/250 -) 1 each PO BID [facility] Last Admin: 10/09/19 10:40 Dose: 1 each Documented by: Chlorhexidine Gluconate (Hibiclens For Decolonization -) 1 applic TP HS [facility] Last Admin: 10/08/19 23:00 Dose: 1 applic Documented by: Cholecalciferol (Vitamin D3 -) 1,000 unit PO DAILY [facility] Last Admin: 10/09/19 10:40 Dose: 1,000 unit Documented by: Enoxaparin Sodium (Lovenox -) 60 mg SQ BID [facility] Last Admin: 10/09/19 10:39 Dose: 60 mg Documented by: Piperacillin Sod/Tazobactam (Sod 3.375 gm/ Dextrose) 50 mls @ 100 mls/hr IVPB Q8H-IV [facility]; Protocol Last Admin: 10/09/19 10:41 Dose: 100 mls/hr Documented by: Propofol (Diprivan -) 1,000,000 mcg in 100 mls @ 3.47 mls/hr IVPB TITR [facility]; Protocol Last Admin: 10/09/19 10:02 Dose: 25 mcg/kg/min, 8.675 mls/hr Documented by: Fentanyl (Sublimaze Ivpb) 500 mcg in 100 mls @ 10 mls/hr IVPB TITR [facility] Last Admin: 10/09/19 10:03 Dose: 100 mcg/hr, 20 mls/hr Documented by: Metronidazole (Flagyl 500mg Premixed Ivpb -) 500 mg in 100 mls @ 100 mls/hr IVPB Q8H-IV [facility] Last Admin: 10/09/19 10:03 Dose: 100 mls/hr Documented by: Norepinephrine Bitartrate (Levophed Bag) 8,000 mcg in 500 mls @ 18.75 mls/hr IVPB TITR [facility]; Protocol Last Admin: 10/08/19 22:54 Dose: Not Given Documented by: Insulin Aspart (Novolog Vial Sliding Scale -) 1 vial SQ ACHS [facility]; Protocol Last Admin: 10/09/19 12:21 Dose: 6 units Documented by: Insulin Detemir (Levemir Vial) 10 units SQ HS [facility] Last Admin: 10/08/19 23:22 Dose: 10 units Documented by: Methylprednisolone Sodium Succinate (Solu-Medrol -) 30 mg IVPUSH BID [facility] Last Admin: 10/09/19 10:40 Dose: 30 mg Documented by: Pantoprazole Sodium (Protonix Iv) 40 mg IVPUSH DAILY [facility] Last Admin: 10/08/19 09:47 Dose: 40 mg Documented by: Potassium Phos/Sodium Phos (Phos-Nak Packet -) 1 packet PO TID [facility] Last Admin: 10/07/19 14:07 Dose: Not Given Documented by: Pramipexole Dihydrochloride (Mirapex -) 0.125 mg PO TID [facility] Last Admin: 10/09/19 07:03 Dose: 0.125 mg Documented by: Zinc Sulfate (Orazinc -) 220 mg PO BID [facility] Last Admin: 10/09/19 10:40 Dose: 220 mg Documented by: - Objective Vital Signs: Vital Signs Temperature 98.3 F 10/09/19 10:14 Pulse Rate 70 10/09/19 10:14 Respiratory Rate 32 H 10/09/19 12:46 Blood Pressure 126/64 10/09/19 10:14 O2 Sat by Pulse Oximetry (%) 97 10/09/19 10:14 Constitutional: Yes: Other Cardiovascular: Yes: S1, S2 Respiratory: Yes: Intubated, Mechanically Ventilated, Other (chest tube in place) Gastrointestinal: Yes: Normal Bowel Sounds, Soft Musculoskeletal: Yes: Other Extremities: Yes: Other Labs: CBC, BMP 10/09/19 06:00 10/09/19 06:00 INR, PTT INR 1.31 (0.83-1.09) H 10/07/19 08:30 - ....Imaging Chest X-ray: Report Reviewed, Image Reviewed Assessment/Plan Problem List - Problems (1) HTN (hypertension) Code(s): I10 - ESSENTIAL (PRIMARY) HYPERTENSION (2) Diabetes Code(s): E11.9 - TYPE 2 DIABETES MELLITUS WITHOUT COMPLICATIONS (3) Parkinson disease Code(s): G20 - PARKINSON'S DISEASE (4) Pneumonia Code(s): J18.9 - PNEUMONIA, UNSPECIFIED ORGANISM leukocytosis pneumothorax ASSESSMENT/PLAN: Acute Respiratory Failure HTN DM Parkinsons r/o covid plan continue abx monitor wbc chest tube care repeat a wbc in the afternoon continue as per icu cc 38 min
[2019-10-09] MEDS: NAPH,MB-DB/K PH,MBDB POWDER PACKET PO SCH ×2 (15:00→21:10)
[2019-10-09 16:58] VITALS: BMI 23.8
--- NOTE | 2019-10-09 18:00 | PN ---
Physical Exam: SUBJECTIVE: Patient seen and examined. Overnight MAP was 51, so levophed was increased to 1 mcg. Potassium was elevated at 6.1, so kayexalate was given by night team; Repeat BMP showed K+ of 5.3. Another repeat BMP showed K+ 5.7; lokelma and 10 units regular insulin given. Daughter called about interest in potential comfort care. OBJECTIVE: Vital Signs Period Temp Pulse Resp BP Sys/Cedillo Pulse Ox Last 24 Hr 97.5 F-98.7 F 61-100 18-32 93-179/53-121 94-100 GENERAL: sedated and intubated HEENT: Normal with no signs of trauma. PERRL LUNGS: Breath sounds equal, crepitations b/l. no wheezes, no accessory muscle use. HEART: Regular rate and rhythm, S1, S2 without murmur, rub or gallop. ABDOMEN: Soft, nontender, nondistended, normoactive bowel sounds, no guarding, no rebound EXTREMITIES: 2+ pulses, warm, well-perfused, b/l 2+ UE edema. LE edema improved. Laboratory Results - last 24 hr 10/08/19 10/08/19 10/09/19 20:45 23:07 05:55 WBC RBC Hgb Hct MCV MCH MCHC RDW Plt Count MPV D-Dimer Anticoagulation Therapy No Result Required. Puncture Site Left radial Patient Temperature No Result Required. ABG pH 7.406 ABG pCO2 46.40 H ABG pO2 75.0 L ABG HCO3 28.5 H ABG O2 Sat (Measured) 95.0 ABG O2 Content No Result Required. ABG Base Excess 3.2 H Amador Test Positive Patient On Oxygen Yes O2 Delivery Device Vent Oxygen Flow Rate 50% Vent Mode A/c Vent Rate 26 Mechanical Rate Yes PEEP 5.0 Pressure Support Vent 360 Sodium 142 Potassium 5.3 H Chloride 105 Carbon Dioxide 36 H Anion Gap 1 L BUN 44.6 H Creatinine 0.7 Est GFR (CKD-EPI)AfAm 99.04 Est GFR (CKD-EPI)NonAf 85.45 POC Glucometer 179 Random Glucose 188 H Calcium 7.0 L Phosphorus Magnesium Total Bilirubin AST ALT Alkaline Phosphatase LD Total C-Reactive Protein Total Protein Albumin 10/09/19 10/09/19 10/09/19 06:00 06:00 06:00 WBC 35.3 H* RBC 3.96 L Hgb 10.8 L Hct 33.6 L MCV 84.9 MCH 27.3 MCHC 32.2 RDW 19.8 H Plt Count 471 H MPV 8.7 D-Dimer Anticoagulation Therapy Puncture Site Patient Temperature ABG pH ABG pCO2 ABG pO2 ABG HCO3 ABG O2 Sat (Measured) ABG O2 Content ABG Base Excess Amador Test Patient On Oxygen O2 Delivery Device Oxygen Flow Rate Vent Mode Vent Rate Mechanical Rate PEEP Pressure Support Vent Sodium 140 Potassium 5.7 H Chloride 102 Carbon Dioxide 34 H Anion Gap 4 L BUN 41.2 H Creatinine 0.7 Est GFR (CKD-EPI)AfAm 99.04 Est GFR (CKD-EPI)NonAf 85.45 POC Glucometer Random Glucose 330 H Calcium 7.3 L Phosphorus 2.5 Magnesium 2.8 H Total Bilirubin 0.8 AST 47 H ALT 24 Alkaline Phosphatase 164 H LD Total 462 H C-Reactive Protein 0.7 H Total Protein 5.1 L Albumin 1.7 L 10/09/19 10/09/19 10/09/19 06:00 07:00 12:13 WBC RBC Hgb Hct MCV MCH MCHC RDW Plt Count MPV D-Dimer 1091 H Anticoagulation Therapy Puncture Site Patient Temperature ABG pH ABG pCO2 ABG pO2 ABG HCO3 ABG O2 Sat (Measured) ABG O2 Content ABG Base Excess Amador Test Patient On Oxygen O2 Delivery Device Oxygen Flow Rate Vent Mode Vent Rate Mechanical Rate PEEP Pressure Support Vent Sodium Potassium Chloride Carbon Dioxide Anion Gap BUN Creatinine Est GFR (CKD-EPI)AfAm Est GFR (CKD-EPI)NonAf POC Glucometer 335 278 Random Glucose Calcium Phosphorus Magnesium Total Bilirubin AST ALT Alkaline Phosphatase LD Total C-Reactive Protein Total Protein Albumin 10/09/19 16:38 WBC RBC Hgb Hct MCV MCH MCHC RDW Plt Count MPV D-Dimer Anticoagulation Therapy Puncture Site Patient Temperature ABG pH ABG pCO2 ABG pO2 ABG HCO3 ABG O2 Sat (Measured) ABG O2 Content ABG Base Excess Amador Test Patient On Oxygen O2 Delivery Device Oxygen Flow Rate Vent Mode Vent Rate Mechanical Rate PEEP Pressure Support Vent Sodium Potassium Chloride Carbon Dioxide Anion Gap BUN Creatinine Est GFR (CKD-EPI)AfAm Est GFR (CKD-EPI)NonAf POC Glucometer 234 Random Glucose Calcium Phosphorus Magnesium Total Bilirubin AST ALT Alkaline Phosphatase LD Total C-Reactive Protein Total Protein Albumin Active Medications Generic Name Dose Route Start Last Admin Trade Name Freq PRN Reason Stop Dose Admin Acetaminophen 650 mg 09/27/19 17:45 Tylenol - PO Q4H PRN PAIN LEVEL 1-5 Ascorbic Acid 500 mg 09/28/19 22:00 10/09/19 10:40 Vitamin C - PO 500 mg BID [facility] Administration Bacitracin 1 applic 10/07/19 11:15 10/09/19 10:03 Bacitracin - TP 1 applic DAILY [facility] Administration Carbidopa/Levodopa 1 each 09/27/19 22:00 10/09/19 10:40 Sinemet 25/250 - PO 1 each BID [facility] Administration Chlorhexidine Gluconate 1 applic 09/30/19 22:00 10/08/19 23:00 Hibiclens For Decolonization - TP 1 applic HS [facility] Administration Cholecalciferol 1,000 unit 09/28/19 11:30 10/09/19 10:40 Vitamin D3 - PO 1,000 unit DAILY [facility] Administration Enoxaparin Sodium 60 mg 09/28/19 10:00 10/09/19 10:39 Lovenox - SQ 60 mg BID [facility] Administration Piperacillin Sod/Tazobactam 50 mls @ 100 mls/hr 09/28/19 18:00 10/09/19 17:06 Sod 3.375 gm/ Dextrose IVPB 100 mls/hr Q8H-IV [facility] Administration Protocol Propofol 1,000,000 mcg in 100 mls @ 3.47 mls/hr 09/29/19 09:45 10/09/19 10:02 Diprivan - IVPB 25 mcg/kg/min TITR [facility] 8.675 mls/hr Administration Protocol 10 MCG/KG/MIN Fentanyl 500 mcg in 100 mls @ 10 mls/hr 09/29/19 09:45 10/09/19 10:03 Sublimaze Ivpb IVPB 100 mcg/hr TITR [facility] 20 mls/hr Administration 50 MCG/HR Metronidazole 500 mg in 100 mls @ 100 mls/hr 09/29/19 14:15 10/09/19 17:05 Flagyl 500mg Premixed Ivpb - IVPB 100 mls/hr Q8H-IV [facility] Administration Norepinephrine Bitartrate 8,000 mcg in 500 mls @ 18.75 mls/hr 10/06/19 20:30 10/08/19 22:54 Levophed Bag IVPB Not Given TITR [facility] Protocol 5 MCG/MIN Insulin Aspart 1 vial 09/27/19 22:00 10/09/19 16:53 Novolog Vial Sliding Scale - SQ 4 units ACHS [facility] Administration Protocol Insulin Detemir 10 units 10/08/19 22:00 10/08/19 23:22 Levemir Vial SQ 10 units HS [facility] Administration Methylprednisolone Sodium Succinate 30 mg 10/01/19 22:00 10/09/19 10:40 Solu-Medrol - IVPUSH 30 mg BID [facility] Administration Pantoprazole Sodium 40 mg 10/02/19 10:00 10/09/19 10:30 Protonix Iv IVPUSH 40 mg DAILY [facility] Administration Potassium Phos/Sodium Phos 1 packet 10/05/19 14:00 10/09/19 15:00 Phos-Nak Packet - PO 1 packet TID [facility] Administration Pramipexole Dihydrochloride 0.125 mg 09/27/19 22:00 10/09/19 15:00 Mirapex - PO 0.125 mg TID [facility] Administration Zinc Sulfate 220 mg 09/28/19 22:00 10/09/19 10:40 Orazinc - PO 220 mg BID [facility] Administration ASSESSMENT/PLAN: 84 YO M PMH HTN, DM, Parkinson's presents with SOB and non-productive cough for 4-5 days. Admitted to ICU for acute hypoxic respiratory failure. Neuro #Acute Metabolic Encephalopathy #Parkinson's disease -intubated and sedated. currently 30 mcg propofol -c/w home rx: mirapex & carbidopa/levodopa Pulm #Acute Hypoxic Respiratory Failure 2/2 COVID19 Pneumonia -COVID ([facility]ERE[facility]) negative. Ab positive -Chest CT: ground glass infiltrates in Left upper and lower lobes. possible covid pneumonitis -Intubated and sedated. A/C : Rate 26/Tv 360/FIO2 60%/ PEEP 5/ Pplat 24 -Solumedrol 30 mg IV push BID -maintain o2 sat >90% - C/w monitoring inflammatory markers. D dimer downtrended to 971. CRP 1. LDH 436. #ARDS #Left Pneumothorax, s/p pigtail catheter placement -CXR (10/08): Small pheripheral L pneumothorax #Subcutaneous Emphysema Cardio #Septic Shock 2/2 COVID-19 Pneumonia #CAD #Chronic Diastolic CHF #HTN -cardio consult appreciated. continue holding home Amlodipine 5, Losartan 50 given pt's fluctuating BP -maintain MAP > 65 -f/u cardiac enzymes ID #COVID-19 Pneumonitis #Suspected C. diff Infection -discussed with ID (Dr. Almendarez). will continue holding PO Vanc -Zosyn 3.375 gm (started 09/27) -IV Flagyl 500 Q8H (started 09/28) Endo #DM -Hold home Glimepiride -BGM -ISS ACHS -Levemir 5U HS Renal #Hyperkalemia K+ 5.7; lokelma and 10 units regular insulin given. 3 I/ 5 O, -402 Balance c/w monitoring I/Os FEN -no IVf -monitor lytes -Tube feeds: Glucerna @42 ml/hr, free H2O flushses every hour @25 ml/hr Prophylaxis DVT: Lovenox 60 BID GI: Protonix 40 IV daily LTD - Central line in R IJ (10/07) -L chest tube (09/30) -ETT (09/28) Dispo -Cont to monitor in ICU -DNR ATTENDING PHYSICIAN STATEMENT I saw and evaluated the patient. I reviewed the resident's note and discussed the case with the resident. I agree with the resident's findings and plan as documented. SUBJECTIVE: OBJECTIVE: ASSESSMENT AND PLAN:
[2019-10-09 18:06] LABS: BLOOD UREA NITROGEN 41.8 mg/dL (7-18); CREATININE 0.8 mg/dL (0.55-1.3); POTASSIUM 4.9 mmol/L (3.5-5.1)
[2019-10-09 18:10] LABS: CALCIUM 6.9 mg/dL (8.5-10.1)
[2019-10-09] MEDS: CHLORHEXIDINE GLUCONATE 4% CLEANSER FOR DECOLONIZATION TP SCH (21:12)
[2019-10-09] MEDS: INSULIN (LEVEMIR) 100 UNITS/ML UNITS SQ SCH (22:40)
[2019-10-09] MEDS: NOREPINEPHRINE BITARTRATE 8,000 MCG/500 ML BAG IVPB SCH (22:50)
[2019-10-10] MEDS ORDERED: DEXTROSE 5%-WATER - 50 ML IVPB ONE ×3 (00:16→17:33)
[2019-10-10] MEDS ORDERED: PIPERACILLIN/TAZOBACTAM 3.375 GM VIAL IVPB ONE ×3 (00:16→17:33)
[2019-10-10] MEDS: PIPERACILLIN/TAZOB 3.375 GM 3.375 GM in DEXTROSE 5%-WATER - 50 ML IVPB SCH ×3 (02:00→17:52)
[2019-10-10] MEDS: NAPH,MB-DB/K PH,MBDB POWDER PACKET PO SCH ×3 (05:51→21:45)
[2019-10-10] MEDS: PRAMIPEXOLE DIHYDROCHLORIDE 0.125 MG TABLET PO SCH ×3 (05:52→21:45)
[2019-10-10] MEDS: INSULIN SLIDING SCALE (NOVOLOG) 1 VIAL SQ SCH ×4 (05:59→21:45)
[2019-10-10 06:26] LABS: ARTERIAL BLOOD GAS BASE EXCESS 5.9 mmol/L (-2-2); ARTERIAL BLOOD GAS PO2 83.6 mmHg (80-100); ARTERIAL BLOOD GAS pH 7.389 (7.350-7.450)
[2019-10-10 06:52] LABS: ALLENS TEST POSITIVE
[2019-10-10 06:53] LABS: VENT MODE A/C; VENT RATE 26
[2019-10-10 07:18] LABS: BASO % 0.1 % (0-2.0); HEMOGLOBIN 9.7 GM/dL (11.7-16.9); LYMPH % 2.4 % (8-40); MCH 27.5 pg (25.7-33.7); MCHC 32.4 g/dl (32.0-35.9); MEAN CELL VOLUME 84.8 fl (80-96); MEAN PLT VOLUME 8.5 fl (7.5-11.1); NEUT % 94.5 % (42.8-82.8); PLATELET COUNT 373 K/MM3 (134-434); RBC 3.54 M/mm3 (4.00-5.60); RDW 19.6 % (11.9-15.9)
[2019-10-10 07:28] LABS: ALBUMIN 1.4 g/dl (3.4-5.0); BILIRUBIN,TOTAL 0.5 mg/dL (0.2-1); BLOOD UREA NITROGEN 36.4 mg/dL (7-18); CREATININE 0.6 mg/dL (0.55-1.3); MAGNESIUM 2.4 mg/dL (1.8-2.4); PHOSPHOROUS 3.8 mg/dL (2.5-4.9); POTASSIUM 5.2 mmol/L (3.5-5.1); TOT PROT 4.5 g/dl (6.4-8.2)
[2019-10-10 07:41] LABS: WHITE BLOOD COUNT 30.6 K/mm3 (4.0-10.0)
[2019-10-10] MEDS ORDERED: FENTANYL NS IVPB 500 MCG/100 ML BAG IVPB ONE ×2 (07:48→21:31)
[2019-10-10 07:53] LABS: CALCIUM 6.6 mg/dL (8.5-10.1)
[2019-10-10 09:14] LABS: MACROCYTOSIS 0; PLATELET ESTIMATE NORMAL
[2019-10-10 09:21] LABS: ANISOCYTOSIS 0
[2019-10-10] MEDS: ENOXAPARIN NA (PORCINE) 60 MG/0.6 ML DISP.SYRIN SQ SCH ×2 (09:57→12:18)
[2019-10-10] MEDS: PANTOPRAZOLE SODIUM 40 MG VIAL IVPUSH SCH (09:57)
[2019-10-10] MEDS: methylPREDNISolone NA SUCC 40 MG/1 ML VIAL IVPUSH SCH ×2 (09:57→21:46)
[2019-10-10] MEDS: ASCORBIC ACID 500 MG TABLET (FP) PO SCH ×2 (09:58→21:46)
[2019-10-10] MEDS: ZINC SULFATE 220 MG CAPSULE (FP) PO SCH ×2 (09:58→21:45)
[2019-10-10] MEDS: CHOLECALCIFEROL (VIT D3) 1,000 UNIT (25 MCG) TABLET PO SCH (09:58)
[2019-10-10] MEDS: CARBIDOPA/LEVODOPA 25/250 TABLET (FP) PO SCH ×2 (09:58→21:46)
[2019-10-10] MEDS: BACITRACIN 15 GM TUBE TOPICAL OINTMENT TP SCH (09:59)
[2019-10-10] MEDS: PROPOFOL 1,000,000 MCG/100 ML VIAL IVPB SCH (10:02)
--- NOTE | 2019-10-10 11:07 | PN ---
Progress Note, Physician History of Present Illness: Sedated and intubated 60% FIO2, PEEP 5 on levophed gtt, tolerating enteral feeds. Afebrile, elevated WBC. - Current Medication List Current Medications: Active Medications Acetaminophen (Tylenol -) 650 mg PO Q4H PRN PRN Reason: PAIN LEVEL 1-5 Ascorbic Acid (Vitamin C -) 500 mg PO BID [facility] Last Admin: 10/10/19 09:58 Dose: 500 mg Documented by: Bacitracin (Bacitracin -) 1 applic TP DAILY [facility] Last Admin: 10/10/19 09:59 Dose: 1 applic Documented by: Carbidopa/Levodopa (Sinemet 25/250 -) 1 each PO BID [facility] Last Admin: 10/10/19 09:58 Dose: 1 each Documented by: Chlorhexidine Gluconate (Hibiclens For Decolonization -) 1 applic TP HS [facility] Last Admin: 10/09/19 21:12 Dose: 1 applic Documented by: Cholecalciferol (Vitamin D3 -) 1,000 unit PO DAILY [facility] Last Admin: 10/10/19 09:58 Dose: 1,000 unit Documented by: Enoxaparin Sodium (Lovenox -) 60 mg SQ BID [facility] Last Admin: 10/10/19 09:57 Dose: 60 mg Documented by: Piperacillin Sod/Tazobactam (Sod 3.375 gm/ Dextrose) 50 mls @ 100 mls/hr IVPB Q8H-IV [facility]; Protocol Last Admin: 10/10/19 10:16 Dose: 100 mls/hr Documented by: Propofol (Diprivan -) 1,000,000 mcg in 100 mls @ 3.47 mls/hr IVPB TITR [facility]; Protocol Last Admin: 10/10/19 10:02 Dose: 35 mcg/kg/min, 12.145 mls/hr Documented by: Fentanyl (Sublimaze Ivpb) 500 mcg in 100 mls @ 10 mls/hr IVPB TITR [facility] Last Titration: 10/10/19 09:50 Dose: 75 mcg/hr, 15 mls/hr Documented by: Metronidazole (Flagyl 500mg Premixed Ivpb -) 500 mg in 100 mls @ 100 mls/hr IVPB Q8H-IV [facility] Last Admin: 10/10/19 09:57 Dose: 100 mls/hr Documented by: Norepinephrine Bitartrate (Levophed Bag) 8,000 mcg in 500 mls @ 18.75 mls/hr IVPB TITR [facility]; Protocol Last Admin: 10/09/19 22:50 Dose: 0.5 mcg/min, 1.875 mls/hr Documented by: Insulin Aspart (Novolog Vial Sliding Scale -) 1 vial SQ ACHS [facility]; Protocol Last Admin: 10/10/19 05:59 Dose: 6 units Documented by: Insulin Detemir (Levemir Vial) 10 units SQ HS [facility] Last Admin: 10/09/19 22:40 Dose: Not Given Documented by: Methylprednisolone Sodium Succinate (Solu-Medrol -) 30 mg IVPUSH BID [facility] Last Admin: 10/10/19 09:57 Dose: 30 mg Documented by: Pantoprazole Sodium (Protonix Iv) 40 mg IVPUSH DAILY [facility] Last Admin: 10/10/19 09:57 Dose: 40 mg Documented by: Potassium Phos/Sodium Phos (Phos-Nak Packet -) 1 packet PO TID [facility] Last Admin: 10/10/19 05:51 Dose: 1 packet Documented by: Pramipexole Dihydrochloride (Mirapex -) 0.125 mg PO TID [facility] Last Admin: 10/10/19 05:52 Dose: 0.125 mg Documented by: Zinc Sulfate (Orazinc -) 220 mg PO BID [facility] Last Admin: 10/10/19 09:58 Dose: 220 mg Documented by: - Objective Vital Signs: Vital Signs Temperature 97.8 F 10/10/19 10:00 Pulse Rate 66 10/10/19 10:00 Respiratory Rate 21 H 10/10/19 10:00 Blood Pressure 125/63 10/10/19 10:00 O2 Sat by Pulse Oximetry (%) 100 10/10/19 08:55 Constitutional: Yes: Other (Sedated and intubated) Cardiovascular: Yes: Regular Rate and Rhythm Respiratory: Yes: Intubated, Mechanically Ventilated, Rhonchi, Other (Left chest tube) Gastrointestinal: Yes: Normal Bowel Sounds, Soft Genitourinary: Yes: Simmons Present Edema: Yes Labs: CBC, BMP 10/10/19 06:00 10/10/19 06:00 INR, PTT INR 1.31 (0.83-1.09) H 10/07/19 08:30 - ....Imaging Chest X-ray: Report Reviewed (Bilateral pleural and pulm changes, left chest tube with small PTX) Problem List - Problems (1) ARDS (adult respiratory distress syndrome) Code(s): J80 - ACUTE RESPIRATORY DISTRESS SYNDROME (2) Acute respiratory failure with hypoxia Code(s): J96.01 - ACUTE RESPIRATORY FAILURE WITH HYPOXIA (3) COVID-19 virus IgG antibody detected Code(s): Z01.84 - ENCOUNTER FOR ANTIBODY RESPONSE EXAMINATION (4) Diabetes Code(s): E11.9 - TYPE 2 DIABETES MELLITUS WITHOUT COMPLICATIONS Qualifiers: Diabetes mellitus type: type 2 Diabetes mellitus penitentiary insulin use: without exterminator termite use (5) HTN (hypertension) Code(s): I10 - ESSENTIAL (PRIMARY) HYPERTENSION Qualifiers: Hypertension type: essential hypertension Qualified Code(s): I10 - Essential (primary) hypertension (6) Parkinson disease Code(s): G20 - PARKINSON'S DISEASE (7) Pneumonitis Code(s): J18.9 - PNEUMONIA, UNSPECIFIED ORGANISM (8) Pneumothorax Code(s): J93.9 - PNEUMOTHORAX, UNSPECIFIED Qualifiers: Pneumothorax type: unspecified pneumothorax Qualified Code(s): J93.9 - Pneumothorax, unspecified (9) Septic shock Code(s): A41.9 - SEPSIS, UNSPECIFIED ORGANISM; R65.21 - SEVERE SEPSIS WITH SEPTIC SHOCK Assessment/Plan 1. Acute hypoxic respiratory failure on mechanical ventilation/sepsis syndrome/septic shock 2. Coronavirus/COVID 19 pneumonitis with adult respiratory distress syndrome and leukocytosis 3. Coronary artery disease angina pectoris 4. Diastolic left ventricular dysfunction with clinical class 0 [place] [employer] classification of ventricular failure 5. Hypertensive cardiovascular disease 6. Diabetes mellitus 7. Pneumothorax and Subcutaneous Emphysema with Lt chest tube 8. Parkinson's disease 9. Prerenal azotemia improving 10. Anemia PLAN: 1. Ventilator wean as tolerated per the critical care team, chest tube 2. Antibiotics as per the primary/critical care team 3. Wean Levophed gtt to maintain MAP>65 mmHg, hold Norvasc 5 qd and Cozaar 50 qd pending hemodynamic stability 4. Continue anticoagulation therapy with Lovenox 60 bid with caution and close monitoring of hemoglobin level, IV steroids trend inflammatory markers 5. Enteral feeds
[2019-10-10] MEDS: FENTANYL IVPB 500 MCG/100 ML BAG IVPB SCH ×2 (12:16→15:29)
--- NOTE | 2019-10-10 13:14 | PN ---
Teaching Attending Note Name of Resident: Javi Lopez ATTENDING PHYSICIAN STATEMENT I saw and evaluated the patient. I reviewed the resident's note and discussed the case with the resident. I agree with the resident's findings and plan as documented. SUBJECTIVE: Pt seen and examined in the ICU. Remains intubated, sedated low dose on levophed gtts. Vented on volume assist control with 60% FiO2. OBJECTIVE: Vital Signs Period Temp Pulse Resp BP Sys/Cedillo Pulse Ox Last 24 Hr 97.8 F-98.7 F 51-78 19-29 96-169/48-73 93-100 Intake & Output 10/07/19 10/08/19 10/09/19 10/10/19 23:59 23:59 23:59 23:59 Intake Total 1653.2 1933 2913 601.9 Output Total 1755 2335 2070 700 Balance -101.8 -402 843 -98.1 Weight 61.8 kg 61.8 kg 65.091 kg 70.171 kg Gen: intubated, sedated Heart: RRR Lung: scattered rhonchi Abd: soft, nontender Ext: + edema Chest tube with air leak CBC, BMP 10/10/19 06:00 10/10/19 06:00 Active Medications Acetaminophen (Tylenol -) 650 mg PO Q4H PRN PRN Reason: PAIN LEVEL 1-5 Ascorbic Acid (Vitamin C -) 500 mg PO BID [facility] Last Admin: 10/10/19 09:58 Dose: 500 mg Documented by: Bacitracin (Bacitracin -) 1 applic TP DAILY [facility] Last Admin: 10/10/19 09:59 Dose: 1 applic Documented by: Carbidopa/Levodopa (Sinemet 25/250 -) 1 each PO BID [facility] Last Admin: 10/10/19 09:58 Dose: 1 each Documented by: Chlorhexidine Gluconate (Hibiclens For Decolonization -) 1 applic TP HS [facility] Last Admin: 10/09/19 21:12 Dose: 1 applic Documented by: Cholecalciferol (Vitamin D3 -) 1,000 unit PO DAILY [facility] Last Admin: 10/10/19 09:58 Dose: 1,000 unit Documented by: Enoxaparin Sodium (Lovenox -) 60 mg SQ BID [facility] Last Admin: 10/10/19 12:18 Dose: Not Given Documented by: Piperacillin Sod/Tazobactam (Sod 3.375 gm/ Dextrose) 50 mls @ 100 mls/hr IVPB Q8H-IV [facility]; Protocol Last Admin: 10/10/19 10:16 Dose: 100 mls/hr Documented by: Propofol (Diprivan -) 1,000,000 mcg in 100 mls @ 3.47 mls/hr IVPB TITR [facility]; Protocol Last Admin: 10/10/19 10:02 Dose: 35 mcg/kg/min, 12.145 mls/hr Documented by: Fentanyl (Sublimaze Ivpb) 500 mcg in 100 mls @ 10 mls/hr IVPB TITR [facility] Last Admin: 10/10/19 12:16 Dose: 75 mcg/hr, 15 mls/hr Documented by: Metronidazole (Flagyl 500mg Premixed Ivpb -) 500 mg in 100 mls @ 100 mls/hr IVPB Q8H-IV [facility] Last Admin: 10/10/19 09:57 Dose: 100 mls/hr Documented by: Norepinephrine Bitartrate (Levophed Bag) 8,000 mcg in 500 mls @ 18.75 mls/hr IVPB TITR [facility]; Protocol Last Admin: 10/09/19 22:50 Dose: 0.5 mcg/min, 1.875 mls/hr Documented by: Insulin Aspart (Novolog Vial Sliding Scale -) 1 vial SQ ACHS [facility]; Protocol Last Admin: 10/10/19 12:16 Dose: 6 units Documented by: Insulin Detemir (Levemir Vial) 10 units SQ HS [facility] Last Admin: 10/09/19 22:40 Dose: Not Given Documented by: Methylprednisolone Sodium Succinate (Solu-Medrol -) 30 mg IVPUSH BID [facility] Last Admin: 10/10/19 09:57 Dose: 30 mg Documented by: Pantoprazole Sodium (Protonix Iv) 40 mg IVPUSH DAILY [facility] Last Admin: 10/10/19 09:57 Dose: 40 mg Documented by: Potassium Phos/Sodium Phos (Phos-Nak Packet -) 1 packet PO TID [facility] Last Admin: 10/10/19 05:51 Dose: 1 packet Documented by: Pramipexole Dihydrochloride (Mirapex -) 0.125 mg PO TID [facility] Last Admin: 10/10/19 05:52 Dose: 0.125 mg Documented by: Zinc Sulfate (Orazinc -) 220 mg PO BID [facility] Last Admin: 10/10/19 09:58 Dose: 220 mg Documented by: ASSESSMENT AND PLAN: Acute Hypoxic Respiratory Failure COVID19 Pneumonia ARDS Septic Shock Left Pneumothorax s/p pigtail catheter placement Subcutaneous Emphysema HTN DM Parkinsons - antibiotics per ID - continue anticoagulation - empiric steroids - trend inflammatory markers - titrate pressors to maintain MAP >65 - titrate FiO2, PEEP to keep SpO2 >90% - low tidal volume ventilation - keep Pplat <30 - monitor urine output, creatinine - chest tube to low wall suction - sedate for vent synchrony - enteral feeds - DVT/GI prophylaxis - continue ICU monitoring - continue discussions regarding goals of care critical care time spent in reviewing chart, evaluating patient and formulating plan 35 min
[2019-10-10 13:40] LABS: INR 1.24 (0.83-1.09); PROTHROMBIN TIME (PATIENT) 14.7 SEC (9.7-13.0)
[2019-10-10 13:43] LABS: ACTIVATED PTT 39.5 SECONDS (25.2-36.5)
--- NOTE | 2019-10-10 13:43 | PN ---
Progress Note, Physician History of Present Illness: weaning trials failed continues to be intubated and sedate still on pressors - Current Medication List Current Medications: Active Medications Acetaminophen (Tylenol -) 650 mg PO Q4H PRN PRN Reason: PAIN LEVEL 1-5 Ascorbic Acid (Vitamin C -) 500 mg PO BID [facility] Last Admin: 10/10/19 09:58 Dose: 500 mg Documented by: Bacitracin (Bacitracin -) 1 applic TP DAILY [facility] Last Admin: 10/10/19 09:59 Dose: 1 applic Documented by: Carbidopa/Levodopa (Sinemet 25/250 -) 1 each PO BID [facility] Last Admin: 10/10/19 09:58 Dose: 1 each Documented by: Chlorhexidine Gluconate (Hibiclens For Decolonization -) 1 applic TP HS [facility] Last Admin: 10/09/19 21:12 Dose: 1 applic Documented by: Cholecalciferol (Vitamin D3 -) 1,000 unit PO DAILY [facility] Last Admin: 10/10/19 09:58 Dose: 1,000 unit Documented by: Enoxaparin Sodium (Lovenox -) 60 mg SQ BID [facility] Last Admin: 10/10/19 12:18 Dose: Not Given Documented by: Piperacillin Sod/Tazobactam (Sod 3.375 gm/ Dextrose) 50 mls @ 100 mls/hr IVPB Q8H-IV [facility]; Protocol Last Admin: 10/10/19 10:16 Dose: 100 mls/hr Documented by: Propofol (Diprivan -) 1,000,000 mcg in 100 mls @ 3.47 mls/hr IVPB TITR [facility]; Protocol Last Admin: 10/10/19 10:02 Dose: 35 mcg/kg/min, 12.145 mls/hr Documented by: Fentanyl (Sublimaze Ivpb) 500 mcg in 100 mls @ 10 mls/hr IVPB TITR [facility] Last Admin: 10/10/19 12:16 Dose: 75 mcg/hr, 15 mls/hr Documented by: Metronidazole (Flagyl 500mg Premixed Ivpb -) 500 mg in 100 mls @ 100 mls/hr IVPB Q8H-IV [facility] Last Admin: 10/10/19 09:57 Dose: 100 mls/hr Documented by: Norepinephrine Bitartrate (Levophed Bag) 8,000 mcg in 500 mls @ 18.75 mls/hr IVPB TITR [facility]; Protocol Last Admin: 10/09/19 22:50 Dose: 0.5 mcg/min, 1.875 mls/hr Documented by: Insulin Aspart (Novolog Vial Sliding Scale -) 1 vial SQ ACHS [facility]; Protocol Last Admin: 10/10/19 12:16 Dose: 6 units Documented by: Insulin Detemir (Levemir Vial) 10 units SQ HS [facility] Last Admin: 10/09/19 22:40 Dose: Not Given Documented by: Methylprednisolone Sodium Succinate (Solu-Medrol -) 30 mg IVPUSH BID [facility] Last Admin: 10/10/19 09:57 Dose: 30 mg Documented by: Pantoprazole Sodium (Protonix Iv) 40 mg IVPUSH DAILY [facility] Last Admin: 10/10/19 09:57 Dose: 40 mg Documented by: Potassium Phos/Sodium Phos (Phos-Nak Packet -) 1 packet PO TID [facility] Last Admin: 10/10/19 05:51 Dose: 1 packet Documented by: Pramipexole Dihydrochloride (Mirapex -) 0.125 mg PO TID [facility] Last Admin: 10/10/19 05:52 Dose: 0.125 mg Documented by: Zinc Sulfate (Orazinc -) 220 mg PO BID [facility] Last Admin: 10/10/19 09:58 Dose: 220 mg Documented by: - Objective Vital Signs: Vital Signs Temperature 97.7 F 10/10/19 13:39 Pulse Rate 54 L 10/10/19 13:39 Respiratory Rate 28 H 10/10/19 13:39 Blood Pressure 108/52 L 10/10/19 13:39 O2 Sat by Pulse Oximetry (%) 93 L 10/10/19 12:00 Constitutional: Yes: Other Cardiovascular: Yes: S1, S2 Respiratory: Yes: Intubated, Mechanically Ventilated, Other (chest tube in place) Gastrointestinal: Yes: Normal Bowel Sounds, Soft Musculoskeletal: Yes: WNL Extremities: Yes: WNL Labs: CBC, BMP 10/10/19 06:00 10/10/19 06:00 INR, PTT INR 1.24 (0.83-1.09) H 10/10/19 12:15 - ....Imaging Chest X-ray: Report Reviewed, Image Reviewed Assessment/Plan Problem List - Problems (1) HTN (hypertension) Code(s): I10 - ESSENTIAL (PRIMARY) HYPERTENSION (2) Diabetes Code(s): E11.9 - TYPE 2 DIABETES MELLITUS WITHOUT COMPLICATIONS (3) Parkinson disease Code(s): G20 - PARKINSON'S DISEASE (4) Pneumonia Code(s): J18.9 - PNEUMONIA, UNSPECIFIED ORGANISM leukocytosis pneumothorax ASSESSMENT/PLAN: Acute Respiratory Failure HTN DM Parkinsons r/o covid plan continue abx monitor wbc chest tube care weaning trials continue as per icu cc 38 min
[2019-10-10] MEDS: NOREPINEPHRINE BITARTRATE 8,000 MCG/500 ML BAG IVPB SCH (21:10)
[2019-10-10] MEDS ORDERED: PT OWN MED DRAWER 7, Y5N ONE ×2 (21:32→22:03)
[2019-10-10] MEDS: CHLORHEXIDINE GLUCONATE 4% CLEANSER FOR DECOLONIZATION TP SCH (21:45)
[2019-10-10] MEDS: INSULIN (LEVEMIR) 100 UNITS/ML UNITS SQ SCH (22:52)
--- NOTE | 2019-10-10 23:56 | PN ---
Physical Exam: SUBJECTIVE: Patient seen and examined. MAP was stable overnight, so levophed was decreased to 0.5 mcg/min overnight. In the AM, team attempted to wean the patient, but he failed. He desaturated to 80%. Pt was re-sedated and put back on AC. OBJECTIVE: Vital Signs Period Temp Pulse Resp BP Sys/Cedillo Pulse Ox Last 24 Hr 97.5 F-98.6 F 51-78 21-30 89-151/52-73 93-100 GENERAL: sedated and intubated HEENT: Normal with no signs of trauma. PERRL LUNGS: Breath sounds equal, crepitations b/l. no wheezes, no accessory muscle use. HEART: Regular rate and rhythm, S1, S2 without murmur, rub or gallop. ABDOMEN: Soft, nontender, nondistended, normoactive bowel sounds, no guarding, no rebound EXTREMITIES: 2+ pulses, warm, well-perfused, b/l 2+ UE edema. LE edema improved. Laboratory Results - last 24 hr 10/10/19 10/10/19 10/10/19 05:35 05:58 06:00 WBC 30.6 H* RBC 3.54 L Hgb 9.7 L Hct 30.0 L MCV 84.8 MCH 27.5 MCHC 32.4 RDW 19.6 H Plt Count 373 D MPV 8.5 Absolute Neuts (auto) 28.9 H Neutrophils % 94.5 H Neutrophils % (Manual) 93.0 H Band Neutrophils % 1.0 Lymphocytes % 2.4 L D Lymphocytes % (Manual) 4.0 L Monocytes % 3.0 L Monocytes % (Manual) 1 L Eosinophils % 0.0 Eosinophils % (Manual) 0.0 Basophils % 0.1 Basophils % (Manual) 0.0 Myelocytes % (Man) 1 D Promyelocytes % (Man) 0 Blast Cells % (Manual) 0 Nucleated RBC % 0 Metamyelocytes 0 Hypochromia 0 Platelet Estimate Normal Polychromasia 0 Poikilocytosis 0 Anisocytosis 0 Microcytosis 0 Macrocytosis 0 PT with INR INR PTT (Actin FS) D-Dimer Anticoagulation Therapy No Result Required. Puncture Site Right radial Patient Temperature No Result Required. ABG pH 7.389 ABG pCO2 54.40 H ABG pO2 83.6 ABG HCO3 32.1 H ABG O2 Sat (Measured) 96.0 ABG O2 Content No Result Required. ABG Base Excess 5.9 H Amador Test Positive Patient On Oxygen No Result Required. O2 Delivery Device Vent Oxygen Flow Rate 60% Vent Mode A/c Vent Rate 26 Mechanical Rate No Result Required. PEEP 5.0 Pressure Support Vent 360 Sodium Potassium Chloride Carbon Dioxide Anion Gap BUN Creatinine Est GFR (CKD-EPI)AfAm Est GFR (CKD-EPI)NonAf POC Glucometer 286 Random Glucose Calcium Phosphorus Magnesium Total Bilirubin AST ALT Alkaline Phosphatase LD Total Creatine Kinase Troponin I C-Reactive Protein Total Protein Albumin 10/10/19 10/10/19 10/10/19 06:00 06:00 11:47 WBC RBC Hgb Hct MCV MCH MCHC RDW Plt Count MPV Absolute Neuts (auto) Neutrophils % Neutrophils % (Manual) Band Neutrophils % Lymphocytes % Lymphocytes % (Manual) Monocytes % Monocytes % (Manual) Eosinophils % Eosinophils % (Manual) Basophils % Basophils % (Manual) Myelocytes % (Man) Promyelocytes % (Man) Blast Cells % (Manual) Nucleated RBC % Metamyelocytes Hypochromia Platelet Estimate Polychromasia Poikilocytosis Anisocytosis Microcytosis Macrocytosis PT with INR INR PTT (Actin FS) D-Dimer Anticoagulation Therapy Puncture Site Patient Temperature ABG pH ABG pCO2 ABG pO2 ABG HCO3 ABG O2 Sat (Measured) ABG O2 Content ABG Base Excess Amador Test Patient On Oxygen O2 Delivery Device Oxygen Flow Rate Vent Mode Vent Rate Mechanical Rate PEEP Pressure Support Vent Sodium 140 Potassium 5.2 H Chloride 102 Carbon Dioxide 35 H Anion Gap 3 L BUN 36.4 H Creatinine 0.6 Est GFR (CKD-EPI)AfAm 105.52 Est GFR (CKD-EPI)NonAf 91.04 POC Glucometer 266 Random Glucose 318 H Calcium 6.6 L* Phosphorus 3.8 Magnesium 2.4 Total Bilirubin 0.5 AST 28 ALT 11 L Alkaline Phosphatase 131 H LD Total 21 L Creatine Kinase 41 Troponin I 0.35 H C-Reactive Protein 0.6 H Total Protein 4.5 L Albumin 1.4 L 10/10/19 10/10/19 10/10/19 12:15 12:15 16:54 WBC RBC Hgb Hct MCV MCH MCHC RDW Plt Count MPV Absolute Neuts (auto) Neutrophils % Neutrophils % (Manual) Band Neutrophils % Lymphocytes % Lymphocytes % (Manual) Monocytes % Monocytes % (Manual) Eosinophils % Eosinophils % (Manual) Basophils % Basophils % (Manual) Myelocytes % (Man) Promyelocytes % (Man) Blast Cells % (Manual) Nucleated RBC % Metamyelocytes Hypochromia Platelet Estimate Polychromasia Poikilocytosis Anisocytosis Microcytosis Macrocytosis PT with INR 14.70 H INR 1.24 H PTT (Actin FS) 39.5 H D-Dimer 904 H Anticoagulation Therapy Puncture Site Patient Temperature ABG pH ABG pCO2 ABG pO2 ABG HCO3 ABG O2 Sat (Measured) ABG O2 Content ABG Base Excess Amador Test Patient On Oxygen O2 Delivery Device Oxygen Flow Rate Vent Mode Vent Rate Mechanical Rate PEEP Pressure Support Vent Sodium Potassium Chloride Carbon Dioxide Anion Gap BUN Creatinine Est GFR (CKD-EPI)AfAm Est GFR (CKD-EPI)NonAf POC Glucometer 121 Random Glucose Calcium Phosphorus Magnesium Total Bilirubin AST ALT Alkaline Phosphatase LD Total Creatine Kinase Troponin I C-Reactive Protein Total Protein Albumin 10/10/19 10/10/19 16:56 21:19 WBC RBC Hgb Hct MCV MCH MCHC RDW Plt Count MPV Absolute Neuts (auto) Neutrophils % Neutrophils % (Manual) Band Neutrophils % Lymphocytes % Lymphocytes % (Manual) Monocytes % Monocytes % (Manual) Eosinophils % Eosinophils % (Manual) Basophils % Basophils % (Manual) Myelocytes % (Man) Promyelocytes % (Man) Blast Cells % (Manual) Nucleated RBC % Metamyelocytes Hypochromia Platelet Estimate Polychromasia Poikilocytosis Anisocytosis Microcytosis Macrocytosis PT with INR INR PTT (Actin FS) D-Dimer Anticoagulation Therapy Puncture Site Patient Temperature ABG pH ABG pCO2 ABG pO2 ABG HCO3 ABG O2 Sat (Measured) ABG O2 Content ABG Base Excess Amador Test Patient On Oxygen O2 Delivery Device Oxygen Flow Rate Vent Mode Vent Rate Mechanical Rate PEEP Pressure Support Vent Sodium Potassium Chloride Carbon Dioxide Anion Gap BUN Creatinine Est GFR (CKD-EPI)AfAm Est GFR (CKD-EPI)NonAf POC Glucometer 318 274 Random Glucose Calcium Phosphorus Magnesium Total Bilirubin AST ALT Alkaline Phosphatase LD Total Creatine Kinase Troponin I C-Reactive Protein Total Protein Albumin Active Medications Generic Name Dose Route Start Last Admin Trade Name Freq PRN Reason Stop Dose Admin Acetaminophen 650 mg 09/27/19 17:45 Tylenol - PO Q4H PRN PAIN LEVEL 1-5 Ascorbic Acid 500 mg 09/28/19 22:00 10/10/19 21:46 Vitamin C - PO 500 mg BID [facility] Administration Bacitracin 1 applic 10/07/19 11:15 10/10/19 09:59 Bacitracin - TP 1 applic DAILY [facility] Administration Carbidopa/Levodopa 1 each 09/27/19 22:00 10/10/19 21:46 Sinemet 25/250 - PO 1 each BID [facility] Administration Chlorhexidine Gluconate 1 applic 09/30/19 22:00 10/10/19 21:45 Hibiclens For Decolonization - TP 1 applic HS [facility] Administration Cholecalciferol 1,000 unit 09/28/19 11:30 10/10/19 09:58 Vitamin D3 - PO 1,000 unit DAILY [facility] Administration Piperacillin Sod/Tazobactam 50 mls @ 100 mls/hr 09/28/19 18:00 10/10/19 17:52 Sod 3.375 gm/ Dextrose IVPB 100 mls/hr Q8H-IV [facility] Administration Protocol Propofol 1,000,000 mcg in 100 mls @ 3.47 mls/hr 09/29/19 09:45 10/10/19 10:02 Diprivan - IVPB 35 mcg/kg/min TITR [facility] 12.145 mls/hr Administration Protocol 10 MCG/KG/MIN Fentanyl 500 mcg in 100 mls @ 10 mls/hr 09/29/19 09:45 10/10/19 15:29 Sublimaze Ivpb IVPB 75 mcg/hr TITR [facility] 15 mls/hr Administration 50 MCG/HR Metronidazole 500 mg in 100 mls @ 100 mls/hr 09/29/19 14:15 10/10/19 17:52 Flagyl 500mg Premixed Ivpb - IVPB 100 mls/hr Q8H-IV [facility] Administration Norepinephrine Bitartrate 8,000 mcg in 500 mls @ 18.75 mls/hr 10/06/19 20:30 10/10/19 21:10 Levophed Bag IVPB 1.5 mcg/min TITR [facility] 5.625 mls/hr Administration Protocol 5 MCG/MIN Insulin Aspart 1 vial 09/27/19 22:00 10/10/19 21:45 Novolog Vial Sliding Scale - SQ 6 units ACHS [facility] Administration Protocol Insulin Detemir 10 units 10/08/19 22:00 10/10/19 22:52 Levemir Vial SQ 10 units HS [facility] Administration Methylprednisolone Sodium Succinate 30 mg 10/01/19 22:00 10/10/19 21:46 Solu-Medrol - IVPUSH 30 mg BID [facility] Administration Pantoprazole Sodium 40 mg 10/02/19 10:00 10/10/19 09:57 Protonix Iv IVPUSH 40 mg DAILY [facility] Administration Potassium Phos/Sodium Phos 1 packet 10/05/19 14:00 10/10/19 21:45 Phos-Nak Packet - PO 1 packet TID [facility] Administration Pramipexole Dihydrochloride 0.125 mg 09/27/19 22:00 10/10/19 21:45 Mirapex - PO 0.125 mg TID [facility] Administration Zinc Sulfate 220 mg 09/28/19 22:00 10/10/19 21:45 Orazinc - PO 220 mg BID [facility] Administration ASSESSMENT/PLAN: 84 YO M PMH HTN, DM, Parkinson's presents with SOB and non-productive cough for 4-5 days. Admitted to ICU for acute hypoxic respiratory failure. Neuro #Acute Metabolic Encephalopathy #Parkinson's disease -intubated and sedated. currently 35 mcg propofol, fentanyl 100 mcg/h -c/w home rx: mirapex & carbidopa/levodopa Pulm #Acute Hypoxic Respiratory Failure 2/2 COVID19 Pneumonia -COVID ([facility]EREEN) negative. Ab positive -Chest CT: ground glass infiltrates in Left upper and lower lobes. possible covid pneumonitis -Intubated and sedated. A/C : Rate 26/Tv 360/FIO2 60%/ PEEP 5/ Pplat 24 -Solumedrol 30 mg IV push BID -maintain o2 sat >90% - C/w monitoring inflammatory markers. D dimer downtrended to 904. CRP downtrending from 1 to 0.6. LDH downtrending from 436 to 21. -ABG: pH 7.389, CO2 54.4, O2 83.6, HCO3 32.1 -failed weaning today #ARDS #Left Pneumothorax, s/p pigtail catheter placement -CXR (10/08): Small pheripheral L pneumothorax #Subcutaneous Emphysema Cardio #Septic Shock 2/2 COVID-19 Pneumonia #CAD #Chronic Diastolic CHF #HTN -cardio consult appreciated. continue holding home Amlodipine 5, Losartan 50 given pt's fluctuating BP -maintain MAP > 65 -trop trended down from 0.4 to 0.35 ID #COVID-19 Pneumonitis #Suspected C. diff Infection -discussed with ID (Dr. Almendarez). will continue holding PO Vanc -Zosyn 3.375 gm (started 09/27) -IV Flagyl 500 Q8H (started 09/28) Endo #DM -Hold home Glimepiride -BGM -ISS ACHS -Levemir 10 units SQ HS Renal #Hyperkalemia K+ 5.2 2913 I/ 2070 O, 873 Balance c/w monitoring I/Os FEN -no IVf -monitor lytes -Tube feeds: Glucerna @42 ml/hr, free H2O flushses every hour @25 ml/hr Prophylaxis DVT: Lovenox 60 BID GI: Protonix 40 IV daily LTD -Central line in R IJ (10/07) -L chest tube (09/30) -ETT (09/28) Dispo -Cont to monitor in ICU -DNR Visit type - Emergency Visit Emergency Visit: Yes ED Registration Date: 09/27/19 Care time: The patient presented to the Emergency Department on the above date and was hospitalized for further evaluation of their emergent condition. - New Patient This patient is new to me today: No - Critical Care Critical Care patient: No - Medication Review Med list reviewed for High Risk Meds patients 65 and older: Yes ATTENDING PHYSICIAN STATEMENT I saw and evaluated the patient. I reviewed the resident's note and discussed the case with the resident. I agree with the resident's findings and plan as documented. SUBJECTIVE: OBJECTIVE: ASSESSMENT AND PLAN:
[2019-10-11] MEDS: PIPERACILLIN/TAZOB 3.375 GM 3.375 GM in DEXTROSE 5%-WATER - 50 ML IVPB SCH ×3 (02:40→17:49)
[2019-10-11] MEDS ORDERED: PIPERACILLIN/TAZOBACTAM 3.375 GM VIAL IVPB ONE ×3 (02:51→17:41)
[2019-10-11] MEDS ORDERED: DEXTROSE 5%-WATER - 50 ML IVPB ONE ×3 (02:51→17:42)
[2019-10-11] MEDS ORDERED: PT OWN MED DRAWER 7, Y5N ONE ×3 (05:52→21:20)
[2019-10-11] MEDS: PRAMIPEXOLE DIHYDROCHLORIDE 0.125 MG TABLET PO SCH ×3 (05:53→21:32)
[2019-10-11] MEDS: NAPH,MB-DB/K PH,MBDB POWDER PACKET PO SCH (05:53)
[2019-10-11] MEDS: INSULIN SLIDING SCALE (NOVOLOG) 1 VIAL SQ SCH ×4 (06:03→21:32)
[2019-10-11 06:57] LABS: BASO % 0.1 % (0-2.0); HEMATOCRIT 28.5 % (35.4-49); HEMOGLOBIN 9.1 GM/dL (11.7-16.9); LYMPH % 2.8 % (8-40); MCH 26.8 pg (25.7-33.7); MCHC 31.9 g/dl (32.0-35.9); MEAN CELL VOLUME 84.1 fl (80-96); MEAN PLT VOLUME 8.7 fl (7.5-11.1); MONO % 3.7 % (3.8-10.2); NEUT % 93.4 % (42.8-82.8); PLATELET COUNT 354 K/MM3 (134-434); RBC 3.39 M/mm3 (4.00-5.60); RDW 19.8 % (11.9-15.9)
[2019-10-11 07:28] LABS: ARTERIAL BLOOD GAS BASE EXCESS 5.2 mmol/L (-2-2); ARTERIAL BLOOD GAS PO2 66.2 mmHg (80-100); ARTERIAL BLOOD GAS pH 7.461 (7.350-7.450)
[2019-10-11 07:33] LABS: ALLENS TEST POSITIVE
[2019-10-11 07:35] LABS: VENT MODE A/C; VENT RATE 26
[2019-10-11 08:15] LABS: ALBUMIN 1.4 g/dl (3.4-5.0); BLOOD UREA NITROGEN 37.2 mg/dL (7-18); MAGNESIUM 2.5 mg/dL (1.8-2.4); POTASSIUM 5.2 mmol/L (3.5-5.1)
[2019-10-11 08:21] LABS: BILIRUBIN,TOTAL 0.4 mg/dL (0.2-1); CREATININE 0.7 mg/dL (0.55-1.3); PHOSPHOROUS 2.8 mg/dL (2.5-4.9); TOT PROT 4.4 g/dl (6.4-8.2); WHITE BLOOD COUNT 30.5 K/mm3 (4.0-10.0)
[2019-10-11 08:39] LABS: CALCIUM 6.9 mg/dL (8.5-10.1)
--- NOTE | 2019-10-11 09:27 | PN ---
Progress Note, Physician History of Present Illness: Sedated and intubated 50% FIO2, PEEP 8 on levophed gtt, tolerating enteral feeds. Afebrile, elevated WBC. - Current Medication List Current Medications: Active Medications Acetaminophen (Tylenol -) 650 mg PO Q4H PRN PRN Reason: PAIN LEVEL 1-5 Ascorbic Acid (Vitamin C -) 500 mg PO BID [facility] Last Admin: 10/10/19 21:46 Dose: 500 mg Documented by: Bacitracin (Bacitracin -) 1 applic TP DAILY [facility] Last Admin: 10/10/19 09:59 Dose: 1 applic Documented by: Carbidopa/Levodopa (Sinemet 25/250 -) 1 each PO BID [facility] Last Admin: 10/10/19 21:46 Dose: 1 each Documented by: Chlorhexidine Gluconate (Hibiclens For Decolonization -) 1 applic TP HS [facility] Last Admin: 10/10/19 21:45 Dose: 1 applic Documented by: Cholecalciferol (Vitamin D3 -) 1,000 unit PO DAILY [facility] Last Admin: 10/10/19 09:58 Dose: 1,000 unit Documented by: Piperacillin Sod/Tazobactam (Sod 3.375 gm/ Dextrose) 50 mls @ 100 mls/hr IVPB Q8H-IV [facility]; Protocol Last Admin: 10/11/19 02:40 Dose: 100 mls/hr Documented by: Propofol (Diprivan -) 1,000,000 mcg in 100 mls @ 3.47 mls/hr IVPB TITR [facility]; Protocol Last Admin: 10/10/19 10:02 Dose: 35 mcg/kg/min, 12.145 mls/hr Documented by: Fentanyl (Sublimaze Ivpb) 500 mcg in 100 mls @ 10 mls/hr IVPB TITR [facility] Last Admin: 10/10/19 15:29 Dose: 75 mcg/hr, 15 mls/hr Documented by: Metronidazole (Flagyl 500mg Premixed Ivpb -) 500 mg in 100 mls @ 100 mls/hr IVPB Q8H-IV [facility] Last Admin: 10/11/19 02:40 Dose: 100 mls/hr Documented by: Norepinephrine Bitartrate (Levophed Bag) 8,000 mcg in 500 mls @ 18.75 mls/hr IVPB TITR [facility]; Protocol Last Admin: 10/10/19 21:10 Dose: 1.5 mcg/min, 5.625 mls/hr Documented by: Insulin Aspart (Novolog Vial Sliding Scale -) 1 vial SQ [facility]; Protocol Last Admin: 10/11/19 06:03 Dose: 6 units Documented by: Insulin Detemir (Levemir Vial) 10 units SQ HS [facility] Last Admin: 10/10/19 22:52 Dose: 10 units Documented by: Methylprednisolone Sodium Succinate (Solu-Medrol -) 30 mg IVPUSH BID [facility] Last Admin: 10/10/19 21:46 Dose: 30 mg Documented by: Pantoprazole Sodium (Protonix Iv) 40 mg IVPUSH DAILY [facility] Last Admin: 10/10/19 09:57 Dose: 40 mg Documented by: Potassium Phos/Sodium Phos (Phos-Nak Packet -) 1 packet PO TID [facility] Last Admin: 10/11/19 05:53 Dose: 1 packet Documented by: Pramipexole Dihydrochloride (Mirapex -) 0.125 mg PO TID [facility] Last Admin: 10/11/19 05:53 Dose: 0.125 mg Documented by: Zinc Sulfate (Orazinc -) 220 mg PO BID [facility] Last Admin: 10/10/19 21:45 Dose: 220 mg Documented by: - Objective Vital Signs: Vital Signs Temperature 98.4 F 10/11/19 06:00 Pulse Rate 64 10/11/19 08:00 Respiratory Rate 26 H 10/11/19 09:11 Blood Pressure 129/63 10/11/19 08:00 O2 Sat by Pulse Oximetry (%) 98 10/11/19 09:11 Constitutional: Yes: Other (Sedated and intubated) Cardiovascular: Yes: Regular Rate and Rhythm Respiratory: Yes: Intubated, Mechanically Ventilated, Rhonchi, Other (Left chest tube in place) Gastrointestinal: Yes: Normal Bowel Sounds, Soft Genitourinary: Yes: Simmons Present Edema: No Labs: CBC, BMP 10/11/19 05:00 10/11/19 05:00 INR, PTT INR 1.24 (0.83-1.09) H 10/10/19 12:15 - ....Imaging Chest X-ray: Image Reviewed (Bilateral pulm infiltrates, left effusion with chest tube in place, resolving PTX) EKG: Report Reviewed (Tele: NSR) Problem List - Problems (1) ARDS (adult respiratory distress syndrome) Code(s): J80 - ACUTE RESPIRATORY DISTRESS SYNDROME (2) Acute respiratory failure with hypoxia Code(s): J96.01 - ACUTE RESPIRATORY FAILURE WITH HYPOXIA (3) COVID-19 virus IgG antibody detected Code(s): Z01.84 - ENCOUNTER FOR ANTIBODY RESPONSE EXAMINATION (4) Diabetes Code(s): E11.9 - TYPE 2 DIABETES MELLITUS WITHOUT COMPLICATIONS Qualifiers: Diabetes mellitus type: type 2 Diabetes mellitus residential insulin use: without residential use (5) HTN (hypertension) Code(s): I10 - ESSENTIAL (PRIMARY) HYPERTENSION Qualifiers: Hypertension type: essential hypertension Qualified Code(s): I10 - Essential (primary) hypertension (6) Parkinson disease Code(s): G20 - PARKINSON'S DISEASE (7) Pneumonitis Code(s): J18.9 - PNEUMONIA, UNSPECIFIED ORGANISM (8) Pneumothorax Code(s): J93.9 - PNEUMOTHORAX, UNSPECIFIED Qualifiers: Pneumothorax type: unspecified pneumothorax Qualified Code(s): J93.9 - Pneumothorax, unspecified (9) Septic shock Code(s): A41.9 - SEPSIS, UNSPECIFIED ORGANISM; R65.21 - SEVERE SEPSIS WITH SEPTIC SHOCK Assessment/Plan 1. Acute hypoxic respiratory failure on mechanical ventilation/sepsis s yndrome/septic shock 2. Coronavirus/COVID 19 pneumonitis with adult respiratory distress syndrome and leukocytosis 3. Coronary artery disease angina pectoris 4. Diastolic left ventricular dysfunction with clinical class 0 [place] [employer] classification of ventricular failure 5. Hypertensive cardiovascular disease 6. Diabetes mellitus 7. Pneumothorax and Subcutaneous Emphysema with Lt chest tube 8. Parkinson's disease 9. Prerenal azotemia improving 10. Anemia PLAN: 1. Ventilator wean as tolerated per the critical care team, chest tube 2. Antibiotics, vit C and zinc as per the primary/critical care team 3. Wean Levophed gtt to maintain MAP>65 mmHg, hold Norvasc 5 qd and Cozaar 50 qd pending hemodynamic stability 4. Continue anticoagulation therapy with Lovenox 60 bid with caution and close monitoring of hemoglobin level, IV steroids with GI protection, trend inflammatory markers 5. Enteral feeds
[2019-10-11] MEDS: CHOLECALCIFEROL (VIT D3) 1,000 UNIT (25 MCG) TABLET PO SCH (09:52)
[2019-10-11] MEDS: CARBIDOPA/LEVODOPA 25/250 TABLET (FP) PO SCH ×2 (09:52→21:33)
[2019-10-11] MEDS: ASCORBIC ACID 500 MG TABLET (FP) PO SCH ×2 (09:52→21:33)
[2019-10-11] MEDS: methylPREDNISolone NA SUCC 40 MG/1 ML VIAL IVPUSH SCH (09:52)
[2019-10-11] MEDS: PANTOPRAZOLE SODIUM 40 MG VIAL IVPUSH SCH (09:52)
[2019-10-11] MEDS: ZINC SULFATE 220 MG CAPSULE (FP) PO SCH ×2 (09:52→21:33)
[2019-10-11] MEDS: BACITRACIN 15 GM TUBE TOPICAL OINTMENT TP SCH (10:00)
[2019-10-11 11:34] LABS: ANISOCYTOSIS 1+; MACROCYTOSIS 1+; PLATELET ESTIMATE NORMAL
[2019-10-11] MEDS: PROPOFOL 1,000,000 MCG/100 ML VIAL IVPB SCH (11:55)
[2019-10-11] MEDS: FENTANYL IVPB 500 MCG/100 ML BAG IVPB SCH (12:33)
--- NOTE | 2019-10-11 13:46 | PN ---
Teaching Attending Note Name of Resident: Mickey Reynoso ATTENDING PHYSICIAN STATEMENT I saw and evaluated the patient. I reviewed the resident's note and discussed the case with the resident. I agree with the resident's findings and plan as documented. SUBJECTIVE: Pt seen and examined in the ICU. Remains intubated, sedated low dose on levophed gtts. Vented on volume assist control with 50% FiO2. Pplat 31. OBJECTIVE: Vital Signs Period Temp Pulse Resp BP Sys/Cedillo Pulse Ox Last 24 Hr 97.5 F-98.6 F 54-87 22-30 89-193/52-75 96-100 Intake & Output 10/08/19 10/09/19 10/10/19 10/11/19 23:59 23:59 23:59 23:59 Intake Total 1933 2913 1142.8 558 Output Total 2335 2070 1170 1162 Balance -402 843 -27.2 -604 Weight 61.8 kg 65.091 kg 70.171 kg 67.721 kg Gen: intubated, sedated Heart: RRR Lung: scattered rhonchi Abd: soft, nontender Ext: + edema Chest tube with no air leak CBC, BMP 10/11/19 05:00 10/11/19 05:00 Active Medications Acetaminophen (Tylenol -) 650 mg PO Q4H PRN PRN Reason: PAIN LEVEL 1-5 Ascorbic Acid (Vitamin C -) 500 mg PO BID [facility] Last Admin: 10/11/19 09:52 Dose: 500 mg Documented by: Bacitracin (Bacitracin -) 1 applic TP DAILY [facility] Last Admin: 10/11/19 10:00 Dose: 1 applic Documented by: Carbidopa/Levodopa (Sinemet 25/250 -) 1 each PO BID [facility] Last Admin: 10/11/19 09:52 Dose: 1 each Documented by: Chlorhexidine Gluconate (Hibiclens For Decolonization -) 1 applic TP HS [facility] Last Admin: 10/10/19 21:45 Dose: 1 applic Documented by: Cholecalciferol (Vitamin D3 -) 1,000 unit PO DAILY [facility] Last Admin: 10/11/19 09:52 Dose: 1,000 unit Documented by: Piperacillin Sod/Tazobactam (Sod 3.375 gm/ Dextrose) 50 mls @ 100 mls/hr IVPB Q 8H-IV [facility]; Protocol Last Admin: 10/11/19 09:50 Dose: 100 mls/hr Documented by: Propofol (Diprivan -) 1,000,000 mcg in 100 mls @ 3.47 mls/hr IVPB TITR [facility]; Protocol Last Admin: 10/11/19 11:55 Dose: 35 mcg/kg/min, 12.145 mls/hr Documented by: Fentanyl (Sublimaze Ivpb) 500 mcg in 100 mls @ 10 mls/hr IVPB TITR [facility] Last Admin: 10/11/19 12:33 Dose: 75 mcg/hr, 15 mls/hr Documented by: Metronidazole (Flagyl 500mg Premixed Ivpb -) 500 mg in 100 mls @ 100 mls/hr IVPB Q8H-IV [facility] Last Admin: 10/11/19 09:51 Dose: 100 mls/hr Documented by: Norepinephrine Bitartrate (Levophed Bag) 8,000 mcg in 500 mls @ 18.75 mls/hr IVPB TITR [facility]; Protocol Last Admin: 10/10/19 21:10 Dose: 1.5 mcg/min, 5.625 mls/hr Documented by: Insulin Aspart (Novolog Vial Sliding Scale -) 1 vial SQ ACHS [facility]; Protocol Last Admin: 10/11/19 11:56 Dose: 4 units Documented by: Insulin Detemir (Levemir Vial) 10 units SQ HS [facility] Last Admin: 10/10/19 22:52 Dose: 10 units Documented by: Methylprednisolone Sodium Succinate (Solu-Medrol -) 30 mg IVPUSH DAILY [facility] Pantoprazole Sodium (Protonix Iv) 40 mg IVPUSH DAILY [facility] Last Admin: 10/11/19 09:52 Dose: 40 mg Documented by: Pramipexole Dihydrochloride (Mirapex -) 0.125 mg PO TID [facility] Last Admin: 10/11/19 05:53 Dose: 0.125 mg Documented by: Zinc Sulfate (Orazinc -) 220 mg PO BID [facility] Last Admin: 10/11/19 09:52 Dose: 220 mg Documented by: ASSESSMENT AND PLAN: Acute Hypoxic Respiratory Failure COVID19 Pneumonia ARDS Septic Shock Left Pneumothorax s/p pigtail catheter placement Subcutaneous Emphysema HTN DM Parkinsons - antibiotics per ID - continue anticoagulation - empiric steroids - trend inflammatory markers - titrate pressors to maintain MAP >65 - titrate FiO2, PEEP to keep SpO2 >90% - low tidal volume ventilation - keep Pplat <30 - monitor urine output, creatinine - chest tube to low wall suction - sedate for vent synchrony - enteral feeds - DVT/GI prophylaxis - continue ICU monitoring - continue discussions regarding goals of care critical care time spent in reviewing chart, evaluating patient and formulating plan 35 min
--- NOTE | 2019-10-11 14:25 | PN ---
Progress Note, Physician History of Present Illness: continues to remain sedated on low dose of pressors - Current Medication List Current Medications: Active Medications Acetaminophen (Tylenol -) 650 mg PO Q4H PRN PRN Reason: PAIN LEVEL 1-5 Ascorbic Acid (Vitamin C -) 500 mg PO BID [facility] Last Admin: 10/11/19 09:52 Dose: 500 mg Documented by: Bacitracin (Bacitracin -) 1 applic TP DAILY [facility] Last Admin: 10/11/19 10:00 Dose: 1 applic Documented by: Carbidopa/Levodopa (Sinemet 25/250 -) 1 each PO BID [facility] Last Admin: 10/11/19 09:52 Dose: 1 each Documented by: Chlorhexidine Gluconate (Hibiclens For Decolonization -) 1 applic TP HS [facility] Last Admin: 10/10/19 21:45 Dose: 1 applic Documented by: Cholecalciferol (Vitamin D3 -) 1,000 unit PO DAILY [facility] Last Admin: 10/11/19 09:52 Dose: 1,000 unit Documented by: Piperacillin Sod/Tazobactam (Sod 3.375 gm/ Dextrose) 50 mls @ 100 mls/hr IVPB Q8H-IV [facility]; Protocol Last Admin: 10/11/19 09:50 Dose: 100 mls/hr Documented by: Propofol (Diprivan -) 1,000,000 mcg in 100 mls @ 3.47 mls/hr IVPB TITR [facility]; Protocol Last Admin: 10/11/19 11:55 Dose: 35 mcg/kg/min, 12.145 mls/hr Documented by: Fentanyl (Sublimaze Ivpb) 500 mcg in 100 mls @ 10 mls/hr IVPB TITR [facility] Last Admin: 10/11/19 12:33 Dose: 75 mcg/hr, 15 mls/hr Documented by: Metronidazole (Flagyl 500mg Premixed Ivpb -) 500 mg in 100 mls @ 100 mls/hr IVPB Q8H-IV [facility] Last Admin: 10/11/19 09:51 Dose: 100 mls/hr Documented by: Norepinephrine Bitartrate (Levophed Bag) 8,000 mcg in 500 mls @ 18.75 mls/hr IVPB TITR [facility]; Protocol Last Admin: 10/10/19 21:10 Dose: 1.5 mcg/min, 5.625 mls/hr Documented by: Insulin Aspart (Novolog Vial Sliding Scale -) 1 vial SQ ACHS [facility]; Protocol Last Admin: 10/11/19 11:56 Dose: 4 units Documented by: Insulin Detemir (Levemir Vial) 10 units SQ HS [facility] Last Admin: 10/10/19 22:52 Dose: 10 units Documented by: Methylprednisolone Sodium Succinate (Solu-Medrol -) 30 mg IVPUSH DAILY [facility] Pantoprazole Sodium (Protonix Iv) 40 mg IVPUSH DAILY [facility] Last Admin: 10/11/19 09:52 Dose: 40 mg Documented by: Pramipexole Dihydrochloride (Mirapex -) 0.125 mg PO TID [facility] Last Admin: 10/11/19 13:51 Dose: 0.125 mg Documented by: Zinc Sulfate (Orazinc -) 220 mg PO BID [facility] Last Admin: 10/11/19 09:52 Dose: 220 mg Documented by: - Objective Vital Signs: Vital Signs Temperature 98.2 F 10/11/19 14:00 Pulse Rate 64 10/11/19 14:00 Respiratory Rate 28 H 10/11/19 14:00 Blood Pressure 145/69 10/11/19 14:00 O2 Sat by Pulse Oximetry (%) 96 10/11/19 14:00 Constitutional: Yes: Other Cardiovascular: Yes: S1, S2 Respiratory: Yes: Intubated, Mechanically Ventilated, Other (chest tube in place) Gastrointestinal: Yes: Normal Bowel Sounds, Soft Genitourinary: Yes: Simmons Present Musculoskeletal: Yes: WNL Extremities: Yes: WNL Edema: LLE: 1+, RLE: 1+ Labs: CBC, BMP 10/11/19 05:00 10/11/19 05:00 INR, PTT INR 1.24 (0.83-1.09) H 10/10/19 12:15 - ....Imaging Chest X-ray: Report Reviewed, Image Reviewed Assessment/Plan Problem List - Problems (1) HTN (hypertension) Code(s): I10 - ESSENTIAL (PRIMARY) HYPERTENSION (2) Diabetes Code(s): E11.9 - TYPE 2 DIABETES MELLITUS WITHOUT COMPLICATIONS (3) Parkinson disease Code(s): G20 - PARKINSON'S DISEASE (4) Pneumonia Code(s): J18.9 - PNEUMONIA, UNSPECIFIED ORGANISM leukocytosis pneumothorax ASSESSMENT/PLAN: Acute Respiratory Failure HTN DM Parkinsons r/o covid plan continue abx monitor wbc chest tube care weaning trials continue as per icu will stop flagyl cc 38 min
--- NOTE | 2019-10-11 18:08 | PN ---
Physical Exam: SUBJECTIVE: Patient seen and examined OBJECTIVE: Vital Signs Period Temp Pulse Resp BP Sys/Cedillo Pulse Ox Last 24 Hr 98.2 F-98.6 F 56-87 22-28 89-193/55-75 96-100 GENERAL: The patient is awake, alert, and fully oriented, in no acute distress. HEAD: Normal with no signs of trauma. EYES: PERRL, extraocular movements intact, sclera anicteric, conjunctiva clear. No ptosis. ENT: Ears normal, nares patent, oropharynx clear without exudates, moist mucous membranes. NECK: Trachea midline, full range of motion, supple. LUNGS: Breath sounds equal, clear to auscultation bilaterally, no wheezes, no crackles, no accessory muscle use. HEART: Regular rate and rhythm, S1, S2 without murmur, rub or gallop. ABDOMEN: Soft, nontender, nondistended, normoactive bowel sounds, no guarding, no rebound, no hepatosplenomegaly, no masses. EXTREMITIES: 2+ pulses, warm, well-perfused, no edema. NEUROLOGICAL: Cranial nerves II through XII grossly intact. Normal speech, gait not observed. PSYCH: Normal mood, normal affect. SKIN: Warm, dry, normal turgor, no rashes or lesions noted Laboratory Results - last 24 hr 10/10/19 10/11/19 10/11/19 21:19 05:00 05:00 WBC 30.5 H* RBC 3.39 L Hgb 9.1 L Hct 28.5 L MCV 84.1 MCH 26.8 MCHC 31.9 L RDW 19.8 H Plt Count 354 MPV 8.7 Absolute Neuts (auto) 28.5 H Neutrophils % 93.4 H Neutrophils % (Manual) 89.0 H Band Neutrophils % 0.0 Lymphocytes % 2.8 L Lymphocytes % (Manual) 5.0 L D Monocytes % 3.7 L Monocytes % (Manual) 4 D Eosinophils % 0.0 Eosinophils % (Manual) 0.0 Basophils % 0.1 Basophils % (Manual) 0.0 Myelocytes % (Man) 2 D Promyelocytes % (Man) 0 Blast Cells % (Manual) 0 Nucleated RBC % 0 Metamyelocytes 0 Hypochromia 0 Platelet Estimate Normal Polychromasia 0 Poikilocytosis 0 Anisocytosis 1+ Microcytosis 0 Macrocytosis 1+ D-Dimer Anticoagulation Therapy Puncture Site Patient Temperature ABG pH ABG pCO2 ABG pO2 ABG HCO3 ABG O2 Sat (Measured) ABG O2 Content ABG Base Excess Amador Test Patient On Oxygen O2 Delivery Device Oxygen Flow Rate Vent Mode Vent Rate Mechanical Rate PEEP Pressure Support Vent Sodium 140 Potassium 5.2 H Chloride 104 Carbon Dioxide 33 H Anion Gap 4 L BUN 37.2 H Creatinine 0.7 Est GFR (CKD-EPI)AfAm 99.04 Est GFR (CKD-EPI)NonAf 85.45 POC Glucometer 274 Random Glucose 258 H Calcium 6.9 L* Phosphorus 2.8 Magnesium 2.5 H Ferritin 140.1 Total Bilirubin 0.4 AST 24 ALT 18 Alkaline Phosphatase 136 H LD Total 401 H C-Reactive Protein 0.5 H Total Protein 4.4 L Albumin 1.4 L 10/11/19 10/11/19 10/11/19 05:00 06:00 06:05 WBC RBC Hgb Hct MCV MCH MCHC RDW Plt Count MPV Absolute Neuts (auto) Neutrophils % Neutrophils % (Manual) Band Neutrophils % Lymphocytes % Lymphocytes % (Manual) Monocytes % Monocytes % (Manual) Eosinophils % Eosinophils % (Manual) Basophils % Basophils % (Manual) Myelocytes % (Man) Promyelocytes % (Man) Blast Cells % (Manual) Nucleated RBC % Metamyelocytes Hypochromia Platelet Estimate Polychromasia Poikilocytosis Anisocytosis Microcytosis Macrocytosis D-Dimer 592 H Anticoagulation Therapy No Result Required. Puncture Site Right radial Patient Temperature No Result Required. ABG pH 7.461 H ABG pCO2 42.30 ABG pO2 66.2 L ABG HCO3 29.5 H ABG O2 Sat (Measured) 94.0 L ABG O2 Content No Result Required. ABG Base Excess 5.2 H Amador Test Positive Patient On Oxygen Yes O2 Delivery Device Vent Oxygen Flow Rate 50% Vent Mode A/c Vent Rate 26 Mechanical Rate Vent PEEP 8.0 Pressure Support Vent 360 Sodium Potassium Chloride Carbon Dioxide Anion Gap BUN Creatinine Est GFR (CKD-EPI)AfAm Est GFR (CKD-EPI)NonAf POC Glucometer 267 Random Glucose Calcium Phosphorus Magnesium Ferritin Total Bilirubin AST ALT Alkaline Phosphatase LD Total C-Reactive Protein Total Protein Albumin 10/11/19 10/11/19 11:49 17:02 WBC RBC Hgb Hct MCV MCH MCHC RDW Plt Count MPV Absolute Neuts (auto) Neutrophils % Neutrophils % (Manual) Band Neutrophils % Lymphocytes % Lymphocytes % (Manual) Monocytes % Monocytes % (Manual) Eosinophils % Eosinophils % (Manual) Basophils % Basophils % (Manual) Myelocytes % (Man) Promyelocytes % (Man) Blast Cells % (Manual) Nucleated RBC % Metamyelocytes Hypochromia Platelet Estimate Polychromasia Poikilocytosis Anisocytosis Microcytosis Macrocytosis D-Dimer Anticoagulation Therapy Puncture Site Patient Temperature ABG pH ABG pCO2 ABG pO2 ABG HCO3 ABG O2 Sat (Measured) ABG O2 Content ABG Base Excess Amador Test Patient On Oxygen O2 Delivery Device Oxygen Flow Rate Vent Mode Vent Rate Mechanical Rate PEEP Pressure Support Vent Sodium Potassium Chloride Carbon Dioxide Anion Gap BUN Creatinine Est GFR (CKD-EPI)AfAm Est GFR (CKD-EPI)NonAf POC Glucometer 247 239 Random Glucose Calcium Phosphorus Magnesium Ferritin Total Bilirubin AST ALT Alkaline Phosphatase LD Total C-Reactive Protein Total Protein Albumin Active Medications Generic Name Dose Route Start Last Admin Trade Name Freq PRN Reason Stop Dose Admin Acetaminophen 650 mg 09/27/19 17:45 Tylenol - PO Q4H PRN PAIN LEVEL 1-5 Ascorbic Acid 500 mg 09/28/19 22:00 10/11/19 09:52 Vitamin C - PO 500 mg BID [facility] Administration Bacitracin 1 applic 10/07/19 11:15 10/11/19 10:00 Bacitracin - TP 1 applic DAILY [facility] Administration Carbidopa/Levodopa 1 each 09/27/19 22:00 10/11/19 09:52 Sinemet 25/250 - PO 1 each BID [facility] Administration Chlorhexidine Gluconate 1 applic 09/30/19 22:00 10/10/19 21:45 Hibiclens For Decolonization - TP 1 applic HS [facility] Administration Cholecalciferol 1,000 unit 09/28/19 11:30 10/11/19 09:52 Vitamin D3 - PO 1,000 unit DAILY [facility] Administration Piperacillin Sod/Tazobactam 50 mls @ 100 mls/hr 09/28/19 18:00 10/11/19 17:49 Sod 3.375 gm/ Dextrose IVPB 100 mls/hr Q8H-IV [facility] Administration Protocol Propofol 1,000,000 mcg in 100 mls @ 3.47 mls/hr 09/29/19 09:45 10/11/19 11:55 Diprivan - IVPB 35 mcg/kg/min TITR [facility] 12.145 mls/hr Administration Protocol 10 MCG/KG/MIN Fentanyl 500 mcg in 100 mls @ 10 mls/hr 09/29/19 09:45 10/11/19 12:33 Sublimaze Ivpb IVPB 75 mcg/hr TITR [facility] 15 mls/hr Administration 50 MCG/HR Norepinephrine Bitartrate 8,000 mcg in 500 mls @ 18.75 mls/hr 10/06/19 20:30 10/11/19 17:50 Levophed Bag IVPB 1.5 mcg/min TITR [facility] 5.625 mls/hr Titration Protocol 5 MCG/MIN Insulin Aspart 1 vial 09/27/19 22:00 10/11/19 17:49 Novolog Vial Sliding Scale - SQ 4 units ACHS [facility] Administration Protocol Insulin Detemir 10 units 10/08/19 22:00 10/10/19 22:52 Levemir Vial SQ 10 units HS [facility] Administration Methylprednisolone Sodium Succinate 30 mg 10/12/19 10:00 Solu-Medrol - IVPUSH DAILY [facility] Pantoprazole Sodium 40 mg 10/02/19 10:00 10/11/19 09:52 Protonix Iv IVPUSH 40 mg DAILY [facility] Administration Pramipexole Dihydrochloride 0.125 mg 09/27/19 22:00 10/11/19 13:51 Mirapex - PO 0.125 mg TID [facility] Administration Zinc Sulfate 220 mg 09/28/19 22:00 10/11/19 09:52 Orazinc - PO 220 mg BID [facility] Administration ASSESSMENT/PLAN: ATTENDING PHYSICIAN STATEMENT I saw and evaluated the patient. I reviewed the resident's note and discussed the case with the resident. I agree with the resident's findings and plan as documented. SUBJECTIVE: OBJECTIVE: ASSESSMENT AND PLAN:
[2019-10-11] MEDS ORDERED: INSULIN REGULAR HUMAN 100 UNITS/ML *VIAL IVPUSH ONE (20:53)
[2019-10-11] MEDS: NOREPINEPHRINE BITARTRATE 8,000 MCG/500 ML BAG IVPB SCH (21:28)
[2019-10-11] MEDS: CHLORHEXIDINE GLUCONATE 4% CLEANSER FOR DECOLONIZATION TP SCH (21:30)
[2019-10-11] MEDS: INSULIN (LEVEMIR) 100 UNITS/ML UNITS SQ SCH (21:31)
[2019-10-12] MEDS: PROPOFOL 1,000,000 MCG/100 ML VIAL IVPB SCH ×2 (02:00→10:02)
[2019-10-12] MEDS: FENTANYL IVPB 500 MCG/100 ML BAG IVPB SCH ×3 (02:04→10:02)
[2019-10-12] MEDS ORDERED: PIPERACILLIN/TAZOBACTAM 3.375 GM VIAL IVPB ONE (02:36)
[2019-10-12] MEDS ORDERED: DEXTROSE 5%-WATER - 50 ML IVPB ONE (02:36)
[2019-10-12] MEDS: PIPERACILLIN/TAZOB 3.375 GM 3.375 GM in DEXTROSE 5%-WATER - 50 ML IVPB SCH ×2 (02:50→10:04)
[2019-10-12] MEDS ORDERED: PT OWN MED DRAWER 7, Y5N ONE (06:26)
[2019-10-12 06:27] LABS: ARTERIAL BLD GAS O2 SATURATION 98.1 mmHg (95-98); ARTERIAL BLOOD GAS BASE EXCESS 6.2 mmol/L (-2-2); ARTERIAL BLOOD GAS PO2 109.8 mmHg (80-100); ARTERIAL BLOOD GAS pH 7.429 (7.350-7.450)
[2019-10-12] MEDS: PRAMIPEXOLE DIHYDROCHLORIDE 0.125 MG TABLET PO SCH ×3 (06:29→21:41)
[2019-10-12] MEDS: INSULIN SLIDING SCALE (NOVOLOG) 1 VIAL SQ SCH ×4 (06:30→21:42)
[2019-10-12 07:13] LABS: ALLENS TEST POSITIVE; VENT MODE A/C
[2019-10-12 07:14] LABS: VENT RATE 26
[2019-10-12 08:08] LABS: HEMATOCRIT 27.7 % (35.4-49); HEMOGLOBIN 8.8 GM/dL (11.7-16.9); MCHC 31.8 g/dl (32.0-35.9); MEAN CELL VOLUME 84.8 fl (80-96); MEAN PLT VOLUME 8.9 fl (7.5-11.1); PLATELET COUNT 346 K/MM3 (134-434); RBC 3.27 M/mm3 (4.00-5.60); RDW 19.9 % (11.9-15.9)
[2019-10-12 08:13] LABS: ALBUMIN 1.4 g/dl (3.4-5.0); BILIRUBIN,TOTAL 0.5 mg/dL (0.2-1); BLOOD UREA NITROGEN 38.1 mg/dL (7-18); CREATININE 0.6 mg/dL (0.55-1.3); MAGNESIUM 2.7 mg/dL (1.8-2.4); PHOSPHOROUS 2.7 mg/dL (2.5-4.9); POTASSIUM 5.4 mmol/L (3.5-5.1); TOT PROT 4.2 g/dl (6.4-8.2)
[2019-10-12 08:30] LABS: CALCIUM 6.9 mg/dL (8.5-10.1)
--- NOTE | 2019-10-12 08:47 | PN ---
Progress Note, Physician History of Present Illness: Compassionate extubation. - Current Medication List Current Medications: Active Medications Acetaminophen (Tylenol -) 650 mg PO Q4H PRN PRN Reason: PAIN LEVEL 1-5 Ascorbic Acid (Vitamin C -) 500 mg PO BID [facility] Last Admin: 10/11/19 21:33 Dose: 500 mg Documented by: Bacitracin (Bacitracin -) 1 applic TP DAILY [facility] Last Admin: 10/11/19 10:00 Dose: 1 applic Documented by: Carbidopa/Levodopa (Sinemet 25/250 -) 1 each PO BID [facility] Last Admin: 10/11/19 21:33 Dose: 1 each Documented by: Chlorhexidine Gluconate (Hibiclens For Decolonization -) 1 applic TP HS [facility] Last Admin: 10/11/19 21:30 Dose: 1 applic Documented by: Cholecalciferol (Vitamin D3 -) 1,000 unit PO DAILY [facility] Last Admin: 10/11/19 09:52 Dose: 1,000 unit Documented by: Piperacillin Sod/Tazobactam (Sod 3.375 gm/ Dextrose) 50 mls @ 100 mls/hr IVPB Q8H-IV [facility]; Protocol Last Admin: 10/12/19 02:50 Dose: 100 mls/hr Documented by: Propofol (Diprivan -) 1,000,000 mcg in 100 mls @ 3.47 mls/hr IVPB TITR [facility]; Protocol Last Admin: 10/12/19 02:00 Dose: 35 mcg/kg/min, 12.145 mls/hr Documented by: Fentanyl (Sublimaze Ivpb) 500 mcg in 100 mls @ 10 mls/hr IVPB TITR [facility] Last Admin: 10/12/19 02:04 Dose: 75 mcg/hr, 15 mls/hr Documented by: Norepinephrine Bitartrate (Levophed Bag) 8,000 mcg in 500 mls @ 18.75 mls/hr IVPB TITR [facility]; Protocol Last Admin: 10/11/19 21:28 Dose: 0.4 mcg/min, 1.5 mls/hr Documented by: Insulin Aspart (Novolog Vial Sliding Scale -) 1 vial SQ [facility]; Protocol Last Admin: 10/12/19 06:30 Dose: 4 units Documented by: Insulin Detemir (Levemir Vial) 10 units SQ [facility] Last Admin: 10/11/19 21:31 Dose: 10 units Documented by: Methylprednisolone Sodium Succinate (Solu-Medrol -) 30 mg IVPUSH DAILY [facility] Pantoprazole Sodium (Protonix Iv) 40 mg IVPUSH DAILY [facility] Last Admin: 10/11/19 09:52 Dose: 40 mg Documented by: Pramipexole Dihydrochloride (Mirapex -) 0.125 mg PO TID [facility] Last Admin: 10/12/19 06:29 Dose: 0.125 mg Documented by: Zinc Sulfate (Orazinc -) 220 mg PO BID [facility] Last Admin: 10/11/19 21:33 Dose: 220 mg Documented by: - Objective Vital Signs: Vital Signs Temperature 97.8 F 10/12/19 06:00 Pulse Rate 56 L 10/12/19 06:00 Respiratory Rate 30 H 10/12/19 06:00 Blood Pressure 118/64 10/12/19 06:00 O2 Sat by Pulse Oximetry (%) 98 10/12/19 06:00 Constitutional: Yes: Other (Sedated and intubated) Respiratory: Yes: Rhonchi, Other (Left chest tube) Gastrointestinal: Yes: Normal Bowel Sounds, Soft Genitourinary: Yes: Simmons Present Edema: Yes Labs: CBC, BMP 10/12/19 05:00 10/12/19 05:00 INR, PTT INR 1.24 (0.83-1.09) H 10/10/19 12:15 - ....Imaging Chest X-ray: Report Reviewed (Bilateral infiltrates, left effusion, left chest tube) Problem List - Problems (1) ARDS (adult respiratory distress syndrome) Code(s): J80 - ACUTE RESPIRATORY DISTRESS SYNDROME (2) Acute respiratory failure with hypoxia Code(s): J96.01 - ACUTE RESPIRATORY FAILURE WITH HYPOXIA (3) COVID-19 virus IgG antibody detected Code(s): Z01.84 - ENCOUNTER FOR ANTIBODY RESPONSE EXAMINATION (4) Diabetes Code(s): E11.9 - TYPE 2 DIABETES MELLITUS WITHOUT COMPLICATIONS Qualifiers: Diabetes mellitus type: type 2 Diabetes mellitus intermediate card tender insulin use: without half-way use (5) HTN (hypertension) Code(s): I10 - ESSENTIAL (PRIMARY) HYPERTENSION Qualifiers: Hypertension type: essential hypertension Qualified Code(s): I10 - Essential (primary) hypertension (6) Parkinson disease Code(s): G20 - PARKINSON'S DISEASE (7) Pneumonitis Code(s): J18.9 - PNEUMONIA, UNSPECIFIED ORGANISM (8) Pneumothorax Code(s): J93.9 - PNEUMOTHORAX, UNSPECIFIED Qualifiers: Pneumothorax type: unspecified pneumothorax Qualified Code(s): J93.9 - Pneumothorax, unspecified (9) Septic shock Code(s): A41.9 - SEPSIS, UNSPECIFIED ORGANISM; R65.21 - SEVERE SEPSIS WITH SEPTIC SHOCK Assessment/Plan 1. Acute hypoxic respiratory failure/sepsis syndrome/septic shock post compassionate extubation 2. Coronavirus/COVID 19 pneumonitis with adult respiratory distress syndrome and leukocytosis 3. Coronary artery disease angina pectoris 4. Diastolic left ventricular dysfunction with clinical class 0 [place] [employer] classification of ventricular failure 5. Hypertensive cardiovascular disease 6. Diabetes mellitus 7. Pneumothorax and Subcutaneous Emphysema with Lt chest tube 8. Parkinson's disease 9. Prerenal azotemia improving 10. Anemia 1. For comfort measures 2. Titrate morphine gtt to RR <20 3. Ativan PRN
[2019-10-12] MEDS ORDERED: methylPREDNISolone NA SUCC 40 MG/1 ML VIAL IVPUSH SCH (10:00)
[2019-10-12] MEDS: BACITRACIN 15 GM TUBE TOPICAL OINTMENT TP SCH (10:02)
[2019-10-12] MEDS: ZINC SULFATE 220 MG CAPSULE (FP) PO SCH ×2 (10:03→21:42)
[2019-10-12] MEDS: CARBIDOPA/LEVODOPA 25/250 TABLET (FP) PO SCH ×2 (10:03→21:43)
[2019-10-12] MEDS: PANTOPRAZOLE SODIUM 40 MG VIAL IVPUSH SCH (10:03)
[2019-10-12] MEDS: CHOLECALCIFEROL (VIT D3) 1,000 UNIT (25 MCG) TABLET PO SCH (10:03)
[2019-10-12] MEDS: ASCORBIC ACID 500 MG TABLET (FP) PO SCH ×2 (10:03→21:43)
[2019-10-12] MEDS ORDERED: morphine SULFATE 4 MG/ML VIAL IVPUSH ONE (11:01)
[2019-10-12] MEDS ORDERED: morphine SULFATE 4 MG/ML VIAL ONE (11:04)
[2019-10-12] MEDS: MORPHINE SULFATE/0.9% NACL/PF 100 MG/100 ML BAG IVPB SCH ×2 (11:24)
[2019-10-12] MEDS ORDERED: LORazepam 2 MG/ML SDV VIAL ONE (11:29)
[2019-10-12] MEDS ORDERED: LORazepam 2 MG/ML SDV VIAL IVPUSH ONE (11:31)
--- NOTE | 2019-10-12 11:56 | PN ---
Teaching Attending Note Name of Resident: Javi Lopez ATTENDING PHYSICIAN STATEMENT I saw and evaluated the patient. I reviewed the resident's note and discussed the case with the resident. I agree with the resident's findings and plan as documented. SUBJECTIVE: Pt seen and examined in the ICU. Remains intubated, sedated low dose on levophed gtt. Vented on volume assist control with 50% FiO2. Pplat 34. Family has decided on comfort measures and compassionate extubation. OBJECTIVE: Vital Signs Period Temp Pulse Resp BP Sys/Cedillo Pulse Ox Last 24 Hr 97.5 F-98.7 F 46-82 20-30 107-148/52-75 96-100 Intake & Output 10/09/19 10/10/19 10/11/19 10/12/19 23:59 23:59 23:59 23:59 Intake Total 2913 1142.8 2050.2 1304 Output Total 2070 1170 1162 900 Balance 843 -27.2 888.2 404 Weight 65.091 kg 70.171 kg 67.721 kg 70.035 kg Gen: intubated, sedated Heart: RRR Lung: scattered rhonchi Abd: soft, nontender Ext: + edema Chest tube with no air leak CBC, BMP 10/12/19 05:00 10/12/19 05:00 Active Medications Acetaminophen (Tylenol -) 650 mg PO Q4H PRN PRN Reason: PAIN LEVEL 1-5 Ascorbic Acid (Vitamin C -) 500 mg PO BID [facility] Last Admin: 10/12/19 10:03 Dose: Not Given Documented by: Bacitracin (Bacitracin -) 1 applic TP DAILY [facility] Last Admin: 10/12/19 10:02 Dose: Not Given Documented by: Carbidopa/Levodopa (Sinemet 25/250 -) 1 each PO BID [facility] Last Admin: 10/12/19 10:03 Dose: Not Given Documented by: Chlorhexidine Gluconate (Hibiclens For Decolonization -) 1 applic TP HS [facility] Last Admin: 10/11/19 21:30 Dose: 1 applic Documented by: Cholecalciferol (Vitamin D3 -) 1,000 unit PO DAILY [facility] Last Admin: 10/12/19 10:03 Dose: Not Given Documented by: Morphine Sulfate (Morphine 100mg/100ml-0.9% Nacl) 100 mg in 100 mls @ 4 mls/hr IVPB TITR [facility]; Protocol Stop: 10/13/19 11:14 Last Infusion: 10/12/19 11:31 Dose: 6 mg/hr, 6 mls/hr Documented by: Insulin Aspart (Novolog Vial Sliding Scale -) 1 vial SQ ACHS [facility]; Protocol Last Admin: 10/12/19 11:21 Dose: Not Given Documented by: Insulin Detemir (Levemir Vial) 10 units SQ HS [facility] Last Admin: 10/11/19 21:31 Dose: 10 units Documented by: Methylprednisolone Sodium Succinate (Solu-Medrol -) 30 mg IVPUSH DAILY [facility] Last Admin: 10/12/19 10:03 Dose: Not Given Documented by: Pantoprazole Sodium (Protonix Iv) 40 mg IVPUSH DAILY [facility] Last Admin: 10/12/19 10:03 Dose: Not Given Documented by: Pramipexole Dihydrochloride (Mirapex -) 0.125 mg PO TID [facility] Last Admin: 10/12/19 06:29 Dose: 0.125 mg Documented by: Zinc Sulfate (Orazinc -) 220 mg PO BID [facility] Last Admin: 10/12/19 10:03 Dose: Not Given Documented by: ASSESSMENT AND PLAN: Acute Hypoxic Respiratory Failure COVID19 Pneumonia ARDS Septic Shock Left Pneumothorax s/p pigtail catheter placement Subcutaneous Emphysema HTN DM Parkinsons - for comfort measures - titrate morphine gtt to RR <20 - ativan PRN
[2019-10-12 13:12] VITALS: TEMP 98.3
--- NOTE | 2019-10-12 14:09 | PN ---
Progress Note, Physician History of Present Illness: patient compassionately extubated - Current Medication List Current Medications: Active Medications Acetaminophen (Tylenol -) 650 mg PO Q4H PRN PRN Reason: PAIN LEVEL 1-5 Ascorbic Acid (Vitamin C -) 500 mg PO BID [facility] Last Admin: 10/12/19 10:03 Dose: Not Given Documented by: Bacitracin (Bacitracin -) 1 applic TP DAILY [facility] Last Admin: 10/12/19 10:02 Dose: Not Given Documented by: Carbidopa/Levodopa (Sinemet 25/250 -) 1 each PO BID [facility] Last Admin: 10/12/19 10:03 Dose: Not Given Documented by: Chlorhexidine Gluconate (Hibiclens For Decolonization -) 1 applic TP HS [facility] Last Admin: 10/11/19 21:30 Dose: 1 applic Documented by: Cholecalciferol (Vitamin D3 -) 1,000 unit PO DAILY [facility] Last Admin: 10/12/19 10:03 Dose: Not Given Documented by: Morphine Sulfate (Morphine 100mg/100ml-0.9% Nacl) 100 mg in 100 mls @ 4 mls/hr IVPB TITR [facility]; Protocol Stop: 10/13/19 11:14 Last Infusion: 10/12/19 11:31 Dose: 6 mg/hr, 6 mls/hr Documented by: Insulin Aspart (Novolog Vial Sliding Scale -) 1 vial SQ [facility]; Protocol Last Admin: 10/12/19 11:21 Dose: Not Given Documented by: Insulin Detemir (Levemir Vial) 10 units SQ [facility] Last Admin: 10/11/19 21:31 Dose: 10 units Documented by: Methylprednisolone Sodium Succinate (Solu-Medrol -) 30 mg IVPUSH DAILY [facility] Last Admin: 10/12/19 10:03 Dose: Not Given Documented by: Pantoprazole Sodium (Protonix Iv) 40 mg IVPUSH DAILY [facility] Last Admin: 10/12/19 10:03 Dose: Not Given Documented by: Pramipexole Dihydrochloride (Mirapex -) 0.125 mg PO TID [facility] Last Admin: 10/12/19 13:07 Dose: Not Given Documented by: Zinc Sulfate (Orazinc -) 220 mg PO BID [facility] Last Admin: 10/12/19 10:03 Dose: Not Given Documented by: - Objective Vital Signs: Vital Signs Temperature 98.3 F 09/04/20 13:11 Pulse Rate 54 L 10/12/19 13:11 Respiratory Rate 26 H 10/12/19 13:11 Blood Pressure 112/47 L 10/12/19 12:00 O2 Sat by Pulse Oximetry (%) 99 10/12/19 12:00 Labs: CBC, BMP 10/12/19 05:00 10/12/19 05:00 INR, PTT INR 1.24 (0.83-1.09) H 10/10/19 12:15
[2019-10-12 17:24] VITALS: BP 77/28; PULSE 90
--- NOTE | 2019-10-12 18:23 | PN ---
Physical Exam: SUBJECTIVE: Patient seen and examined. Pt was extubated for compassionate weaning. Morphine gtt was started. OBJECTIVE: Vital Signs Period Temp Pulse Resp BP Sys/Cedillo Pulse Ox Last 24 Hr 97.6 F-98.7 F 46-90 24-30 77-148/28-64 96-100 GENERAL: extubated HEENT: Normal with no signs of trauma. PERRL LUNGS: Breath sounds equal, crepitations b/l. no wheezes, no accessory muscle use. HEART: Regular rate and rhythm, S1, S2 without murmur, rub or gallop. ABDOMEN: Soft, nontender, nondistended, normoactive bowel sounds, no guarding, no rebound EXTREMITIES: 2+ pulses, warm, well-perfused, b/l 2+ UE edema. LE edema improved. Laboratory Results - last 24 hr 10/11/19 10/12/19 10/12/19 21:25 05:00 05:00 WBC 28.0 H RBC 3.27 L Hgb 8.8 L Hct 27.7 L MCV 84.8 MCH 27.0 MCHC 31.8 L RDW 19.9 H Plt Count 346 MPV 8.9 D-Dimer Anticoagulation Therapy Puncture Site Patient Temperature ABG pH ABG pCO2 ABG pO2 ABG HCO3 ABG O2 Sat (Measured) ABG O2 Content ABG Base Excess Amador Test Patient On Oxygen O2 Delivery Device Oxygen Flow Rate Vent Mode Vent Rate Mechanical Rate PEEP Pressure Support Vent Sodium 139 Potassium 5.4 H Chloride 102 Carbon Dioxide 34 H Anion Gap 3 L BUN 38.1 H Creatinine 0.6 Est GFR (CKD-EPI)AfAm 105.52 Est GFR (CKD-EPI)NonAf 91.04 POC Glucometer 306 Random Glucose 278 H Calcium 6.9 L* Phosphorus 2.7 Magnesium 2.7 H Ferritin Total Bilirubin 0.5 AST 29 ALT 18 Alkaline Phosphatase 147 H C-Reactive Protein Total Protein 4.2 L Albumin 1.4 L 10/12/19 10/12/19 10/12/19 05:00 05:00 05:57 WBC RBC Hgb Hct MCV MCH MCHC RDW Plt Count MPV D-Dimer 851 H Anticoagulation Therapy No Result Required. Puncture Site Right radial Patient Temperature No Result Required. ABG pH 7.429 ABG pCO2 48.50 H ABG pO2 109.8 H ABG HCO3 31.4 H ABG O2 Sat (Measured) 98.1 H ABG O2 Content No Result Required. ABG Base Excess 6.2 H Amador Test Positive Patient On Oxygen Yes O2 Delivery Device Avea Oxygen Flow Rate 50% Vent Mode A/c Vent Rate 26 Mechanical Rate Avea PEEP 8.0 Pressure Support Vent 360 Sodium Potassium Chloride Carbon Dioxide Anion Gap BUN Creatinine Est GFR (CKD-EPI)AfAm Est GFR (CKD-EPI)NonAf POC Glucometer Random Glucose Calcium Phosphorus Magnesium Ferritin 127.7 Total Bilirubin AST ALT Alkaline Phosphatase C-Reactive Protein 0.3 Total Protein Albumin 10/12/19 06:21 WBC RBC Hgb Hct MCV MCH MCHC RDW Plt Count MPV D-Dimer Anticoagulation Therapy Puncture Site Patient Temperature ABG pH ABG pCO2 ABG pO2 ABG HCO3 ABG O2 Sat (Measured) ABG O2 Content ABG Base Excess Amador Test Patient On Oxygen O2 Delivery Device Oxygen Flow Rate Vent Mode Vent Rate Mechanical Rate PEEP Pressure Support Vent Sodium Potassium Chloride Carbon Dioxide Anion Gap BUN Creatinine Est GFR (CKD-EPI)AfAm Est GFR (CKD-EPI)NonAf POC Glucometer 249 Random Glucose Calcium Phosphorus Magnesium Ferritin Total Bilirubin AST ALT Alkaline Phosphatase C-Reactive Protein Total Protein Albumin Active Medications Generic Name Dose Route Start Last Admin Trade Name Freq PRN Reason Stop Dose Admin Acetaminophen 650 mg 09/27/19 17:45 Tylenol - PO Q4H PRN PAIN LEVEL 1-5 Ascorbic Acid 500 mg 09/28/19 22:00 10/12/19 10:03 Vitamin C - PO Not Given BID [facility] Bacitracin 1 applic 10/07/19 11:15 10/12/19 10:02 Bacitracin - TP Not Given DAILY [facility] Carbidopa/Levodopa 1 each 09/27/19 22:00 10/12/19 10:03 Sinemet 25/250 - PO Not Given BID [facility] Chlorhexidine Gluconate 1 applic 09/30/19 22:00 10/11/19 21:30 Hibiclens For Decolonization - TP 1 applic HS [facility] Administration Cholecalciferol 1,000 unit 09/28/19 11:30 10/12/19 10:03 Vitamin D3 - PO Not Given DAILY [facility] Morphine Sulfate 100 mg in 100 mls @ 4 mls/hr 10/12/19 11:15 10/12/19 15:00 Morphine 100mg/100ml-0.9% Nacl IVPB 10/13/19 11:14 10 mg/hr TITR [facility] 10 mls/hr Infusion Protocol 4 MG/HR Insulin Aspart 1 vial 09/27/19 22:00 10/12/19 17:32 Novolog Vial Sliding Scale - SQ Not Given ACHS [facility] Protocol Insulin Detemir 10 units 10/08/19 22:00 10/11/19 21:31 Levemir Vial SQ 10 units HS [facility] Administration Methylprednisolone Sodium Succinate 30 mg 10/12/19 10:00 10/12/19 10:03 Solu-Medrol - IVPUSH Not Given DAILY [facility] Pantoprazole Sodium 40 mg 10/02/19 10:00 10/12/19 10:03 Protonix Iv IVPUSH Not Given DAILY [facility] Pramipexole Dihydrochloride 0.125 mg 09/27/19 22:00 10/12/19 13:07 Mirapex - PO Not Given TID [facility] Zinc Sulfate 220 mg 09/28/19 22:00 10/12/19 10:03 Orazinc - PO Not Given BID [facility] ASSESSMENT/PLAN: 84 YO M PMH HTN, DM, Parkinson's presents with SOB and non-productive cough for 4-5 days. Admitted to ICU for acute hypoxic respiratory failure. Neuro #Acute Metabolic Encephalopathy #Parkinson's disease -compassionate weaning. titrate morphine gtt to RR<20. ativan PRN Pulm #Acute Hypoxic Respiratory Failure 2/2 COVID19 Pneumonia -COVID ([facility]) negative. Ab positive -Chest CT: ground glass infiltrates in Left upper and lower lobes. possible covid pneumonitis #ARDS #Left Pneumothorax, s/p pigtail catheter placement -CXR (10/08): Small pheripheral L pneumothorax #Subcutaneous Emphysema -compassionate weaning. titrate morphine gtt to RR<20. ativan PRN Cardio #Septic Shock 2/2 COVID-19 Pneumonia #CAD #Chronic Diastolic CHF #HTN -compassionate weaning. titrate morphine gtt to RR<20. ativan PRN ID #COVID-19 Pneumonitis #Suspected C. diff Infection -s/p PO Vanc, Zosyn 3.375 gm (started 09/27), IV Flagyl 500 Q8H (started 09/28) Endo #DM Renal #Hyperkalemia: K+ 5.4 2050 I/ 1162 O, 888 Balance LTD -Central line in R IJ (10/07) -L chest tube (09/30) -ETT (09/28) Dispo -compassionate weaning. -DNR Visit type - Emergency Visit Emergency Visit: Yes ED Registration Date: 09/27/19 Care time: The patient presented to the Emergency Department on the above date and was hospitalized for further evaluation of their emergent condition. - New Patient This patient is new to me today: No - Critical Care Critical Care patient: No - Medication Review Med list reviewed for High Risk Meds patients 65 and older: Yes ATTENDING PHYSICIAN STATEMENT I saw and evaluated the patient. I reviewed the resident's note and discussed the case with the resident. I agree with the resident's findings and plan as documented. SUBJECTIVE: OBJECTIVE: ASSESSMENT AND PLAN:
[2019-10-12] MEDS: CHLORHEXIDINE GLUCONATE 4% CLEANSER FOR DECOLONIZATION TP SCH (21:41)
[2019-10-12] MEDS: INSULIN (LEVEMIR) 100 UNITS/ML UNITS SQ SCH (21:41)
--- NOTE | 2019-10-12 23:43 | PN ---
Progress Note (short form) - Note Progress Note: I was Called to patient's bedside by Nursing as patient 's monitor showed asystole. Patient was made comfort care and compassionately extubated today and put on a morphine drip. Upon presentation to bedside, there was no response to verbal and tactile stimuli. Pupils were fixed and dilated, with no corneal reflex. No breath sounds appreciated on bilateral smith. No carotid & radial pulses. No heart sounds over entire precordium. Patient was pronounced at 11:20 PM on 10/12/2019. Family was notified and grievances were provided. [facility] and post-mortem services offered to family.
== END 2019-10-12 23:20 | disposition expired | DRG 870 ==
LOC: JER 13:51 → JERBED 15:36 → JICU 21:36
PROVIDERS: ADMIT Internal Medicine; ATTEND Internal Medicine Pulmonary Disease
PROC: 5A1955Z Respiratory Ventilation, Greater than 96 Consecutive Hours (ICD-10-PCS; principal; 2019-09-29)
PROC: 0BH17EZ Insertion of Endotracheal Airway into Trachea, Via Natural or Artificial Opening (ICD-10-PCS; 2019-09-29)
PROC: 02HV33Z Insertion of Infusion Device into Superior Vena Cava, Percutaneous Approach (ICD-10-PCS; 2019-09-29)
PROC: 0DH67UZ Insertion of Feeding Device into Stomach, Via Natural or Artificial Opening (ICD-10-PCS; 2019-09-29)
PROC: 3E0G76Z Introduction of Nutritional Substance into Upper GI, Via Natural or Artificial Opening (ICD-10-PCS; 2019-09-29)
PROC: 0W9B30Z Drainage of Left Pleural Cavity with Drainage Device, Percutaneous Approach (ICD-10-PCS; 2019-10-01)
DX: A41.89 Other specified sepsis (principal); U07.1 COVID-19; J96.01 Acute respiratory failure with hypoxia; J12.89 Other viral pneumonia; R65.21 Severe sepsis with septic shock; G93.41 Metabolic encephalopathy; T79.7XXA Traumatic subcutaneous emphysema, initial encounter; I50.32 Chronic diastolic (congestive) heart failure; J93.9 Pneumothorax, unspecified; E11.9 Type 2 diabetes mellitus without complications; I10 Essential (primary) hypertension; G20 Parkinson's disease; Z79.84 Long term (current) use of oral hypoglycemic drugs; R00.1 Bradycardia, unspecified; X58.XXXA Exposure to other specified factors, initial encounter; Y93.89 Activity, other specified; Y92.89 Other specified places as the place of occurrence of the external cause; Y99.8 Other external cause status; E87.6 Hypokalemia; I25.10 Atherosclerotic heart disease of native coronary artery without angina pectoris; D64.9 Anemia, unspecified; I11.0 Hypertensive heart disease with heart failure; E87.5 Hyperkalemia
CPT/HCPCS: 31500; 36415; 36600; 71045-TC-FY; 71250-TC; 80048; 80053; 81003; 82550; 82728; 82803; 82962; 83036; 83605; 83615; 83735; 83880; 84100; 84484; 85025; 85027; 85379; 85610; 85651; 85730; 86140; 86769; 86850; 86900; 86901; 87040; 87070; 87086; 87205; 87324; 87449; 87899; 93005; 93010; 94002; 94660; 99285-25; J1100; U0003